=== PATIENT | female | born 1950 | race Caucasian/White ===

== ENCOUNTER → 2016-12-26 | Outpatient (CLI) | payer OTHER, MEDICAID ==
[2016-01-13 08:04] VITALS: BP 138/63
[2016-12-26 08:26] LABS: BASOPHILS # (AUTO) 0.1 X10^3/uL (0.0-0.1); BASOPHILS % (AUTO) 1.1 % (0.2-1.0); EOSINOPHILS # (AUTO) 0.2 x10^3/uL (0.0-0.2); EOSINOPHILS % (AUTO) 2.6 % (0.9-2.9); HEMATOCRIT 32.4 % (36.0-47.0); HEMOGLOBIN 10.7 g/dL (12.0-16.0); LYMPHOCYTES # (AUTO) 2.2 X10^3/uL (1.3-2.9); LYMPHOCYTES % (AUTO) 26.4 % (21.0-51.0); MEAN CORPUSCULAR HEMOGLOBIN 28.9 pg (27.0-34.0); MEAN CORPUSCULAR HGB CONC 32.9 g/dL (33.0-35.0); MEAN CORPUSCULAR VOLUME 87.9 fL (80.0-100.0); MEAN PLATELET VOLUME 8.6 fL (7.4-11.0); MONOCYTES # (AUTO) 0.5 x10^3/uL (0.3-0.8); MONOCYTES % (AUTO) 5.9 % (0.0-13.0); NEUTROPHILS # (AUTO) 5.3 x10^3/uL (2.2-4.8); PLATELET COUNT 214 X10^3/uL (150.0-450.0); RED BLOOD COUNT 3.69 X10^6/uL (3.5-5.4); RED CELL DISTRIBUTION WIDTH 14.3 % (11.6-16.5); WHITE BLOOD COUNT 8.3 X10^3/uL (3.6-10.0)
[2016-12-26 08:39] LABS: BLOOD UREA NITROGEN 22 mg/dL (7-18); CALCIUM 8.9 mg/dL (8.5-10.1); CARBON DIOXIDE 26.5 mmol/L (21-32); CHLORIDE 109 mmol/L (98-107); CHOL/HDL RATIO 4.1 (0.0-5.0); CHOLESTEROL 185 mg/dL (0-200); COR CA(FOR HYPOALB) 9.7 mg/dL (8.5-10.1); CREATININE 1.53 mg/dL (0.55-1.02); GLUCOSE 82 mg/dL (65-99); HDL CHOLESTEROL 45 mg/dL (40-60); SODIUM 146 mmol/L (136-145); TRIGLYCERIDES 162 mg/dL (0-150); URIC ACID 8.3 mg/dL (2.6-6.0); eGFR BLACK RACES 44 (>60); eGFR NON BLACK RACES 36 (>60)
[2016-12-26 15:42] LABS: HEMOGLOBIN A1C 5.5 % (4.5-6.2)
== END ==
LOC: LAB 07:50
PROVIDERS: ATTEND Internal Medicine
DX: I12.9 Hypertensive chronic kidney disease with stage 1 through stage 4 chronic kidney disease, or unspecified chronic kidney disease (principal); N18.3 Chronic kidney disease, stage 3 (moderate); E11.40 Type 2 diabetes mellitus with diabetic neuropathy, unspecified
CPT/HCPCS: 36415; 80061; 80069; 83036; 84550; 85025

== ENCOUNTER → 2017-01-03 | Outpatient (CLI) | payer OTHER, MEDICAID ==
[2016-01-13 08:04] VITALS: BP 138/63
--- NOTE | 2017-01-03 16:32 | MG ---
Examination: Bilateral screening mammogram. Clinical history: Routine screening. Technique: Digital CC and MLO views of both breasts were obtained. Computer aided detection analysis was performed and used during the interpretation. Comparison: None available. Baseline mammogram. Findings: The breasts are heterogeneously dense, reducing the sensitivity of mammography. Benign-appearing charlie cifications are noted in the breasts bilaterally. No suspicious mass, area of architectural distortion or suspicious cluster of microcalcifications is noted. Impression: 1. No mammographic evidence of malignancy. BI-RADS category 2-benign findings. Recommend routine annual screening mammogram. Diagnostic CAD was utilized and reviewed. * 0 (ZERO) - ASSESSMENT INCOMPLETE; ADDITIONAL IMAGING IS NEEDED. * 0C - ASSESSMENT INCOMPLETE, NEEDS ADDITIONAL IMAGING EVALUATION AND/OR PRIOR MAMMOGRAMS FOR COMPAR SRIDEVI. * 1/1 (ONE) - NEGATIVE. * 2/II (TWO) - BENIGN FINDINGS. * 3/III (THREE) - PROBABLY BENIGN FINDING; SHORT INTERVAL FOLLOW-UP SUGGESTED. * 4/IV (FOUR) - SUSPICIOUS ABNORMALITY; BIOPSY SHOULD BE CONSIDERED. * 5/V - HIGHLY SUSPICIOUS OF MALIGNANCY; BIOPSY SHOULD BE PERFORMED. * 6/IV - KNOWN BIOPSY PROVEN MALIGNANCY-APPROPRIATE ACTION SHOULD BE TAKEN. A NEGATIVE X-RAY REPORT SHOULD NOT DELAY BIOPSY IF A DOMINANT OR CLINICALLY SUSPICIOUS MASS IS PRESENT; 4 TO 8 PERCENT OF CANCERS ARE NOT IDENTIFIED BY X-RAY. A NEGATIVE REPORT MAY REINFORCE THE CLINICAL IMPRESSION. ADENOSIS AND DENSE BREASTS MAY OBSCURE AN UNDERLYING NEOPLASM. Reported By:
== END ==
LOC: RAD 09:46
PROVIDERS: ATTEND Obstetrics & Gynecology Obstetrics
DX: Z00.8 Encounter for other general examination (principal); Z12.31 Encounter for screening mammogram for malignant neoplasm of breast
CPT/HCPCS: 77067

== ENCOUNTER → 2017-02-24 | Outpatient (CLI) | payer OTHER, MEDICAID ==
[2016-01-13 08:04] VITALS: BP 138/63
[2017-02-24 12:19] LABS: ALANINE AMINOTRANSFERASE 15 Units/L (12-78); ALKALINE PHOSPHATASE 85 Units/L (46-116); ASPARTATE AMINO TRANSFERASE 12 Units/L (15-37); BASOPHILS # (AUTO) 0.1 X10^3/uL (0.0-0.1); BASOPHILS % (AUTO) 0.4 % (0.2-1.0); BLOOD UREA NITROGEN 39 mg/dL (7-18); CALCIUM 9.5 mg/dL (8.5-10.1); CARBON DIOXIDE 21.2 mmol/L (21-32); CHLORIDE 102 mmol/L (98-107); COR CA(FOR HYPOALB) 10.3 mg/dL (8.5-10.1); CREATININE 2.27 mg/dL (0.55-1.02); EOSINOPHILS % (AUTO) 0.1 % (0.9-2.9); GLUCOSE 84 mg/dL (65-99); HEMATOCRIT 31.8 % (36.0-47.0); HEMOGLOBIN 10.7 g/dL (12.0-16.0); LYMPHOCYTES # (AUTO) 2.1 X10^3/uL (1.3-2.9); LYMPHOCYTES % (AUTO) 14.3 % (21.0-51.0); MEAN CORPUSCULAR HEMOGLOBIN 29.3 pg (27.0-34.0); MEAN CORPUSCULAR HGB CONC 33.8 g/dL (33.0-35.0); MEAN CORPUSCULAR VOLUME 86.8 fL (80.0-100.0); MEAN PLATELET VOLUME 8.9 fL (7.4-11.0); MONOCYTES # (AUTO) 1.2 x10^3/uL (0.3-0.8); MONOCYTES % (AUTO) 8.5 % (0.0-13.0); NEUTROPHILS # (AUTO) 11.1 x10^3/uL (2.2-4.8); NEUTROPHILS % (AUTO) 76.7 % (42.0-75.0); PLATELET COUNT 374 X10^3/uL (150.0-450.0); RED BLOOD COUNT 3.66 X10^6/uL (3.5-5.4); RED CELL DISTRIBUTION WIDTH 14.3 % (11.6-16.5); SODIUM 138 mmol/L (136-145); TOTAL PROTEIN 8.7 g/dL (6.4-8.2); WHITE BLOOD COUNT 14.5 X10^3/uL (3.6-10.0); eGFR BLACK RACES 28 (>60); eGFR NON BLACK RACES 23 (>60)
--- NOTE | 2017-02-24 12:32 | RAD ---
HISTORY: Pleurisy Study: Chest two-view Comparison: January 11, 2016 Findings: The trachea is midline. The cardiac silhouette is markedly enlarged and has increased in size since the prior examination. No congestive heart failure is noted.. The lungs are clear without focal in filtrate or effusion. The bony thorax is unremarkable. IMPRESSION: 1. Cardiomegaly with increasing heart size since the prior examination, no congestive heart failure 2. Lungs clear Reported By:
== END ==
LOC: LAB 11:41
PROVIDERS: ATTEND Obstetrics & Gynecology Obstetrics
DX: R09.1 Pleurisy (principal)
CPT/HCPCS: 36415; 71020; 80053; 85025

== ENCOUNTER 2017-03-15 21:05 | Inpatient (IN) | payer OTHER, MEDICAID ==
[2017-03-15 21:14] VITALS: BMI 35.4
--- NOTE | 2017-03-15 21:34 | DR.GENAD ---
HPI - PCP Primary Care Physician: SAMEERA - Complaint/Symptoms Chief Complaint Doctors Comments: Patient presents with dyspnea for one week. She has a 4 pillow orthopnea and gets SOB walking across the room. She denies a history of heart failure. Chief Complaint:: " I BEEN DEPRESSED AND HAVING TROUBLE BREATHING AND HURTING BETWEEN MY BREAST IN MY CHEST AND I BEEN FALLING THE LAST WEEKS DR BRASHER PUT ME ON SOME MEDICINE I TOOK ALL OF IT AND NOW I FEEL BAD AGAIN." - Source History Provided: Patient - Mode of Arrival Mode of Arrival: Wheelchair - Timing Onset of Chief Complaint: 03/15/17 PMH - PMH Past Medical History: Yes Past Medical History: Diabetes, Hypertension Past Surgical History: Yes Surgical History: Unknown - Family History History of Family Medical Conditions: Yes Family Medical History: Diabetes Mellitus, Coronary Artery Disease, Hypertension - Social History Alcohol Use: None Do you use any recreational Drugs:: No Lives With: Family Lives Where: Home - infectious screening Have you traveled outside the country in the last 6 months?: No ROS - Review of Systems Constitutional: negative: Diaphoresis Eyes: No Symptoms Reported ENTM: No Symptoms Reported Respiratoy: No Symptoms Reported Cardiovascular: No Symptoms Reported Gastrointestinal/Abdominal: No Symptoms Reported Genitourinary: No Symptoms Reported Neurological: No Symptoms Reported Musculoskeletal: No Symptoms Reported Integumentary: No Symptoms Reported Hematologic/Lymphatic: No Symptoms Reported Endocrine: No Symptoms Reported Psychiatric: No Symptoms Reported All Other Systems: Reviewed and Negative PE - Vital Signs Vitals: Temperature 98.4 F Pulse Rate [Left] 93 Pulse Rate 87 Respiratory Rate 20 Blood Pressure [Left Arm] 154/63 Blood Pressure [Right Arm] 140/63 Blood Pressure 132/64 O2 Sat by Pulse Oximetry 95 - General Limitations: No Limitations, Physical Limitation (SOB) General Appearance: Anxious, In Distress (respiratory distress) - Head Head Exam: Normal Inspection, Atraumatic - Eyes Eye exam: Normal Appearance, PERRL - ENT ENT Exam: Normal Exam External Ear Exam: Normal External Inspection TM/Canal Exam: Bilateral Normal Nose Exam: Normal Nose Exam Mouth Exam: Normal Inspection Throat Exam: Normal Inspection - Neck Neck Exam: Normal Inspection - Chest Chest Inspection: Normal Inspection, Symmetric Chest Wall Rise - Respiratory Respiratory Exam: Normal Lung Sounds Bilat Respiratory Exam: Bilateral Clear to Auscultation - Cardiovascular Cardiovascular Exam: Regular Rate, Diastolic Murmur - Abdominal Exam Abdominal Exam: Normal Inspection Abdominal Tenderness: negative: RUQ, RLQ, LUQ, LLQ, Epigastrium, Suprapubic, Diffuse, Mild, Moderate, Severe, Other - Extremities Extremities Exam: Edema (R>L) - Back Back Exam: Normal Inspection - Neurologic Neurological Exam: Alert, Oriented X3, CN II-XII Intact - Psychiatric Psychiatric Exam: Normal Affect, Normal Mood - Skin Skin Exam: Warm, Dry, Erythema (Bilateral lower extremities distally) Course - Treatment Treatment: NTG, Lasix, Oxygen - Reevaluation 1st: Improved ROR - Labs Reviewed Result Diagrams: 03/15/17 21:46 03/15/17 21:46 Laboratory: WBC 10.8 X10^3/uL (3.6-10.0) H 03/15/17 21:46 RBC 3.66 X10^6/uL (3.5-5.4) 03/15/17 21:46 Hgb 10.6 g/dL (12.0-16.0) L 03/15/17 21:46 Hct 31.6 % (36.0-47.0) L 03/15/17 21:46 MCV 86.3 fL (80.0-100.0) 03/15/17 21:46 MCH 28.9 pg (27.0-34.0) 03/15/17 21:46 MCHC 33.5 g/dL (33.0-35.0) 03/15/17 21:46 RDW 14.4 % (11.6-16.5) 03/15/17 21:46 Plt Count 296 X10^3/uL (150.0-450.0) 03/15/17 21:46 MPV 8.2 fL (7.4-11.0) 03/15/17 21:46 Neut % 81.5 % (42.0-75.0) H 03/15/17 21:46 Lymph % 8.6 % (21.0-51.0) L 03/15/17 21:46 [place] % 9.0 % (0.0-13.0) 03/15/17 21:46 Eos % 0.4 % (0.9-2.9) L 03/15/17 21:46 Baso % 0.5 % (0.2-1.0) 03/15/17 21:46 Neut # 8.8 x10^3/uL (2.2-4.8) H 03/15/17 21:46 Lymph # 0.9 X10^3/uL (1.3-2.9) L 03/15/17 21:46 [place] # 1.0 x10^3/uL (0.3-0.8) H 03/15/17 21:46 Eos # 0.0 x10^3/uL (0.0-0.2) 03/15/17 21:46 Baso # 0.1 X10^3/uL (0.0-0.1) 03/15/17 21:46 Absolute Nucleated RBC 0.0 /100WBC 03/15/17 21:46 D-Dimer > 5000 ng/mL (0-400) H* 03/15/17 21:46 Sample Site Rrad 03/15/17 23:25 ABG pH 7.440 (7.35-7.45) 03/15/17 23:25 ABG pCO2 39.0 mmHg (35.0-45.0) 03/15/17 23:25 ABG pO2 78.0 mmHg (80.0-100.0) L 03/15/17 23:25 ABG HCO3 26.5 mmol/L (22-26) H 03/15/17 23:25 ABG O2 Saturation 96.0 % (90-100) 03/15/17 23:25 ABG Base Excess 2.2 mmol/L (-2.0-2.0) H 03/15/17 23:25 Christoph Test Pos 03/15/17 23:25 A-a Gradient 73.0 mmHg 03/15/17 23:25 FiO2 28.000 03/15/17 23:25 Blood Gas Comments Marii well ah 03/15/17 23:25 Sodium 137 mmol/L (136-145) 03/15/17 21:46 Corrected Sodium 140 mmol/L (136-145) 03/15/17 21:46 Potassium 3.9 mmol/L (3.5-5.1) 03/15/17 21:46 Chloride 101 mmol/L (98-107) 03/15/17 21:46 Carbon Dioxide 25.8 mmol/L (21-32) 03/15/17 21:46 BUN 27 mg/dL (7-18) H 03/15/17 21:46 Creatinine 1.60 mg/dL (0.55-1.02) H 03/15/17 21:46 Est GFR (MDRD) Af Amer 42 (>60) L 03/15/17 21:46 Est GFR (MDRD) Non-Af 34 (>60) L 03/15/17 21:46 Glucose 207 mg/dL (65-99) H 03/15/17 21:46 Calcium 9.2 mg/dL (8.5-10.1) 03/15/17 21:46 Corrected Calcium 10.4 mg/dL (8.5-10.1) H 03/15/17 21:46 Total Bilirubin 0.30 mg/dL (0.2-1.0) 03/15/17 21:46 AST 11 Units/L (15-37) L 03/15/17 21:46 ALT 13 Units/L (12-78) 03/15/17 21:46 Alkaline Phosphatase 92 Units/L (46-116) 03/15/17 21:46 Creatine Kinase 27 Units/L (26-192) 03/15/17 21:46 CK-MB (CK-2) < 1.0 ng/mL (0-4.0) 03/15/17 21:46 CK/CKMB % Calc 3.7 % (<4) 03/15/17 21:46 Troponin I < 0.02 ng/mL (0-1.5) 03/15/17 21:46 B-Natriuretic Peptide 92.1 pg/mL (0-79) H 03/15/17 21:46 Total Protein 8.0 g/dL (6.4-8.2) 03/15/17 21:46 Albumin 2.5 g/dL (3.4-5.0) L 03/15/17 21:46 Globulin 5.5 g/dL (2.5-4.5) H 03/15/17 21:46 Albumin/Globulin Ratio 0.5 Ratio (1.1-2.1) L 03/15/17 21:46 - XRAY XRAY Interpreted by: Radiologist (Chest: Findings are most characteristic of changes associated congestive failure. There is cardiomegaly, central vascular congestio, and interstitial edema. There is a right pleural effusion and consolidation in the right lower lobe.) - Diagnosis Discharge Problem: Cardiomegaly w/central vascular congesti, Dyspnea on exertion, Right Pleural Effusion/consolidation, Elevated d-dimer, Dehydration, mild - Discharge Plan Condition: Stable - Follow ups/Referrals Follow ups/Referrals: NFD,None [Primary Care Provider] - 3 days - Instructions
[2017-03-15 21:58] LABS: BASOPHILS # (AUTO) 0.1 X10^3/uL (0.0-0.1); BASOPHILS % (AUTO) 0.5 % (0.2-1.0); EOSINOPHILS % (AUTO) 0.4 % (0.9-2.9); HEMATOCRIT 31.6 % (36.0-47.0); HEMOGLOBIN 10.6 g/dL (12.0-16.0); LYMPHOCYTES # (AUTO) 0.9 X10^3/uL (1.3-2.9); LYMPHOCYTES % (AUTO) 8.6 % (21.0-51.0); MEAN CORPUSCULAR HEMOGLOBIN 28.9 pg (27.0-34.0); MEAN CORPUSCULAR HGB CONC 33.5 g/dL (33.0-35.0); MEAN CORPUSCULAR VOLUME 86.3 fL (80.0-100.0); MEAN PLATELET VOLUME 8.2 fL (7.4-11.0); NEUTROPHILS # (AUTO) 8.8 x10^3/uL (2.2-4.8); NEUTROPHILS % (AUTO) 81.5 % (42.0-75.0); PLATELET COUNT 296 X10^3/uL (150.0-450.0); RED BLOOD COUNT 3.66 X10^6/uL (3.5-5.4); RED CELL DISTRIBUTION WIDTH 14.4 % (11.6-16.5); WHITE BLOOD COUNT 10.8 X10^3/uL (3.6-10.0)
--- NOTE | 2017-03-15 22:05 | RAD ---
EXAM: Chest X-ray INDICATION: Shortness of breath COMPARISION: Prior exam from February 24, 2017 TECHNIQUE: Single view FINDINGS: The heart is severely enlarged and there is central vascular congestion. The interstitial markings a re prominent bilaterally. No pneumothorax . There is consolidation in the right lower lobe and a rig ht pleural effusion . The regional skeleton is intact. IMPRESSION: Findings are most characteristic of changes associated congestive heart failure. There is cardiomega ly, central vascular congestion, and interstitial edema. There is a right pleural effusion and conso lidation the right lower lobe. Reported By:
[2017-03-15 22:09] LABS: ALANINE AMINOTRANSFERASE 13 Units/L (12-78); ALBUMIN 2.5 g/dL (3.4-5.0); ALKALINE PHOSPHATASE 92 Units/L (46-116); ASPARTATE AMINO TRANSFERASE 11 Units/L (15-37); BLOOD UREA NITROGEN 27 mg/dL (7-18); CALCIUM 9.2 mg/dL (8.5-10.1); CARBON DIOXIDE 25.8 mmol/L (21-32); CHLORIDE 101 mmol/L (98-107); COR CA(FOR HYPOALB) 10.4 mg/dL (8.5-10.1); COR NA(FOR HYPERGLY) 140 mmol/L (136-145); GLUCOSE 207 mg/dL (65-99); SODIUM 137 mmol/L (136-145); eGFR BLACK RACES 42 (>60); eGFR NON BLACK RACES 34 (>60)
[2017-03-15 22:33] LABS: D DIMER > 5000 ng/mL (0-400)
[2017-03-15 22:37] LABS: B-TYPE NATRIURETIC PEPTIDE 92.1 pg/mL (0-79)
[2017-03-15 22:55] LABS: CKMB % 3.7 % (<4); CREATINE KINASE 27 Units/L (26-192); CREATINE KINASE MB < 1.0 ng/mL (0-4.0); TROPONIN I < 0.02 ng/mL (0-1.5)
[2017-03-15] MEDS ORDERED: LASIX IVP ONE ×2 (23:32→23:36)
[2017-03-15] MEDS ORDERED: DUONEB 0.5 MG/3 MG NEB ONE (23:33)
[2017-03-15] MEDS ORDERED: NITROSTAT SL ONE (23:34)
[2017-03-15 23:35] LABS: ABG ALLEN TEST POS; ABG BASE EXCESS 2.2 mmol/L (-2.0-2.0); ABG HCO3 26.5 mmol/L (22-26)
[2017-03-15] MEDS ORDERED: DUONEB 0.5 MG/3 MG ONE ×3 (23:39→23:47)
[2017-03-16 00:17] LABS: BILIRUBIN,URINE NEGATIVE (NEGATIVE); BLOOD/HEMOGLOBIN,URINE 2+ (NEGATIVE); GLUCOSE, URINE NEGATIVE (NEGATIVE); KETONES,URINE NEGATIVE (NEGATIVE); LEUKOCYTE ESTERASE ,URINE NEGATIVE (NEGATIVE); NITRITES,URINE NEGATIVE (NEGATIVE); PROTEIN,URINE 3+ (NEGATIVE); UROBILINOGEN,URINE NORMAL (NORMAL)
[2017-03-16 00:30] LABS: APPEARANCE,URINE CLEAR (CLEAR); COLOR,URINE YELLOW (YELLOW)
[2017-03-16 00:31] LABS: BACTERIA,URINE 1+ /HPF (NEGATIVE); SQUAMOUS EPITHELIAL CELL,UR RARE /HPF (NEGATIVE)
[2017-03-16] MEDS: DUONEB 0.5 MG/3 MG NEB SCH ×6 (00:46→20:39)
[2017-03-16] MEDS: NS 1000 ML 1,000 ML IV SCH ×2 (02:26→15:09)
[2017-03-16 05:09] LABS: CALCIUM 8.6 mg/dL (8.5-10.1); CARBON DIOXIDE 27.3 mmol/L (21-32); COR CA(FOR HYPOALB) 10.2 mg/dL (8.5-10.1); CREATININE 1.55 mg/dL (0.55-1.02); TOTAL PROTEIN 6.7 g/dL (6.4-8.2)
[2017-03-16] MEDS ORDERED: MORPHINE SULFATE INJ 2 MG IVP PRN (06:26)
[2017-03-16] MEDS: ULTRAM PO PRN (06:50)
[2017-03-16] MEDS ORDERED: HumuLIN R SUBCUT PRN (08:00)
[2017-03-16] MEDS ORDERED: LASIX IVP SCH (09:00)
[2017-03-16] MEDS ORDERED: PATIENT'S HOME MEDICATION (Glimepiride [Glimepiride 2 Mg] 2 MG) PO SCH (09:45)
[2017-03-16] MEDS ORDERED: LASIX ONE (09:51)
[2017-03-16] MEDS: PriLOSEC PO SCH (09:55)
[2017-03-16] MEDS: CELEXA PO SCH (09:55)
[2017-03-16] MEDS: NEURONTIN CAP 300 MG PO SCH ×3 (09:55→21:50)
[2017-03-16] MEDS: LASIX IVP SCH ×2 (09:56→20:44)
[2017-03-16] MEDS ORDERED: LEVAQUIN PREMIX IV 500 MG 500 MG/100 ML BAG IV ONE (10:00)
[2017-03-16] MEDS ORDERED: LEVAQUIN PREMIX IV 500 MG 500 MG/100 ML BAG IV SCH (10:00)
[2017-03-16] MEDS ORDERED: JANUVIA PO SCH (10:00)
--- NOTE | 2017-03-16 13:28 | DR.H&P ---
Addendum entered and electronically signed by NAVARRO MERCADO 03/16/17 13:42: H&P 03/15/2017 Original Note: H&P - History & Physical for Day of: H&P Date: 03/15/17 - Chief Complaint Chief Complaint: SOB - Allergies Allergies/Adverse Reactions: Allergies Allergy/AdvReac Type Severity Reaction Status Date / Time MS Penicillins [Penicillins] Allergy Verified 01/11/16 18:47 WALNUTS Allergy Uncoded 01/11/16 18:47 - History of Present Illness History of Present Illness: the patient is a 66-year-old white female who was admitted from the ER after presenting with complaints of shortness of breath gradually increased last several days. Patient's chest x-ray revealed of pneumonia as well as CHF exacerbation. Patient was admitted to ICU for IV antibiotics respiratory therapy IV Lasix and further evaluation of acute condition. Plan to hold Actos and resume other home medications blood sugar and blood pressure control - Past Medical History Past Medical History: Arthritis, Diabetes, Hypertension - Past Surgical History Surgical History: Unknown - Family History Family Medical History: Diabetes Mellitus, Coronary Artery Disease, Hypertension - Social History Does patient currently use any type of tobacco product: No Have you used tobacco products in the last 12 months: No Type of Tobacco Use: None Does any household member use tobacco: No Alcohol Use: None Drug Use: None - Medications Home Medications: Citalopram 20 mg Tab [CELEXA 20 MG *] 20 mg PO DAILY 03/16/17 [History Confirmed 03/16/17] Gabapentin [NEURONTIN CAP 300 mg *] 300 mg PO TID 03/16/17 [History Confirmed ] Glimepiride [Glimepiride 2 mg] 2 mg PO DAILY 03/16/17 [History Confirmed ] Omeprazole [Omeprazole] 20 mg PO DAILY 03/16/17 [History Confirmed 03/16/17] Pioglitazone HCl [ACTOS 45 MG *] 45 mg PO DAILY 03/16/17 [History Confirmed ] Simvastatin [Simvastatin] 20 mg PO HS 03/16/17 [History Confirmed 03/16/17] Sitagliptin Phosphate [JANUVIA 100 MG *] 100 mg PO DAILY 03/16/17 [History Confirmed 03/16/17] - Review of Systems Constitutional: Fever, Chills, Weakness Eyes: No Symptoms Reported ENT: No Symptoms Reported Respiratory: Cough, Shortness of Breath, SOB with Excertion, Wheezing Cardiovascular: Edema Gastrointestinal: No Symptoms Reported Genitourinary: No Symptoms Reported Musculoskeletal: No Symptoms Reported Skin: No Symptoms Reported Neurological: Weakness - Physical Exam Vital Signs: Temperature 97.7 F Pulse Rate [Apical] 92 Pulse Rate [Left] 86 Pulse Rate 68 Respiratory Rate 12 Blood Pressure [Right Arm] 112/60 O2 Sat by Pulse Oximetry 98 Oriented: Normal Eyes: Normal Ear: Normal Nose: Normal Throat: Normal Respiratory: Diminished Throughout Cardiovascular: Normal, Edema : Normal Auscultation: Bowel Sounds: Normal Palpation: Normal Skin: Normal Musculoskeletal: Back:Lumbar Speech Pattern: Clear - Assessment/Plan (1) CHF exacerbation Qualifiers: Congestive heart failure type: C Status: Acute Plan: ADMIT ICU, IV LASIX. STRICT I & O'S, BP AND LIPID CONTROL (2) Pneumonia Qualifiers: Pneumonia type: P Aspiration pneumonia type: A Laterality: L Lung location: L Status: Acute Plan: IV ATBX, RESP THERAPY (3) Diabetes mellitus, type 2 Qualifiers: Diabetes mellitus complication status: with hypoglycemia Diabetes mellitus complication detail: D Diabetic retinopathy severity: D Proliferative retinopathy type: P Diabetes mellitus macular edema: D Diabetes mellitus supervisor intermediates insulin use: D Laterality: L Chronic kidney disease stage: C Status: Chronic (4) GERD (gastroesophageal reflux disease) Qualifiers: Esophagitis presence: E Status: Chronic (5) Hyperlipidemia Qualifiers: Hyperlipidemia type: H Status: Chronic (6) Hypertension Qualifiers: Hypertension type: H Status: Chronic
[2017-03-16] MEDS: SNACK - Diabetic Appropriate PO SCH (20:00)
[2017-03-16] MEDS: ZOCOR TAB 20 MG PO SCH (20:44)
[2017-03-17] MEDS: DUONEB 0.5 MG/3 MG NEB SCH ×6 (00:55→19:59)
[2017-03-17] MEDS: ULTRAM PO PRN (02:55)
[2017-03-17] MEDS: NS 1000 ML 1,000 ML IV SCH ×3 (05:26→20:46)
[2017-03-17 06:13] LABS: BASOPHILS % (AUTO) 0.3 % (0.2-1.0); EOSINOPHILS # (AUTO) 0.1 x10^3/uL (0.0-0.2); EOSINOPHILS % (AUTO) 0.8 % (0.9-2.9); HEMOGLOBIN 8.7 g/dL (12.0-16.0); LYMPHOCYTES # (AUTO) 1.3 X10^3/uL (1.3-2.9); LYMPHOCYTES % (AUTO) 15.5 % (21.0-51.0); MEAN CORPUSCULAR HEMOGLOBIN 28.4 pg (27.0-34.0); MEAN CORPUSCULAR HGB CONC 33.4 g/dL (33.0-35.0); MEAN PLATELET VOLUME 8.6 fL (7.4-11.0); MONOCYTES # (AUTO) 0.6 x10^3/uL (0.3-0.8); MONOCYTES % (AUTO) 7.9 % (0.0-13.0); NEUTROPHILS # (AUTO) 6.2 x10^3/uL (2.2-4.8); NEUTROPHILS % (AUTO) 75.5 % (42.0-75.0); PLATELET COUNT 240 X10^3/uL (150.0-450.0); RED BLOOD COUNT 3.05 X10^6/uL (3.5-5.4); RED CELL DISTRIBUTION WIDTH 14.7 % (11.6-16.5); WHITE BLOOD COUNT 8.3 X10^3/uL (3.6-10.0)
[2017-03-17] MEDS: NEURONTIN CAP 300 MG PO SCH ×3 (06:16→22:00)
[2017-03-17 06:30] LABS: ALANINE AMINOTRANSFERASE 12 Units/L (12-78); ALKALINE PHOSPHATASE 73 Units/L (46-116); ASPARTATE AMINO TRANSFERASE 17 Units/L (15-37); BLOOD UREA NITROGEN 29 mg/dL (7-18); CALCIUM 8.4 mg/dL (8.5-10.1); CARBON DIOXIDE 28.6 mmol/L (21-32); CHLORIDE 103 mmol/L (98-107); CREATININE 1.63 mg/dL (0.55-1.02); GLUCOSE 108 mg/dL (65-99); SODIUM 140 mmol/L (136-145); TOTAL PROTEIN 6.6 g/dL (6.4-8.2); eGFR BLACK RACES 41 (>60); eGFR NON BLACK RACES 34 (>60)
[2017-03-17] MEDS: LEVAQUIN PREMIX IV 250 MG 250 MG/50 ML BAG IV SCH (08:35)
[2017-03-17] MEDS: LASIX IVP SCH ×2 (08:35→20:46)
[2017-03-17] MEDS: AMARYL TAB 4 MG PO SCH (08:36)
[2017-03-17] MEDS: PriLOSEC PO SCH (08:37)
[2017-03-17] MEDS: CELEXA PO SCH (08:37)
[2017-03-17] MEDS: JANUVIA PO SCH (08:38)
--- NOTE | 2017-03-17 09:16 | RAD ---
HISTORY: Cough Study: Chest two-view Comparison: March 15, 2017 Findings: The heart is enlarged. Mild pulmonary venous congestion is present. There is a large right pleural e ffusion obscuring the lung markings in the right middle and right lower lobes. Underlying atelectasi s or infiltrate cannot be excluded. The right lung apex and left lung are clear. The bony thorax is unremarkable. IMPRESSION: Cardiomegaly with mild pulmonary venous congestion. Large right pleural effusion obscuring the lung markings in the right middle and right lower lobes. Reported By:
--- NOTE | 2017-03-17 13:48 | PCM.PROG ---
Progress Note - Progress Note for Day of Date: 03/17/17 - Subjective Subjective: patient is a 66-year-old white female who was admitted early yesterday morning with respiratory distress. Patient was noted to be in CHF with a large pleural effusions. Patient has received IV Lasix as well as IV antibiotics and respiratory therapy. Patient is sitting up on the side of the bed this morning with marked improvement in respiratory status. Patient continues to have bilateral diminished bases and diffuse expiratory wheezes. Patient has tolerated Lasix well. Plan to continue with IV Lasix, IV antibiotics and respiratory therapy stat chest x-ray this morning - Past Medical Family Social History Past Med/Fam/Surg Hx: No changes since H&P Allergies: Allergies MS Penicillins [Penicillins] Allergy (Verified 01/11/16 18:47) WALNUTS Allergy (Uncoded 01/11/16 18:47) - Review of Systems ROS: No change since H&P - Vital Signs and I&O's Vital Signs: Temperature 97.8 F Pulse Rate [Apical] 91 Pulse Rate [Left] 86 Pulse Rate 89 Respiratory Rate 21 Blood Pressure [Right Arm] 137/64 O2 Sat by Pulse Oximetry 97 Intake and Output: Intake & Output 03/15/17 03/16/17 03/17/17 03/18/17 11:59 11:59 11:59 11:59 Intake Total 144 4104 Output Total 950 3575 Balance -806 529 - Physical Exam Oriented: Normal Eyes: Normal Ear: Normal Nose: Normal Throat: Normal Respiratory: Diminished, Wheezes Cardiovascular: Normal, Edema : Normal Auscultation: Bowel Sounds: Normal Skin: Normal Musculoskeletal: Back:Lumbar Speech Pattern: Clear, Appropriate - Laboratory and Diagnostics Result Diagrams: 03/17/17 04:40 03/17/17 04:40 Labs: Laboratory WBC 8.3 X10^3/uL (3.6-10.0) 03/17/17 04:40 RBC 3.05 X10^6/uL (3.5-5.4) L 03/17/17 04:40 Hgb 8.7 g/dL (12.0-16.0) L 03/17/17 04:40 Hct 26.0 % (36.0-47.0) L 03/17/17 04:40 MCV 85.0 fL (80.0-100.0) 03/17/17 04:40 MCH 28.4 pg (27.0-34.0) 03/17/17 04:40 MCHC 33.4 g/dL (33.0-35.0) 03/17/17 04:40 RDW 14.7 % (11.6-16.5) 03/17/17 04:40 Plt Count 240 X10^3/uL (150.0-450.0) 03/17/17 04:40 MPV 8.6 fL (7.4-11.0) 03/17/17 04:40 Neut % 75.5 % (42.0-75.0) H 03/17/17 04:40 Lymph % 15.5 % (21.0-51.0) L 03/17/17 04:40 Price % 7.9 % (0.0-13.0) 03/17/17 04:40 Eos % 0.8 % (0.9-2.9) L 03/17/17 04:40 Baso % 0.3 % (0.2-1.0) 03/17/17 04:40 Neut # 6.2 x10^3/uL (2.2-4.8) H 03/17/17 04:40 Lymph # 1.3 X10^3/uL (1.3-2.9) 03/17/17 04:40 Price # 0.6 x10^3/uL (0.3-0.8) 03/17/17 04:40 Eos # 0.1 x10^3/uL (0.0-0.2) 03/17/17 04:40 Baso # 0.0 X10^3/uL (0.0-0.1) 03/17/17 04:40 Absolute Nucleated RBC 0.1 /100WBC 03/17/17 04:40 D-Dimer > 5000 ng/mL (0-400) H* 03/15/17 21:46 Sample Site Rrad 03/15/17 23:25 ABG pH 7.440 (7.35-7.45) 03/15/17 23:25 ABG pCO2 39.0 mmHg (35.0-45.0) 03/15/17 23:25 ABG pO2 78.0 mmHg (80.0-100.0) L 03/15/17 23:25 ABG HCO3 26.5 mmol/L (22-26) H 03/15/17 23:25 ABG O2 Saturation 96.0 % (90-100) 03/15/17 23:25 ABG Base Excess 2.2 mmol/L (-2.0-2.0) H 03/15/17 23:25 Christoph Test Pos 03/15/17 23:25 A-a Gradient 73.0 mmHg 03/15/17 23:25 FiO2 28.000 03/15/17 23:25 Blood Gas Comments Marii well ah 03/15/17 23:25 Sodium 140 mmol/L (136-145) 03/17/17 04:40 Corrected Sodium TNP 03/17/17 04:40 Potassium 3.6 mmol/L (3.5-5.1) 03/17/17 04:40 Chloride 103 mmol/L (98-107) 03/17/17 04:40 Carbon Dioxide 28.6 mmol/L (21-32) 03/17/17 04:40 BUN 29 mg/dL (7-18) H 03/17/17 04:40 Creatinine 1.63 mg/dL (0.55-1.02) H 03/17/17 04:40 Est GFR (MDRD) Af Amer 41 (>60) L 03/17/17 04:40 Est GFR (MDRD) Non-Af 34 (>60) L 03/17/17 04:40 Glucose 108 mg/dL (65-99) H 03/17/17 04:40 Calcium 8.4 mg/dL (8.5-10.1) L 03/17/17 04:40 Corrected Calcium 10.0 mg/dL (8.5-10.1) 03/17/17 04:40 Total Bilirubin 0.20 mg/dL (0.2-1.0) 03/17/17 04:40 AST 17 Units/L (15-37) 03/17/17 04:40 ALT 12 Units/L (12-78) 03/17/17 04:40 Alkaline Phosphatase 73 Units/L (46-116) 03/17/17 04:40 Creatine Kinase 27 Units/L (26-192) 03/15/17 21:46 CK-MB (CK-2) < 1.0 ng/mL (0-4.0) 03/15/17 21:46 CK/CKMB % Calc 3.7 % (<4) 03/15/17 21:46 Troponin I < 0.02 ng/mL (0-1.5) 03/15/17 21:46 B-Natriuretic Peptide 92.1 pg/mL (0-79) H 03/15/17 21:46 Total Protein 6.6 g/dL (6.4-8.2) 03/17/17 04:40 Albumin 2.0 g/dL (3.4-5.0) L 03/17/17 04:40 Globulin 4.6 g/dL (2.5-4.5) H 03/17/17 04:40 Albumin/Globulin Ratio 0.4 Ratio (1.1-2.1) L 03/17/17 04:40 Specimen Type Catherized urine 03/16/17 00:03 Urine Color Yellow (YELLOW) 03/16/17 00:03 Urine Appearance Clear (CLEAR) 03/16/17 00:03 Urine pH 5.0 (5.0 - 8.0) 03/16/17 00:03 Ur Specific [place] 1.020 (1.000-1.030) 03/16/17 00:03 Urine Protein 3+ (NEGATIVE) 03/16/17 00:03 Urine Glucose (UA) Negative (NEGATIVE) 03/16/17 00:03 Urine Ketones Negative (NEGATIVE) 03/16/17 00:03 Urine Occult Blood 2+ (NEGATIVE) 03/16/17 00:03 Urine Nitrite Negative (NEGATIVE) 03/16/17 00:03 Urine Bilirubin Negative (NEGATIVE) 03/16/17 00:03 Urine Urobilinogen Normal (NORMAL) 03/16/17 00:03 Ur Leukocyte Esterase Negative (NEGATIVE) 03/16/17 00:03 Urine RBC 3-5 /HPF (NEGATIVE) 03/16/17 00:03 Urine WBC 0-3 /HPF (NEGATIVE) 03/16/17 00:03 Ur Squamous Epith Cells Rare /HPF (NEGATIVE) 03/16/17 00:03 Urine Bacteria 1+ /HPF (NEGATIVE) 03/16/17 00:03 Ur Culture Indicated? Yes/culture set up 03/16/17 00:03 - Plan (1) CHF exacerbation Status: Acute Qualifiers: Congestive heart failure type: C Plan: iv lASIX, STRICT i'S AND NITRATES, BLOOD PRESSURE AND BLOOD SUGAR CONTROL. rEPEAT CHEST X-RAY, A.M. LABS (2) Pneumonia Status: Acute Qualifiers: Pneumonia type: P Aspiration pneumonia type: A Laterality: L Lung location: L Plan: IV ATBX, RESP THERAPY (3) Diabetes mellitus, type 2 Status: Chronic Qualifiers: Diabetes mellitus complication status: with hypoglycemia Diabetes mellitus complication detail: D Diabetic retinopathy severity: D Proliferative retinopathy type: P Diabetes mellitus macular edema: D Diabetes mellitus intermediate frame tender insulin use: D Laterality: L Chronic kidney disease stage: C Plan: dc'D aCTOS, INSULIN COVERAGE (4) GERD (gastroesophageal reflux disease) Status: Chronic Qualifiers: Esophagitis presence: E (5) Hyperlipidemia Status: Chronic Qualifiers: Hyperlipidemia type: H (6) Hypertension Status: Chronic Qualifiers: Hypertension type: H Plan: BLOOD PRESSURE CONTROL, CONTINUE TELEMETRY
[2017-03-17] MEDS: SNACK - Diabetic Appropriate PO SCH (20:00)
[2017-03-17] MEDS: ZOCOR TAB 20 MG PO SCH (20:46)
[2017-03-18] MEDS: DUONEB 0.5 MG/3 MG NEB SCH ×2 (00:49→04:20)
[2017-03-18] MEDS ORDERED: LOPRESSOR INJ 5 MG AMP IVP ONE (03:15)
[2017-03-18] MEDS: NS 1000 ML 1,000 ML IV SCH ×2 (05:00→09:26)
[2017-03-18 05:30] LABS: ALANINE AMINOTRANSFERASE 11 Units/L (12-78); ALKALINE PHOSPHATASE 76 Units/L (46-116); ASPARTATE AMINO TRANSFERASE 17 Units/L (15-37); BASOPHILS % (AUTO) 0.5 % (0.2-1.0); BLOOD UREA NITROGEN 27 mg/dL (7-18); CALCIUM 8.5 mg/dL (8.5-10.1); CARBON DIOXIDE 27.8 mmol/L (21-32); CHLORIDE 102 mmol/L (98-107); COR CA(FOR HYPOALB) 10.1 mg/dL (8.5-10.1); CREATININE 1.44 mg/dL (0.55-1.02); EOSINOPHILS # (AUTO) 0.2 x10^3/uL (0.0-0.2); GLUCOSE 83 mg/dL (65-99); HEMATOCRIT 27.7 % (36.0-47.0); HEMOGLOBIN 9.2 g/dL (12.0-16.0); LYMPHOCYTES # (AUTO) 1.2 X10^3/uL (1.3-2.9); LYMPHOCYTES % (AUTO) 13.9 % (21.0-51.0); MEAN CORPUSCULAR HEMOGLOBIN 28.3 pg (27.0-34.0); MEAN CORPUSCULAR HGB CONC 33.4 g/dL (33.0-35.0); MEAN CORPUSCULAR VOLUME 84.7 fL (80.0-100.0); MEAN PLATELET VOLUME 8.9 fL (7.4-11.0); MONOCYTES # (AUTO) 0.6 x10^3/uL (0.3-0.8); MONOCYTES % (AUTO) 7.5 % (0.0-13.0); NEUTROPHILS # (AUTO) 6.5 x10^3/uL (2.2-4.8); NEUTROPHILS % (AUTO) 76.1 % (42.0-75.0); PLATELET COUNT 253 X10^3/uL (150.0-450.0); RED BLOOD COUNT 3.27 X10^6/uL (3.5-5.4); RED CELL DISTRIBUTION WIDTH 14.9 % (11.6-16.5); SODIUM 141 mmol/L (136-145); TOTAL PROTEIN 6.7 g/dL (6.4-8.2); WHITE BLOOD COUNT 8.5 X10^3/uL (3.6-10.0); eGFR BLACK RACES 47 (>60); eGFR NON BLACK RACES 39 (>60)
[2017-03-18] MEDS ORDERED: CARDIZEM INJ 125 MG VIAL 125 MG in NS 100 ML IV 100 ML IV PRN (05:34)
[2017-03-18] MEDS ORDERED: XOPENEX 1.25 MG/3 ML NEBULE NEB PRN ×2 (05:34→06:27)
[2017-03-18] MEDS: NEURONTIN CAP 300 MG PO SCH ×3 (06:05→22:00)
[2017-03-18] MEDS ORDERED: K-LYTE EFFERVESCENT PO PRN (06:31)
[2017-03-18] MEDS ORDERED: K-DUR TAB 20 MEQ PO PRN (06:31)
[2017-03-18] MEDS ORDERED: POTASSIUM CHLORIDE LIQ 20 MEQ UDC PO PRN (06:31)
[2017-03-18] MEDS ORDERED: K-RIDER 10 MEQ/NS 100 ML 10 MEQ/100 ML BAG IV PRN (06:31)
--- NOTE | 2017-03-18 06:54 | RAD ---
HISTORY: cough and pneumonia Study: Portable chest Comparison: 03/17/2017 Findings: The heart is mildly enlarged but unchanged. The pulmonary vessels are less prominent centrally . The re is hazy opacity along the right perihilar region extending into the lung base which is decreased . There is a mild to moderate right pleural effusion which has slightly decreased in size. IMPRESSION: Stable cardiomegaly with slowly resolving pulmonary edema . Hazy right perihilar and right basilar atelectasis and /or consolidation which has slightly decrease d . Mild to moderate right pleural effusion which has decreased in size. Reported By:
[2017-03-18] MEDS: AMARYL TAB 4 MG PO SCH (07:52)
[2017-03-18] MEDS: LASIX IVP SCH ×2 (08:18→20:41)
[2017-03-18] MEDS: PriLOSEC PO SCH (08:18)
[2017-03-18] MEDS: CELEXA PO SCH (08:18)
[2017-03-18] MEDS: JANUVIA PO SCH (08:19)
[2017-03-18] MEDS: LEVAQUIN PREMIX IV 250 MG 250 MG/50 ML BAG IV SCH (08:22)
[2017-03-18] MEDS: ATROVENT NEB TX 0.02% NEB SCH ×2 (12:24→17:04)
[2017-03-18] MEDS: SNACK - Diabetic Appropriate PO SCH (20:15)
[2017-03-18] MEDS: ZOCOR TAB 20 MG PO SCH (20:42)
[2017-03-19] MEDS: ATROVENT NEB TX 0.02% NEB SCH ×4 (00:15→17:01)
[2017-03-19 06:17] LABS: BASOPHILS # (AUTO) 0.1 X10^3/uL (0.0-0.1); BASOPHILS % (AUTO) 0.8 % (0.2-1.0); EOSINOPHILS # (AUTO) 0.3 x10^3/uL (0.0-0.2); EOSINOPHILS % (AUTO) 3.1 % (0.9-2.9); HEMATOCRIT 25.8 % (36.0-47.0); HEMOGLOBIN 8.8 g/dL (12.0-16.0); LYMPHOCYTES # (AUTO) 1.6 X10^3/uL (1.3-2.9); LYMPHOCYTES % (AUTO) 16.9 % (21.0-51.0); MEAN CORPUSCULAR HEMOGLOBIN 28.3 pg (27.0-34.0); MEAN CORPUSCULAR VOLUME 83.3 fL (80.0-100.0); MEAN PLATELET VOLUME 8.8 fL (7.4-11.0); MONOCYTES # (AUTO) 0.7 x10^3/uL (0.3-0.8); MONOCYTES % (AUTO) 8.1 % (0.0-13.0); NEUTROPHILS # (AUTO) 6.5 x10^3/uL (2.2-4.8); NEUTROPHILS % (AUTO) 71.1 % (42.0-75.0); PLATELET COUNT 266 X10^3/uL (150.0-450.0); WHITE BLOOD COUNT 9.2 X10^3/uL (3.6-10.0)
[2017-03-19] MEDS: NEURONTIN CAP 300 MG PO SCH ×3 (06:20→22:00)
[2017-03-19 06:39] LABS: ALANINE AMINOTRANSFERASE 12 Units/L (12-78); ALKALINE PHOSPHATASE 74 Units/L (46-116); ASPARTATE AMINO TRANSFERASE 21 Units/L (15-37); BLOOD UREA NITROGEN 28 mg/dL (7-18); CALCIUM 8.7 mg/dL (8.5-10.1); CHLORIDE 101 mmol/L (98-107); COR CA(FOR HYPOALB) 10.3 mg/dL (8.5-10.1); CREATININE 1.38 mg/dL (0.55-1.02); GLUCOSE 79 mg/dL (65-99); MAGNESIUM 1.5 mg/dL (1.7-2.9); SODIUM 140 mmol/L (136-145); TOTAL PROTEIN 6.7 g/dL (6.4-8.2); eGFR BLACK RACES 50 (>60); eGFR NON BLACK RACES 41 (>60)
[2017-03-19] MEDS: LEVAQUIN PREMIX IV 250 MG 250 MG/50 ML BAG IV SCH (08:29)
[2017-03-19] MEDS: LASIX IVP SCH ×2 (08:32→20:55)
[2017-03-19] MEDS: PriLOSEC PO SCH (08:32)
[2017-03-19] MEDS: JANUVIA PO SCH (08:33)
[2017-03-19] MEDS: CELEXA PO SCH (08:33)
[2017-03-19] MEDS: AMARYL TAB 4 MG PO SCH (08:33)
--- NOTE | 2017-03-19 15:53 | RAD ---
HISTORY: CHF Study: PA and lateral views of the chest Comparison: 03/18/2017 Findings: There is a small to moderately sized right pleural effusion. This appears to have mildly increased i n size compared previous examination however this appearance may be secondary to differences in posi tioning. Right basilar airspace opacity is likely secondary to compressive atelectasis. The upper ri ght lung and left lung appear clear. Cardiac silhouette is moderately enlarged, stable. IMPRESSION: 1. Small to moderately size right pleural effusion. This appears to have slightly increased in size compared previous radiographs however this difference in appearance may be secondary to differences in patient positioning. 2. Right basilar airspace opacity likely compressive atelectasis however underlying pneumonia or oth er pathology cannot be excluded. 3.. Stable enlargement of the cardiac silhouette Reported By:
[2017-03-19] MEDS: SNACK - Diabetic Appropriate PO SCH (20:00)
[2017-03-19] MEDS ORDERED: MILK OF MAGNESIA PO PRN (20:01)
[2017-03-19] MEDS: ZOCOR TAB 20 MG PO SCH (20:55)
[2017-03-19] MEDS ORDERED: COLACE CAP 100 MG PO SCH (21:00)
[2017-03-20] MEDS: ATROVENT NEB TX 0.02% NEB SCH ×3 (00:58→12:00)
[2017-03-20] MEDS: NEURONTIN CAP 300 MG PO SCH ×2 (06:21→13:11)
--- NOTE | 2017-03-20 07:32 | CT ---
HISTORY: Pleural effusion Study: CT chest without contrast Comparison: Chest x-ray March 19, 2017 Technique: Axial non contrast images with coronal and sagittal reformats. Dose reduction procedures were use with MA/kv adjusted for body size. Findings: Examination of the mediastinum demonstrated no definite evidence for mediastinal masses, enlarged ly mphadenopathy, or enlarged hilar adenopathy. The heart is enlarged. There is a large right pleural e ffusion present. A much smaller left pleural effusion is identified. No chest wall or axillary abnor mality is identified. Those portions of the upper abdominal organs were within normal limits. Incide ntal note is made of benign right adrenal calcifications. Examination of the lung paz demonstrate d the right upper lobe, right middle lobe, and left lung to be clear. There is atelectatic change in the right lower lobe underlying the right pleural effusion. Follow up until complete resolution is recommended in order to exclude underlying neoplasm. IMPRESSION: Large right pleural effusion with underlie right lower lobe atelectatic change. Follow up until comp lete resolution is recommended in order to exclude underlying neoplasm. Small left pleural effusion. Cardiomegaly Reported By:
[2017-03-20] MEDS: JANUVIA PO SCH (08:14)
[2017-03-20] MEDS: PriLOSEC PO SCH (08:14)
[2017-03-20] MEDS: LASIX IVP SCH (08:15)
[2017-03-20] MEDS: AMARYL TAB 4 MG PO SCH (08:15)
[2017-03-20] MEDS: LEVAQUIN PREMIX IV 250 MG 250 MG/50 ML BAG IV SCH (08:15)
[2017-03-20] MEDS: CELEXA PO SCH (08:15)
[2017-03-20 09:01] LABS: BASOPHILS % (AUTO) 0.5 % (0.2-1.0); EOSINOPHILS # (AUTO) 0.1 x10^3/uL (0.0-0.2); HEMATOCRIT 27.7 % (36.0-47.0); HEMOGLOBIN 9.3 g/dL (12.0-16.0); LYMPHOCYTES % (AUTO) 11.9 % (21.0-51.0); MEAN CORPUSCULAR HEMOGLOBIN 27.9 pg (27.0-34.0); MEAN CORPUSCULAR HGB CONC 33.5 g/dL (33.0-35.0); MEAN CORPUSCULAR VOLUME 83.4 fL (80.0-100.0); MEAN PLATELET VOLUME 8.5 fL (7.4-11.0); MONOCYTES # (AUTO) 0.7 x10^3/uL (0.3-0.8); MONOCYTES % (AUTO) 7.7 % (0.0-13.0); NEUTROPHILS # (AUTO) 6.7 x10^3/uL (2.2-4.8); NEUTROPHILS % (AUTO) 78.9 % (42.0-75.0); PLATELET COUNT 305 X10^3/uL (150.0-450.0); RED BLOOD COUNT 3.32 X10^6/uL (3.5-5.4); RED CELL DISTRIBUTION WIDTH 14.6 % (11.6-16.5); WHITE BLOOD COUNT 8.5 X10^3/uL (3.6-10.0)
[2017-03-20 09:04] LABS: CALCIUM 8.6 mg/dL (8.5-10.1); CARBON DIOXIDE 32.7 mmol/L (21-32); COR CA(FOR HYPOALB) 10.2 mg/dL (8.5-10.1); CREATININE 1.55 mg/dL (0.55-1.02); MAGNESIUM 1.7 mg/dL (1.7-2.9); TOTAL PROTEIN 6.8 g/dL (6.4-8.2)
[2017-03-20 15:52] VITALS: BP 110/65
== END 2017-03-20 16:05 | disposition home or self-care (01) | DRG 291 ==
LOC: ER 21:21 → ICU 03-16 00:36
PROVIDERS: ADMIT Internal Medicine; ATTEND Obstetrics & Gynecology Obstetrics
DX: I50.9 Heart failure, unspecified (principal); J18.8 Other pneumonia, unspecified organism; J90 Pleural effusion, not elsewhere classified; R06.00 Dyspnea, unspecified; R06.02 Shortness of breath; I10 Essential (primary) hypertension; R94.31 Abnormal electrocardiogram [ECG] [EKG]; M13.89 Other specified arthritis, multiple sites; E11.65 Type 2 diabetes mellitus with hyperglycemia; K21.9 Gastro-esophageal reflux disease without esophagitis; E78.2 Mixed hyperlipidemia; R26.89 Other abnormalities of gait and mobility
CPT/HCPCS: 36415; 36600; 51702; 71010; 71020; 71250; 80053; 81001; 82550; 82553; 82803; 83036; 83735; 83880; 84132; 84484; 85025; 85378; 87086; 93005; 93010; 94640; 96365; 96374; 99284; A4216; A4222; J1940; J1956; J7620; J7644

== ENCOUNTER 2017-03-23 09:51 | Emergency (ER) | payer MEDICAID, OTHER ==
--- NOTE | 2017-03-23 10:23 | DR.GENAD ---
HPI - PCP Primary Care Physician: NAVARRO MERCADO - Complaint/Symptoms Chief Complaint:: EMS STATED THAT SHE HAD LOW BLOOD SUGAR THIS MORNING. HER GLUCOSE WAS 30 ON THEIR MONITOR. THEY GAVE HER A AMP OF D50 AND IT CAME UP TO 236. - Source History Provided: Patient, EMS - Mode of Arrival Mode of Arrival: Stretcher - Timing Onset of Chief Complaint: 03/23/17 PMH - PMH Past Medical History: Yes Past Medical History: Arthritis, Diabetes, Hypertension Past Surgical History: Yes Surgical History: Ortho Surgery - Family History History of Family Medical Conditions: Yes Family Medical History: Diabetes Mellitus, Coronary Artery Disease, Hypertension - Social History Does patient currently use any type of tobacco product: No Have you used tobacco products in the last 12 months: No Type of Tobacco Use: None Does any household member use tobacco: No Alcohol Use: None Do you use any recreational Drugs:: No Lives With: Family Lives Where: Home - infectious screening In the last 2 months have you had wt loss of >10#?: NO Have you had fever, night sweats or hemotysis?: No Have you traveled outside the country in the last 6 months?: No Isolation: Standard PE - Vital Signs Vitals: Temperature 98.5 F Pulse Rate 83 Respiratory Rate 20 Blood Pressure [Left Arm] 110/65 Blood Pressure [Right Arm] 139/69 Blood Pressure 185/79 O2 Sat by Pulse Oximetry 95 - Discharge Plan Condition: Stable - Follow ups/Referrals Follow ups/Referrals: Ana YODERc [Primary Care Provider] - 3 days - Instructions
[2017-03-23 10:31] LABS: BASOPHILS % (AUTO) 0.3 % (0.2-1.0); EOSINOPHILS % (AUTO) 0.1 % (0.9-2.9); HEMATOCRIT 29.8 % (36.0-47.0); LYMPHOCYTES # (AUTO) 0.8 X10^3/uL (1.3-2.9); MEAN CORPUSCULAR HEMOGLOBIN 27.7 pg (27.0-34.0); MEAN CORPUSCULAR HGB CONC 33.4 g/dL (33.0-35.0); MEAN CORPUSCULAR VOLUME 82.9 fL (80.0-100.0); MEAN PLATELET VOLUME 8.8 fL (7.4-11.0); MONOCYTES # (AUTO) 0.3 x10^3/uL (0.3-0.8); MONOCYTES % (AUTO) 2.9 % (0.0-13.0); NEUTROPHILS # (AUTO) 8.4 x10^3/uL (2.2-4.8); NEUTROPHILS % (AUTO) 88.7 % (42.0-75.0); PLATELET COUNT 359 X10^3/uL (150.0-450.0); RED BLOOD COUNT 3.59 X10^6/uL (3.5-5.4); RED CELL DISTRIBUTION WIDTH 14.9 % (11.6-16.5); WHITE BLOOD COUNT 9.5 X10^3/uL (3.6-10.0)
[2017-03-23 10:47] LABS: BLOOD UREA NITROGEN 34 mg/dL (7-18); CALCIUM 8.9 mg/dL (8.5-10.1); CARBON DIOXIDE 31.8 mmol/L (21-32); CHLORIDE 98 mmol/L (98-107); COR NA(FOR HYPERGLY) 138 mmol/L (136-145); CREATININE 1.46 mg/dL (0.55-1.02); GLUCOSE 129 mg/dL (65-99); SODIUM 137 mmol/L (136-145); TROPONIN I < 0.02 ng/mL (0-1.5); eGFR BLACK RACES 46 (>60); eGFR NON BLACK RACES 38 (>60)
[2017-03-23 10:57] LABS: ALANINE AMINOTRANSFERASE 21 Units/L (12-78); ALBUMIN 2.2 g/dL (3.4-5.0); ALKALINE PHOSPHATASE 85 Units/L (46-116); ASPARTATE AMINO TRANSFERASE 27 Units/L (15-37); CKMB % 1.4 % (<4); COR CA(FOR HYPOALB) 10.3 mg/dL (8.5-10.1); CREATINE KINASE 85 Units/L (26-192); CREATINE KINASE MB 1.2 ng/mL (0-4.0); TOTAL PROTEIN 7.6 g/dL (6.4-8.2)
[2017-03-23] MEDS ORDERED: NS 1000 ML 1,000 ML IV SCH (14:00)
[2017-03-23 17:06] LABS: CKMB % 1.2 % (<4); CREATINE KINASE 257 Units/L (26-192); TROPONIN I < 0.02 ng/mL (0-1.5)
[2017-03-23] MEDS: DEXTROSE 10% 1,000 ML IV SCH (17:19)
[2017-03-23] MEDS: CELEXA PO SCH (18:02)
[2017-03-23] MEDS: NEURONTIN CAP 300 MG PO SCH ×2 (18:02→21:16)
[2017-03-23] MEDS: PriLOSEC PO SCH (18:02)
[2017-03-23] MEDS: ULTRAM PO PRN (18:02)
[2017-03-23 23:27] LABS: CKMB % 0.8 % (<4); CREATINE KINASE 226 Units/L (26-192); CREATINE KINASE MB 1.9 ng/mL (0-4.0); TROPONIN I < 0.02 ng/mL (0-1.5)
[2017-03-24] MEDS ORDERED: D50W ABBOJECT SYR IV ONE (01:01)
[2017-03-24] MEDS: ULTRAM PO PRN ×3 (01:48→22:06)
[2017-03-24 03:50] LABS: BILIRUBIN,URINE NEGATIVE (NEGATIVE); BLOOD/HEMOGLOBIN,URINE 1+ (NEGATIVE); GLUCOSE, URINE NEGATIVE (NEGATIVE); KETONES,URINE NEGATIVE (NEGATIVE); LEUKOCYTE ESTERASE ,URINE NEGATIVE (NEGATIVE); NITRITES,URINE NEGATIVE (NEGATIVE); PROTEIN,URINE 2+ (NEGATIVE); UROBILINOGEN,URINE NORMAL (NORMAL)
[2017-03-24 03:55] LABS: APPEARANCE,URINE CLEAR (CLEAR); BACTERIA,URINE TRACE /HPF (NEGATIVE); COLOR,URINE YELLOW (YELLOW); RBC,URINE 0-1 /HPF (NEGATIVE); SQUAMOUS EPITHELIAL CELL,UR RARE /HPF (NEGATIVE)
[2017-03-24] MEDS: NEURONTIN CAP 300 MG PO SCH ×3 (05:06→21:11)
[2017-03-24 05:09] LABS: BASOPHILS % (AUTO) 0.5 % (0.2-1.0); EOSINOPHILS # (AUTO) 0.1 x10^3/uL (0.0-0.2); EOSINOPHILS % (AUTO) 0.8 % (0.9-2.9); HEMATOCRIT 24.6 % (36.0-47.0); HEMOGLOBIN 8.4 g/dL (12.0-16.0); LYMPHOCYTES # (AUTO) 1.5 X10^3/uL (1.3-2.9); LYMPHOCYTES % (AUTO) 14.5 % (21.0-51.0); MEAN CORPUSCULAR HEMOGLOBIN 28.1 pg (27.0-34.0); MEAN CORPUSCULAR VOLUME 82.8 fL (80.0-100.0); MEAN PLATELET VOLUME 8.6 fL (7.4-11.0); MONOCYTES # (AUTO) 0.7 x10^3/uL (0.3-0.8); MONOCYTES % (AUTO) 6.5 % (0.0-13.0); NEUTROPHILS % (AUTO) 77.7 % (42.0-75.0); PLATELET COUNT 314 X10^3/uL (150.0-450.0); RED BLOOD COUNT 2.98 X10^6/uL (3.5-5.4); RED CELL DISTRIBUTION WIDTH 15.2 % (11.6-16.5); WHITE BLOOD COUNT 10.3 X10^3/uL (3.6-10.0)
[2017-03-24 05:18] LABS: ALANINE AMINOTRANSFERASE 19 Units/L (12-78); ALBUMIN 1.9 g/dL (3.4-5.0); ALKALINE PHOSPHATASE 70 Units/L (46-116); ASPARTATE AMINO TRANSFERASE 38 Units/L (15-37); BLOOD UREA NITROGEN 27 mg/dL (7-18); CALCIUM 8.1 mg/dL (8.5-10.1); CARBON DIOXIDE 30.1 mmol/L (21-32); CHLORIDE 98 mmol/L (98-107); COR CA(FOR HYPOALB) 9.8 mg/dL (8.5-10.1); CREATININE 1.44 mg/dL (0.55-1.02); GLUCOSE 63 mg/dL (65-99); SODIUM 134 mmol/L (136-145); eGFR BLACK RACES 47 (>60); eGFR NON BLACK RACES 39 (>60)
[2017-03-24 07:41] VITALS: BMI 34.3
[2017-03-24] MEDS: CELEXA PO SCH (09:07)
[2017-03-24] MEDS: PriLOSEC PO SCH (09:07)
--- NOTE | 2017-03-24 09:12 | RAD ---
HISTORY: Congestive heart failure, pleural effusion Study: Chest one view Comparison: March 20, 2017 Findings: The heart remains enlarged. No congestive heart failure is noted. Large right pleural effusion obscu res the right middle and right lower lobe and is unchanged. No definite left pleural effusion is krista ntified. The visualized right upper lung field and left lung are clear. The bony thorax is unremarka ble. IMPRESSION: Cardiomegaly without congestive heart failure No change large right pleural effusion Reported By:
[2017-03-24] MEDS ORDERED: LASIX IVP ONE (09:59)
[2017-03-24] MEDS: DEXTROSE 10% 1,000 ML IV SCH (10:10)
[2017-03-24] MEDS: LASIX IVP SCH ×4 (16:26→21:11)
[2017-03-24] MEDS: SNACK - Diabetic Appropriate PO SCH (21:10)
[2017-03-24] MEDS ORDERED: NEURONTIN CAP 300 MG PO SCH (23:00)
[2017-03-25 04:00] LABS: BASOPHILS # (AUTO) 0.1 X10^3/uL (0.0-0.1); BASOPHILS % (AUTO) 0.9 % (0.2-1.0); EOSINOPHILS # (AUTO) 0.1 x10^3/uL (0.0-0.2); EOSINOPHILS % (AUTO) 1.3 % (0.9-2.9); HEMATOCRIT 25.5 % (36.0-47.0); HEMOGLOBIN 8.7 g/dL (12.0-16.0); LYMPHOCYTES # (AUTO) 1.8 X10^3/uL (1.3-2.9); LYMPHOCYTES % (AUTO) 19.2 % (21.0-51.0); MEAN CORPUSCULAR HGB CONC 34.2 g/dL (33.0-35.0); MEAN CORPUSCULAR VOLUME 81.9 fL (80.0-100.0); MEAN PLATELET VOLUME 8.6 fL (7.4-11.0); MONOCYTES # (AUTO) 0.6 x10^3/uL (0.3-0.8); MONOCYTES % (AUTO) 6.5 % (0.0-13.0); NEUTROPHILS # (AUTO) 6.8 x10^3/uL (2.2-4.8); NEUTROPHILS % (AUTO) 72.1 % (42.0-75.0); PLATELET COUNT 325 X10^3/uL (150.0-450.0); RED BLOOD COUNT 3.11 X10^6/uL (3.5-5.4); RED CELL DISTRIBUTION WIDTH 15.2 % (11.6-16.5); WHITE BLOOD COUNT 9.4 X10^3/uL (3.6-10.0)
[2017-03-25 04:01] LABS: CALCIUM 8.2 mg/dL (8.5-10.1); CARBON DIOXIDE 33.5 mmol/L (21-32); COR CA(FOR HYPOALB) 9.8 mg/dL (8.5-10.1); CREATININE 1.42 mg/dL (0.55-1.02); TOTAL PROTEIN 6.5 g/dL (6.4-8.2)
[2017-03-25] MEDS: NEURONTIN CAP 300 MG PO SCH ×3 (06:22→21:00)
[2017-03-25] MEDS ORDERED: AMARYL TAB 4 MG PO SCH (07:00)
--- NOTE | 2017-03-25 07:41 | RAD ---
HISTORY: CHF, low blood sugar Study: Single-view chest Comparison: Yesterday Findings: The trachea is midline. The cardiac silhouette is enlarged but stable. The lungs and a persistent right-sided effusion which is unchanged.. The bony thorax is unremarkable. IMPRESSION: 1. Stable chest. Reported By:
[2017-03-25] MEDS: LASIX IVP SCH ×2 (08:54→20:49)
[2017-03-25] MEDS: PriLOSEC PO SCH (08:55)
[2017-03-25] MEDS: CELEXA PO SCH (08:55)
[2017-03-25] MEDS ORDERED: ACTOS PO SCH (09:00)
[2017-03-25] MEDS ORDERED: PIOGLITAZONE HCL PO SCH (09:00)
[2017-03-25] MEDS ORDERED: JANUVIA PO SCH (09:00)
[2017-03-25] MEDS ORDERED: PATIENT'S HOME MEDICATION (Glimepiride [Glimepiride 2 Mg] 2 MG) PO SCH (09:00)
[2017-03-25] MEDS ORDERED: PriLOSEC PO SCH (09:00)
[2017-03-25] MEDS ORDERED: CELEXA PO SCH (09:00)
[2017-03-25] MEDS ORDERED: AMARYL TAB 4 MG PO ONE (13:57)
[2017-03-25] MEDS ORDERED: HumuLIN R SC PRN (14:00)
[2017-03-25] MEDS: ULTRAM PO PRN ×2 (15:00→22:00)
[2017-03-25] MEDS ORDERED: GLUCOPHAGE ONE (17:10)
[2017-03-25] MEDS: GLUCOPHAGE PO SCH (17:12)
[2017-03-25] MEDS ORDERED: SNACK - Diabetic Appropriate PO SCH (20:00)
[2017-03-25] MEDS: SNACK - Diabetic Appropriate PO SCH (20:46)
[2017-03-25] MEDS: ZOCOR TAB 20 MG PO SCH (20:49)
[2017-03-26 05:18] LABS: ALBUMIN 2.1 g/dL (3.4-5.0); CALCIUM 8.6 mg/dL (8.5-10.1); CARBON DIOXIDE 33.6 mmol/L (21-32); COR CA(FOR HYPOALB) 10.1 mg/dL (8.5-10.1); CREATININE 1.66 mg/dL (0.55-1.02); TOTAL PROTEIN 6.5 g/dL (6.4-8.2)
[2017-03-26 05:19] LABS: BASOPHILS # (AUTO) 0.1 X10^3/uL (0.0-0.1); BASOPHILS % (AUTO) 0.9 % (0.2-1.0); EOSINOPHILS # (AUTO) 0.2 x10^3/uL (0.0-0.2); EOSINOPHILS % (AUTO) 1.6 % (0.9-2.9); HEMOGLOBIN 8.8 g/dL (12.0-16.0); LYMPHOCYTES # (AUTO) 1.6 X10^3/uL (1.3-2.9); LYMPHOCYTES % (AUTO) 16.9 % (21.0-51.0); MEAN CORPUSCULAR HEMOGLOBIN 27.8 pg (27.0-34.0); MEAN CORPUSCULAR HGB CONC 33.8 g/dL (33.0-35.0); MEAN CORPUSCULAR VOLUME 82.3 fL (80.0-100.0); MEAN PLATELET VOLUME 8.5 fL (7.4-11.0); MONOCYTES # (AUTO) 0.6 x10^3/uL (0.3-0.8); MONOCYTES % (AUTO) 6.5 % (0.0-13.0); NEUTROPHILS # (AUTO) 7.2 x10^3/uL (2.2-4.8); NEUTROPHILS % (AUTO) 74.1 % (42.0-75.0); PLATELET COUNT 335 X10^3/uL (150.0-450.0); RED BLOOD COUNT 3.17 X10^6/uL (3.5-5.4); RED CELL DISTRIBUTION WIDTH 15.1 % (11.6-16.5); WHITE BLOOD COUNT 9.7 X10^3/uL (3.6-10.0)
[2017-03-26] MEDS: NEURONTIN CAP 300 MG PO SCH ×3 (05:28→21:06)
[2017-03-26] MEDS ORDERED: GLUCOPHAGE ONE ×2 (08:54→16:20)
[2017-03-26] MEDS: GLUCOPHAGE PO SCH ×2 (09:03→17:00)
[2017-03-26] MEDS: PriLOSEC PO SCH (09:03)
[2017-03-26] MEDS: CELEXA PO SCH (09:03)
[2017-03-26] MEDS: AMARYL TAB 4 MG PO SCH (09:03)
[2017-03-26] MEDS: LASIX IVP SCH (09:04)
[2017-03-26] MEDS: ZOCOR TAB 20 MG PO SCH (20:51)
[2017-03-26] MEDS: SNACK - Diabetic Appropriate PO SCH (20:51)
[2017-03-27 04:43] LABS: BASOPHILS # (AUTO) 0.1 X10^3/uL (0.0-0.1); BASOPHILS % (AUTO) 0.7 % (0.2-1.0); EOSINOPHILS # (AUTO) 0.1 x10^3/uL (0.0-0.2); EOSINOPHILS % (AUTO) 0.6 % (0.9-2.9); HEMATOCRIT 25.5 % (36.0-47.0); HEMOGLOBIN 8.5 g/dL (12.0-16.0); LYMPHOCYTES # (AUTO) 1.3 X10^3/uL (1.3-2.9); LYMPHOCYTES % (AUTO) 11.5 % (21.0-51.0); MEAN CORPUSCULAR HEMOGLOBIN 27.5 pg (27.0-34.0); MEAN CORPUSCULAR HGB CONC 33.4 g/dL (33.0-35.0); MEAN CORPUSCULAR VOLUME 82.2 fL (80.0-100.0); MEAN PLATELET VOLUME 8.4 fL (7.4-11.0); MONOCYTES # (AUTO) 0.7 x10^3/uL (0.3-0.8); MONOCYTES % (AUTO) 6.5 % (0.0-13.0); NEUTROPHILS # (AUTO) 9.3 x10^3/uL (2.2-4.8); NEUTROPHILS % (AUTO) 80.7 % (42.0-75.0); PLATELET COUNT 343 X10^3/uL (150.0-450.0); RED CELL DISTRIBUTION WIDTH 15.5 % (11.6-16.5); WHITE BLOOD COUNT 11.4 X10^3/uL (3.6-10.0)
[2017-03-27 04:54] LABS: ALBUMIN 2.1 g/dL (3.4-5.0); CALCIUM 8.7 mg/dL (8.5-10.1); CARBON DIOXIDE 33.6 mmol/L (21-32); COR CA(FOR HYPOALB) 10.2 mg/dL (8.5-10.1); CREATININE 1.61 mg/dL (0.55-1.02); TOTAL PROTEIN 6.4 g/dL (6.4-8.2)
[2017-03-27] MEDS: NEURONTIN CAP 300 MG PO SCH ×2 (06:06→13:45)
[2017-03-27] MEDS ORDERED: GLUCOPHAGE ONE (08:16)
[2017-03-27] MEDS: CELEXA PO SCH (08:30)
[2017-03-27] MEDS: AMARYL TAB 4 MG PO SCH (08:31)
[2017-03-27] MEDS: PriLOSEC PO SCH (08:31)
[2017-03-27] MEDS: GLUCOPHAGE PO SCH (08:31)
[2017-03-27] MEDS ORDERED: MIRALAX POWDER (1 DOSE 17GM) PO SCH (09:00)
--- NOTE | 2017-03-27 13:50 | PCM.DCPLAN ---
Discharge Summary - Admission Date Date of Admission: 03/23/17 - Discharge Date Discharge Date: 03/27/17 - Admission Diagnoses (1) Hypoglycemia Status: Acute (2) Diabetes mellitus, type 2 Status: Chronic (3) GERD (gastroesophageal reflux disease) Status: Chronic (4) Hypertension Status: Chronic - Discharge Diagnoses Discharge Diagnosis: same as admission - Discharge Medications Discharge Medications: Citalopram 20 mg Tab [CELEXA 20 MG *] 1 tab PO DAILY 03/23/17 [History] Citalopram 20 mg Tab [CELEXA 20 MG *] 20 mg PO DAILY tab 03/27/17 [Rx] Gabapentin [NEURONTIN CAP 300 mg *] 300 mg PO TID cap 03/27/17 [Rx] Glimepiride [AMARYL 4 MG *] 4 mg PO DAILYWB 30 Days 03/27/17 [Rx] Metformin HCl [Glucophage] 500 mg PO BID #60 tab 03/27/17 [Rx] Omeprazole [PRILOSEC 20 MG *] 20 mg PO DAILY cap 03/27/17 [Rx] Polyethylene Glycol Pwd Ud [MIRALAX POWDER (17 GM DOSE) *] 17 gm PO HS udp [Rx] Simvastatin [ZOCOR 20 MG *] 20 mg PO HS tab 03/27/17 [Rx] Tramadol HCl [ULTRAM 50 MG *] 50 mg PO Q6H PRN tab 03/27/17 [Rx] - Hospital Course Vital Signs: Temperature 97.6 F Pulse Rate [Bilateral Radial] 83 Respiratory Rate 20 Blood Pressure [Right Arm] 123/52 O2 Sat by Pulse Oximetry 91 Latest Lab Results: Laboratory Last Values WBC 11.4 X10^3/uL (3.6-10.0) H 03/27/17 04:10 RBC 3.10 X10^6/uL (3.5-5.4) L 03/27/17 04:10 Hgb 8.5 g/dL (12.0-16.0) L 03/27/17 04:10 Hct 25.5 % (36.0-47.0) L 03/27/17 04:10 MCV 82.2 fL (80.0-100.0) 03/27/17 04:10 MCH 27.5 pg (27.0-34.0) 03/27/17 04:10 MCHC 33.4 g/dL (33.0-35.0) 03/27/17 04:10 RDW 15.5 % (11.6-16.5) 03/27/17 04:10 Plt Count 343 X10^3/uL (150.0-450.0) 03/27/17 04:10 MPV 8.4 fL (7.4-11.0) 03/27/17 04:10 Neut % 80.7 % (42.0-75.0) H 03/27/17 04:10 Lymph % 11.5 % (21.0-51.0) L 03/27/17 04:10 [place] % 6.5 % (0.0-13.0) 03/27/17 04:10 Eos % 0.6 % (0.9-2.9) L 03/27/17 04:10 Baso % 0.7 % (0.2-1.0) 03/27/17 04:10 Neut # 9.3 x10^3/uL (2.2-4.8) H 03/27/17 04:10 Lymph # 1.3 X10^3/uL (1.3-2.9) 03/27/17 04:10 [place] # 0.7 x10^3/uL (0.3-0.8) 03/27/17 04:10 Eos # 0.1 x10^3/uL (0.0-0.2) 03/27/17 04:10 Baso # 0.1 X10^3/uL (0.0-0.1) 03/27/17 04:10 Absolute Nucleated RBC 0.0 /100WBC 03/27/17 04:10 Sodium 131 mmol/L (136-145) L 03/27/17 04:10 Corrected Sodium 132 mmol/L (136-145) L 03/27/17 04:10 Potassium 4.7 mmol/L (3.5-5.1) 03/27/17 04:10 Chloride 96 mmol/L (98-107) L 03/27/17 04:10 Carbon Dioxide 33.6 mmol/L (21-32) H 03/27/17 04:10 BUN 35 mg/dL (7-18) H 03/27/17 04:10 Creatinine 1.61 mg/dL (0.55-1.02) H 03/27/17 04:10 Est GFR (MDRD) Af Amer 41 (>60) L 03/27/17 04:10 Est GFR (MDRD) Non-Af 34 (>60) L 03/27/17 04:10 Glucose 125 mg/dL (65-99) H 03/27/17 04:10 Calcium 8.7 mg/dL (8.5-10.1) 03/27/17 04:10 Corrected Calcium 10.2 mg/dL (8.5-10.1) H 03/27/17 04:10 Total Bilirubin 0.20 mg/dL (0.2-1.0) 03/27/17 04:10 AST 14 Units/L (15-37) L 03/27/17 04:10 ALT 15 Units/L (12-78) 03/27/17 04:10 Alkaline Phosphatase 76 Units/L (46-116) 03/27/17 04:10 Creatine Kinase 226 Units/L (26-192) H 03/23/17 22:30 CK-MB (CK-2) 1.9 ng/mL (0-4.0) 03/23/17 22:30 CK/CKMB % Calc 0.8 % (<4) 03/23/17 22:30 Troponin I < 0.02 ng/mL (0-1.5) 03/23/17 22:30 Total Protein 6.4 g/dL (6.4-8.2) 03/27/17 04:10 Albumin 2.1 g/dL (3.4-5.0) L 03/27/17 04:10 Globulin 4.3 g/dL (2.5-4.5) 03/27/17 04:10 Albumin/Globulin Ratio 0.5 Ratio (1.1-2.1) L 03/27/17 04:10 Specimen Type Clean catch urine 03/24/17 03:33 Urine Color Yellow (YELLOW) 03/24/17 03:33 Urine Appearance Clear (CLEAR) 03/24/17 03:33 Urine pH 5.0 (5.0 - 8.0) 03/24/17 03:33 Ur Specific [place] 1.015 (1.000-1.030) 03/24/17 03:33 Urine Protein 2+ (NEGATIVE) 03/24/17 03:33 Urine Glucose (UA) Negative (NEGATIVE) 03/24/17 03:33 Urine Ketones Negative (NEGATIVE) 03/24/17 03:33 Urine Occult Blood 1+ (NEGATIVE) 03/24/17 03:33 Urine Nitrite Negative (NEGATIVE) 03/24/17 03:33 Urine Bilirubin Negative (NEGATIVE) 03/24/17 03:33 Urine Urobilinogen Normal (NORMAL) 03/24/17 03:33 Ur Leukocyte Esterase Negative (NEGATIVE) 03/24/17 03:33 Urine RBC 0-1 /HPF (NEGATIVE) 03/24/17 03:33 Urine WBC 0-1 /HPF (NEGATIVE) 03/24/17 03:33 Ur Squamous Epith Cells Rare /HPF (NEGATIVE) 03/24/17 03:33 Urine Bacteria Trace /HPF (NEGATIVE) 03/24/17 03:33 Ur Culture Indicated? No/not indicated 03/24/17 03:33 Hospital Course: patient is a 66-year-old white female who was admitted on 03/23/2017 from the emergency room presenting with hypoglycemia. Patient accidentally took too many [id number] medications. Patient's condition has stabilized. Patient is currently tolerating Amaryl 4 mg every morning and metformin 500 twice a day the blood sugars less than 200. Plan to discharge patient on the same regimen. Patient also continues with right lung pleural effusion. Patient states her breathing is stable however we instructed the patient had a repeat chest x-ray in one week and resume antibiotic she was taking prior to this admission. Patient also was instructed to use nebulizer injected at home. Patient verbalized understanding and was stable on discharge patient needs to follow up with Dr. Murguia in one week and bring her blood pressure and blood sugar diary to the appointment - Discharge Plan Disposition: 01 HOME, SELF-CARE Condition: Stable Prescriptions: Glimepiride [AMARYL 4 MG *] 4 mg PO DAILYWB 30 Days Metformin HCl [Glucophage] 500 mg PO BID #60 tab - Follow ups/Referrals Follow ups/Referrals: MDMisc [Primary Care Provider] - 3 days - Instructions Instructions: Type 2 Diabetes Mellitus, Adult, Dehydration, Adult, [id number] , Hypertension, [id number], Heart Failure, Rccq-xj-Hodi, Hypoglycemia, Easy-to -Read Additional Instructions: patient will discharge home today, patient's diabetes medicine. Metformin 500 twice a day, and Amaryl 4 mg every morning. Patient wanted a 1 week recheck in the office patient is to bring her blood pressure and blood sugar log to the office for follow-up appointment. Patient needs to have a repeat chest x-ray in one week to document resolution of right pleural effusion. Patient also needs jet nebs and nebulizer at home. Patient will need to resume medication, antibiotic she was taken prior to this admission. Patient verbalized understanding Forms: Patient Portal
[2017-03-27 16:37] VITALS: BP 143/76
== END 2017-03-27 17:50 | disposition home health service (06) ==
LOC: ER 09:54 → ICU 14:55
PROVIDERS: ADMIT Internal Medicine; ATTEND Internal Medicine
DX: E11.649 Type 2 diabetes mellitus with hypoglycemia without coma (principal); T38.3X1A Poisoning by insulin and oral hypoglycemic [antidiabetic] drugs, accidental (unintentional), initial encounter; R41.82 Altered mental status, unspecified; M13.89 Other specified arthritis, multiple sites; R94.31 Abnormal electrocardiogram [ECG] [EKG]; I51.7 Cardiomegaly; I50.9 Heart failure, unspecified; Y92.89 Other specified places as the place of occurrence of the external cause; I10 Essential (primary) hypertension
CPT/HCPCS: 36415; 71010; 80053; 81001; 82550; 82553; 82947; 84484; 85025; 93005; 93010; 96365; 99284; A4222; G0378; J1940; J3490

== ENCOUNTER → 2017-04-10 | Outpatient (CLI) | payer OTHER, MEDICAID ==
[2017-03-27 16:37] VITALS: BP 143/76
--- NOTE | 2017-04-10 13:28 | RAD ---
HISTORY: Pleural effusion. Study: PA and lateral chest. Comparison: Chest x-ray dated March 25, 2017. Findings: The trachea is midline. The cardiac silhouette is enlarged but unchanged. Small right pleural effu diana appears improved from prior. Bibasilar scarring versus atelectasis. No obvious pneumothorax. T he bony thorax is unchanged. IMPRESSION: Improving right pleural effusion. Otherwise, no significant change in lung aeration. Reported By:
== END ==
LOC: RAD 12:54
PROVIDERS: ATTEND Nurse Practitioner Family
DX: J90 Pleural effusion, not elsewhere classified (principal)
CPT/HCPCS: 71020

== ENCOUNTER 2017-04-19 15:42 | Emergency (ER) | payer OTHER, MEDICAID ==
[2017-04-19 15:45] VITALS: BP 175/74; BMI 34.2
--- NOTE | 2017-04-19 15:55 | DR.GENAD ---
HPI - PCP Primary Care Physician: FANTASMA - HPI Comment HPI Comment: FELL OFF HER BED. CANNOT REMEMBER WHAT HAPPEN. HEMATOMA TO RT EYE. - Complaint/Symptoms Chief Complaint Doctors Comments: FELL, AMS, HEMATOMA TO EYE. Chief Complaint:: PATIENT STATED THAT SHE FELL OUT OF BED. SHE HAS A BLACK EYE AND SHE DOESN'T REMEBER SOMETHINGS. - Nurses notes reviewed Nurses Notes Review: Yes - Source History Provided: Patient - Mode of Arrival Mode of Arrival: Wheelchair - Timing Onset of Chief Complaint: 04/19/17 Came on: Suddenly - Duration Duration: Constant Duration: Hours - Severity Severity: Moderate PMH - PMH Past Medical History: Yes Past Medical History: Arthritis, Diabetes, Hypertension Past Surgical History: Yes Surgical History: Ortho Surgery - Family History History of Family Medical Conditions: Yes Family Medical History: Diabetes Mellitus, Coronary Artery Disease, Hypertension - Social History Does patient currently use any type of tobacco product: No Have you used tobacco products in the last 12 months: No Type of Tobacco Use: None Does any household member use tobacco: No Alcohol Use: None Do you use any recreational Drugs:: No Lives With: Alone Lives Where: Home - infectious screening In the last 2 months have you had wt loss of >10#?: NO Have you had fever, night sweats or hemotysis?: No Have you traveled outside the country in the last 6 months?: No Isolation: Standard ROS - Review of Systems Constitutional: No Symptoms Reported Eyes: Other (BRUISE RT YE WITH HEMATOMA.) ENTM: Ear Pain. negative: Nose Discharge, Nose Congestion, Throat Pain Respiratoy: Short of Breath. negative: Productive Cough, Non-Productive Cough, Wheezing, Hemoptysis Gastrointestinal/Abdominal: No Symptoms Reported Genitourinary: No Symptoms Reported Neurological: Headache, Weakness Musculoskeletal: Muscle Pain Integumentary: Change in Color, Bruises Hematologic/Lymphatic: No Symptoms Reported Endocrine: No Symptoms Reported All Other Systems: Reviewed and Negative PE - Vital Signs Vitals: Temperature 98.2 F Pulse Rate 78 Respiratory Rate 20 Blood Pressure [Left Arm] 110/65 Blood Pressure [Right Arm] 143/76 Blood Pressure 175/74 O2 Sat by Pulse Oximetry 100 - General Limitations: No Limitations General Appearance: Alert - Head Head Exam: Normal Inspection - Eyes Eye exam: Normal Appearance - ENT ENT Exam: Normal External Ear Exam External Ear Exam: Normal External Inspection TM/Canal Exam: Bilateral Normal Nose Exam: Normal Nose Exam Mouth Exam: Normal Inspection Throat Exam: Normal Inspection - Neck Neck Exam: Trachea Midline - Chest Chest Inspection: Symmetric Chest Wall Rise - Respiratory Respiratory Exam: Normal Lung Sounds Bilat Respiratory Exam: Bilateral Rhonchi, Lower Rhonchi - Cardiovascular Cardiovascular Exam: Regular Rate, Normal Rhythm, Normal Heart Sounds - Abdominal Exam Abdominal Exam: Normal Bowel Sounds, Soft. negative: Tenderness - Extremities Extremities Exam: Normal Inspection - Back Back Exam: Paraspinal Tenderness - Neurologic Neurological Exam: Alert - Skin Skin Exam: Erythema MDM - Differential Diagnosis Differential Diagnosis: COMTUSION, HEMATOMA, FRATURE, SPRAIN, STRAIN Course - Treatment Treatment: SEE ORDERS. - Education/Counseling Education/Counseling: Patient, Education Educated On: Treatment, Diagnosis, Needs for Follow Up ROR - Labs Reviewed Laboratory Results Reviewed?: Yes Result Diagrams: 04/19/17 16:23 04/19/17 16:23 Laboratory: 04/19/17 16:22 Urine,Clean Catch Urine Culture - Final Escherichia Coli WBC 8.4 X10^3/uL (3.6-10.0) 04/19/17 16:23 RBC 3.79 X10^6/uL (3.5-5.4) 04/19/17 16:23 Hgb 10.5 g/dL (12.0-16.0) L 04/19/17 16:23 Hct 31.7 % (36.0-47.0) L 04/19/17 16:23 MCV 83.7 fL (80.0-100.0) 04/19/17 16:23 MCH 27.7 pg (27.0-34.0) 04/19/17 16:23 MCHC 33.1 g/dL (33.0-35.0) 04/19/17 16:23 RDW 17.9 % (11.6-16.5) H 04/19/17 16:23 Plt Count 216 X10^3/uL (150.0-450.0) 04/19/17 16:23 MPV 8.1 fL (7.4-11.0) 04/19/17 16:23 Neut % 84.4 % (42.0-75.0) H 04/19/17 16:23 Lymph % 9.9 % (21.0-51.0) L 04/19/17 16:23 [place] % 4.8 % (0.0-13.0) 04/19/17 16:23 Eos % 0.4 % (0.9-2.9) L 04/19/17 16:23 Baso % 0.5 % (0.2-1.0) 04/19/17 16:23 Neut # 7.1 x10^3/uL (2.2-4.8) H 04/19/17 16:23 Lymph # 0.8 X10^3/uL (1.3-2.9) L 04/19/17 16:23 [place] # 0.4 x10^3/uL (0.3-0.8) 04/19/17 16:23 Eos # 0.0 x10^3/uL (0.0-0.2) 04/19/17 16: Baso # 0.0 X10^3/uL (0.0-0.1) 04/19/17 16: Absolute Nucleated RBC 0.0 /100WBC 04/19/17 16:23 Sodium 141 mmol/L (136-145) 04/19/17 16:23 Corrected Sodium TNP 04/19/17 16:23 Potassium 4.8 mmol/L (3.5-5.1) 04/19/17 16:23 Chloride 106 mmol/L (98-107) 04/19/17 16:23 Carbon Dioxide 26.8 mmol/L (21-32) 04/19/17 16:23 BUN 19 mg/dL (7-18) H 04/19/17 16:23 Creatinine 1.25 mg/dL (0.55-1.02) H 04/19/17 16:23 Est GFR (MDRD) Af Amer 55 (>60) L 04/19/17 16:23 Est GFR (MDRD) Non-Af 46 (>60) L 04/19/17 16:23 Glucose 75 mg/dL (65-99) 04/19/17 16:23 Calcium 8.6 mg/dL (8.5-10.1) 04/19/17 16:23 Corrected Calcium 9.4 mg/dL (8.5-10.1) 04/19/17 16:23 Total Bilirubin 0.30 mg/dL (0.2-1.0) 04/19/17 16:23 AST 21 Units/L (15-37) 04/19/17 16:23 ALT 14 Units/L (12-78) 04/19/17 16:23 Alkaline Phosphatase 87 Units/L (46-116) 04/19/17 16:23 Creatine Kinase 31 Units/L (26-192) 04/19/17 16:23 CK-MB (CK-2) 1.7 ng/mL (0-4.0) 04/19/17 16:23 CK/CKMB % Calc 5.5 % (<4) 04/19/17 16:23 Troponin I < 0.02 ng/mL (0-1.5) 04/19/17 16:23 Total Protein 7.4 g/dL (6.4-8.2) 04/19/17 16:23 Albumin 3.0 g/dL (3.4-5.0) L 04/19/17 16:23 Globulin 4.4 g/dL (2.5-4.5) 04/19/17 16:23 Albumin/Globulin Ratio 0.7 Ratio (1.1-2.1) L 04/19/17 16:23 Specimen Type Clean catch urine 04/19/17 16:22 Urine Color Yellow (YELLOW) 04/19/17 16:22 Urine Appearance Cloudy (CLEAR) 04/19/17 16:22 Urine pH 5.0 (5.0 - 8.0) 04/19/17 16:22 Ur Specific [place] 1.020 (1.000-1.030) 04/19/17 16:22 Urine Protein 3+ (NEGATIVE) 04/19/17 16:22 Urine Glucose (UA) Negative (NEGATIVE) 04/19/17 16:22 Urine Ketones 1+ (NEGATIVE) 04/19/17 16:22 Urine Occult Blood 5+ (NEGATIVE) 04/19/17 16:22 Urine Nitrite Negative (NEGATIVE) 04/19/17 16:22 Urine Bilirubin Negative (NEGATIVE) 04/19/17 16:22 Urine Urobilinogen Normal (NORMAL) 04/19/17 16:22 Ur Leukocyte Esterase 3+ (NEGATIVE) 04/19/17 16:22 Urine RBC 25-30 /HPF (NEGATIVE) 04/19/17 16:22 Urine WBC Tntc /HPF (NEGATIVE) 04/19/17 16:22 Ur Squamous Epith Cells Rare /HPF (NEGATIVE) 04/19/17 16:22 Amorphous Sediment 2+ /HPF (NEGATIVE) 04/19/17 16:22 Urine Bacteria 1+ /HPF (NEGATIVE) 04/19/17 16:22 Ur Culture Indicated? Yes/culture set up 04/19/17 16:22 - XRAY XRAY Interpreted by: Radiologist XRAY Findings: DISCUSS REPORT WITH PATIENT. - EKG Rhythm: NSR (EKG NOTED) - Diagnosis Discharge Problem: Contusion, Electrolyte abnormality - Discharge Plan Disposition: 01 HOME, SELF-CARE Condition: Stable - Follow ups/Referrals Follow ups/Referrals: ELTON MEEK [Primary Care Provider] - 3 days - Instructions Instructions: Urinary Tract Infection, Adult, [id number], Hematoma Additional Instructions: RETURN TO ED IF WORSE. YOU ALSO HAVE BRUISING AND CONTUSION OF YOUR RIGHT PERIORBITAL AREA.
[2017-04-19 16:31] LABS: BASOPHILS % (AUTO) 0.5 % (0.2-1.0); EOSINOPHILS % (AUTO) 0.4 % (0.9-2.9); HEMATOCRIT 31.7 % (36.0-47.0); HEMOGLOBIN 10.5 g/dL (12.0-16.0); LYMPHOCYTES # (AUTO) 0.8 X10^3/uL (1.3-2.9); LYMPHOCYTES % (AUTO) 9.9 % (21.0-51.0); MEAN CORPUSCULAR HEMOGLOBIN 27.7 pg (27.0-34.0); MEAN CORPUSCULAR HGB CONC 33.1 g/dL (33.0-35.0); MEAN CORPUSCULAR VOLUME 83.7 fL (80.0-100.0); MEAN PLATELET VOLUME 8.1 fL (7.4-11.0); MONOCYTES # (AUTO) 0.4 x10^3/uL (0.3-0.8); MONOCYTES % (AUTO) 4.8 % (0.0-13.0); NEUTROPHILS # (AUTO) 7.1 x10^3/uL (2.2-4.8); NEUTROPHILS % (AUTO) 84.4 % (42.0-75.0); PLATELET COUNT 216 X10^3/uL (150.0-450.0); RED BLOOD COUNT 3.79 X10^6/uL (3.5-5.4); RED CELL DISTRIBUTION WIDTH 17.9 % (11.6-16.5); WHITE BLOOD COUNT 8.4 X10^3/uL (3.6-10.0)
[2017-04-19 16:35] LABS: BILIRUBIN,URINE NEGATIVE (NEGATIVE); BLOOD/HEMOGLOBIN,URINE 5+ (NEGATIVE); GLUCOSE, URINE NEGATIVE (NEGATIVE); KETONES,URINE 1+ (NEGATIVE); LEUKOCYTE ESTERASE ,URINE 3+ (NEGATIVE); NITRITES,URINE NEGATIVE (NEGATIVE); PROTEIN,URINE 3+ (NEGATIVE); UROBILINOGEN,URINE NORMAL (NORMAL)
[2017-04-19 16:42] LABS: COLOR,URINE YELLOW (YELLOW)
[2017-04-19 16:43] LABS: AMORPHOUS SEDIMENT,UR 2+ /HPF (NEGATIVE); APPEARANCE,URINE CLOUDY (CLEAR); BACTERIA,URINE 1+ /HPF (NEGATIVE); RBC,URINE 25-30 /HPF (NEGATIVE); SQUAMOUS EPITHELIAL CELL,UR RARE /HPF (NEGATIVE)
[2017-04-19 16:49] LABS: BLOOD UREA NITROGEN 19 mg/dL (7-18); CALCIUM 8.6 mg/dL (8.5-10.1); CARBON DIOXIDE 26.8 mmol/L (21-32); CHLORIDE 106 mmol/L (98-107); CREATININE 1.25 mg/dL (0.55-1.02); GLUCOSE 75 mg/dL (65-99); SODIUM 141 mmol/L (136-145); TROPONIN I < 0.02 ng/mL (0-1.5); eGFR BLACK RACES 55 (>60); eGFR NON BLACK RACES 46 (>60)
[2017-04-19 16:53] LABS: ALANINE AMINOTRANSFERASE 14 Units/L (12-78); ALKALINE PHOSPHATASE 87 Units/L (46-116); ASPARTATE AMINO TRANSFERASE 21 Units/L (15-37); CKMB % 5.5 % (<4); COR CA(FOR HYPOALB) 9.4 mg/dL (8.5-10.1); CREATINE KINASE 31 Units/L (26-192); CREATINE KINASE MB 1.7 ng/mL (0-4.0); TOTAL PROTEIN 7.4 g/dL (6.4-8.2)
--- NOTE | 2017-04-19 16:53 | RAD ---
AP Chest Indication: Fall Comparison: 04/10/2017 Findings: Trachea is midline. Heart size is enlarged. There is bibasilar linear opacities likely representing subsegmental atelectasis however developing infiltrates are not entirely excluded and clinical corre lation is needed. There is a small right-sided pleural effusion similar to prior exam. No pneumothor ax. No displaced right-sided rib fracture. IMPRESSION: Cardiomegaly and small right-sided pleural effusion unchanged from prior examination. Bibasilar reti cular opacities likely represent subsegmental atelectasis however clinical correlation is needed to exclude developing infiltrates. Reported By:
--- NOTE | 2017-04-19 16:54 | CT ---
Examination: CT of the head. Clinical history: Fell out of bed, black eye, does not remember anything. Technique: Multiple axial images were obtained from the skull base to the vertex. Dose reduction amadou hniques including automated exposure control (AEC) and adjustment of mA and kV were utilized. Comparison: 01/11/2016. Findings: Stable nonspecific periventricular white matter changes are noted, likely due to small vessel ischem ic disease. There is a stable area of encephalomalacia involving the right temporoparietal region. There is no intra-, or extra-axial hemorrhage, acute infarct or mass lesion noted. There is prominence of the CSF spaces consistent with age related cerebral atrophy. The ventricles a re symmetric about the midline, with no midline shift or mass effect noted. The posterior fossa, brain stem and orbital regions are within normal limits. Soft tissue swelling is seen in the right frontal region, consistent with a small subcutaneous hemat kassy/contusion. Mild mucosal thickening is seen associated with the maxillary sinuses bilaterally, with a tiny air-f luid level seen associated with the right maxillary sinus, consistent with acute inflammatory sinus disease. No additional bony or soft tissue abnormality is noted. Impression: 1. No acute infarct or hemorrhage. 2. Age-related cerebral atrophy. 3. Stable nonspecific periventricular white matter changes are noted, likely due to small vessel isc hemic disease. 4. Stable area of encephalomalacia involving the right temporoparietal region. 5. Inflammatory sinus disease, as described above. 6. Soft tissue swelling is seen in the right frontal region, consistent with a small subcutaneous he matoma/contusion. Reported By:
--- NOTE | 2017-04-19 16:58 | CT ---
CT MAXILLOFACIAL WITHOUT CLINICAL HISTORY: 66-year-old female status post fall from bed with black eye. COMPARISON: CT head January 11, 2016. TECHNIQUE: Multiple, noncontrasted axial CT images were obtained from the supraorbital region to th e submandibular region and reformatted in the coronal plane. FINDINGS: Limited intracranial evaluation demonstrates no acute abnormalities. Chronic right frontop arietal ischemic insult with associated encephalomalacia. Age advanced volume loss. The orbits and g lobes are within normal limits. There are no calvarial or facial fractures. Nasal cavity, oral cavit y, nasopharynx, and oropharynx are normal. The mandible is intact. Right periorbital/preseptal soft tissue contusion that extends to the right malar eminence. Scattered mucosal thickening of the right maxillary sinus with the remaining paranasal sinuses, mast oid air cells and tympanic cavities clear. IMPRESSION: 1. No evidence of acute calvarial or facial fractures. 2. Right periorbital/preseptal soft tissue contusion extending to the malar eminence. 3. Chronic right maxillary sinusitis. Reported By:
[2017-04-19] MEDS ORDERED: BACTRIM DS TAB PO ONE ×2 (17:58→17:59)
== END 2017-04-19 18:02 | disposition home or self-care (01) ==
LOC: ER 15:47
DX: S05.90XA Unspecified injury of unspecified eye and orbit, initial encounter (principal); E87.8 Other disorders of electrolyte and fluid balance, not elsewhere classified; B96.29 Other Escherichia coli [E. coli] as the cause of diseases classified elsewhere; W06.XXXA Fall from bed, initial encounter; R51 Headache
CPT/HCPCS: 36415; 70450; 70486; 71010; 80053; 81001; 82550; 82553; 84484; 85025; 87086; 87088; 87186; 93005; 93010; 99283

== ENCOUNTER 2017-04-25 11:40 | Emergency (ER) | payer MEDICAID, OTHER ==
[2017-04-25 11:53] VITALS: BP 124/70; BMI 32.2
--- NOTE | 2017-04-25 12:07 | DR.EXTPAIN ---
HPI - Time seen Time seen: 11:45 - PCP Primary Care Physician: FANTASMA GRIMM - Complaint/Symptoms Chief Complaint Doctor Comments: Patient reports that she tripped over some shoes on last night at midnight. Admits to hurting hips gron area. Denies LOC. She has ecchymosis of right marcos-orbital area from injury on last week. Chief Complaint:: EMS CALLED PER HOME HEALTH NURSES TO PT DUE TO HER FALLING AT HOME LAST NIGHT AND C/O OF LEFT HIP PAIN" Self Treatment fo Chief Complaint: PT HAS POSITIVE PEDAL PULES AND NO ROTATION OR BRUISES NOTED . - Source History Provided: Patient, EMS - Mode of arrival Mode of Arrival: EMS - Timing Onset of Chief Complaint: 04/24/17 PMH - PMH Past Medical History: Yes Past Medical History: Arthritis, Diabetes, Hypertension Past Surgical History: Yes Surgical History: Ortho Surgery - Family History History of Family Medical Conditions: Yes Family Medical History: Diabetes Mellitus, Coronary Artery Disease, Hypertension - Social History Does patient currently use any type of tobacco product: No Have you used tobacco products in the last 12 months: No Type of Tobacco Use: None Does any household member use tobacco: No Alcohol Use: None Do you use any recreational Drugs:: No Lives Where: Home - infectious screening In the last 2 months have you had wt loss of >10#?: NO Have you had fever, night sweats or hemotysis?: No Have you traveled outside the country in the last 6 months?: No Isolation: Standard ROS - Review of Systems Eyes: No Symptoms Reported ENTM: No Symptoms Reported Respiratoy: No Symptoms Reported Cardiovascular: No Symptoms Reported Gastrointestinal/Abdominal: No Symptoms Reported Genitourinary: No Symptoms Reported Neurological: No Symptoms Reported Musculoskeletal: Hip (bilateral hip pain), Other (ecchymosis of right periorbital area) Integumentary: Bruises (right periorbital area) Hematologic/Lymphatic: No Symptoms Reported Endocrine: No Symptoms Reported Psychiatric: No Symptoms Reported All Other Systems: Reviewed and Negative PE - Vital Signs Vitals: Temperature 97.0 F Pulse Rate 140 Respiratory Rate 22 Blood Pressure [Left Arm] 110/65 Blood Pressure [Right Arm] 143/76 Blood Pressure 124/70 O2 Sat by Pulse Oximetry 98 - General Limitations: No Limitations General Appearance: Alert, In No Apparent Distress, Other (old right marcos- orbital ecchymosis) - Head Head Exam: Normal Inspection, Atraumatic - Eyes Eye exam: PERRL, EOMI, Other (right periorbital ecchymosis) - ENT ENT Exam: Normal Exam - Neck Neck Exam: Normal Inspection, Full ROM - Chest Chest Inspection: Normal Inspection, Symmetric Chest Wall Rise - Respiratory Respiratory Exam: Normal Lung Sounds Bilat Respiratory Exam: Bilateral Clear to Auscultation - Cardiovascular Cardiovascular Exam: Regular Rate, Normal Rhythm - Abdominal Exam Abdominal Exam: Normal Inspection, Normal Bowel Sounds Abdominal Tenderness: negative: RUQ, RLQ, LUQ, LLQ, Epigastrium, Suprapubic, Diffuse, Mild, Moderate, Severe, Other - Extremities Extremities Exam: Normal Inspection, Full ROM - Upper Extremities Shoulder Exam: Normal Inspection Arm Exam: Normal Inspection, Full ROM Elbow Exam: Normal Inspection Forearm Exam: Normal Inspection Hand Exam: Normal Inspection Neuromotor Exam: Normal Exam Neurosensory Exam: Normal Exam Hand Tendon Exam: Flexor Digitorium Profundus (Location) Upper Ext. Vascular Exam: Capillary Refill - Lower Extremities Hip/Pelvis Exam: Normal Inspection Upper Leg Exam: Normal Inspection, Full ROM Knee Exam: Normal Inspection Lower Leg Exam: Normal Inspection Ankle Exam: Normal Inspection Foot/Toe Exam: Normal Inspection, Full ROM Neurovascular/Tendon Exam: Normal Capillary Refill Gait Exam: Not Tested/Not Observed - Back Back Exam: Normal Inspection - Neurological Neurological Exam: Alert, Oriented X3, CN II-XII Intact - Psychiatric Psychiatric Exam: Normal Affect, Normal Mood - Skin Skin Exam: Warm, Dry, Intact Course - Reevaluation 1st: Improved ROR - XRAY XRAY Interpreted by: Radiologist (DJD bilateral lower hips left worse than right. 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
--- NOTE | 2017-04-25 12:16 | RAD ---
HISTORY: Injury, fall, left hip pain Study: Bilateral hips AP, frog-leg lateral, AP pelvis Comparison: None Findings: The pelvic bones and SI joints are intact. The right hip joint is intact. There is degenerative join t space narrowing present. No joint erosions are noted. The left hip joint is intact. There is signi ficant degenerative joint space narrowing present more prominent than that on the right. No definite fractures are identified. IMPRESSION: No definite evidence for fracture Degenerative joint disease in the hips bilaterally left worse than right Reported By:
[2017-04-25] MEDS ORDERED: MORPHINE SULFATE INJ 4 MG IVP ONE (12:19)
[2017-04-25] MEDS ORDERED: MORPHINE SULFATE INJ 4 MG ONE (12:20)
== END 2017-04-25 13:04 | disposition home or self-care (01) ==
LOC: ER 11:56
DX: M16.0 Bilateral primary osteoarthritis of hip (principal); W19.XXXA Unspecified fall, initial encounter; Y92.009 Unspecified place in unspecified non-institutional (private) residence as the place of occurrence of the external cause
CPT/HCPCS: 73521; 93005; 93010; 99282; J2270

== ENCOUNTER 2017-04-25 16:12 | Observation (INO) | payer OTHER, MEDICAID ==
[2017-04-25 17:24] LABS: BASOPHILS # (AUTO) 0.1 X10^3/uL (0.0-0.1); BASOPHILS % (AUTO) 0.9 % (0.2-1.0); EOSINOPHILS % (AUTO) 0.7 % (0.9-2.9); HEMATOCRIT 32.3 % (36.0-47.0); HEMOGLOBIN 10.7 g/dL (12.0-16.0); LYMPHOCYTES # (AUTO) 1.7 X10^3/uL (1.3-2.9); LYMPHOCYTES % (AUTO) 24.1 % (21.0-51.0); MEAN CORPUSCULAR HEMOGLOBIN 27.8 pg (27.0-34.0); MEAN CORPUSCULAR HGB CONC 33.2 g/dL (33.0-35.0); MEAN CORPUSCULAR VOLUME 83.7 fL (80.0-100.0); MEAN PLATELET VOLUME 8.2 fL (7.4-11.0); MONOCYTES # (AUTO) 0.5 x10^3/uL (0.3-0.8); MONOCYTES % (AUTO) 7.2 % (0.0-13.0); NEUTROPHILS # (AUTO) 4.8 x10^3/uL (2.2-4.8); NEUTROPHILS % (AUTO) 67.1 % (42.0-75.0); PLATELET COUNT 243 X10^3/uL (150.0-450.0); RED BLOOD COUNT 3.85 X10^6/uL (3.5-5.4); RED CELL DISTRIBUTION WIDTH 18.1 % (11.6-16.5); WHITE BLOOD COUNT 7.1 X10^3/uL (3.6-10.0)
[2017-04-25 17:36] LABS: GIANT PLATELET RARE; PLATELET MORPHOLOGY COMMENT NORMAL (NORMAL)
[2017-04-25 17:38] LABS: ALANINE AMINOTRANSFERASE 15 Units/L (12-78); ALBUMIN 3.4 g/dL (3.4-5.0); ALKALINE PHOSPHATASE 100 Units/L (46-116); ASPARTATE AMINO TRANSFERASE 16 Units/L (15-37); BLOOD UREA NITROGEN 25 mg/dL (7-18); CALCIUM 9.1 mg/dL (8.5-10.1); CARBON DIOXIDE 25.9 mmol/L (21-32); CHLORIDE 103 mmol/L (98-107); CREATININE 1.83 mg/dL (0.55-1.02); GLUCOSE 102 mg/dL (65-99); SODIUM 138 mmol/L (136-145); TOTAL PROTEIN 8.1 g/dL (6.4-8.2); eGFR BLACK RACES 36 (>60); eGFR NON BLACK RACES 30 (>60)
[2017-04-25 18:15] VITALS: BMI 33.3
--- NOTE | 2017-04-25 18:17 | DR.H&P ---
H&P - History & Physical for Day of: H&P Date: 04/25/17 - Chief Complaint Chief Complaint: fall, hip and low back pain - Allergies Allergies/Adverse Reactions: Allergies Allergy/AdvReac Type Severity Reaction Status Date / Time Penicillins Allergy Swelling Verified 04/25/17 11:53 WALNUTS Allergy Uncoded 04/25/17 11:53 - History of Present Illness History of Present Illness: Ms. Martin is a 66-year-old white female who was admission from the ER after presenting with complaints of hip pain after a fall. Patient has suffered multiple falls in her recent history. Patient's lpn rn states she lives alone and feels like she needs to be admitted to the longterm for rehabilitation therapy patient does have a bed placement and we plan to admit her for observation for pain control and further evaluation of hip and back pain. The patient is stable we will discharge her to rehabilitation therapy at [facility]. She has a past medical history of CHF, diabetes, hypertension, and osteoarthritis. We plan to resume her home medication - Past Medical History Past Medical History: Arthritis, Diabetes, Hypertension - Past Surgical History Surgical History: Ortho Surgery - Family History Family Medical History: Diabetes Mellitus, Coronary Artery Disease, Hypertension - Social History Does patient currently use any type of tobacco product: No Have you used tobacco products in the last 12 months: No Type of Tobacco Use: None Does any household member use tobacco: No Alcohol Use: None Drug Use: None - Medications Home Medications: Furosemide [LASIX TAB 20 MG *] 1 tab PO DAILY 04/25/17 [History Confirmed ] Gabapentin [NEURONTIN CAP 100 MG *] 1 cap PO DAILY 04/25/17 [History Confirmed 04/25/17] Glimepiride [AMARYL 4 MG *] 2 mg PO DAILYWB 04/25/17 [History Confirmed 04/25/17 ] Potassium Chloride [MICRO K EXTENCAP 10 mEQ *] 1 cap PO DAILY 04/25/17 [History Confirmed 04/25/17] Tramadol HCl [ULTRAM 50 MG *] 50 mg PO Q8H 04/25/17 [History Confirmed 04/25/17] - Review of Systems Constitutional: Weakness Eyes: No Symptoms Reported ENT: No Symptoms Reported Respiratory: No Symptoms Reported Cardiovascular: No Symptoms Reported, Edema Gastrointestinal: No Symptoms Reported Genitourinary: No Symptoms Reported Musculoskeletal: Back Pain, Leg Pain Skin: No Symptoms Reported Neurological: No Symptoms Reported - Physical Exam Vital Signs: Temperature 98.7 F Pulse Rate [Apical] 86 Respiratory Rate 18 Blood Pressure [Left Arm] 161/58 Blood Pressure [Right Arm] 143/76 Blood Pressure 124/70 O2 Sat by Pulse Oximetry 100 Oriented: Normal Eyes: Normal Ear: Normal Nose: Normal Throat: Normal Respiratory: RLL Diminished, LLL Diminished Cardiovascular: Normal : Normal Auscultation: Bowel Sounds: Normal Palpation: Normal Tenderness: Normal Skin: Normal Musculoskeletal: Hip, Knee, Back:Lumbar Mood Description: Calm Speech Pattern: Clear, Appropriate - Assessment/Plan (1) Fall Qualifiers: Encounter type: E Status: Acute Plan: admit for further evaluation of injuries sustained from a fall, pain control, plan to resume home medications. Admission labs CBC, CMP, UA. CT of the lumbar spine.. The x-ray results from ER visit earlier today. 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 Status: Acute (5) Congestive heart failure Qualifiers: Congestive heart failure type: C Congestive heart failure chronicity: C Status: Chronic (6) Depression Qualifiers: Depression Type: D Major depression recurrence: M Active/Remission status : A Major depression episode severity: M Psychotic features: P Trimester: T Status: Chronic (7) Diabetes mellitus, type 2 Qualifiers: Diabetes mellitus complication status: with hypoglycemia Diabetes mellitus complication detail: D Diabetic retinopathy severity: D Proliferative retinopathy type: P Diabetes mellitus macular edema: D Diabetes mellitus private duty lpn insulin use: D Laterality: L Chronic kidney disease stage: C Status: Chronic (8) Hyperlipidemia Qualifiers: Hyperlipidemia type: H Status: Chronic (9) Hypertension Qualifiers: Hypertension type: H Status: Chronic
[2017-04-25] MEDS: ULTRAM PO PRN (18:20)
[2017-04-25 22:44] LABS: BILIRUBIN,URINE 1+ (NEGATIVE); BLOOD/HEMOGLOBIN,URINE 1+ (NEGATIVE); GLUCOSE, URINE NEGATIVE (NEGATIVE); KETONES,URINE NEGATIVE (NEGATIVE); LEUKOCYTE ESTERASE ,URINE NEGATIVE (NEGATIVE); NITRITES,URINE NEGATIVE (NEGATIVE); PROTEIN,URINE 2+ (NEGATIVE); UROBILINOGEN,URINE NORMAL (NORMAL)
[2017-04-25 22:54] LABS: APPEARANCE,URINE CLEAR (CLEAR); BACTERIA,URINE TRACE /HPF (NEGATIVE); COLOR,URINE YELLOW (YELLOW); RBC,URINE 0-3 /HPF (NEGATIVE); SQUAMOUS EPITHELIAL CELL,UR RARE /HPF (NEGATIVE)
[2017-04-26] MEDS: ULTRAM PO PRN (02:43)
[2017-04-26 05:10] LABS: BASOPHILS # (AUTO) 0.1 X10^3/uL (0.0-0.1); BASOPHILS % (AUTO) 1.1 % (0.2-1.0); EOSINOPHILS % (AUTO) 0.9 % (0.9-2.9); HEMATOCRIT 26.4 % (36.0-47.0); HEMOGLOBIN 8.7 g/dL (12.0-16.0); LYMPHOCYTES # (AUTO) 1.2 X10^3/uL (1.3-2.9); LYMPHOCYTES % (AUTO) 25.6 % (21.0-51.0); MEAN CORPUSCULAR HEMOGLOBIN 27.9 pg (27.0-34.0); MEAN CORPUSCULAR HGB CONC 33.1 g/dL (33.0-35.0); MEAN CORPUSCULAR VOLUME 84.1 fL (80.0-100.0); MEAN PLATELET VOLUME 8.4 fL (7.4-11.0); MONOCYTES # (AUTO) 0.3 x10^3/uL (0.3-0.8); MONOCYTES % (AUTO) 6.7 % (0.0-13.0); NEUTROPHILS # (AUTO) 3.1 x10^3/uL (2.2-4.8); NEUTROPHILS % (AUTO) 65.7 % (42.0-75.0); PLATELET COUNT 172 X10^3/uL (150.0-450.0); RED BLOOD COUNT 3.13 X10^6/uL (3.5-5.4); RED CELL DISTRIBUTION WIDTH 17.8 % (11.6-16.5); WHITE BLOOD COUNT 4.8 X10^3/uL (3.6-10.0)
[2017-04-26 05:58] LABS: ALANINE AMINOTRANSFERASE 12 Units/L (12-78); ALBUMIN 2.6 g/dL (3.4-5.0); ALKALINE PHOSPHATASE 78 Units/L (46-116); ASPARTATE AMINO TRANSFERASE 15 Units/L (15-37); BLOOD UREA NITROGEN 22 mg/dL (7-18); CALCIUM 8.2 mg/dL (8.5-10.1); CARBON DIOXIDE 24.4 mmol/L (21-32); CHLORIDE 105 mmol/L (98-107); COR CA(FOR HYPOALB) 9.3 mg/dL (8.5-10.1); CREATININE 1.55 mg/dL (0.55-1.02); GLUCOSE 93 mg/dL (65-99); SODIUM 138 mmol/L (136-145); TOTAL PROTEIN 6.2 g/dL (6.4-8.2); eGFR BLACK RACES 43 (>60); eGFR NON BLACK RACES 36 (>60)
--- NOTE | 2017-04-26 09:16 | RAD ---
Chest, one view Indication: Shortness of breath, CHF, pneumonia Comparison: April 19, 2017 Findings: The cardiac silhouette is enlarged without evidence of congestive failure. There is a stab le trace right pleural effusion with persistent but improving bibasilar atelectasis. No new focal in filtrate or pneumothorax is identified. The osseous thorax is unremarkable. Impression: Cardiomegaly with stable trace right pleural effusion and improving bibasilar atelectasis. Reported By:
[2017-04-26] MEDS ORDERED: GLUCOPHAGE PO SCH (13:00)
[2017-04-26] MEDS ORDERED: DUONEB 0.5 MG/3 MG NEB SCH (13:00)
[2017-04-26] MEDS: ULTRAM PO SCH ×2 (14:37→20:39)
[2017-04-26] MEDS: CELEXA PO SCH (15:53)
[2017-04-26] MEDS: MICRO K EXTEN CAP 10 MEQ PO SCH (15:53)
[2017-04-26] MEDS: NS 500 ML IV 500 ML IV SCH (15:54)
[2017-04-26] MEDS: PriLOSEC PO SCH (15:54)
--- NOTE | 2017-04-26 16:22 | CT ---
HISTORY: Low back and left hip pain status post fall. Study: CT lumbar spine without contrast Comparison: None available. Technique: Multiple axial images of the lumbar spine were obtained from the thoracolumbar junction t o the sacrum without the administration of IV contrast. Sagittal and coronal reformats were performe d and reviewed. Dose reduction techniques including Automated Exposure Control (AEC) and adjustment of mA and kV were utilized. Findings: Mild anterior deformity of the anterior L2 vertebral body, which may represent a less than 25% anteri or compression fracture of unknown chronicity. No retropulsion of fracture fragments. Remaining osseo us structures appear intact. No obvious acute listhesis. Mild multilevel degenerative changes of the lumbar spine. No significant neural foraminal narrowing or spinal canal stenosis. Moderate right side d pleural effusion with associated compressive atelectasis. The right adrenal gland appears surgicall y absent. Diverticulosis without evidence of diverticulitis. IMPRESSION: 1. Question of acute compression fracture of the L2 vertebral body of unknown chronicity. Recommend clinical correlation for point tenderness and consider MRI lumbar spine if indicated. 2. Other chronic findings as above. Reported By:
[2017-04-26 16:25] LABS: HEMATOCRIT 28.8 % (36.0-47.0); HEMOGLOBIN 9.5 g/dL (12.0-16.0)
[2017-04-26] MEDS: DUONEB 0.5 MG/3 MG NEB SCH ×2 (16:56→20:30)
[2017-04-26] MEDS ORDERED: ZOCOR TAB 20 MG PO SCH (21:00)
[2017-04-26] MEDS ORDERED: MIRALAX POWDER (1 DOSE 17GM) PO SCH (21:00)
[2017-04-27 06:10] LABS: ALBUMIN 2.5 g/dL (3.4-5.0); CALCIUM 8.3 mg/dL (8.5-10.1); CARBON DIOXIDE 24.4 mmol/L (21-32); COR CA(FOR HYPOALB) 9.5 mg/dL (8.5-10.1); CREATININE 1.5 mg/dL (0.55-1.02); TOTAL PROTEIN 6.3 g/dL (6.4-8.2)
[2017-04-27] MEDS: ULTRAM PO SCH ×2 (06:13→12:34)
[2017-04-27 06:18] LABS: EOSINOPHILS % (AUTO) 0.8 % (0.9-2.9); HEMATOCRIT 25.9 % (36.0-47.0); HEMOGLOBIN 8.7 g/dL (12.0-16.0); LYMPHOCYTES # (AUTO) 0.6 X10^3/uL (1.3-2.9); LYMPHOCYTES % (AUTO) 15.7 % (21.0-51.0); MEAN CORPUSCULAR HEMOGLOBIN 28.1 pg (27.0-34.0); MEAN CORPUSCULAR HGB CONC 33.7 g/dL (33.0-35.0); MEAN CORPUSCULAR VOLUME 83.6 fL (80.0-100.0); MEAN PLATELET VOLUME 8.3 fL (7.4-11.0); MONOCYTES # (AUTO) 0.3 x10^3/uL (0.3-0.8); MONOCYTES % (AUTO) 7.1 % (0.0-13.0); NEUTROPHILS # (AUTO) 3.1 x10^3/uL (2.2-4.8); NEUTROPHILS % (AUTO) 75.4 % (42.0-75.0); PLATELET COUNT 162 X10^3/uL (150.0-450.0); RED CELL DISTRIBUTION WIDTH 17.7 % (11.6-16.5); WHITE BLOOD COUNT 4.1 X10^3/uL (3.6-10.0)
[2017-04-27] MEDS ORDERED: AMARYL TAB 4 MG PO SCH (07:00)
[2017-04-27] MEDS: MICRO K EXTEN CAP 10 MEQ PO SCH (08:22)
[2017-04-27] MEDS: CELEXA PO SCH (08:22)
[2017-04-27] MEDS: PriLOSEC PO SCH (08:22)
[2017-04-27] MEDS: DUONEB 0.5 MG/3 MG NEB SCH ×2 (08:43→13:39)
[2017-04-27] MEDS ORDERED: PHARMACY CONSULT - DOSE _____ XX SCH (09:00)
[2017-04-27] MEDS ORDERED: DEXFERRUM or INFED 1,000 MG in NS 500 ML IV 500 ML IV ONE (09:00)
[2017-04-27] MEDS ORDERED: LASIX PO SCH (09:00)
[2017-04-27] MEDS ORDERED: NEURONTIN CAP 100 MG PO SCH (09:00)
[2017-04-27] MEDS ORDERED: DEXFERRUM or INFED 25 MG in NS 100 ML IV 100 ML IV ONE ×2 (09:00→12:00)
--- NOTE | 2017-04-27 13:11 | MRI ---
MR lumbar spine without contrast Indication: Low back pain after fall. Technique: Multiplanar multi sequence imaging through the lumbar spine without contrast. Comparison: April 26, 2017 CT lumbar spine. Findings: For the purposes of this report and review of the prior CT, there are only 4 lumbar type ve rtebral bodies present. The 1st sacral element is relatively normal morphology and only mildly transi tional. The last thoracic rib-bearing vertebrae is in the usual location of L1. There is edema in the 1st lumbar vertebra (typically would be considered to be L2), corresponding to the fracture seen on CT . This best seen on sagittal images 9 through 5 of series 601. No vertebral b pastora height loss seen. Intervertebral disc shows minimal low signal suggesting slight herniation of th is context into the defect . Remaining vertebral body heights are normal without edema . There is mil d edema dorsally in the subcutaneous tissues of the posterior elements appear intact without convinci ng fracture or ligament tear . Minimal edema seen in the paraspinal musculature on sagittal image 11 and sagittal image 3 of series 601 suggest mild muscle strain posteriorly. The conus terminates dali lly at the pedicle level of the T12 transitional vertebra. There is disc bulge at L4-S1. Remaining in tervertebral disks are relatively normal with minimal bulge at T12-L1 . Limited evaluation of the abdominal pelvic soft tissue shows no acute abnormality . The no high-grade neural foramen or spinal canal stenosis seen. Disc bulge and facet arthropathy at L 4-S1 causes mild spinal canal narrowing. Minimal bilateral neural foramen narrowing at L4-S1 noted. Impression: 1. Acute fracture of the anterior inferior endplate of L1, without vertebral body height loss. Minima l edema seen in the posterior paraspinal musculature suggest strain. 2. Minimal degenerative changes without high-grade stenosis as above. Disc protrusion noted at L4-S1. 3. For the purposes of this report there are only 4 lumbar type vertebral bodies, with the fractured vertebral body in the typical location of L2, but considered L1 for this report, as the usual L1 vert ebral body is replaced by thoracic type rib-bearing vertebral body. Reported By:
[2017-04-27] MEDS ORDERED: LASIX IVP ONE (13:26)
[2017-04-27 16:14] VITALS: BP 121/60
[2017-04-27] MEDS: NS 500 ML IV 500 ML IV SCH (16:18)
== END 2017-04-27 16:35 ==
LOC: ICU 16:12
PROVIDERS: ADMIT Internal Medicine; ATTEND Internal Medicine
DX: S32.018A Other fracture of first lumbar vertebra, initial encounter for closed fracture (principal); M51.36 Other intervertebral disc degeneration, lumbar region; W19.XXXA Unspecified fall, initial encounter; Y93.9 Activity, unspecified; R82.99 Other abnormal findings in urine; Y92.9 Unspecified place or not applicable; I50.9 Heart failure, unspecified; I10 Essential (primary) hypertension; E78.5 Hyperlipidemia, unspecified; E11.9 Type 2 diabetes mellitus without complications; M19.90 Unspecified osteoarthritis, unspecified site
CPT/HCPCS: 36415; 71010; 72131; 72148; 80053; 81001; 82607; 82728; 82746; 83540; 84466; 85014; 85018; 85025; 86850; 86900; 86901; 86922; A4222; G0378; J1750; J7620

== ENCOUNTER → 2017-05-02 | Outpatient (CLI) | payer OTHER ==
[2017-04-27 16:14] VITALS: BP 121/60
--- NOTE | 2017-05-02 12:53 | RAD ---
HISTORY: Back pain, compression fracture Study: Lumbar spine AP, lateral, spot, both obliques Comparison: MRI lumbar spine April 27, 2017 Findings: The alignment is normal. The vertebral bodies are of average height. There is a fracture of the L2 ve rtebral body that is not as well visualized as on the prior MRI and CT. There is no loss of vertebral body height at this time. The remainder the vertebral bodies are of average height. The disc spaces are preserved with the exception of slight narrowing at L5-S1. No spondylolysis or spondylolisthesis is identified. The pedicles are intact. The SI joints are normal. There is some facet arthropathy in the lower spine. IMPRESSION: Fracture of the L2 vertebral body not as well demonstrated as on the CT and MR and not contributing t o significant loss of height. Facet degenerative joint disease lower lumbar spine Reported By:
== END | disposition home or self-care (01) ==
LOC: RAD 09:55
PROVIDERS: ATTEND Orthopaedic Surgery
DX: S32.000A Wedge compression fracture of unspecified lumbar vertebra, initial encounter for closed fracture (principal); X58.XXXA Exposure to other specified factors, initial encounter; M47.896 Other spondylosis, lumbar region
CPT/HCPCS: 72110

== ENCOUNTER 2021-04-20 17:10 | Observation (INO) ==
--- NOTE | 2021-04-20 17:15 | DR.EXTPAIN ---
HPI Time seen Time Seen by Provider: 04/20/21 17:15 PMH PMH Past Medical History: Arthritis, CHF, Diabetes, Dyslipidemia, GERD and Hypertension Past Surgical History: Yes Surgical History: Ortho Surgery Family History Family Medical History: Hypertension Social History Do you use any recreational Drugs:: No ROS Review of Systems Constitutional: No Symptoms Reported, See HPI, Weakness and Fatigue; negative Fever Eyes: No Symptoms Reported and See HPI ENTM: No Symptoms Reported and See HPI; negative Nose Discharge and Nose Congestion Respiratoy: No Symptoms Reported and See HPI; negative Moist Cough, Short of Breath and Wheezing Cardiovascular: No Symptoms Reported, See HPI and Edema; negative Chest Pain Gastrointestinal/Abdominal: No Symptoms Reported, See HPI, Abdominal Pain, Diarrhea and Vomiting Genitourinary: No Symptoms Reported and See HPI; negative Dysuria, Frequency and Hematuria Neurological: See HPI, Headache and Weakness; negative Dizziness Musculoskeletal: No Symptoms Reported and See HPI; negative Back Pain and Muscle Pain Integumentary: See HPI, Change in Color and Rash; negative Juandice Hematologic/Lymphatic: See HPI and Easy Bruising Endocrine: No Symptoms Reported and See HPI; negative Increased Thirst and Increased Urine Psychiatric: No Symptoms Reported and See HPI All Other Systems: Reviewed and Negative PE Vital Signs Vitals: Temperature 98.4 F Pulse Rate 74 Respiratory Rate 16 Blood Pressure [Left Arm] 152/68 Blood Pressure [Right Arm] 147/83 Blood Pressure 139/94 O2 Sat by Pulse Oximetry 96 General Limitations: No Limitations General Appearance: Alert and In No Apparent Distress Head Head Exam: Normal Inspection Eyes Eye exam: Normal Appearance and PERRL; negative Scleral Icterus and Conjunctival Injection ENT ENT Exam: Normal Exam, Normal Oropharynx, Normal External Ear Exam and TM's No rmal Bilaterally Neck Neck Exam: Normal Inspection and Trachea Midline; negative Tenderness and Lymphadenopathy Chest Chest Inspection: Normal Inspection and Symmetric Chest Wall Rise; negative Tenderness Respiratory Respiratory Exam: Normal Lung Sounds Bilat; negative Accessory Muscle Use, Chest Wall Tenderness and Respiratory Distress Respiratory Exam: Bilateral: Rhonchi and Lower: Rhonchi Cardiovascular Cardiovascular Exam: Regular Rate, Normal Rhythm and Normal Heart Sounds; negative Systolic Murmur and Diastolic Murmur Abdominal Exam Abdominal Exam: Normal Inspection, Normal Bowel Sounds and Soft Extremities Extremities Exam: Normal Inspection Back Back Exam: Normal Inspection Neurological Neurological Exam: Alert, Oriented X3 and CN II-XII Intact Psychiatric Psychiatric Exam: Normal Affect and Normal Mood Skin Skin Exam: Warm, Dry, Intact and Normal Color COURSE Education/Counseling Education/Counseling: Patient Educated On: Diagnosis ROR Labs Reviewed Laboratory Results Reviewed?: Yes Result Diagrams: 04/21/21 05:48 04/21/21 05:48 Laboratory: WBC 14.5 X10^3/uL (3.6-10.0) H 04/21/21 05:48 RBC 3.55 X10^6/uL (3.5-5.4) 04/21/21 05:48 Hgb 10.4 g/dL (12.0-16.0) L 04/21/21 05:48 Hct 30.7 % (36.0-47.0) L 04/21/21 05:48 MCV 86.5 fL (80.0-100.0) 04/21/21 05:48 MCH 29.3 pg (27.0-34.0) 04/21/21 05:48 MCHC 33.9 g/dL (33.0-35.0) 04/21/21 05:48 RDW 14.1 % (11.6-16.5) 04/21/21 05:48 Plt Count 229 X10^3/uL (150.0-450.0) 04/21/21 05:48 MPV 8.8 fL (7.4-11.0) 04/21/21 05:48 Neut % (Auto) 79.2 % (42.0-75.0) H 04/21/21 05:48 Lymph % (Auto) 13.7 % (21.0-51.0) L 04/21/21 05:48 [place] % (Auto) 6.2 % (0.0-13.0) 04/21/21 05:48 Eos % (Auto) 0.5 % (0.9-2.9) L 04/21/21 05:48 Baso % (Auto) 0.4 % (0.2-1.0) 04/21/21 05:48 Neut # (Auto) 11.4 x10^3/uL (2.2-4.8) H 04/21/21 05:48 Lymph # (Auto) 2.0 X10^3/uL (1.3-2.9) 04/21/21 05:48 [place] # (Auto) 0.9 x10^3/uL (0.3-0.8) H 04/21/21 05:48 Eos # (Auto) 0.1 x10^3/uL (0.0-0.2) 04/21/21 05:48 Baso # (Auto) 0.1 X10^3/uL (0.0-0.1) 04/21/21 05:48 Absolute Nucleated RBC 0.0 /100WBC 04/21/21 05:48 Sodium 140 mmol/L (136-145) 04/21/21 05:48 Corrected Sodium 142 mmol/L (136-145) 04/21/21 05:48 Potassium 3.3 mmol/L (3.5-5.1) L 04/21/21 05:48 Chloride 103 mmol/L (98-107) 04/21/21 05:48 Carbon Dioxide 25.7 mmol/L (21-32) 04/21/21 05:48 BUN 15 mg/dL (7-18) 04/21/21 05:48 Creatinine 1.45 mg/dL (0.55-1.02) H 04/21/21 05:48 Est GFR (MDRD) Af Amer 46 (>60) L 04/21/21 05:48 Est GFR (MDRD) Non-Af 38 (>60) L 04/21/21 05:48 Glucose 164 mg/dL (65-99) H 04/21/21 05:48 Lactic Acid 1.0 mmol/L (0.4-2.0) 04/20/21 18:00 Calcium 8.9 mg/dL (8.5-10.1) 04/21/21 05:48 Corrected Calcium 9.4 mg/dL (8.5-10.1) 04/20/21 18:00 Total Bilirubin 0.50 mg/dL (0.2-1.0) 04/20/21 18:00 AST 11 Units/L (15-37) L 04/20/21 18:00 ALT 14 Units/L (12-78) 04/20/21 18:00 Alkaline Phosphatase 111 Units/L (46-116) 04/20/21 18:00 Total Protein 7.0 g/dL (6.4-8.2) 04/20/21 18:00 Albumin 2.5 g/dL (3.4-5.0) L 04/20/21 18:00 Globulin 4.5 g/dL (2.5-4.5) 04/20/21 18:00 Albumin/Globulin Ratio 0.6 Ratio (1.1-2.1) L 04/20/21 18:00 Amylase 14 Units/L (25-115) L 04/20/21 18:00 Lipase 106 Units/L (73-393) 04/20/21 18:00 Acetone, Semi-Quant Negative (NEGATIVE) 04/20/21 18:00 SARS-CoV-2 (PCR) Negative (NEGATIVE) 04/21/21 05:20 Influenza Type A (PCR) Negative (NEGATIVE) 04/21/21 05:20 Influenza Type B (PCR) Negative (NEGATIVE) 04/21/21 05:20 RSV (PCR) Negative (NEGATIVE) 04/21/21 05:20 XRAY XRAY Interpreted by: Radiologist (REPORT NOTED AND DISCUSSED WITH PATIENT.) and Self EKG Rate: 65 [place]: Normal Rhythm: NSR Block: 1 Hypertrophy: None ST: Inf and Ischemia Opioid Opioid Risk Tool Age (Bebeto box if 16-45): No History of Preadolescent Sexual Abuse: No Total: 0 Total Score Risk Category: Low Risk Copyright: Flavio SCHULTZ predicting aberrant behaviors Instructions Forms: Precautions for COVID19 Patient Portal Social Distancing
[2021-04-20 18:12] LABS: BASOPHILS # (AUTO) 0.1 X10^3/uL (0.0-0.1); BASOPHILS % (AUTO) 0.5 % (0.2-1.0); HEMOGLOBIN 9.8 g/dL (12.0-16.0); LYMPHOCYTES # (AUTO) 0.8 X10^3/uL (1.3-2.9); LYMPHOCYTES % (AUTO) 5.3 % (21.0-51.0); MEAN CORPUSCULAR HEMOGLOBIN 29.4 pg (27.0-34.0); MEAN CORPUSCULAR HGB CONC 33.9 g/dL (33.0-35.0); MEAN CORPUSCULAR VOLUME 86.6 fL (80.0-100.0); MEAN PLATELET VOLUME 8.6 fL (7.4-11.0); MONOCYTES # (AUTO) 0.7 x10^3/uL (0.3-0.8); MONOCYTES % (AUTO) 4.6 % (0.0-13.0); NEUTROPHILS % (AUTO) 89.6 % (42.0-75.0); PLATELET COUNT 201 X10^3/uL (150.0-450.0); RED BLOOD COUNT 3.35 X10^6/uL (3.5-5.4); WHITE BLOOD COUNT 15.6 X10^3/uL (3.6-10.0)
[2021-04-20 18:19] LABS: CALCIUM 8.2 mg/dL (8.5-10.1); CARBON DIOXIDE 23.6 mmol/L (21-32); CREATININE 1.36 mg/dL (0.55-1.02)
[2021-04-20 20:25] LABS: ALBUMIN 2.5 g/dL (3.4-5.0); COR CA(FOR HYPOALB) 9.4 mg/dL (8.5-10.1)
[2021-04-20] MEDS ORDERED: TORADOL 30 MG VIAL IVP ONE (21:59)
[2021-04-20] MEDS ORDERED: LEVAQUIN PREMIX IV 750 MG 750 MG/150 ML BAG IV ONE ×2 (22:08→22:24)
[2021-04-20] MEDS ORDERED: TORADOL 30 MG VIAL ONE (22:24)
--- NOTE | 2021-04-21 01:35 | CT ---
History: PT C/O FALLING PMH: HTN, DM, CHF PSH: ORTHOExam :HEAD (TRAUMA)Technique: Thin section axial ct images of the brain were obtained from the foramen magnum to the vertex without contrast. Sagittal and coronal reconstructions were also performed.Comparison: 03/14/2021Findings:The ventricles are within normal limits in size. No midline shift, mass effect or extra-axial fluid collections. No evidence of acute hemorrhage or acute macroinfarction. Moderate cortical atrophy compatible with patient's age. Decreased attenuation in the periventricular and subcortical white matter consistent with microvascular ischemic white matter changes.Mild mucosal thickening within the maxillary sinuses. The calvarium is intact.Impression:Moderate cortical atrophy with microvascular ischemic white matter changes.No acute intracranial pathology.Mild chronic bilateral maxillary sinusitisElectronically signed by: Manish Molina (Apr 21, 2021 01:33:12)
[2021-04-21] MEDS ORDERED: REQUIP PO ONE (02:39)
[2021-04-21 05:56] LABS: BASOPHILS # (AUTO) 0.1 X10^3/uL (0.0-0.1); BASOPHILS % (AUTO) 0.4 % (0.2-1.0); EOSINOPHILS # (AUTO) 0.1 x10^3/uL (0.0-0.2); EOSINOPHILS % (AUTO) 0.5 % (0.9-2.9); HEMATOCRIT 30.7 % (36.0-47.0); HEMOGLOBIN 10.4 g/dL (12.0-16.0); LYMPHOCYTES % (AUTO) 13.7 % (21.0-51.0); MEAN CORPUSCULAR HEMOGLOBIN 29.3 pg (27.0-34.0); MEAN CORPUSCULAR HGB CONC 33.9 g/dL (33.0-35.0); MEAN CORPUSCULAR VOLUME 86.5 fL (80.0-100.0); MEAN PLATELET VOLUME 8.8 fL (7.4-11.0); MONOCYTES # (AUTO) 0.9 x10^3/uL (0.3-0.8); MONOCYTES % (AUTO) 6.2 % (0.0-13.0); NEUTROPHILS # (AUTO) 11.4 x10^3/uL (2.2-4.8); NEUTROPHILS % (AUTO) 79.2 % (42.0-75.0); PLATELET COUNT 229 X10^3/uL (150.0-450.0); RED BLOOD COUNT 3.55 X10^6/uL (3.5-5.4); RED CELL DISTRIBUTION WIDTH 14.1 % (11.6-16.5); WHITE BLOOD COUNT 14.5 X10^3/uL (3.6-10.0)
[2021-04-21 06:05] LABS: CALCIUM 8.9 mg/dL (8.5-10.1); CARBON DIOXIDE 25.7 mmol/L (21-32); CREATININE 1.45 mg/dL (0.55-1.02)
--- NOTE | 2021-04-21 06:05 | RAD ---
HISTORYPT C/O DIARRHEA PMH: HTN, DM, CHF PSH: ORTHOSTUDYACUTE ABDOMEN [id number] trachea is midline. The cardiac silhouette is [mildly enlarged.]. [The lungs are clear without focal mass or consolidation. There is no effusion or pneumothorax.] [The bony thorax is unremarkable].Flat plate and upright evaluation of the abdomen demonstrates a [normal bowel gas pattern]. There is no pneumoperitoneum. No pathological soft tissue mass or calcification can be observed. The bony structures are grossly intact.IMPRESSION1. [Mild cardiomegaly, no active cardiopulmonary disease2. [No evidence for acute abdominal pathology identified.]Electronically signed by: Manish Molina (Apr 21, 2021 06:04:20)
[2021-04-21] MEDS ORDERED: ZOFRAN TAB 4 MG PO PRN (07:38)
[2021-04-21] MEDS ORDERED: LEVAQUIN PREMIX IV 750 MG 750 MG/150 ML BAG IV SCH (09:00)
[2021-04-21] MEDS: NS 1000 ML 1,000 ML IV SCH ×2 (09:39→23:04)
[2021-04-21] MEDS: CELEXA PO SCH (09:39)
[2021-04-21] MEDS ORDERED: MICRO K EXTEN CAP 10 MEQ PO PRN (09:41)
[2021-04-21] MEDS ORDERED: KLOR-CON PO PRN (09:41)
[2021-04-21] MEDS ORDERED: MAGNESIUM SULFATE 1 GRAM/100 mL PREMIX 1 GM/100 ML BAG IV PRN (09:41)
[2021-04-21] MEDS ORDERED: POTASSIUM CHL 60 MEQ/NS 0.45% 500 ML IV PRN (09:41)
[2021-04-21] MEDS ORDERED: POTASSIUM CHLORIDE LIQ 20 MEQ UDC PO PRN (09:41)
[2021-04-21] MEDS ORDERED: K-DUR TAB 20 MEQ PO PRN (09:41)
[2021-04-21] MEDS ORDERED: K-RIDER 10 MEQ/NS 100 ML 10 MEQ/100 ML BAG IV PRN (09:41)
[2021-04-21] MEDS ORDERED: POTASSIUM CHL 40 MEQ/NS 0.45% 500 ML IV PRN (09:41)
[2021-04-21] MEDS: PROTONIX INJ 40 MG VIAL IVP SCH (09:51)
[2021-04-21 10:14] LABS: FREE T4 (FREE THYROXINE) 1.5 ng/dL (0.76-1.46); TSH (3RD GENERATION) 0.835 uIU/mL (0.358-3.74)
[2021-04-21 10:17] LABS: LACTIC ACID 0.9 mmol/L (0.4-2.0)
[2021-04-21] MEDS: ULTRAM PO SCH ×2 (10:30→16:41)
[2021-04-21] MEDS: HumuLIN R SUBCUT PRN ×3 (12:25→20:00)
[2021-04-21 15:48] VITALS: BMI 28.8
--- NOTE | 2021-04-21 17:25 | RAD ---
HISTORYLOWER BACK PAINSTUDYLUMBAR SPINE, COMPLETECOMPARISONNone availableTECHNIQUERadiographs of the lumbar spine, 5 views, AP, lateral, bilateral oblique and coned-down lumbosacral lateral projectionsFINDINGSVertebral body heights are maintained with normal alignment.Multilevel mild degenerative disc disease in the imaged portion of the thoracolumbar spine with multilevel bridging marginal osteophytes.Moderate facet degenerative changes from L3-S1.No acute osseous abnormality.Soft tissues are unremarkable.Atherosclerotic changes to the abdominal aorta without aneurysm identified.IMPRESSION1. No acute osseous abnormality.2. Chronic changes as described above.Electronically signed by: Ricci Jordan (Apr 21, 2021 17:23:05)
--- NOTE | 2021-04-21 17:26 | RAD ---
HISTORYLEFT FOOT PAINSTUDYFOOT, LEFTCOMPARISONNone availableTECHNIQUELeft foot radiographs, 3 views, AP, oblique and lateral projectionsFINDINGSNo fracture or dislocations.Normal joint spaces.Edema in the soft tissues medial to the 1st MTP joint with gas within the plantar soft tissues consistent with an adjacent cutaneous defect.No osseous erosions.Bulky plantar calcaneal spur.Peripheral vascular calcifications.Enthesophyte at the Achilles insertion.IMPRESSION1. Edema in the soft tissues medial to the 1st MTP joint with gas within the plantar soft tissues consistent with an adjacent cutaneous defect; may represent cellulitis. No osseous erosions to confirm osteomyelitis.2. Chronic changes as described above.Electronically signed by: Ricci Jordan (Apr 21, 2021 17:25:08)
--- NOTE | 2021-04-21 18:30 | DR.H&P ---
H&P - History & Physical for Day of: H&P Date: 04/21/21 - Chief Complaint Chief Complaint: LEFT FOOT PAIN, REDNESS, SWELLING, FALL - History of Present Illness History of Present Illness: PT IS 70 WF ER ADMISSION WITH CO WEAKNESS AND MULTPLE FALLS RECENTLY. PT CO LEFT FOOT PAIN WITH REDNESS AND SWELLING. PT HAS PMH OF DM WITH POOR CONTROL AND REOCCURRING LOWER EXTREMITY CELLULITS. PT DENIES ANY FEVER OR KNOWN COVID EXPOSURE. PT STATES HE HAD BOTH COVID VACCINATIONS. PT ADMITTED FOR TREATMENT OF ACUTE ILLNESS. - Past Medical History Past Medical History: Hypertension, Dyslipidemia, Diabetes, GERD, Arthritis, CHF - Past Surgical History Surgical History: Ortho Surgery - Family History Family Medical History: Diabetes Mellitus, Coronary Artery Disease - Social History Does patient currently use any type of tobacco product: No Have you used tobacco products in the last 12 months: No Type of Tobacco Use: None Does any household member use tobacco: No Alcohol Use: None Drug Use: None - Medications Home Medications: Penicillins Allergy (Mild, Verified 04/08/21 07:41) hives walnut Allergy (Verified 12/23/20 17:25) CONTINUE taking the following medications empagliflozin [Jardiance] 25 mg PO DAILY 04/21/21 [History] ergocalciferol (vitamin D2) [Vitamin D2] 1,250 mcg PO WEEKLY 04/21/21 [History] omeprazole 20 mg PO BID 04/21/21 [History] simvastatin 10 mg PO HS 04/21/21 [History] - Review of Systems Constitutional: Weakness, Malaise Eyes: No Symptoms Reported ENT: No Symptoms Reported Respiratory: SOB with Excertion Cardiovascular: Edema Gastrointestinal: Nausea, Diarrhea Genitourinary: No Symptoms Reported Musculoskeletal: Leg Pain, Foot Pain Skin: Wound Neurological: No Symptoms Reported - Physical Exam Vital Signs: Temperature 98.1 F Pulse Rate [Left Brachial] 74 Pulse Rate 74 Respiratory Rate 20 Blood Pressure [Left Arm] 159/69 Blood Pressure [Right Arm] 147/83 Blood Pressure 139/94 O2 Sat by Pulse Oximetry 95 Oriented: Normal Eyes: Normal Ear: Normal Nose: Normal Throat: Normal Respiratory: RLL Diminished, LLL Diminished Cardiovascular: Normal, Edema : Normal Auscultation: Bowel Sounds: Normal Palpation: Normal Tenderness: Normal Skin: Decreased Turgur, Red, Tender, Wound Musculoskeletal: Left, Ankle, Foot, Swelling, Tender Psychiatric: Anxiety Affect: Anxious Speech Pattern: Clear, Appropriate - Assessment/Plan (1) Abscess or cellulitis of foot Status: Acute Plan: ADMIT, BC AND UC ON ADMISSION. PAIN CONTROL XRAY LEFT FOOT. DVT PROPHYLAXIS, IV ATBX THERAPY. WOUND CARE, BLOOD SUGAR CONTROL. 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 Status: Acute (3) Fall Status: Acute (4) Lumbar degenerative disc disease Status: Acute (5) Gout Qualifiers: Gout site: elbow Encounter type: initial encounter Chronicity: acute Laterality: right Status: Acute (6) Diabetes mellitus, type 2 Qualifiers: Diabetes mellitus complication status: with hypoglycemia Status: Chronic (7) Hyperlipidemia Status: Chronic (8) Hypertension Status: Chronic (9) Congestive heart failure Status: Chronic - Allergies Allergies/Adverse Reactions: Allergies Allergy/AdvReac Type Severity Reaction Status Date / Time Penicillins Allergy Mild hives Verified 04/08/21 07:41 walnut Allergy Verified 12/23/20 17:25
[2021-04-21] MEDS: SNACK - Diabetic Appropriate PO SCH (20:00)
[2021-04-21] MEDS: ZOCOR TAB 20 MG PO SCH (21:00)
[2021-04-22] MEDS: ULTRAM PO SCH ×3 (00:32→16:47)
[2021-04-22 05:16] LABS: BILIRUBIN,URINE NEGATIVE (NEGATIVE); BLOOD/HEMOGLOBIN,URINE 1+ (NEGATIVE); GLUCOSE, URINE 4+ (NEGATIVE); KETONES,URINE NEGATIVE (NEGATIVE); LEUKOCYTE ESTERASE ,URINE NEGATIVE (NEGATIVE); NITRITES,URINE NEGATIVE (NEGATIVE); PROTEIN,URINE 3+ (NEGATIVE); UROBILINOGEN,URINE NORMAL (NORMAL)
[2021-04-22 05:27] LABS: APPEARANCE,URINE CLEAR (CLEAR); BACTERIA,URINE NEGATIVE /HPF (NEGATIVE); COLOR,URINE PALE YELLOW (YELLOW); SQUAMOUS EPITHELIAL CELL,UR FEW /HPF (NEGATIVE); YEAST,URINE MANY /HPF (NEGATIVE)
[2021-04-22 06:15] LABS: BASOPHILS % (AUTO) 0.3 % (0.2-1.0); EOSINOPHILS # (AUTO) 0.2 x10^3/uL (0.0-0.2); EOSINOPHILS % (AUTO) 1.1 % (0.9-2.9); HEMATOCRIT 26.6 % (36.0-47.0); HEMOGLOBIN 9.2 g/dL (12.0-16.0); LYMPHOCYTES # (AUTO) 1.4 X10^3/uL (1.3-2.9); LYMPHOCYTES % (AUTO) 9.9 % (21.0-51.0); MEAN CORPUSCULAR HEMOGLOBIN 29.7 pg (27.0-34.0); MEAN CORPUSCULAR HGB CONC 34.7 g/dL (33.0-35.0); MEAN CORPUSCULAR VOLUME 85.6 fL (80.0-100.0); MEAN PLATELET VOLUME 8.7 fL (7.4-11.0); MONOCYTES # (AUTO) 0.9 x10^3/uL (0.3-0.8); MONOCYTES % (AUTO) 6.4 % (0.0-13.0); NEUTROPHILS # (AUTO) 11.3 x10^3/uL (2.2-4.8); NEUTROPHILS % (AUTO) 82.3 % (42.0-75.0); PLATELET COUNT 218 X10^3/uL (150.0-450.0); RED BLOOD COUNT 3.11 X10^6/uL (3.5-5.4); RED CELL DISTRIBUTION WIDTH 13.8 % (11.6-16.5); WHITE BLOOD COUNT 13.7 X10^3/uL (3.6-10.0)
[2021-04-22] MEDS: HumuLIN R SUBCUT PRN ×4 (06:18→22:53)
[2021-04-22 06:30] LABS: ALBUMIN 2.2 g/dL (3.4-5.0); CALCIUM 8.7 mg/dL (8.5-10.1); CARBON DIOXIDE 24.7 mmol/L (21-32); COR CA(FOR HYPOALB) 10.1 mg/dL (8.5-10.1); CREATININE 1.37 mg/dL (0.55-1.02); TOTAL PROTEIN 6.5 g/dL (6.4-8.2)
[2021-04-22] MEDS: LOVENOX INJ 40 MG SYR SC SCH (08:56)
[2021-04-22] MEDS: PROTONIX INJ 40 MG VIAL IVP SCH (08:57)
[2021-04-22] MEDS: CELEXA PO SCH (08:57)
[2021-04-22] MEDS ORDERED: LASIX IVP ONE (10:05)
[2021-04-22] MEDS ORDERED: K-DUR TAB 20 MEQ PO ONE (10:07)
--- NOTE | 2021-04-22 11:03 | RAD ---
HISTORYWHEEZING, HX CHFSTUDYCHEST x-ray, 1 VIEWCOMPARISONX-ray 06/17/2019FINDINGSCardiomegaly is seen, similar to prior study. Mild CHF is suspected. Possible very mild pulmonary edema. No pneumothorax, focal infiltrate, or pleural effusion is seen.IMPRESSIONProbable mild CHF and there may be very mild pulmonary edema.Electronically signed by: Ravi Colmenares (Apr 22, 2021 11:01:21)
[2021-04-22] MEDS: NS 1000 ML 1,000 ML IV SCH (11:04)
[2021-04-22] MEDS: SNACK - Diabetic Appropriate PO SCH (21:15)
[2021-04-22] MEDS: ZOCOR TAB 20 MG PO SCH (22:12)
[2021-04-22] MEDS ORDERED: HumuLIN R ONE (22:17)
[2021-04-23] MEDS: ULTRAM PO SCH ×2 (00:43→10:39)
[2021-04-23] MEDS: HumuLIN R SUBCUT PRN (05:40)
[2021-04-23] MEDS: NS 1000 ML 1,000 ML IV SCH (05:46)
--- NOTE | 2021-04-23 06:00 | RAD ---
HISTORYCHFSTUDYPortable AP chestCOMPARISONAugust 2020FINDINGSMild stable cardiac enlargement with essentially clear lungs and pleural spaces. There is no definite infiltrate, edema, or pleural fluid. Evaluation of the bases limited by attenuation of soft tissues.IMPRESSIONCardiomegaly, no acute pulmonary/pleural abnormality demonstrated.Electronically signed by: MARYELLEN GARRETT (Apr 23, 2021 05:58:42)
[2021-04-23 06:19] LABS: BASOPHILS # (AUTO) 0.1 X10^3/uL (0.0-0.1); BASOPHILS % (AUTO) 0.3 % (0.2-1.0); EOSINOPHILS # (AUTO) 0.1 x10^3/uL (0.0-0.2); EOSINOPHILS % (AUTO) 0.3 % (0.9-2.9); HEMOGLOBIN 9.1 g/dL (12.0-16.0); LYMPHOCYTES # (AUTO) 1.6 X10^3/uL (1.3-2.9); LYMPHOCYTES % (AUTO) 8.9 % (21.0-51.0); MEAN CORPUSCULAR HEMOGLOBIN 29.3 pg (27.0-34.0); MEAN CORPUSCULAR HGB CONC 33.8 g/dL (33.0-35.0); MEAN CORPUSCULAR VOLUME 86.6 fL (80.0-100.0); MEAN PLATELET VOLUME 9.3 fL (7.4-11.0); MONOCYTES # (AUTO) 1.1 x10^3/uL (0.3-0.8); MONOCYTES % (AUTO) 6.1 % (0.0-13.0); NEUTROPHILS # (AUTO) 15.6 x10^3/uL (2.2-4.8); NEUTROPHILS % (AUTO) 84.4 % (42.0-75.0); PLATELET COUNT 261 X10^3/uL (150.0-450.0); RED BLOOD COUNT 3.12 X10^6/uL (3.5-5.4); RED CELL DISTRIBUTION WIDTH 13.6 % (11.6-16.5); WHITE BLOOD COUNT 18.5 X10^3/uL (3.6-10.0)
[2021-04-23 06:24] LABS: CALCIUM 8.7 mg/dL (8.5-10.1); CARBON DIOXIDE 26.1 mmol/L (21-32); COR CA(FOR HYPOALB) 10.3 mg/dL (8.5-10.1); CREATININE 1.65 mg/dL (0.55-1.02); TOTAL PROTEIN 6.5 g/dL (6.4-8.2)
[2021-04-23 07:25] LABS: RHEUMATOID FACTOR NEGATIVE (NEGATIVE)
[2021-04-23] MEDS: PROTONIX INJ 40 MG VIAL IVP SCH (10:39)
[2021-04-23] MEDS: CELEXA PO SCH (10:40)
[2021-04-23] MEDS: LOVENOX INJ 40 MG SYR SC SCH (10:40)
[2021-04-23 12:31] VITALS: BP 113/58
== END 2021-04-23 13:15 ==
LOC: ER 17:11 → MED/SURG 17:11 → OBS 04-22 20:09
PROVIDERS: ADMIT Internal Medicine; ATTEND Internal Medicine
DX: R26.2 Difficulty in walking, not elsewhere classified; R10.9 Unspecified abdominal pain; L97.522 Non-pressure chronic ulcer of other part of left foot with fat layer exposed; E11.621 Type 2 diabetes mellitus with foot ulcer; D68.9 Coagulation defect, unspecified; L97.422 Non-pressure chronic ulcer of left heel and midfoot with fat layer exposed; D72.829 Elevated white blood cell count, unspecified; I50.9 Heart failure, unspecified; M19.90 Unspecified osteoarthritis, unspecified site; R19.4 Change in bowel habit; L03.032 Cellulitis of left toe; Y92.9 Unspecified place or not applicable; E78.5 Hyperlipidemia, unspecified; R19.7 Diarrhea, unspecified; W19.XXXA Unspecified fall, initial encounter; R82.998 Other abnormal findings in urine; I10 Essential (primary) hypertension; S00.83XA Contusion of other part of head, initial encounter; M10.9 Gout, unspecified; Z20.822 Contact with and (suspected) exposure to COVID-19; I25.10 Atherosclerotic heart disease of native coronary artery without angina pectoris; L03.116 Cellulitis of left lower limb; Z91.81 History of falling; F41.9 Anxiety disorder, unspecified; B95.4 Other streptococcus as the cause of diseases classified elsewhere

== ENCOUNTER 2022-01-20 18:00 | Observation (INO) ==
[2022-01-20] MEDS ORDERED: TYLENOL #3 TAB (W/CODEINE) PO PRN (18:06)
[2022-01-20] MEDS ORDERED: ZOFRAN INJ 4 MG VIAL IVP PRN (18:06)
--- NOTE | 2022-01-20 18:11 | DR.H&P ---
H&P - History & Physical for Day of: H&P Date: 01/20/22 - Chief Complaint Chief Complaint: "FREQUENT URINATION" "HURTING ALL OVER" - History of Present Illness History of Present Illness: PT IS 71 WF ADMISSION FROM [facility] WITH UTI, WEAKNESS AND PAIN ALL OVER. PT HAS BEEN CO URINARY FREQUENCY AND HAD OUTPT UA REVEALING UTI. PT CO PAIN ALL OVER WITH RECENT FALL ON 01/14. XRAYS OBTAINED WITHOUT ACUTE INJURY. PT HAD ABNORMAL OUTPT LABS. PT ADMITTED FOR TREATMENT OF ACUTE ILLNESS. - Past Medical History Past Medical History: Hypertension, Dyslipidemia, Diabetes, GERD, Arthritis, CHF - Past Surgical History Surgical History: Ortho Surgery - Family History Family Medical History: Diabetes Mellitus, Coronary Artery Disease - Social History Does patient currently use any type of tobacco product: No Have you used tobacco products in the last 12 months: No Type of Tobacco Use: None Does any household member use tobacco: No Alcohol Use: None Drug Use: None Risks, benefits, and alternatives of opioids discussed: No - Medications Home Medications: Penicillins Allergy (Mild, Verified 04/08/21 07:41) hives walnut Allergy (Verified 12/23/20 17:25) - Review of Systems Constitutional: Weakness, Malaise Eyes: No Symptoms Reported ENT: No Symptoms Reported Respiratory: SOB with Excertion Cardiovascular: Edema Gastrointestinal: Nausea, Diarrhea Genitourinary: Frequency Musculoskeletal: Back Pain, Leg Pain, Neck Pain Skin: No Symptoms Reported Neurological: Weakness - Physical Exam Vital Signs: Blood Pressure [Left Arm] 113/58 Blood Pressure 126/65 Oriented: Normal Eyes: Normal Ear: Normal Nose: Normal Throat: Normal Respiratory: RLL Diminished, LLL Diminished Cardiovascular: Normal : Normal Auscultation: Bowel Sounds: Normal Tenderness: Normal Skin: Decreased Turgur Musculoskeletal: Back:Thoracic, Back:Lumbar Psychiatric: Anxiety, Depression Mood Description: Depressed Speech Pattern: Clear, Appropriate - Assessment/Plan (1) Urinary tract infection Status: Acute Plan: ADMIT, IV HYDRATION. STRICT I&OS. IV ATBX, RESP PANEL ON ADMISSION. CXR AND EKG ON ADMISSION. PAIN CONTROL (2) Acute dehydration Status: Acute (3) Depression Status: Chronic (4) Diabetes mellitus, type 2 Qualifiers: Diabetes mellitus complication status: with hypoglycemia Status: Chronic (5) GERD (gastroesophageal reflux disease) Status: Chronic - Allergies Allergies/Adverse Reactions: Allergies Allergy/AdvReac Type Severity Reaction Status Date / Time Penicillins Allergy Mild hives Verified 04/08/21 07:41 walnut Allergy Verified 12/23/20 17:25
[2022-01-20] MEDS ORDERED: LEVAQUIN PREMIX IV 500 MG 500 MG/100 ML BAG IV SCH (19:00)
[2022-01-20] MEDS ORDERED: SNACK - Diabetic Appropriate PO SCH (20:00)
--- NOTE | 2022-01-20 22:19 | RAD ---
EXAM: CHEST X-RAYHISTORY: Weakness.TECHNIQUE: AP CXR dated January 20, 2022 at 9:33 PM.COMPARISON: CXR dated May 12, 2021.FINDINGS:There is aortic atherosclerosis. The heart size and mediastinum are otherwise within normal limits. There is lung parenchymal hyperinflation and hyperlucency in keeping with COPD/emphysema. There is no acute parenchymal infiltrate, pleural effusion, or pneumothorax seen. The visualized bony structures are within normal limits.IMPRESSION:1. No evidence for acute cardiopulmonary disease seen.2. COPD/emphysema.3. No significant interval change seen.Electronically signed by: Andrew Guzmán (January 20, 2022 22:18:09)
[2022-01-20 22:45] LABS: BASOPHILS # (AUTO) 0.1 X10^3/uL (0.0-0.1); BASOPHILS % (AUTO) 0.8 % (0.2-1.0); EOSINOPHILS # (AUTO) 0.2 x10^3/uL (0.0-0.2); EOSINOPHILS % (AUTO) 1.9 % (0.9-2.9); HEMATOCRIT 35.8 % (36.0-47.0); HEMOGLOBIN 12.1 g/dL (12.0-16.0); LYMPHOCYTES # (AUTO) 2.6 X10^3/uL (1.3-2.9); LYMPHOCYTES % (AUTO) 24.6 % (21.0-51.0); MEAN CORPUSCULAR HEMOGLOBIN 28.9 pg (27.0-34.0); MEAN CORPUSCULAR HGB CONC 33.9 g/dL (33.0-35.0); MEAN CORPUSCULAR VOLUME 85.3 fL (80.0-100.0); MEAN PLATELET VOLUME 8.7 fL (7.4-11.0); MONOCYTES # (AUTO) 0.9 x10^3/uL (0.3-0.8); MONOCYTES % (AUTO) 8.5 % (0.0-13.0); NEUTROPHILS # (AUTO) 6.7 x10^3/uL (2.2-4.8); NEUTROPHILS % (AUTO) 64.2 % (42.0-75.0); RED CELL DISTRIBUTION WIDTH 15.6 % (11.6-16.5); WHITE BLOOD COUNT 10.4 X10^3/uL (3.6-10.0)
[2022-01-20 23:07] LABS: ALBUMIN 2.9 g/dL (3.4-5.0); CALCIUM 9.1 mg/dL (8.5-10.1); CARBON DIOXIDE 21.5 mmol/L (21-32); CKMB % 4.1 % (<4); CREATINE KINASE MB 1.3 ng/mL (0-4.0); CREATININE 1.75 mg/dL (0.55-1.02); TOTAL PROTEIN 7.7 g/dL (6.4-8.2)
[2022-01-21] MEDS ORDERED: NS 1,000 ML IV 1,000 ML ONE (00:16)
[2022-01-21] MEDS ORDERED: LEVAQUIN PREMIX IV 500 MG 500 MG/100 ML BAG IV ONE (00:16)
[2022-01-21] MEDS: NS 1,000 ML IV 1,000 ML IV SCH ×5 (00:30→23:00)
[2022-01-21] MEDS: PROTONIX INJ 40 MG VIAL IVP SCH ×2 (00:31→08:12)
[2022-01-21 05:04] LABS: BASOPHILS # (AUTO) 0.1 X10^3/uL (0.0-0.1); BASOPHILS % (AUTO) 0.6 % (0.2-1.0); EOSINOPHILS # (AUTO) 0.2 x10^3/uL (0.0-0.2); HEMATOCRIT 34.1 % (36.0-47.0); HEMOGLOBIN 11.5 g/dL (12.0-16.0); LYMPHOCYTES # (AUTO) 2.8 X10^3/uL (1.3-2.9); LYMPHOCYTES % (AUTO) 27.4 % (21.0-51.0); MEAN CORPUSCULAR HEMOGLOBIN 28.7 pg (27.0-34.0); MEAN CORPUSCULAR HGB CONC 33.8 g/dL (33.0-35.0); MEAN CORPUSCULAR VOLUME 84.9 fL (80.0-100.0); MEAN PLATELET VOLUME 8.6 fL (7.4-11.0); MONOCYTES % (AUTO) 9.7 % (0.0-13.0); NEUTROPHILS # (AUTO) 6.1 x10^3/uL (2.2-4.8); NEUTROPHILS % (AUTO) 60.3 % (42.0-75.0); RED BLOOD COUNT 4.02 X10^6/uL (3.5-5.4); RED CELL DISTRIBUTION WIDTH 15.7 % (11.6-16.5); WHITE BLOOD COUNT 10.2 X10^3/uL (3.6-10.0)
[2022-01-21 05:35] LABS: ALBUMIN 2.6 g/dL (3.4-5.0); CALCIUM 9.1 mg/dL (8.5-10.1); CARBON DIOXIDE 17.6 mmol/L (21-32); COR CA(FOR HYPOALB) 10.2 mg/dL (8.5-10.1); CREATININE 1.48 mg/dL (0.55-1.02); TOTAL PROTEIN 7.3 g/dL (6.4-8.2)
[2022-01-21] MEDS ORDERED: ULTRAM PO PRN (09:07)
[2022-01-21] MEDS: LEVAQUIN PREMIX IV 250 MG 250 MG/50 ML BAG IV SCH (09:12)
[2022-01-21] MEDS: CELEXA PO SCH (09:20)
[2022-01-21] MEDS: NovoLIN R (or HumuLIN R) SUBCUT PRN (11:36)
[2022-01-21] MEDS: NORCO 5/325 MG TAB PO PRN (14:50)
[2022-01-21] MEDS ORDERED: NEURONTIN CAP 100 MG PO PRN (18:13)
[2022-01-21] MEDS ORDERED: VITAMIN D (1.25MG) PO SCH (18:15)
[2022-01-21] MEDS ORDERED: INSULIN REGULAR HUMAN 100 UNIT/ML SUBCUT SCH (18:15)
--- NOTE | 2022-01-21 18:22 | PCM.PROG ---
Progress Note - Subjective Subjective: Patient is a 71 year old white female who was admitted as per HPI. Patient continues to report she does not feel well. Patient reports at baseline she ambulates however she does have a "limp" with ambulation and left sided weakness due to history of polio as a child. However she reports over the past 3 weeks she has no longer been able to ambulate. States she had a fall approxima tely 3 weeks ago and has not been able to ambulate since fall. Reports left leg pain and weakness. No change in weakness of left upper ext from baseline. Patient has had outpatient xrays which have all been negative. Patient denies any other concerns at present. - Past Medical Family Social History Past Med/Fam/Surg Hx: No changes since H&P Allergies: Allergies Penicillins Allergy (Mild, Verified 04/08/21 07:41) hives walnut Allergy (Verified 12/23/20 17:25) - Review of Systems ROS: No change since H&P - Vital Signs and I&O's Vital Signs: Temperature 99.3 F Pulse Rate [Left Radial] 85 Pulse Rate 90 Respiratory Rate 20 Blood Pressure [Left Arm] 181/77 Blood Pressure 126/65 O2 Sat by Pulse Oximetry 99 Intake and Output: Intake & Output 01/18/22 01/19/22 01/20/22 01/21/22 23:59 23:59 23:59 23:59 Intake Total 142 / 142 2250 / 2250 Balance 142 / 142 2250 / 2250 - Physical Exam Oriented: Normal Eyes: Normal Ear: Normal Nose: Normal Throat: Normal Respiratory: Normal Cardiovascular: Normal : Normal Auscultation: Bowel Sounds: Normal Palpation: Normal Tenderness: Normal Skin: Decreased Turgur Musculoskeletal: Left, Knee, Leg (Patient reports inability to straighten left leg as she used to; weakness to left leg, reports pain to left leg), Back:Thoracic, Back:Lumbar Psychiatric: Anxiety, Depression Mood Description: Depressed, Anxious Affect: Anxious Speech Pattern: Clear, Appropriate - Laboratory and Diagnostics Result Diagrams: 01/21/22 04:27 01/21/22 04:27 Labs: 01/21/22 04:10 Stool - Final Laboratory WBC 10.2 X10^3/uL (3.6-10.0) H 01/21/22 04:27 RBC 4.02 X10^6/uL (3.5-5.4) 01/21/22 04:27 Hgb 11.5 g/dL (12.0-16.0) L 01/21/22 04: Hct 34.1 % (36.0-47.0) L 01/21/22 04:27 MCV 84.9 fL (80.0-100.0) 01/21/22 04:27 MCH 28.7 pg (27.0-34.0) 01/21/22 04: MCHC 33.8 g/dL (33.0-35.0) 01/21/22 04: RDW 15.7 % (11.6-16.5) 01/21/22 04:27 Plt Count 236 X10^3/uL (150.0-450.0) 01/21/22 04: MPV 8.6 fL (7.4-11.0) 01/21/22 04:27 Neut % (Auto) 60.3 % (42.0-75.0) 01/21/22 04:27 Lymph % (Auto) 27.4 % (21.0-51.0) 01/21/22 04:27 [place] % (Auto) 9.7 % (0.0-13.0) 01/21/22 04:27 Eos % (Auto) 2.0 % (0.9-2.9) 01/21/22 04:27 Baso % (Auto) 0.6 % (0.2-1.0) 01/21/22 04:27 Neut # (Auto) 6.1 x10^3/uL (2.2-4.8) H 01/21/22 04:27 Lymph # (Auto) 2.8 X10^3/uL (1.3-2.9) 01/21/22 04:27 [place] # (Auto) 1.0 x10^3/uL (0.3-0.8) H 01/21/22 04:27 Eos # (Auto) 0.2 x10^3/uL (0.0-0.2) 01/21/22 04:27 Baso # (Auto) 0.1 X10^3/uL (0.0-0.1) 01/21/22 04:27 Absolute Nucleated RBC 0.1 /100WBC 01/21/22 04:27 Sodium 138 mmol/L (136-145) 01/21/22 04:27 Corrected Sodium 140 mmol/L (136-145) 01/21/22 04:27 Potassium 4.3 mmol/L (3.5-5.1) 01/21/22 04:27 Chloride 105 mmol/L (98-107) 01/21/22 04:27 Carbon Dioxide 17.6 mmol/L (21-32) L 01/21/22 04:27 BUN 60 mg/dL (7-18) H 01/21/22 04:27 Creatinine 1.48 mg/dL (0.55-1.02) H 01/21/22 04:27 Est GFR (MDRD) Af Amer 45 (>60) L 01/21/22 04:27 Est GFR (MDRD) Non-Af 37 (>60) L 01/21/22 04:27 Glucose 177 mg/dL (65-99) H 01/21/22 04:27 POC Glucose (mg/dL) 155 mg/dL (65-99) H 01/21/22 15:53 Calcium 9.1 mg/dL (8.5-10.1) 01/21/22 04:27 Corrected Calcium 10.2 mg/dL (8.5-10.1) H 01/21/22 04:27 Total Bilirubin 0.20 mg/dL (0.2-1.0) 01/21/22 04:27 AST 16 Units/L (15-37) 01/21/22 04:27 ALT 15 Units/L (12-78) 01/21/22 04:27 Alkaline Phosphatase 109 Units/L (46-116) 01/21/22 04:27 Creatine Kinase 32 Units/L (26-192) 01/20/22 22:05 CK-MB (CK-2) 1.3 ng/mL (0-4.0) 01/20/22 22:05 CK/CKMB % Calc 4.1 % (<4) 01/20/22 22:05 Troponin I High Sens 8.9 ng/L (4.0-60.0) 01/20/22 22:05 C-Reactive Protein 114.30 mg/L (0-3.0) H 01/20/22 22:05 Total Protein 7.3 g/dL (6.4-8.2) 01/21/22 04:27 Albumin 2.6 g/dL (3.4-5.0) L 01/21/22 04:27 Globulin 4.7 g/dL (2.5-4.5) H 01/21/22 04:27 Albumin/Globulin Ratio 0.6 Ratio (1.1-2.1) L 01/21/22 04:27 Stool Description 10g unformed brown 01/21/22 04:10 Stl Occult Blood (IFOB) Positive (NEGATIVE) A 01/21/22 04:10 Stool for White Cells Positive (NEGATIVE) A 01/21/22 04:10 Stl C. diff Tox B Gene Negative (NEGATIVE) 01/21/22 04:10 Stl C. diff 027-NAP1-BI Presumptive negative (NEGATIVE) 01/21/22 04:10 Stool H. pylori Ag Negative (NEGATIVE) 01/21/22 04:10 SARS-CoV-2 (PCR) Negative (NEGATIVE) 01/20/22 20:00 Influenza Type A (PCR) Cancelled 01/20/22 20:00 Influenza Type B (PCR) Cancelled 01/20/22 20:00 RSV (PCR) Cancelled 01/20/22 20:00 - Plan (1) Urinary tract infection Status: Acute Plan: IV HYDRATION. STRICT I&OS. IV ATBX,. PAIN CONTROL. Culture pending (2) Acute dehydration Status: Acute Plan: IV fluids (3) Fall Status: Acute (4) Left knee pain Status: Acute (5) Left leg pain Status: Acute Plan: CT left lower ext (6) Lumbar degenerative disc disease Status: Chronic Plan: CT lumbar (7) Diabetes mellitus, type 2 Status: Chronic Qualifiers: Diabetes mellitus complication status: with hypoglycemia
[2022-01-21] MEDS ORDERED: CELEXA PO SCH (19:00)
[2022-01-21] MEDS: SNACK - Diabetic Appropriate PO SCH (20:10)
[2022-01-21] MEDS: LEVEMIR SC SCH (21:15)
[2022-01-21] MEDS: VOLTAREN 1 % GEL MULTI DOSE TUBE TOP SCH (21:18)
[2022-01-21] MEDS: ULTRAM PO PRN (21:19)
[2022-01-21] MEDS: PriLOSEC PO SCH (21:19)
[2022-01-21] MEDS: LASIX PO SCH (21:19)
[2022-01-21] MEDS: ZOCOR TAB 10 MG PO SCH (21:20)
[2022-01-21] MEDS: MIRALAX POWDER (1 DOSE 17 G) PO SCH (21:20)
[2022-01-21] MEDS: ZYLOPRIM PO SCH (21:20)
[2022-01-22] MEDS: NORCO 5/325 MG TAB PO PRN (05:58)
[2022-01-22 06:17] LABS: ALBUMIN 2.8 g/dL (3.4-5.0); CALCIUM 9.2 mg/dL (8.5-10.1); CARBON DIOXIDE 19.4 mmol/L (21-32); COR CA(FOR HYPOALB) 10.2 mg/dL (8.5-10.1); CREATININE 1.28 mg/dL (0.55-1.02); TOTAL PROTEIN 7.6 g/dL (6.4-8.2)
[2022-01-22 06:20] LABS: BASOPHILS % (AUTO) 0.3 % (0.2-1.0); EOSINOPHILS # (AUTO) 0.1 x10^3/uL (0.0-0.2); HEMATOCRIT 35.6 % (36.0-47.0); LYMPHOCYTES # (AUTO) 2.6 X10^3/uL (1.3-2.9); LYMPHOCYTES % (AUTO) 22.4 % (21.0-51.0); MEAN CORPUSCULAR HEMOGLOBIN 28.5 pg (27.0-34.0); MEAN CORPUSCULAR HGB CONC 33.6 g/dL (33.0-35.0); MEAN PLATELET VOLUME 8.3 fL (7.4-11.0); MONOCYTES % (AUTO) 8.4 % (0.0-13.0); NEUTROPHILS # (AUTO) 7.8 x10^3/uL (2.2-4.8); NEUTROPHILS % (AUTO) 67.9 % (42.0-75.0); RED BLOOD COUNT 4.19 X10^6/uL (3.5-5.4); RED CELL DISTRIBUTION WIDTH 15.4 % (11.6-16.5); WHITE BLOOD COUNT 11.5 X10^3/uL (3.6-10.0)
[2022-01-22] MEDS: MIRALAX POWDER (1 DOSE 17 G) PO SCH (09:41)
[2022-01-22] MEDS: PriLOSEC PO SCH ×2 (09:45→20:41)
[2022-01-22] MEDS: CELEXA PO SCH (09:45)
[2022-01-22] MEDS: TAB-A-VITE PO SCH (09:45)
[2022-01-22] MEDS: LEVAQUIN PREMIX IV 250 MG 250 MG/50 ML BAG IV SCH (09:45)
[2022-01-22] MEDS: ZYLOPRIM PO SCH (09:45)
[2022-01-22] MEDS: VOLTAREN 1 % GEL MULTI DOSE TUBE TOP SCH ×2 (09:46→20:43)
[2022-01-22] MEDS: LASIX PO SCH (09:46)
[2022-01-22] MEDS: ULTRAM PO PRN ×2 (09:53→20:41)
[2022-01-22] MEDS: NS 1,000 ML IV 1,000 ML IV SCH ×3 (16:00→19:11)
[2022-01-22] MEDS: NovoLIN R (or HumuLIN R) SUBCUT PRN ×2 (17:32→20:49)
[2022-01-22] MEDS: ZOCOR TAB 10 MG PO SCH (20:41)
[2022-01-22] MEDS: SNACK - Diabetic Appropriate PO SCH (20:43)
[2022-01-22] MEDS: LEVEMIR SC SCH (20:51)
[2022-01-22 21:00] VITALS: BMI 23.9
[2022-01-23] MEDS: NS 1,000 ML IV 1,000 ML IV SCH ×3 (03:44→18:58)
[2022-01-23 05:04] LABS: BASOPHILS % (AUTO) 0.4 % (0.2-1.0); EOSINOPHILS # (AUTO) 0.2 x10^3/uL (0.0-0.2); EOSINOPHILS % (AUTO) 2.1 % (0.9-2.9); HEMATOCRIT 31.7 % (36.0-47.0); HEMOGLOBIN 10.7 g/dL (12.0-16.0); LYMPHOCYTES # (AUTO) 2.5 X10^3/uL (1.3-2.9); LYMPHOCYTES % (AUTO) 25.3 % (21.0-51.0); MEAN CORPUSCULAR HEMOGLOBIN 28.4 pg (27.0-34.0); MEAN CORPUSCULAR HGB CONC 33.7 g/dL (33.0-35.0); MEAN CORPUSCULAR VOLUME 84.3 fL (80.0-100.0); MEAN PLATELET VOLUME 8.3 fL (7.4-11.0); MONOCYTES # (AUTO) 0.9 x10^3/uL (0.3-0.8); MONOCYTES % (AUTO) 9.1 % (0.0-13.0); NEUTROPHILS # (AUTO) 6.3 x10^3/uL (2.2-4.8); NEUTROPHILS % (AUTO) 63.1 % (42.0-75.0); RED BLOOD COUNT 3.76 X10^6/uL (3.5-5.4); RED CELL DISTRIBUTION WIDTH 15.7 % (11.6-16.5)
[2022-01-23 05:14] LABS: ALANINE AMINOTRANSFERASE 13 Units/L (12-78); ALBUMIN 2.3 g/dL (3.4-5.0); ALKALINE PHOSPHATASE 125 Units/L (46-116); ASPARTATE AMINO TRANSFERASE 12 Units/L (15-37); BLOOD UREA NITROGEN 39 mg/dL (7-18); CALCIUM 8.7 mg/dL (8.5-10.1); CHLORIDE 110 mmol/L (98-107); COR CA(FOR HYPOALB) 10.1 mg/dL (8.5-10.1); CREATININE 1.27 mg/dL (0.55-1.02); SODIUM 140 mmol/L (136-145); TOTAL PROTEIN 6.6 g/dL (6.4-8.2); eGFR NON BLACK RACES 44 (>60)
[2022-01-23] MEDS: LASIX PO SCH (09:17)
[2022-01-23] MEDS: TAB-A-VITE PO SCH (09:17)
[2022-01-23] MEDS: CELEXA PO SCH (09:17)
[2022-01-23] MEDS: LEVAQUIN PREMIX IV 250 MG 250 MG/50 ML BAG IV SCH (09:17)
[2022-01-23] MEDS: VOLTAREN 1 % GEL MULTI DOSE TUBE TOP SCH ×2 (09:17→21:01)
[2022-01-23] MEDS: PriLOSEC PO SCH ×2 (09:17→21:01)
[2022-01-23] MEDS: ZYLOPRIM PO SCH (09:17)
[2022-01-23] MEDS: ULTRAM PO PRN (10:14)
[2022-01-23] MEDS: COZAAR PO SCH (11:33)
[2022-01-23] MEDS: TOPROL XL PO SCH (11:33)
[2022-01-23] MEDS: MIRALAX POWDER (1 DOSE 17 G) PO SCH (11:33)
[2022-01-23] MEDS: SNACK - Diabetic Appropriate PO SCH (20:59)
[2022-01-23] MEDS: ZOCOR TAB 10 MG PO SCH (21:01)
[2022-01-23] MEDS: NORCO 5/325 MG TAB PO PRN (21:03)
[2022-01-23] MEDS: LEVEMIR SC SCH (22:00)
[2022-01-24] MEDS: NS 1,000 ML IV 1,000 ML IV SCH ×5 (04:29→21:44)
[2022-01-24 05:17] LABS: BASOPHILS # (AUTO) 0.1 X10^3/uL (0.0-0.1); BASOPHILS % (AUTO) 0.7 % (0.2-1.0); EOSINOPHILS # (AUTO) 0.2 x10^3/uL (0.0-0.2); EOSINOPHILS % (AUTO) 2.3 % (0.9-2.9); HEMATOCRIT 30.5 % (36.0-47.0); HEMOGLOBIN 10.3 g/dL (12.0-16.0); LYMPHOCYTES # (AUTO) 2.1 X10^3/uL (1.3-2.9); LYMPHOCYTES % (AUTO) 21.7 % (21.0-51.0); MEAN CORPUSCULAR HEMOGLOBIN 28.5 pg (27.0-34.0); MEAN CORPUSCULAR HGB CONC 33.8 g/dL (33.0-35.0); MEAN CORPUSCULAR VOLUME 84.4 fL (80.0-100.0); MONOCYTES # (AUTO) 0.9 x10^3/uL (0.3-0.8); MONOCYTES % (AUTO) 9.7 % (0.0-13.0); NEUTROPHILS # (AUTO) 6.3 x10^3/uL (2.2-4.8); NEUTROPHILS % (AUTO) 65.6 % (42.0-75.0); RED BLOOD COUNT 3.62 X10^6/uL (3.5-5.4); RED CELL DISTRIBUTION WIDTH 15.6 % (11.6-16.5); WHITE BLOOD COUNT 9.6 X10^3/uL (3.6-10.0)
[2022-01-24 05:37] LABS: ALBUMIN 2.1 g/dL (3.4-5.0); CALCIUM 8.4 mg/dL (8.5-10.1); CARBON DIOXIDE 18.8 mmol/L (21-32); COR CA(FOR HYPOALB) 9.9 mg/dL (8.5-10.1); CREATININE 1.24 mg/dL (0.55-1.02); TOTAL PROTEIN 6.1 g/dL (6.4-8.2)
[2022-01-24] MEDS: NORCO 5/325 MG TAB PO PRN ×2 (06:11→16:21)
--- NOTE | 2022-01-24 08:39 | CT ---
HISTORYBack pain, recent fallSTUDYCT LUMBAR SPINE W/O IV contrastCOMPARISONX-ray 01/14/2022TECHNIQUEMultiple axial images of the lumbar spine were obtained from the thoracolumbar junction to the sacrum without the administration of IV contrast. Sagittal and coronal reformats were performed and reviewed. Dose reduction techniques including Automated Exposure Control (AEC) and adjustment of mA and kV were utilized.FINDINGSThere is mild levoscoliosis. No spondylolisthesis or pars defect.Bones are osteopenic. Degenerative facet changes are seen in the lower lumbar spine. Calcified posterior disc osteophyte complex at L1-2 cause mild central canal narrowing. At L5-S1 there is left central disc protrusion or extrusion causing mild thecal sac effacement with moderate left lateral recess stenosis. Mild posterior element hypertrophy contributes to stenosis.No compression fracture. Moderate constipation in the rectum is similar to prior x-ray.IMPRESSIONNo fracture is seen.Left central disc protrusion or extrusion is suspected at L5-S1.Electronically signed by: Ravi Colmenares (January 24, 2022 08:38:11)
--- NOTE | 2022-01-24 08:43 | CT ---
HISTORYLeg PAIN, recent fallSTUDYCT left lower leg without IV contrastCOMPARISONKnee x-ray 01/19/2022TECHNIQUEMultiple axial images of the left lower leg are obtained without the administration of IV contrast. Dose reduction techniques including Automated Exposure Control (AEC) and adjustment of mA and kV were utilized.FINDINGSModerate arthritic changes are suspected in the left knee. No tibia or fibular fracture is seen. There is muscular atrophy. No focal fluid collection or hematoma is seen.IMPRESSIONNo left tibia or fibular fracture is seen.Electronically signed by: Ravi Colmenares (January 24, 2022 08:42:11)
[2022-01-24] MEDS: LEVAQUIN PREMIX IV 250 MG 250 MG/50 ML BAG IV SCH (09:25)
[2022-01-24] MEDS: CELEXA PO SCH (09:26)
[2022-01-24] MEDS: TOPROL XL PO SCH (09:26)
[2022-01-24] MEDS: TAB-A-VITE PO SCH (09:26)
[2022-01-24] MEDS: LASIX PO SCH (09:26)
[2022-01-24] MEDS: ZYLOPRIM PO SCH (09:26)
[2022-01-24] MEDS: PriLOSEC PO SCH ×2 (09:26→21:45)
[2022-01-24] MEDS: COZAAR PO SCH (09:26)
[2022-01-24] MEDS: MIRALAX POWDER (1 DOSE 17 G) PO SCH (09:27)
[2022-01-24] MEDS: VOLTAREN 1 % GEL MULTI DOSE TUBE TOP SCH ×2 (09:27→21:45)
[2022-01-24] MEDS ORDERED: DIFLUCAN PO ONE (14:22)
[2022-01-24] MEDS: TRIAMCINOLONE TOP SCH ×2 (15:58→21:04)
[2022-01-24] MEDS: NYSTATIN TOP SCH ×2 (15:58→21:04)
--- NOTE | 2022-01-24 16:18 | CT ---
HISTORYHIP PAIN, LIMITED MOVEMENT, FALLSTUDYABDOMEN/PELVIS W/O CONCOMPARISONNoneTECHNIQUENon-contrasted axial CT images of the abdomen and pelvis were obtained and reformatted into coronal and sagittal planes for further evaluation.Radiation dose: 560.60 mGy-cm total DLPFINDINGSLung bases are clear.Stomach appears normal.Solid visceral organs of the upper abdomen are unremarkable.Gallbladder appears normal.No intra or extrahepatic biliary dilatation.Unremarkable appearance of the kidneys.No hydronephrosis, hydroureter or ureteral calculus.Unremarkable appearance of the urinary bladder.Large amount of stool in the rectum.Colonic diverticulosis without diverticulitis.Otherwise, unremarkable appearance of the large and small bowel.Reproductive structures are unremarkable.No evidence of acute appendicitis.No pneumoperitoneum.No significant fluid collection.No adenopathy.Comminuted intratrochanteric left proximal femoral fracture with mild impaction/varus angulation.Multilevel mild degenerative disc disease without vertebral body height loss.IMPRESSION1. Comminuted intratrochanteric left proximal femoral fracture with mild impaction/varus angulation.2. Large stool burden in the rectum.3. Colonic diverticulosis without diverticulitis.Electronically signed by: Ricci Jordan (January 24, 2022 16:17:59)
--- NOTE | 2022-01-24 18:21 | PCM.PROG ---
Progress Note - Subjective Subjective: Patient is a 71 year old white female who was admitted as per HPI.Patient reports improvement in symptoms. Patient reports at baseline she ambulates however she does have a "limp" with ambulation and left sided weakness due to history of polio as a child. However she reports over the past 3 weeks she has no longer been able to ambulate. States she had a fall approximately 3 weeks ago and has not been able to ambulate since fall. Reports left leg pain and weakness. No change in weakness of left upper ext from baseline. Patient has had outpatient xrays which have all been negative. Patient denies any other concerns at present. CT abd and pelvis pending. - Past Medical Family Social History Past Med/Fam/Surg Hx: No changes since H&P Allergies: Allergies Penicillins Allergy (Mild, Verified 04/08/21 07:41) hives walnut Allergy (Verified 12/23/20 17:25) - Review of Systems ROS: No change since H&P - Vital Signs and I&O's Vital Signs: Temperature 98.8 F Pulse Rate [Left Radial] 74 Pulse Rate 90 Respiratory Rate 20 Blood Pressure [Right Arm] 205/86 Blood Pressure [Left Arm] 131/63 Blood Pressure 126/65 O2 Sat by Pulse Oximetry 96 Intake and Output: Intake & Output 01/21/22 01/22/22 01/23/22 01/24/22 23:59 23:59 23:59 23:59 Intake Total 2998 / 2998 3408 / 3408 2190 / 2190 700 / 700 Balance 2998 / 2998 3408 / 3408 2190 / 2190 700 / 700 - Physical Exam Oriented: Normal Eyes: Normal Ear: Normal Nose: Normal Throat: Normal Respiratory: Normal Cardiovascular: Normal : Normal Auscultation: Bowel Sounds: Normal Palpation: Normal Tenderness: Normal Skin: Decreased Turgur Musculoskeletal: Left, Knee, Leg (Patient reports inability to straighten left leg as she used to; weakness to left leg, reports pain to left leg), Ba ck:Thoracic, Back:Lumbar Psychiatric: Depression Mood Description: Calm, Depressed Affect: Normal Speech Pattern: Clear, Appropriate - Laboratory and Diagnostics Result Diagrams: 01/24/22 04:58 01/24/22 04:58 Labs: 01/21/22 04:10 Stool Stool Culture - Final 01/21/22 04:10 Stool - Final 01/20/22 22:22 Blood Blood Culture - Preliminary 01/20/22 22:05 Blood Blood Culture - Preliminary Laboratory WBC 9.6 X10^3/uL (3.6-10.0) 01/24/22 04:58 RBC 3.62 X10^6/uL (3.5-5.4) 01/24/22 04:58 Hgb 10.3 g/dL (12.0-16.0) L 01/24/22 04:58 Hct 30.5 % (36.0-47.0) L 01/24/22 04:58 MCV 84.4 fL (80.0-100.0) 01/24/22 04:58 MCH 28.5 pg (27.0-34.0) 01/24/22 04:58 MCHC 33.8 g/dL (33.0-35.0) 01/24/22 04:58 RDW 15.6 % (11.6-16.5) 01/24/22 04:58 Plt Count 229 X10^3/uL (150.0-450.0) 01/24/22 04:58 MPV 8.0 fL (7.4-11.0) 01/24/22 04:58 Neut % (Auto) 65.6 % (42.0-75.0) 01/24/22 04:58 Lymph % (Auto) 21.7 % (21.0-51.0) 01/24/22 04:58 [place] % (Auto) 9.7 % (0.0-13.0) 01/24/22 04:58 Eos % (Auto) 2.3 % (0.9-2.9) 01/24/22 04:58 Baso % (Auto) 0.7 % (0.2-1.0) 01/24/22 04:58 Neut # (Auto) 6.3 x10^3/uL (2.2-4.8) H 01/24/22 04:58 Lymph # (Auto) 2.1 X10^3/uL (1.3-2.9) 01/24/22 04:58 [place] # (Auto) 0.9 x10^3/uL (0.3-0.8) H 01/24/22 04:58 Eos # (Auto) 0.2 x10^3/uL (0.0-0.2) 01/24/22 04:58 Baso # (Auto) 0.1 X10^3/uL (0.0-0.1) 01/24/22 04:58 Absolute Nucleated RBC 0.0 /100WBC 01/24/22 04:58 Sodium 139 mmol/L (136-145) 01/24/22 04:58 Corrected Sodium 140 mmol/L (136-145) 01/24/22 04:58 Potassium 3.6 mmol/L (3.5-5.1) 01/24/22 04:58 Chloride 110 mmol/L (98-107) H 01/24/22 04:58 Carbon Dioxide 18.8 mmol/L (21-32) L 01/24/22 04:58 BUN 34 mg/dL (7-18) H 01/24/22 04:58 Creatinine 1.24 mg/dL (0.55-1.02) H 01/24/22 04:58 Est GFR (MDRD) Af Amer 55 (>60) L 01/24/22 04:58 Est GFR (MDRD) Non-Af 46 (>60) L 01/24/22 04:58 Glucose 132 mg/dL (65-99) H 01/24/22 04:58 POC Glucose (mg/dL) 118 mg/dL (65-99) H 01/24/22 16:22 Calcium 8.4 mg/dL (8.5-10.1) L 01/24/22 04:58 Corrected Calcium 9.9 mg/dL (8.5-10.1) 01/24/22 04:58 Total Bilirubin 0.20 mg/dL (0.2-1.0) 01/24/22 04:58 AST 13 Units/L (15-37) L 01/24/22 04:58 ALT 14 Units/L (12-78) 01/24/22 04:58 Alkaline Phosphatase 114 Units/L (46-116) 01/24/22 04:58 Creatine Kinase 32 Units/L (26-192) 01/20/22 22:05 CK-MB (CK-2) 1.3 ng/mL (0-4.0) 01/20/22 22:05 CK/CKMB % Calc 4.1 % (<4) 01/20/22 22:05 Troponin I High Sens 8.9 ng/L (4.0-60.0) 01/20/22 22:05 C-Reactive Protein 114.30 mg/L (0-3.0) H 01/20/22 22:05 Total Protein 6.1 g/dL (6.4-8.2) L 01/24/22 04:58 Albumin 2.1 g/dL (3.4-5.0) L 01/24/22 04:58 Globulin 4.0 g/dL (2.5-4.5) 01/24/22 04:58 Albumin/Globulin Ratio 0.5 Ratio (1.1-2.1) L 01/24/22 04:58 Stool Description 10g unformed brown 01/21/22 04:10 Stl Occult Blood (IFOB) Positive (NEGATIVE) A 01/21/22 04:10 Stool for White Cells Positive (NEGATIVE) A 01/21/22 04:10 Stl C. diff Tox B Gene Negative (NEGATIVE) 01/21/22 04:10 Stl C. diff 027-NAP1-BI Presumptive negative (NEGATIVE) 01/21/22 04:10 Stool H. pylori Ag Negative (NEGATIVE) 01/21/22 04:10 SARS-CoV-2 (PCR) Negative (NEGATIVE) 01/20/22 20:00 Influenza Type A (PCR) Cancelled 01/20/22 20:00 Influenza Type B (PCR) Cancelled 01/20/22 20:00 RSV (PCR) Cancelled 01/20/22 20:00 - Plan (1) Urinary tract infection Status: Acute Plan: IV HYDRATION. STRICT I&OS. IV ATBX,. PAIN CONTROL (2) Acute dehydration Status: Acute Plan: IV fluids (3) Fall Status: Acute (4) Left knee pain Status: Acute (5) Left leg pain Status: Acute (6) Lumbar degenerative disc disease Status: Chronic Plan: CT labd pelvis looking at hips (7) Diabetes mellitus, type 2 Status: Chronic Qualifiers: Diabetes mellitus complication status: with hypoglycemia
[2022-01-24] MEDS: SNACK - Diabetic Appropriate PO SCH (20:04)
--- NOTE | 2022-01-24 21:05 | CT ---
HISTORYLeft hip pain, s/p fallSTUDYLOWER EXT W/O CONCOMPARISONNone available.TECHNIQUENon-contrast axial CT images of the left hip. Images were reformatted into coronal and sagittal planes for further evaluation.Radiation dose: 905.50 mGy-cm total DLPFINDINGSIntratrochanteric left proximal femoral fracture with mild varus angulation/impaction.Moderate left hip joint degenerative changes.Healed left superior and inferior pubic ramus fractures.Mild left urinary bladder wall thickening with adjacent edema.Large stool burden in the rectum.Colonic diverticulosis.Edema in the subcutaneous tissues overlying the left hip.IMPRESSION1. Intratrochanteric left proximal femoral fracture with mild varus angulation/impaction.2. Mild left urinary bladder wall thickening with adjacent edema. Recommend correlation for symptoms of infectious or inflammatory cystitis.Electronically signed by: Ricci Jordan (January 24, 2022 21:05:17)
[2022-01-24] MEDS: ZOCOR TAB 10 MG PO SCH (21:45)
[2022-01-24] MEDS: ULTRAM PO PRN (21:47)
[2022-01-24] MEDS: LEVEMIR SC SCH (22:00)
[2022-01-25] MEDS: NORCO 5/325 MG TAB PO PRN (02:38)
[2022-01-25] MEDS: NS 1,000 ML IV 1,000 ML IV SCH (05:46)
[2022-01-25 05:56] LABS: BASOPHILS # (AUTO) 0.1 X10^3/uL (0.0-0.1); BASOPHILS % (AUTO) 0.8 % (0.2-1.0); EOSINOPHILS # (AUTO) 0.2 x10^3/uL (0.0-0.2); EOSINOPHILS % (AUTO) 2.4 % (0.9-2.9); HEMATOCRIT 31.8 % (36.0-47.0); HEMOGLOBIN 10.6 g/dL (12.0-16.0); LYMPHOCYTES # (AUTO) 1.8 X10^3/uL (1.3-2.9); LYMPHOCYTES % (AUTO) 19.2 % (21.0-51.0); MEAN CORPUSCULAR HEMOGLOBIN 28.4 pg (27.0-34.0); MEAN CORPUSCULAR HGB CONC 33.4 g/dL (33.0-35.0); MEAN CORPUSCULAR VOLUME 84.9 fL (80.0-100.0); MEAN PLATELET VOLUME 7.9 fL (7.4-11.0); MONOCYTES # (AUTO) 0.8 x10^3/uL (0.3-0.8); MONOCYTES % (AUTO) 8.1 % (0.0-13.0); NEUTROPHILS # (AUTO) 6.6 x10^3/uL (2.2-4.8); NEUTROPHILS % (AUTO) 69.5 % (42.0-75.0); RED BLOOD COUNT 3.74 X10^6/uL (3.5-5.4); RED CELL DISTRIBUTION WIDTH 15.5 % (11.6-16.5); WHITE BLOOD COUNT 9.4 X10^3/uL (3.6-10.0)
[2022-01-25 06:16] LABS: ALANINE AMINOTRANSFERASE 13 Units/L (12-78); ALKALINE PHOSPHATASE 121 Units/L (46-116); ASPARTATE AMINO TRANSFERASE 14 Units/L (15-37); BLOOD UREA NITROGEN 31 mg/dL (7-18); CALCIUM 8.5 mg/dL (8.5-10.1); CARBON DIOXIDE 18.7 mmol/L (21-32); CHLORIDE 112 mmol/L (98-107); COR CA(FOR HYPOALB) 10.1 mg/dL (8.5-10.1); COR NA(FOR HYPERGLY) 142 mmol/L (136-145); CREATININE 1.05 mg/dL (0.55-1.02); SODIUM 142 mmol/L (136-145); TOTAL PROTEIN 6.2 g/dL (6.4-8.2); eGFR NON BLACK RACES 55 (>60)
[2022-01-25] MEDS ORDERED: K-RIDER 10 MEQ/NS 100 ML 10 MEQ/100 ML BAG IV PRN (07:02)
[2022-01-25] MEDS ORDERED: POTASSIUM CHLORIDE LIQ 20 MEQ UDC PO PRN (07:02)
[2022-01-25] MEDS ORDERED: K-DUR TAB 20 MEQ PO PRN (07:02)
[2022-01-25] MEDS ORDERED: POTASSIUM CHL 60 MEQ/NS 0.45% 500 ML IV PRN (07:02)
[2022-01-25] MEDS ORDERED: POTASSIUM CHL 40 MEQ/NS 0.45% 500 ML IV PRN (07:02)
[2022-01-25] MEDS ORDERED: MICRO K EXTEN CAP 10 MEQ PO PRN (07:02)
[2022-01-25] MEDS ORDERED: KLOR-CON PO PRN (07:02)
[2022-01-25] MEDS: ULTRAM PO PRN (07:41)
[2022-01-25] MEDS: PriLOSEC PO SCH (08:02)
[2022-01-25] MEDS: CELEXA PO SCH (08:03)
[2022-01-25] MEDS: TAB-A-VITE PO SCH (08:05)
[2022-01-25] MEDS: LASIX PO SCH (08:06)
[2022-01-25] MEDS: ZYLOPRIM PO SCH (08:06)
[2022-01-25] MEDS: LEVAQUIN PREMIX IV 250 MG 250 MG/50 ML BAG IV SCH (08:07)
[2022-01-25] MEDS: COZAAR PO SCH (08:11)
[2022-01-25] MEDS: TOPROL XL PO SCH (08:11)
[2022-01-25] MEDS: TRIAMCINOLONE TOP SCH (08:13)
[2022-01-25] MEDS: NYSTATIN TOP SCH (08:13)
[2022-01-25] MEDS: MIRALAX POWDER (1 DOSE 17 G) PO SCH (10:32)
[2022-01-25] MEDS: VOLTAREN 1 % GEL MULTI DOSE TUBE TOP SCH (10:33)
[2022-01-25 10:43] VITALS: BP 131/63
--- NOTE | 2022-02-04 01:30 | PCM.DCPLAN ---
Discharge Plan - Discharge Plan Hospital Course: Admit date 01/20/22 Discharge date 01/25/22 DOS 01/25/22 Admit diagnosis(1) Urinary tract infection (2) Acute dehydration (3) Depression (4) Diabetes mellitus, type 2 (5) GERD (gastroesophageal reflux disease) Discharge diagnosis (1) Urinary tract infection (2) Acute dehydration (3) Depression (4) Diabetes mellitus, type 2 (5) GERD (gastroesophageal reflux disease) (6) Left lower ext pain (7) Left hip fracture (8) Fall Hospital Course PT IS 71 WF ADMISSION FROM [facility] WITH UTI, WEAKNESS AND PAIN ALL OVER. PT HAS BEEN CO URINARY FREQUENCY AND HAD OUTPT UA REVEALING UTI. PT CO PAIN ALL OVER WITH RECENT FALL ON 01/14. XRAYS OBTAINED WITHOUT ACUTE INJURY. PT HAD ABNORMAL OUTPT LABS. PT ADMITTED FOR TREATMENT OF ACUTE ILLNESS. Patietn was treated with IV fluids and IV abx. Patient reports improvement in symptoms to include improvement in weakness and achyness. Patient reports at baseline she ambulates however she does have a "limp" with ambulation and left sided weakness due to history of polio as a child. However she reports over the past 3 weeks she has no longer been able to ambulate. States she had a fall approximately 3 weeks ago and has not been able to ambulate since fall. Reports left leg pain and weakness. No change in weakness of left upper ext from baseline. Patient has had outpatient xrays which have all been negative. CT abd and pelvis revealed left hip fracture. Patient was then transferred to [facility] for further ortho eval. Discharge time spent >35 mins. Disposition: XF SHT-TRM HOSP Condition: Stable Health Concerns: Post Hospitalization: new medications and changes needed to prevent readmission or further decline. Pt educated and given instructions on all concerns. Care Plan Goals: Problem: Infection Goal: Temperature within normal limits. Resolved infection. Instructions: Follow provided instructions. Follow up with primary physician as directed. Contact primary care physician or report to the closest Emergency Room if condition worsens. Plan of Treatment: Continue with present treatment and follow up plan. Pt is to keep follow up appointment as instructed and take medications as ordered. Assessment: No acute distress noted. Prescriptions: No Action allopurinol 100 mg tablet 100 mg PO DAILY citalopram [Celexa] 20 MG tablet 20 mg PO DAILY diclofenac sodium 1 % Gel 2 g TOPICAL BID ergocalciferol (vitamin D2) [Vitamin D2] 1,250 mcg (50,000 unit) Capsule 50,000 unit PO WEEKLY Ferrocite Plus 106 mg iron- 1 mg Capsule 1 cap PO DAILY furosemide 20 MG tablet 1 tab PO DAILY gabapentin 100 MG capsule 1 cap PO Q8H PRN Jardiance 25 mg tablet 25 mg PO DAILY Levemir U-100 Insulin 100 unit/mL Solution 15 unit SUBCUT HS Novolin R Regular U-100 Insuln 100 unit/mL Cartridge 1 sliding scale dose SUBCUT USEASDIRECTD omeprazole 20 mg capsule,delayed release(DR/EC) 20 mg PO BID polyethylene glycol 3350 [Miralax] 17 gram Powder In Packet 1 g PO DAILY simvastatin 10 mg tablet 10 mg PO HS tramadol [Ultram] 50 mg Tablet 50 mg PO Q8H PRN - Orders to Discharge Patient Discharge Orders: Discharge (Routine); Ordered 01/25/22 Ordered By: ELTON MEEK - Follow ups/Referrals Follow ups/Referrals: NAVARRO MERCADO [Nurse Practitioner] - 02/01/22 8:30 am ELTON MEEK [Primary Care Provider] - 1 WEEK - Instructions Additional Instructions: Pt to have follow up BMP TOCC in 1 week. Print Language: MEXICAN
--- NOTE | 2022-02-09 12:43 | PCM.DCPLAN ---
Discharge Plan - Discharge Plan Hospital Course: Admit date 01/20/22 Discharge date 01/25/22 DOS 01/25/22 Admit diagnosis(1) Urinary tract infection (2) Acute dehydration (3) Depression (4) Diabetes mellitus, type 2 (5) GERD (gastroesophageal reflux disease) Discharge diagnosis (1) Urinary tract infection (2) Acute dehydration (3) Depression (4) Diabetes mellitus, type 2 (5) GERD (gastroesophageal reflux disease) (6) Left lower ext pain (7) Left hip fracture (8) Fall (9) Gastroenteritis Hospital Course PT IS 71 WF ADMISSION FROM [facility] WITH UTI, WEAKNESS AND PAIN ALL OVER. PT HAS BEEN CO URINARY FREQUENCY AND HAD OUTPT UA REVEALING UTI. PT CO PAIN ALL OVER WITH RECENT FALL ON 01/14. XRAYS OBTAINED WITHOUT ACUTE INJURY. PT HAD ABNORMAL OUTPT LABS. PT ADMITTED FOR TREATMENT OF ACUTE ILLNESS. Patient was treated with IV fluids and IV abx. Patient reports improvement in symptoms to include improvement in weakness and achyness. Patient reports at baseline she ambulates however she does have a "limp" with ambulation and left sided weakness due to history of polio as a child. However she reports over the past 3 weeks she has no longer been able to ambulate. States she had a fall approximately 3 weeks ago and has not been able to ambulate since fall. Reports left leg pain and weakness. No change in weakness of left upper ext from baseline. Patient has had outpatient xrays which have all been negative. CT abd and pelvis revealed left hip fracture. Patient was then transferred to [facility] for further ortho eval/intervention. Stool culture was positive for bacteria; treated with IV abx. Labs normalized to baseline. Discharge time spent >60 mins on transfer. Disposition: XF SHT-TRM HOSP Condition: Stable Health Concerns: Post Hospitalization: new medications and changes needed to prevent readmission or further decline. Pt educated and given instructions on all concerns. Care Plan Goals: Problem: Infection Goal: Temperature within normal limits. Resolved infection. Instructions: Follow provided instructions. Follow up with primary physician as directed. Contact primary care physician or report to the closest Emergency Room if condition worsens. Plan of Treatment: Continue with present treatment and follow up plan. Pt is to keep follow up appointment as instructed and take medications as ordered. Assessment: No acute distress noted. Prescriptions: No Action allopurinol 100 mg tablet 100 mg PO DAILY citalopram [Celexa] 20 MG tablet 20 mg PO DAILY diclofenac sodium 1 % Gel 2 g TOPICAL BID ergocalciferol (vitamin D2) [Vitamin D2] 1,250 mcg (50,000 unit) Capsule 50,000 unit PO WEEKLY Ferrocite Plus 106 mg iron- 1 mg Capsule 1 cap PO DAILY furosemide 20 MG tablet 1 tab PO DAILY gabapentin 100 MG capsule 1 cap PO Q8H PRN Jardiance 25 mg tablet 25 mg PO DAILY Levemir U-100 Insulin 100 unit/mL Solution 15 unit SUBCUT HS Novolin R Regular U-100 Insuln 100 unit/mL Cartridge 1 sliding scale dose SUBCUT USEASDIRECTD omeprazole 20 mg capsule,delayed release(DR/EC) 20 mg PO BID polyethylene glycol 3350 [Miralax] 17 gram Powder In Packet 1 g PO DAILY simvastatin 10 mg tablet 10 mg PO HS tramadol [Ultram] 50 mg Tablet 50 mg PO Q8H PRN - Orders to Discharge Patient Discharge Orders: Discharge (Routine); Ordered 01/25/22 Ordered By: ELTON MEEK Discharge by Transfer to Outside Facility (Routine); Ordered 02/09/22 Ordered By: Miriam Domingo - Follow ups/Referrals Follow ups/Referrals: NAVARRO MERCADO [Nurse Practitioner] - 02/01/22 8:30 am ELTON MEEK [Primary Care Provider] - 1 WEEK - Instructions Additional Instructions: Pt to have follow up BMP TOCC in 1 week. Print Language: UZBEK
== END 2022-01-25 11:05 | disposition short-term general hospital (02) ==
LOC: MED/SURG
PROVIDERS: ADMIT Internal Medicine; ATTEND Internal Medicine
DX: W18.39XA Other fall on same level, initial encounter; B96.4 Proteus (mirabilis) (morganii) as the cause of diseases classified elsewhere; M51.36 Other intervertebral disc degeneration, lumbar region; R26.89 Other abnormalities of gait and mobility; K57.30 Diverticulosis of large intestine without perforation or abscess without bleeding; E78.2 Mixed hyperlipidemia; R06.02 Shortness of breath; S72.102A Unspecified trochanteric fracture of left femur, initial encounter for closed fracture; R79.89 Other specified abnormal findings of blood chemistry; E86.0 Dehydration; R94.31 Abnormal electrocardiogram [ECG] [EKG]; N39.0 Urinary tract infection, site not specified; R79.82 Elevated C-reactive protein (CRP); F32.89 Other specified depressive episodes; J44.9 Chronic obstructive pulmonary disease, unspecified; Y92.9 Unspecified place or not applicable; A04.5 Campylobacter enteritis; M25.562 Pain in left knee; K21.9 Gastro-esophageal reflux disease without esophagitis; Z20.822 Contact with and (suspected) exposure to COVID-19; E11.65 Type 2 diabetes mellitus with hyperglycemia; I10 Essential (primary) hypertension; Z86.12 Personal history of poliomyelitis

== ENCOUNTER 2022-04-05 11:07 | Inpatient (IN) ==
--- NOTE | 2022-04-05 11:35 | DR.SOBA ---
HPI Time Seen Time Seen by Provider: 04/05/22 11:33 Complaints Chief Complaint Doctors Comments: 71 y/o female, resident of [place], sent over for evaluation.Pt choked while eating sausage 2 days ago, has been coughing since. + dyspnea this am. Pulse ox was low at the [facility], still low on NC. Pt sent o elías on a NRB, pulse oc 94%. + aches all over. No report of fever, chills, nausea, vomiting, diarrhea. Cough non productive. Has a h/o CHF in the past. Reviewed Nurses Notes Reviewed: Yes Source History Provided: Patient and Correction PMH PMH Past Medical History: Arthritis, CHF, Diabetes, Dyslipidemia, GERD and Hypertension Past Surgical History: Yes Surgical History: Unknown Family History Family Medical History: Coronary Artery Disease and Hypertension Social History Do you use any recreational Drugs:: No ROS Review of Systems Constitutional: Weakness Eyes: No Symptoms Reported ENTM: No Symptoms Reported Respiratoy: Non-Productive Cough and Short of Breath Cardiovascular: No Symptoms Reported Gastrointestinal/Abdominal: No Symptoms Reported Genitourinary: No Symptoms Reported Neurological: Weakness Musculoskeletal: No Symptoms Reported Integumentary: No Symptoms Reported Hematologic/Lymphatic: No Symptoms Reported Psychiatric: No Symptoms Reported All Other Systems: Reviewed and Negative PE Vital Signs Vitals: Temperature 98.8 F Pulse Rate 79 Respiratory Rate 47 Blood Pressure [Right Arm] 131/63 Blood Pressure [Left Arm] 131/63 Blood Pressure 128/60 O2 Sat by Pulse Oximetry 94 General General Appearance: Alert and In No Apparent Distress Head Head Exam: Normal Inspection Eyes Eye exam: PERRL and EOMI ENT ENT Exam: Normal Exam and Mucous Membranes Moist Neck Neck Exam: Normal Inspection; negative Tenderness Chest Chest Inspection: Normal Inspection Respiratory Respiratory Exam: Normal Lung Sounds Bilat; negative Accessory Muscle Use or Respiratory Distress Respiratory Exam: Bilateral: Clear to Auscultation Cardiovascular Cardiovascular Exam: Regular Rate, Normal Rhythm and Normal Heart Sounds Abdominal Exam Abdominal Exam: Normal Inspection, Normal Bowel Sounds and Soft; negative Tenderness Extremities Extremities Exam: Normal Inspection and Full ROM; negative Edema Neurologic Neurological Exam: Alert, Oriented X3 and CN II-XII Intact; negative Motor Sensory Deficit Psychiatric Psychiatric Exam: Normal Affect Skin Skin Exam: Warm and Dry MDM Differential Diagnosis Differential Diagnosis: CHF, Mycardial Infarction, Pneumonia, Pneumothorax and Other (aspiration pneumonia) COURSE Treatment Treatment: 71 y/o female with persitent coughing since choking on sausage 2 days ago, + low pulse ox today. W/u initiated. 1330 - w/u c/w RLL pneumonia, concerning for aspiration. Labs show elevated WBC at 24K. Chemistries overall acceptable. PT given IV Rocephin here. Discussed with her attending, Dr Murguia, will admit. Will treat with Invanz, O2. ROR Labs Reviewed Result Diagrams: 04/07/22 04:08 04/07/22 04:08 Laboratory: WBC 24.8 X10^3/uL (3.6-10.0) H 04/05/22 11:41 RBC 4.23 X10^6/uL (3.5-5.4) 04/05/22 11:41 Hgb 11.8 g/dL (12.0-16.0) L 04/05/22 11:41 Hct 36.1 % (36.0-47.0) 04/05/22 11:41 MCV 85.4 fL (80.0-100.0) 04/05/22 11:41 MCH 28.0 pg (27.0-34.0) 04/05/22 11:41 MCHC 32.8 g/dL (33.0-35.0) L 04/05/22 11:41 RDW 16.7 % (11.6-16.5) H 04/05/22 11:41 Plt Count 214 X10^3/uL (150.0-450.0) 04/05/22 11:41 Plt Count Comment Adequate (ADEQUATE) 04/05/22 11:41 MPV 8.6 fL (7.4-11.0) 04/05/22 11:41 Neut % (Auto) 86.2 % (42.0-75.0) H 04/05/22 11:41 Lymph % (Auto) 6.5 % (21.0-51.0) L 04/05/22 11:41 [place] % (Auto) 7.0 % (0.0-13.0) 04/05/22 11:41 Eos % (Auto) 0.0 % (0.9-2.9) L 04/05/22 11:41 Baso % (Auto) 0.3 % (0.2-1.0) 04/05/22 11:41 Neut # (Auto) 21.4 x10^3/uL (2.2-4.8) H 04/05/22 11:41 Lymph # (Auto) 1.6 X10^3/uL (1.3-2.9) 04/05/22 11:41 [place] # (Auto) 1.7 x10^3/uL (0.3-0.8) H 04/05/22 11:41 Eos # (Auto) 0.0 x10^3/uL (0.0-0.2) 04/05/22 11:41 Baso # (Auto) 0.1 X10^3/uL (0.0-0.1) 04/05/22 11:41 Absolute Nucleated RBC 0.0 /100WBC 04/05/22 11:41 Total Counted 100 04/05/22 11:41 Neutrophils % (Manual) 74 % (39-76) 04/05/22 11:41 Band Neutrophils % 6 % (0-10) 04/05/22 11:41 Lymphocytes % (Manual) 14 % (13-43) 04/05/22 11:41 Monocytes % (Manual) 6 % (4-9) 04/05/22 11:41 Plt Morphology Comment Normal (NORMAL) 04/05/22 11:41 RBC Morphology Normal (NORMAL) 04/05/22 11:41 Sodium 134 mmol/L (136-145) L 04/05/22 11:41 Corrected Sodium 139 mmol/L (136-145) 04/05/22 11:41 Potassium 4.0 mmol/L (3.5-5.1) 04/05/22 11:41 Chloride 100 mmol/L (98-107) 04/05/22 11:41 Carbon Dioxide 23.8 mmol/L (21-32) 04/05/22 11:41 BUN 33 mg/dL (7-18) H 04/05/22 11:41 Creatinine 1.41 mg/dL (0.55-1.02) H 04/05/22 11:41 Est GFR (MDRD) Af Amer 48 (>60) L 04/05/22 11:41 Est GFR (MDRD) Non-Af 39 (>60) L 04/05/22 11:41 Glucose 297 mg/dL (65-99) H 04/05/22 11:41 Calcium 8.7 mg/dL (8.5-10.1) 04/05/22 11:41 Corrected Calcium 9.8 mg/dL (8.5-10.1) 04/05/22 11:41 Total Bilirubin 0.40 mg/dL (0.2-1.0) 04/05/22 11:41 AST 20 Units/L (15-37) 04/05/22 11:41 ALT 18 Units/L (12-78) 04/05/22 11:41 Alkaline Phosphatase 102 Units/L (46-116) 04/05/22 11:41 Creatine Kinase 24 Units/L (26-192) L 04/05/22 11:41 Troponin I High Sens 11.0 ng/L (4.0-60.0) 04/05/22 11:41 B-Natriuretic Peptide 301 pg/mL (0-79) H 04/05/22 11:41 Total Protein 7.7 g/dL (6.4-8.2) 04/05/22 11:41 Albumin 2.6 g/dL (3.4-5.0) L 04/05/22 11:41 Globulin 5.1 g/dL (2.5-4.5) H 04/05/22 11:41 Albumin/Globulin Ratio 0.5 Ratio (1.1-2.1) L 04/05/22 11:41 EKG Rate: 85 [place]: Normal Rhythm: NSR ST: Nonsp Opioid Opioid Risk Tool Age (Bebeto box if 16-45): No History of Preadolescent Sexual Abuse: No Total: 0 Total Score Risk Category: Low Risk Copyright: Flavio SCHULTZ predicting aberrant behaviors Discharge Plan Diagnosis Discharge Problem: Aspiration pneumonia Discharge Plan Patient Disposition: ADMITTED INPATIENT Condition: Stable
[2022-04-05 12:02] LABS: BASOPHILS # (AUTO) 0.1 X10^3/uL (0.0-0.1); BASOPHILS % (AUTO) 0.3 % (0.2-1.0); HEMATOCRIT 36.1 % (36.0-47.0); HEMOGLOBIN 11.8 g/dL (12.0-16.0); LYMPHOCYTES # (AUTO) 1.6 X10^3/uL (1.3-2.9); LYMPHOCYTES % (AUTO) 6.5 % (21.0-51.0); MEAN CORPUSCULAR HGB CONC 32.8 g/dL (33.0-35.0); MEAN CORPUSCULAR VOLUME 85.4 fL (80.0-100.0); MEAN PLATELET VOLUME 8.6 fL (7.4-11.0); MONOCYTES # (AUTO) 1.7 x10^3/uL (0.3-0.8); NEUTROPHILS # (AUTO) 21.4 x10^3/uL (2.2-4.8); NEUTROPHILS % (AUTO) 86.2 % (42.0-75.0); RED BLOOD COUNT 4.23 X10^6/uL (3.5-5.4); RED CELL DISTRIBUTION WIDTH 16.7 % (11.6-16.5); WHITE BLOOD COUNT 24.8 X10^3/uL (3.6-10.0)
[2022-04-05 12:19] LABS: ALBUMIN 2.6 g/dL (3.4-5.0); CALCIUM 8.7 mg/dL (8.5-10.1); CARBON DIOXIDE 23.8 mmol/L (21-32); COR CA(FOR HYPOALB) 9.8 mg/dL (8.5-10.1); CREATININE 1.41 mg/dL (0.55-1.02); TOTAL PROTEIN 7.7 g/dL (6.4-8.2)
[2022-04-05 12:41] LABS: BAND NEUTROPHILS % 6 % (0-10); PLATELET MORPHOLOGY COMMENT NORMAL (NORMAL)
[2022-04-05] MEDS ORDERED: ROCEPHIN 1 GRAM IV PREMIX 1 G/50 ML IV.SOLN. IV ONE (13:12)
[2022-04-05] MEDS ORDERED: NS 50 ML IV 50 ML IV ONE (13:22)
[2022-04-05] MEDS ORDERED: ROCEPHIN VIAL 1 GRAM ONE (13:22)
[2022-04-05] MEDS ORDERED: VITAMIN D (1.25MG) PO SCH (14:02)
[2022-04-05] MEDS ORDERED: INSULIN REGULAR HUMAN 100 UNIT/ML SUBCUT SCH (14:02)
--- NOTE | 2022-04-05 14:19 | RAD ---
HISTORYSOBSTUDYPortable AP [id number]/31/2022FINDINGSHeart size is not significantly enlarged. Interval development of right lower lobe infiltrate and linear atelectasis in the left lower lobe. The upper lungs are clear. There is no pleural effusion identified.IMPRESSIONDeveloping right lower lobe infiltrate consistent with pneumonia. There are additional areas of atelectasis in the left lower lung. Follow-up indicated.Electronically signed by: MARYELLEN GARRETT (Apr 05, 2022 14:18:31)
[2022-04-05] MEDS: NS 1,000 ML IV 1,000 ML IV SCH (14:58)
[2022-04-05] MEDS: INVanz INJ 1 GRAM VIAL 1 G in NS 100 ML IV 100 ML IV SCH (14:58)
[2022-04-05] MEDS ORDERED: DUONEB 0.5 MG/3 MG (3 mL) NEB ONE (15:54)
[2022-04-05] MEDS: DUONEB 0.5 MG/3 MG (3 mL) NEB SCH ×2 (16:00→20:40)
[2022-04-05] MEDS: NovoLIN R (or HumuLIN R) SUBCUT PRN (17:11)
[2022-04-05] MEDS ORDERED: SNACK - Diabetic Appropriate PO SCH (20:00)
[2022-04-05] MEDS: PULMICORT NEB TX 0.5 MG NEB SCH (20:40)
[2022-04-05] MEDS ORDERED: LEVEMIR SC SCH (21:00)
[2022-04-05] MEDS: SNACK - Diabetic Appropriate PO SCH (21:18)
[2022-04-05] MEDS: PriLOSEC PO SCH (21:18)
[2022-04-05] MEDS: VOLTAREN 1 % GEL MULTI DOSE TUBE TOP SCH (21:19)
[2022-04-05] MEDS: NEURONTIN CAP 100 MG PO PRN (21:19)
[2022-04-05] MEDS: ZOCOR TAB 10 MG PO SCH (21:19)
[2022-04-05] MEDS: NORCO 5/325 MG TAB PO PRN (21:20)
[2022-04-06] MEDS: DUONEB 0.5 MG/3 MG (3 mL) NEB SCH ×3 (00:59→09:05)
[2022-04-06 05:24] LABS: BASOPHILS % (AUTO) 0 % (0.2-1.0); HEMATOCRIT 32.7 % (36.0-47.0); HEMOGLOBIN 10.9 g/dL (12.0-16.0); LYMPHOCYTES # (AUTO) 1.2 X10^3/uL (1.3-2.9); LYMPHOCYTES % (AUTO) 7.8 % (21.0-51.0); MEAN CORPUSCULAR HEMOGLOBIN 28.3 pg (27.0-34.0); MEAN CORPUSCULAR HGB CONC 33.2 g/dL (33.0-35.0); MEAN CORPUSCULAR VOLUME 85.3 fL (80.0-100.0); MEAN PLATELET VOLUME 8.9 fL (7.4-11.0); MONOCYTES # (AUTO) 1.2 x10^3/uL (0.3-0.8); MONOCYTES % (AUTO) 7.4 % (0.0-13.0); NEUTROPHILS # (AUTO) 13.3 x10^3/uL (2.2-4.8); NEUTROPHILS % (AUTO) 84.8 % (42.0-75.0); RED BLOOD COUNT 3.83 X10^6/uL (3.5-5.4); WHITE BLOOD COUNT 15.7 X10^3/uL (3.6-10.0)
[2022-04-06] MEDS ORDERED: LOPRESSOR TAB 25 MG PO ONE (05:28)
[2022-04-06 05:35] LABS: ALBUMIN 2.2 g/dL (3.4-5.0); CALCIUM 8.9 mg/dL (8.5-10.1); CARBON DIOXIDE 25.9 mmol/L (21-32); COR CA(FOR HYPOALB) 10.3 mg/dL (8.5-10.1); CREATININE 1.63 mg/dL (0.55-1.02); TOTAL PROTEIN 7.3 g/dL (6.4-8.2)
[2022-04-06 05:43] LABS: BAND NEUTROPHILS % 9 % (0-10); PLATELET MORPHOLOGY COMMENT NORMAL (NORMAL)
[2022-04-06] MEDS: NS 1,000 ML IV 1,000 ML IV SCH ×2 (05:47→16:12)
[2022-04-06 08:06] LABS: ABG ALLEN TEST POS; ABG BASE EXCESS 1.6 mmol/L (-2.0-2.0); ABG HCO3 23.9 mmol/L (22-26)
[2022-04-06] MEDS: INVanz INJ 1 GRAM VIAL 1 G in NS 100 ML IV 100 ML IV SCH (08:57)
[2022-04-06] MEDS: ZYLOPRIM PO SCH (09:00)
[2022-04-06] MEDS: CELEXA PO SCH (09:00)
[2022-04-06] MEDS: LASIX PO SCH (09:01)
[2022-04-06] MEDS: PriLOSEC PO SCH ×2 (09:01→20:18)
[2022-04-06] MEDS: MIRALAX POWDER (1 DOSE 17 G) PO SCH (09:02)
[2022-04-06] MEDS: VOLTAREN 1 % GEL MULTI DOSE TUBE TOP SCH ×2 (09:02→20:20)
[2022-04-06] MEDS: PULMICORT NEB TX 0.5 MG NEB SCH ×2 (09:05→20:40)
[2022-04-06 09:12] VITALS: BMI 23.9
[2022-04-06] MEDS: SANTYL TOP SCH (09:13)
--- NOTE | 2022-04-06 10:01 | RAD ---
HISTORYShortness of breath, pneumoniaSTUDYChest AP [id number]/02/2022FINDINGSPati ent is rotated to the left. Heart size remains normal. Shanice are normal. Lungs are mildly hyperinflated. Increasing right lower lobe lung infiltrate is present even considering a difference in film technique. This likely represents right lower lobe pneumonia. Remainder of the lung paz are clear. No definite pleural effusions are identified. Bony thorax is unremarkable.IMPRESSIONSlight increase right lower lobe pneumoniaElectronically signed by: ARABELLA TIWARI (Apr 06, 2022 10:00:43)
[2022-04-06] MEDS: NovoLIN R (or HumuLIN R) SUBCUT PRN (11:17)
[2022-04-06 12:55] LABS: LACTIC ACID 1.6 mmol/L (0.4-2.0)
[2022-04-06 13:06] LABS: BILIRUBIN,URINE NEGATIVE (NEGATIVE); BLOOD/HEMOGLOBIN,URINE 2+ (NEGATIVE); GLUCOSE, URINE 4+ (NEGATIVE); KETONES,URINE NEGATIVE (NEGATIVE); LEUKOCYTE ESTERASE ,URINE 1+ (NEGATIVE); NITRITES,URINE NEGATIVE (NEGATIVE); PROTEIN,URINE 3+ (NEGATIVE); UROBILINOGEN,URINE NORMAL (NORMAL)
[2022-04-06 13:10] LABS: MAGNESIUM 2.1 mg/dL (1.7-2.9)
[2022-04-06 13:13] LABS: APPEARANCE,URINE SLIGHTLY HAZY (CLEAR); COLOR,URINE YELLOW (YELLOW)
[2022-04-06 13:14] LABS: BACTERIA,URINE TRACE /HPF (NEGATIVE); SQUAMOUS EPITHELIAL CELL,UR FEW /HPF (NEGATIVE)
[2022-04-06] MEDS: LANOXIN INJ IVP SCH (13:21)
[2022-04-06] MEDS ORDERED: PROTONIX INJ 40 MG VIAL IVP ONE (13:22)
[2022-04-06] MEDS ORDERED: PEPCID 20 MG VIAL IVP ONE (13:23)
--- NOTE | 2022-04-06 18:02 | DR.H&P ---
H&P - History & Physical for Day of: H&P Date: 04/05/22 - Chief Complaint Chief Complaint: RESPIRATORY DISTRESS - History of Present Illness History of Present Illness: 71 y/o female, resident of [place], sent over for evaluation.Pt choked while eating sausage 2 days ago, has been coughing since. + dyspnea this am. Pulse ox was low at the NH, still low on NC. Pt sent over on a NRB, pulse oc 94%. + aches all over. No report of fever, chills, nausea, vomiting, diarrhea. Cough non productive. Has a h/po CHF in the past. - Past Medical History Past Medical History: Anxiety, Arthritis, CHF, Diabetes, Dyslipidemia, GERD, Hypertension - Past Surgical History Surgical History: Unknown - Family History Family Medical History: Coronary Artery Disease, Hypertension - Social History Does patient currently use any type of tobacco product: No Have you used tobacco products in the last 12 months: No Type of Tobacco Use: None Does any household member use tobacco: No Alcohol Use: None - Medications Home Medications: Penicillins Allergy (Mild, Verified 04/05/22 11:31) hives walnut Allergy (Verified 04/05/22 11:31) CONTINUE taking the following medications collagenase clostridium histo. 250 unit/gram topical ointment (Santyl) 1 applic topical QDAY 04/05/22 [History] empagliflozin 25 mg tablet (Jardiance) 1 tab PO QDAY 04/05/22 [History] hydrocodone 5 mg-acetaminophen 325 mg tablet 1 tab PO Q6HR PRN Pain 04/05/22 [History] - Review of Systems Constitutional: Fever, Chills, Weakness, Malaise Eyes: No Symptoms Reported ENT: No Symptoms Reported Respiratory: Cough, Shortness of Breath Cardiovascular: denies: Chest Pain Gastrointestinal: Nausea Genitourinary: No Symptoms Reported Musculoskeletal: Back Pain Skin: No Symptoms Reported Neurological: No Symptoms Reported - Physical Exam Vital Signs: Temperature 98.5 F Pulse Rate [Left] 145 Pulse Rate 87 Respiratory Rate 34 Blood Pressure [Right Arm] 80/48 Blood Pressure [Left Arm] 115/81 Blood Pressure 120/57 O2 Sat by Pulse Oximetry 96 Oriented: Normal Eyes: Normal Ear: Normal Nose: Normal Throat: Normal Respiratory: Diminished Throughout Cardiovascular: Tachycardia : Normal Auscultation: Bowel Sounds: Normal Palpation: Normal Tenderness: Normal Skin: Decreased Turgur Musculoskeletal: Back:Thoracic, Back:Lumbar Psychiatric: Anxiety Affect: Anxious Speech Pattern: Clear, Appropriate - Assessment/Plan (1) Aspiration pneumonia Status: Acute Plan: ADMIT, IV ATBX ON ADMISSION. REPEAT AM CHEST XRAY. BLOOD AND SPUTUM CULTURE. SUPPLEMENTAL O2, AGRESSIVE RT. VERIFY HOME MEDICATION, BS AND BP CONTROL, VERIFY HOME MEDICATION (2) Diabetes mellitus, type 2 Status: Chronic (3) Anxiety Status: Chronic (4) Hypertension Status: Chronic (5) GERD (gastroesophageal reflux disease) Status: Chronic - Allergies Allergies/Adverse Reactions: Allergies Allergy/AdvReac Type Severity Reaction Status Date / Time Penicillins Allergy Mild hives Verified 04/05/22 11:31 walnut Allergy Verified 04/05/22 11:31
[2022-04-06] MEDS: ZOCOR TAB 10 MG PO SCH (20:18)
[2022-04-06] MEDS: NEURONTIN CAP 100 MG PO PRN (20:18)
[2022-04-06] MEDS: SNACK - Diabetic Appropriate PO SCH (20:36)
[2022-04-07] MEDS: NS 1,000 ML IV 1,000 ML IV SCH ×2 (03:20→18:05)
[2022-04-07] MEDS: NORCO 5/325 MG TAB PO PRN ×2 (04:17→20:36)
[2022-04-07 05:02] LABS: BASOPHILS % (AUTO) 0.2 % (0.2-1.0); EOSINOPHILS # (AUTO) 0.1 x10^3/uL (0.0-0.2); EOSINOPHILS % (AUTO) 0.6 % (0.9-2.9); HEMATOCRIT 29.7 % (36.0-47.0); HEMOGLOBIN 9.9 g/dL (12.0-16.0); LYMPHOCYTES # (AUTO) 1.4 X10^3/uL (1.3-2.9); LYMPHOCYTES % (AUTO) 9.9 % (21.0-51.0); MEAN CORPUSCULAR HEMOGLOBIN 28.2 pg (27.0-34.0); MEAN CORPUSCULAR HGB CONC 33.3 g/dL (33.0-35.0); MEAN CORPUSCULAR VOLUME 84.7 fL (80.0-100.0); MEAN PLATELET VOLUME 9.1 fL (7.4-11.0); MONOCYTES # (AUTO) 0.9 x10^3/uL (0.3-0.8); MONOCYTES % (AUTO) 6.5 % (0.0-13.0); NEUTROPHILS # (AUTO) 11.9 x10^3/uL (2.2-4.8); NEUTROPHILS % (AUTO) 82.8 % (42.0-75.0); RED BLOOD COUNT 3.51 X10^6/uL (3.5-5.4); RED CELL DISTRIBUTION WIDTH 16.5 % (11.6-16.5); WHITE BLOOD COUNT 14.4 X10^3/uL (3.6-10.0)
[2022-04-07 05:12] LABS: ALBUMIN 1.7 g/dL (3.4-5.0); CALCIUM 8.3 mg/dL (8.5-10.1); CARBON DIOXIDE 23.4 mmol/L (21-32); COR CA(FOR HYPOALB) 10.1 mg/dL (8.5-10.1); CREATININE 1.29 mg/dL (0.55-1.02); TOTAL PROTEIN 6.2 g/dL (6.4-8.2)
[2022-04-07] MEDS ORDERED: KLOR-CON PO PRN (05:28)
[2022-04-07] MEDS ORDERED: MICRO K EXTEN CAP 10 MEQ PO PRN (05:28)
[2022-04-07] MEDS ORDERED: POTASSIUM CHL 60 MEQ/NS 0.45% 500 ML IV PRN (05:28)
[2022-04-07] MEDS ORDERED: POTASSIUM CHLORIDE LIQ 20 MEQ UDC PO PRN (05:28)
[2022-04-07] MEDS ORDERED: POTASSIUM CHL 40 MEQ/NS 0.45% 500 ML IV PRN (05:28)
[2022-04-07] MEDS ORDERED: K-RIDER 10 MEQ/NS 100 ML 10 MEQ/100 ML BAG IV PRN (05:28)
[2022-04-07] MEDS: PULMICORT NEB TX 0.5 MG NEB SCH ×2 (08:10→20:57)
[2022-04-07] MEDS: CELEXA PO SCH (08:18)
[2022-04-07] MEDS: INVanz INJ 1 GRAM VIAL 1 G in NS 100 ML IV 100 ML IV SCH (08:19)
[2022-04-07] MEDS: LASIX PO SCH (08:21)
[2022-04-07] MEDS: PriLOSEC PO SCH ×2 (08:21→20:37)
[2022-04-07] MEDS: MIRALAX POWDER (1 DOSE 17 G) PO SCH (08:21)
[2022-04-07] MEDS: VOLTAREN 1 % GEL MULTI DOSE TUBE TOP SCH ×2 (08:22→20:40)
[2022-04-07] MEDS: SANTYL TOP SCH (08:22)
[2022-04-07] MEDS: K-DUR TAB 20 MEQ PO PRN (08:23)
[2022-04-07] MEDS: ZYLOPRIM PO SCH (08:23)
[2022-04-07] MEDS: LANOXIN INJ IVP SCH (08:48)
[2022-04-07] MEDS ORDERED: LANOXIN INJ IVP SCH (09:00)
--- NOTE | 2022-04-07 10:21 | RAD ---
CHEST, 1 VIEWHISTORY: PNEUMONIAStudy: AP view of the chest.Comparison:April 06, 2022Findings:Cardiomegaly. Streaky bilateral airspace opacities with worsening small to moderate right-sided pleural effusion. Osseous structures demonstrate no acute abnormality. Bilateral hyperexpansion and interstitial prominence.IMPRESSION:1. Bilateral airspace opacities and developing right effusion. In the setting cardiomegaly this may represent edema versus infection.2. Findings of COPD.Electronically signed by: NATHAN BASILIO (Apr 07, 2022 10:19:31)
[2022-04-07] MEDS: NovoLIN R (or HumuLIN R) SUBCUT PRN ×2 (11:52→20:38)
[2022-04-07] MEDS ORDERED: LASIX IVP SCH (15:00)
[2022-04-07] MEDS ORDERED: K-DUR TAB 20 MEQ PO SCH (15:00)
[2022-04-07] MEDS: BUTT CREAM (COMPOUND) TOP PRN (18:06)
[2022-04-07] MEDS: ZOCOR TAB 10 MG PO SCH (20:38)
[2022-04-07] MEDS: SNACK - Diabetic Appropriate PO SCH (20:40)
[2022-04-08 05:32] LABS: BASOPHILS # (AUTO) 0.1 X10^3/uL (0.0-0.1); BASOPHILS % (AUTO) 0.5 % (0.2-1.0); EOSINOPHILS # (AUTO) 0.2 x10^3/uL (0.0-0.2); EOSINOPHILS % (AUTO) 1.3 % (0.9-2.9); HEMATOCRIT 31.1 % (36.0-47.0); HEMOGLOBIN 10.3 g/dL (12.0-16.0); LYMPHOCYTES # (AUTO) 1.3 X10^3/uL (1.3-2.9); LYMPHOCYTES % (AUTO) 8.1 % (21.0-51.0); MEAN CORPUSCULAR HEMOGLOBIN 27.8 pg (27.0-34.0); MEAN CORPUSCULAR HGB CONC 33.2 g/dL (33.0-35.0); MEAN CORPUSCULAR VOLUME 83.6 fL (80.0-100.0); MEAN PLATELET VOLUME 9.5 fL (7.4-11.0); NEUTROPHILS # (AUTO) 13.4 x10^3/uL (2.2-4.8); NEUTROPHILS % (AUTO) 84.1 % (42.0-75.0); RED BLOOD COUNT 3.72 X10^6/uL (3.5-5.4); RED CELL DISTRIBUTION WIDTH 16.6 % (11.6-16.5)
[2022-04-08 05:47] LABS: ALANINE AMINOTRANSFERASE 24 Units/L (12-78); ALBUMIN 1.7 g/dL (3.4-5.0); ALKALINE PHOSPHATASE 113 Units/L (46-116); ASPARTATE AMINO TRANSFERASE 27 Units/L (15-37); BLOOD UREA NITROGEN 26 mg/dL (7-18); CALCIUM 8.6 mg/dL (8.5-10.1); CARBON DIOXIDE 25.2 mmol/L (21-32); CHLORIDE 105 mmol/L (98-107); COR CA(FOR HYPOALB) 10.4 mg/dL (8.5-10.1); COR NA(FOR HYPERGLY) 141 mmol/L (136-145); CREATININE 1.08 mg/dL (0.55-1.02); SODIUM 141 mmol/L (136-145); TOTAL PROTEIN 6.7 g/dL (6.4-8.2); eGFR NON BLACK RACES 53 (>60)
[2022-04-08] MEDS: PULMICORT NEB TX 0.5 MG NEB SCH ×2 (07:59→20:10)
[2022-04-08] MEDS: NS 1,000 ML IV 1,000 ML IV SCH ×2 (08:39→20:09)
[2022-04-08] MEDS: CELEXA PO SCH (08:40)
[2022-04-08] MEDS: INVanz INJ 1 GRAM VIAL 1 G in NS 100 ML IV 100 ML IV SCH (08:40)
[2022-04-08] MEDS: K-DUR TAB 20 MEQ PO PRN (08:40)
[2022-04-08] MEDS: MIRALAX POWDER (1 DOSE 17 G) PO SCH (08:40)
[2022-04-08] MEDS: PriLOSEC PO SCH ×2 (08:40→20:07)
[2022-04-08] MEDS: VOLTAREN 1 % GEL MULTI DOSE TUBE TOP SCH ×2 (08:41→20:10)
[2022-04-08] MEDS: ZYLOPRIM PO SCH (08:41)
--- NOTE | 2022-04-08 10:33 | RAD ---
HISTORYASPIRATION PNEUMONIASTUDYCHEST, 1 [id number]/04/2022FINDINGSThe cardiomediastinal silhouette is stable. Similar bibasilar opacities, right greater than left. No pneumothorax. The bony thorax appears intact.IMPRESSIONSimilar bibasilar opacities.Electronically signed by: ARABELLA TIWARI (Apr 08, 2022 10:31:52)
[2022-04-08] MEDS: NEURONTIN CAP 100 MG PO PRN (20:07)
[2022-04-08] MEDS: ZOCOR TAB 10 MG PO SCH (20:07)
[2022-04-08] MEDS: SNACK - Diabetic Appropriate PO SCH (20:09)
[2022-04-08] MEDS: MAGNESIUM SULFATE 1 GRAM/100 mL PREMIX 1 G/100 ML BAG IV PRN ×2 (20:10→23:09)
[2022-04-08] MEDS: NORCO 5/325 MG TAB PO PRN (22:15)
[2022-04-08] MEDS ORDERED: ZOFRAN INJ 4 MG VIAL IVP PRN (22:39)
[2022-04-08] MEDS ORDERED: ZOFRAN INJ 4 MG VIAL ONE (22:41)
[2022-04-09 05:08] LABS: BASOPHILS % (AUTO) 0.3 % (0.2-1.0); EOSINOPHILS # (AUTO) 0.2 x10^3/uL (0.0-0.2); EOSINOPHILS % (AUTO) 1.2 % (0.9-2.9); HEMATOCRIT 30.5 % (36.0-47.0); HEMOGLOBIN 10.1 g/dL (12.0-16.0); LYMPHOCYTES # (AUTO) 1.7 X10^3/uL (1.3-2.9); LYMPHOCYTES % (AUTO) 12.7 % (21.0-51.0); MEAN CORPUSCULAR HEMOGLOBIN 27.8 pg (27.0-34.0); MEAN CORPUSCULAR VOLUME 84.1 fL (80.0-100.0); MONOCYTES # (AUTO) 1.1 x10^3/uL (0.3-0.8); MONOCYTES % (AUTO) 8.1 % (0.0-13.0); NEUTROPHILS # (AUTO) 10.3 x10^3/uL (2.2-4.8); NEUTROPHILS % (AUTO) 77.7 % (42.0-75.0); RED BLOOD COUNT 3.62 X10^6/uL (3.5-5.4); WHITE BLOOD COUNT 13.3 X10^3/uL (3.6-10.0)
[2022-04-09 05:20] LABS: ALANINE AMINOTRANSFERASE 43 Units/L (12-78); ALBUMIN 1.5 g/dL (3.4-5.0); ALKALINE PHOSPHATASE 108 Units/L (46-116); ASPARTATE AMINO TRANSFERASE 44 Units/L (15-37); BLOOD UREA NITROGEN 22 mg/dL (7-18); CALCIUM 8.5 mg/dL (8.5-10.1); CARBON DIOXIDE 25.1 mmol/L (21-32); CHLORIDE 106 mmol/L (98-107); COR CA(FOR HYPOALB) 10.5 mg/dL (8.5-10.1); COR NA(FOR HYPERGLY) 141 mmol/L (136-145); MAGNESIUM 2.4 mg/dL (1.7-2.9); SODIUM 139 mmol/L (136-145); TOTAL PROTEIN 6.2 g/dL (6.4-8.2); eGFR NON BLACK RACES > 60 (>60)
[2022-04-09] MEDS: CELEXA PO SCH (08:18)
[2022-04-09] MEDS: INVanz INJ 1 GRAM VIAL 1 G in NS 100 ML IV 100 ML IV SCH (08:19)
[2022-04-09] MEDS: MIRALAX POWDER (1 DOSE 17 G) PO SCH (08:20)
[2022-04-09] MEDS: ZYLOPRIM PO SCH (08:21)
[2022-04-09] MEDS: VOLTAREN 1 % GEL MULTI DOSE TUBE TOP SCH ×2 (08:21→20:08)
[2022-04-09] MEDS: PriLOSEC PO SCH ×2 (08:21→20:08)
--- NOTE | 2022-04-09 08:23 | RAD ---
HISTORYPNEUMONIASTUDYCHEST, 1 [id number]/05/2022.FINDINGSThe trachea is midline. The cardiac silhouette is at the upper limits of normal in size. Patchy bibasilar airspace opacities more notable within the right lower lobe are again noted. Mild elevation of the right hemidiaphragm is present. There is no pneumothorax. The bony thorax is grossly unremarkable.IMPRESSIONUnchanged exam compared with the previous day..Electronically signed by: KATHLEEN HENDRICKSON (Apr 09, 2022 08:22:45)
[2022-04-09] MEDS: NS 1,000 ML IV 1,000 ML IV SCH ×2 (08:27→22:10)
[2022-04-09] MEDS: PULMICORT NEB TX 0.5 MG NEB SCH ×2 (08:40→21:04)
[2022-04-09] MEDS: NovoLIN R (or HumuLIN R) SUBCUT PRN (12:22)
--- NOTE | 2022-04-09 12:53 | PCM.PROG ---
Progress Note Progress Note for Day of Date of Exam: 04/09/22 Subjective Subjective: Patient seen at bedside, no acute events overnight. She reports feeling slightly better. She is being treated for aspiration pneumonia and respiratory failure. She is currently on 2l NC. She has had more cough today and is coughing up some sputum. She has an episode of atrial fibrillation with RVR couple nights ago and was given Digoix and Toprol. Patient has been in NSR since then and is currently not on Digoxin or BB. Her HR has been in the 70s. Labs/imaging reviewed Urine Cx: no growth Blood Cx: no growth CXR: bibasilar opacities RLL Plan: Wean O2 as tolerated, continue nebs and smart vest. Continue IV Invanz. Follow Cx. Continue home medications. PT/OT as tolerated. Monitor AM labs/imaging. Past Medical Family Social History Allergies: Allergies Penicillins Allergy (Mild, Verified 04/05/22 11:31) hives walnut Allergy (Verified 04/05/22 11:31) Vital Signs and I&O's Vital Signs: Temperature 98.2 F Pulse Rate [Left] 145 Pulse Rate 70 Respiratory Rate 38 Blood Pressure [Right Arm] 80/48 Blood Pressure [Left Arm] 115/81 Blood Pressure 168/73 O2 Sat by Pulse Oximetry 97 Intake and Output: Intake & Output 04/06/22 04/07/22 04/08/22 04/09/22 23:59 23:59 23:59 23:59 Intake Total 2136 / 2136 3098 / 3098 1876 / 1876 439 / 439 Output Total 750 / 750 2725 / 2725 1050 / 1050 300 / 300 Balance 1386 / 1386 373 / 373 826 / 826 139 / 139 Physical Exam Oriented: Normal Eyes: Normal Ear: Normal Nose: Normal Throat: Normal Respiratory: Generalized, Diminished and Rhonchi Cardiovascular: Normal and Tachycardia : Normal Auscultation: Bowel Sounds: Normal Tenderness: Normal Skin: Decreased Turgur Musculoskeletal: Back:Thoracic and Back:Lumbar Psychiatric: Anxiety Affect: Anxious Speech Pattern: Clear and Appropriate Laboratory and Diagnostics Result Diagrams: 04/09/22 04:00 04/09/22 04:00 Labs: 04/06/22 12:13 Blood Blood Culture - Preliminary 04/06/22 12:00 Blood Blood Culture - Preliminary 04/06/22 12:55 Urine,[place] Urine Culture - Final Laboratory WBC 13.3 X10^3/uL (3.6-10.0) H 04/09/22 04:00 RBC 3.62 X10^6/uL (3.5-5.4) 04/09/22 04:00 Hgb 10.1 g/dL (12.0-16.0) L 04/09/22 04:00 Hct 30.5 % (36.0-47.0) L 04/09/22 04:00 MCV 84.1 fL (80.0-100.0) 04/09/22 04:00 MCH 27.8 pg (27.0-34.0) 04/09/22 04:00 MCHC 33.0 g/dL (33.0-35.0) 04/09/22 04:00 RDW 16.0 % (11.6-16.5) 04/09/22 04:00 Plt Count 231 X10^3/uL (150.0-450.0) 04/09/22 04:00 Plt Count Comment Adequate (ADEQUATE) 04/06/22 04:53 MPV 9.0 fL (7.4-11.0) 04/09/22 04:00 Neut % (Auto) 77.7 % (42.0-75.0) H 04/09/22 04:00 Lymph % (Auto) 12.7 % (21.0-51.0) L 04/09/22 04:00 [place] % (Auto) 8.1 % (0.0-13.0) 04/09/22 04:00 Eos % (Auto) 1.2 % (0.9-2.9) 04/09/22 04:00 Baso % (Auto) 0.3 % (0.2-1.0) 04/09/22 04:00 Neut # (Auto) 10.3 x10^3/uL (2.2-4.8) H 04/09/22 04:00 Lymph # (Auto) 1.7 X10^3/uL (1.3-2.9) 04/09/22 04:00 [place] # (Auto) 1.1 x10^3/uL (0.3-0.8) H 04/09/22 04:00 Eos # (Auto) 0.2 x10^3/uL (0.0-0.2) 04/09/22 04:00 Baso # (Auto) 0.0 X10^3/uL (0.0-0.1) 04/09/22 04:00 Absolute Nucleated RBC 0.1 /100WBC 04/09/22 04:00 Total Counted 100 04/06/22 04:53 Neutrophils % (Manual) 74 % (39-76) 04/06/22 04:53 Band Neutrophils % 9 % (0-10) 04/06/22 04:53 Lymphocytes % (Manual) 10 % (13-43) L 04/06/22 04:53 Monocytes % (Manual) 7 % (4-9) 04/06/22 04:53 Plt Morphology Comment Normal (NORMAL) 04/06/22 04:53 RBC Morphology Normal (NORMAL) 04/06/22 04:53 Sample Site Lrad 04/06/22 08:00 ABG pH 7.510 (7.35-7.45) H 04/06/22 08:00 ABG pCO2 30.0 mmHg (35.0-45.0) L 04/06/22 08:00 ABG pO2 87.0 mmHg (80.0-100.0) 04/06/22 08:00 ABG HCO3 23.9 mmol/L (22-26) 04/06/22 08:00 ABG O2 Saturation 98.0 % (90-100) 04/06/22 08:00 ABG Base Excess 1.6 mmol/L (-2.0-2.0) 04/06/22 08:00 Christoph Test Pos 04/06/22 08:00 A-a Gradient 489.0 mmHg 04/06/22 08:00 FiO2 86.0 04/06/22 08:00 Blood Gas Comments Marii well ms/sd 04/06/22 08:00 Sodium 139 mmol/L (136-145) 04/09/22 04:00 Corrected Sodium 141 mmol/L (136-145) 04/09/22 04:00 Potassium 3.5 mmol/L (3.5-5.1) 04/09/22 04:00 Chloride 106 mmol/L (98-107) 04/09/22 04:00 Carbon Dioxide 25.1 mmol/L (21-32) 04/09/22 04:00 BUN 22 mg/dL (7-18) H 04/09/22 04:00 Creatinine 0.90 mg/dL (0.55-1.02) 04/09/22 04:00 Est GFR (MDRD) Af Amer > 60 (>60) 04/09/22 04:00 Est GFR (MDRD) Non-Af > 60 (>60) 04/09/22 04:00 Glucose 163 mg/dL (65-99) H 04/09/22 04:00 POC Glucose (mg/dL) 208 mg/dL (65-99) H 04/09/22 12:20 Lactic Acid 1.6 mmol/L (0.4-2.0) 04/06/22 12:00 Calcium 8.5 mg/dL (8.5-10.1) 04/09/22 04:00 Corrected Calcium 10.5 mg/dL (8.5-10.1) H 04/09/22 04:00 Magnesium 2.4 mg/dL (1.7-2.9) 04/09/22 04:00 Total Bilirubin 0.20 mg/dL (0.2-1.0) 04/09/22 04:00 AST 44 Units/L (15-37) H 04/09/22 04:00 ALT 43 Units/L (12-78) 04/09/22 04:00 Alkaline Phosphatase 108 Units/L (46-116) 04/09/22 04:00 Creatine Kinase 44 Units/L (26-192) 04/08/22 11:17 Troponin I High Sens 110.4 ng/L (4.0-60.0) H* 04/08/22 11:17 B-Natriuretic Peptide 301 pg/mL (0-79) H 04/05/22 11:41 Total Protein 6.2 g/dL (6.4-8.2) L 04/09/22 04:00 Albumin 1.5 g/dL (3.4-5.0) L 04/09/22 04:00 Globulin 4.7 g/dL (2.5-4.5) H 04/09/22 04:00 Albumin/Globulin Ratio 0.3 Ratio (1.1-2.1) L 04/09/22 04:00 Specimen Type Catherized urine 04/06/22 12:55 Urine Color Yellow (YELLOW) 04/06/22 12:55 Urine Appearance Slightly hazy (CLEAR) 04/06/22 12:55 Urine pH 5.0 (5.0 - 8.0) 04/06/22 12:55 Ur Specific [place] 1.010 (1.000-1.030) 04/06/22 12:55 Urine Protein 3+ (NEGATIVE) 04/06/22 12:55 Urine Glucose (UA) 4+ (NEGATIVE) 04/06/22 12:55 Urine Ketones Negative (NEGATIVE) 04/06/22 12:55 Urine Blood 2+ (NEGATIVE) 04/06/22 12:55 Urine Nitrite Negative (NEGATIVE) 04/06/22 12:55 Urine Bilirubin Negative (NEGATIVE) 04/06/22 12:55 Urine Urobilinogen Normal (NORMAL) 04/06/22 12:55 Ur Leukocyte Esterase 1+ (NEGATIVE) 04/06/22 12:55 Urine RBC 5-10 /HPF (0-3) A 04/06/22 12:55 Urine WBC 10-20 /HPF (0-5) A 04/06/22 12:55 Ur Squamous Epith Cells Few /HPF (NEGATIVE) 04/06/22 12:55 Urine Bacteria Trace /HPF (NEGATIVE) 04/06/22 12:55 Ur Culture Indicated? Yes/culture set up 04/06/22 12:55 Digoxin < 0.20 ng/mL (0.9-2) L 04/07/22 04:08 SARS-CoV-2 (PCR) Negative (NEGATIVE) 04/06/22 23:56 Influenza Type A (PCR) Negative (NEGATIVE) 04/06/22 23:56 Influenza Type B (PCR) Negative (NEGATIVE) 04/06/22 23:56 RSV (PCR) Negative (NEGATIVE) 04/06/22 23:56 Plan (1) Aspiration pneumonia: Status: Acute (2) Diabetes mellitus, type 2: Status: Chronic (3) Acute respiratory distress: Status: Acute (4) Generalized weakness: Status: Acute (5) Anxiety: Status: Chronic (6) Hypertension: Status: Chronic (7) GERD (gastroesophageal reflux disease): Status: Chronic (8) DJD (degenerative joint disease): Status: Acute Qualifiers: Laterality: bilateral Osteoarthritis location: hip Osteoarthritis type: unspecified Qualified Code(s): M16.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
[2022-04-09] MEDS: SNACK - Diabetic Appropriate PO SCH (20:07)
[2022-04-09] MEDS: ZOCOR TAB 10 MG PO SCH (20:08)
[2022-04-09] MEDS: NEURONTIN CAP 100 MG PO PRN (20:08)
[2022-04-10 05:20] LABS: BASOPHILS % (AUTO) 0.2 % (0.2-1.0); EOSINOPHILS # (AUTO) 0.1 x10^3/uL (0.0-0.2); EOSINOPHILS % (AUTO) 1.1 % (0.9-2.9); HEMOGLOBIN 10.2 g/dL (12.0-16.0); LYMPHOCYTES # (AUTO) 1.5 X10^3/uL (1.3-2.9); LYMPHOCYTES % (AUTO) 11.5 % (21.0-51.0); MEAN CORPUSCULAR HEMOGLOBIN 27.7 pg (27.0-34.0); MEAN CORPUSCULAR VOLUME 83.9 fL (80.0-100.0); MEAN PLATELET VOLUME 8.7 fL (7.4-11.0); MONOCYTES % (AUTO) 7.8 % (0.0-13.0); NEUTROPHILS # (AUTO) 10.2 x10^3/uL (2.2-4.8); NEUTROPHILS % (AUTO) 79.4 % (42.0-75.0); RED CELL DISTRIBUTION WIDTH 16.4 % (11.6-16.5); WHITE BLOOD COUNT 12.8 X10^3/uL (3.6-10.0)
[2022-04-10 05:42] LABS: ALANINE AMINOTRANSFERASE 57 Units/L (12-78); ALBUMIN 1.5 g/dL (3.4-5.0); ALKALINE PHOSPHATASE 110 Units/L (46-116); ASPARTATE AMINO TRANSFERASE 49 Units/L (15-37); BLOOD UREA NITROGEN 20 mg/dL (7-18); CALCIUM 8.6 mg/dL (8.5-10.1); CARBON DIOXIDE 22.7 mmol/L (21-32); CHLORIDE 106 mmol/L (98-107); COR CA(FOR HYPOALB) 10.6 mg/dL (8.5-10.1); COR NA(FOR HYPERGLY) 144 mmol/L (136-145); CREATININE 0.96 mg/dL (0.55-1.02); SODIUM 140 mmol/L (136-145); TOTAL PROTEIN 6.3 g/dL (6.4-8.2); eGFR NON BLACK RACES > 60 (>60)
[2022-04-10] MEDS: NovoLIN R (or HumuLIN R) SUBCUT PRN ×2 (05:47→16:50)
[2022-04-10] MEDS: PULMICORT NEB TX 0.5 MG NEB SCH ×2 (08:20→20:20)
[2022-04-10] MEDS: INVanz INJ 1 GRAM VIAL 1 G in NS 100 ML IV 100 ML IV SCH (09:46)
[2022-04-10] MEDS: CELEXA PO SCH (09:47)
[2022-04-10] MEDS: PriLOSEC PO SCH ×2 (09:47→20:04)
[2022-04-10] MEDS: ZYLOPRIM PO SCH (09:47)
[2022-04-10] MEDS: VOLTAREN 1 % GEL MULTI DOSE TUBE TOP SCH ×2 (09:48→20:04)
[2022-04-10] MEDS: MIRALAX POWDER (1 DOSE 17 G) PO SCH (09:48)
--- NOTE | 2022-04-10 11:45 | PCM.PROG ---
Progress Note Progress Note for Day of Date of Exam: 04/10/22 Subjective Subjective: Patient seen at bedside, no acute events overnight. Patient has been having worsening diarrhea since yesterday. She denies N/V or abdominal pain. She states her breathing is slightly better. She has been coughing up some sputum. Labs/imaging reviewed Urine Cx: no growth Blood Cx: no growth CXR: bibasilar opacities RLL Plan: Wean O2 as tolerated, continue nebs and smart vest. Continue IV Invanz. Will order stool culture and C.diff. Monitor stool output. Stop miralax. Replace K as per protocol. Follow Cx. Continue home medications. PT/OT as tolerated. Monitor AM labs/imaging. Past Medical Family Social History Allergies: Allergies Penicillins Allergy (Mild, Verified 04/05/22 11:31) hives walnut Allergy (Verified 04/05/22 11:31) Vital Signs and I&O's Vital Signs: Temperature 98.6 F Pulse Rate [Left] 145 Pulse Rate 55 Respiratory Rate 20 Blood Pressure [Right Arm] 80/48 Blood Pressure [Left Arm] 115/81 Blood Pressure 152/65 O2 Sat by Pulse Oximetry 96 Intake and Output: Intake & Output 04/07/22 04/08/22 04/09/22 04/10/22 23:59 23:59 23:59 23:59 Intake Total 3098 / 3098 1876 / 1876 2220 / 2220 537 / 537 Output Total 2725 / 2725 1050 / 1050 1250 / 1250 300 / 300 Balance 373 / 373 826 / 826 970 / 970 237 / 237 Physical Exam Oriented: Normal Eyes: Normal Ear: Normal Nose: Normal Throat: Normal Respiratory: Generalized, Diminished and Rhonchi Cardiovascular: Normal Auscultation: Bowel Sounds: Normal Tenderness: Normal Skin: Decreased Turgur Musculoskeletal: Back:Thoracic and Back:Lumbar Psychiatric: Anxiety Affect: Anxious Speech Pattern: Clear and Appropriate Laboratory and Diagnostics Result Diagrams: 04/10/22 04:45 04/10/22 04:45 Labs: 04/06/22 12:13 Blood Blood Culture - Preliminary 04/06/22 12:00 Blood Blood Culture - Preliminary 04/06/22 12:55 Urine,[place] Urine Culture - Final Laboratory WBC 12.8 X10^3/uL (3.6-10.0) H 04/10/22 04:45 RBC 3.70 X10^6/uL (3.5-5.4) 04/10/22 04:45 Hgb 10.2 g/dL (12.0-16.0) L 04/10/22 04:45 Hct 31.0 % (36.0-47.0) L 04/10/22 04:45 MCV 83.9 fL (80.0-100.0) 04/10/22 04:45 MCH 27.7 pg (27.0-34.0) 04/10/22 04:45 MCHC 33.0 g/dL (33.0-35.0) 04/10/22 04:45 RDW 16.4 % (11.6-16.5) 04/10/22 04:45 Plt Count 278 X10^3/uL (150.0-450.0) 04/10/22 04:45 Plt Count Comment Adequate (ADEQUATE) 04/06/22 04:53 MPV 8.7 fL (7.4-11.0) 04/10/22 04:45 Neut % (Auto) 79.4 % (42.0-75.0) H 04/10/22 04:45 Lymph % (Auto) 11.5 % (21.0-51.0) L 04/10/22 04:45 [place] % (Auto) 7.8 % (0.0-13.0) 04/10/22 04:45 Eos % (Auto) 1.1 % (0.9-2.9) 04/10/22 04:45 Baso % (Auto) 0.2 % (0.2-1.0) 04/10/22 04:45 Neut # (Auto) 10.2 x10^3/uL (2.2-4.8) H 04/10/22 04:45 Lymph # (Auto) 1.5 X10^3/uL (1.3-2.9) 04/10/22 04:45 [place] # (Auto) 1.0 x10^3/uL (0.3-0.8) H 04/10/22 04:45 Eos # (Auto) 0.1 x10^3/uL (0.0-0.2) 04/10/22 04:45 Baso # (Auto) 0.0 X10^3/uL (0.0-0.1) 04/10/22 04:45 Absolute Nucleated RBC 0.1 /100WBC 04/10/22 04:45 Total Counted 100 04/06/22 04:53 Neutrophils % (Manual) 74 % (39-76) 04/06/22 04:53 Band Neutrophils % 9 % (0-10) 04/06/22 04:53 Lymphocytes % (Manual) 10 % (13-43) L 04/06/22 04:53 Monocytes % (Manual) 7 % (4-9) 04/06/22 04:53 Plt Morphology Comment Normal (NORMAL) 04/06/22 04:53 RBC Morphology Normal (NORMAL) 04/06/22 04:53 Sample Site Lrad 04/06/22 08:00 ABG pH 7.510 (7.35-7.45) H 04/06/22 08:00 ABG pCO2 30.0 mmHg (35.0-45.0) L 04/06/22 08:00 ABG pO2 87.0 mmHg (80.0-100.0) 04/06/22 08:00 ABG HCO3 23.9 mmol/L (22-26) 04/06/22 08:00 ABG O2 Saturation 98.0 % (90-100) 04/06/22 08:00 ABG Base Excess 1.6 mmol/L (-2.0-2.0) 04/06/22 08:00 Christoph Test Pos 04/06/22 08:00 A-a Gradient 489.0 mmHg 04/06/22 08:00 FiO2 86.0 04/06/22 08:00 Blood Gas Comments Marii well ms/sd 04/06/22 08:00 Sodium 140 mmol/L (136-145) 04/10/22 04:45 Corrected Sodium 144 mmol/L (136-145) 04/10/22 04:45 Potassium 3.4 mmol/L (3.5-5.1) L 04/10/22 04:45 Chloride 106 mmol/L (98-107) 04/10/22 04:45 Carbon Dioxide 22.7 mmol/L (21-32) 04/10/22 04:45 BUN 20 mg/dL (7-18) H 04/10/22 04:45 Creatinine 0.96 mg/dL (0.55-1.02) 04/10/22 04:45 Est GFR (MDRD) Af Amer > 60 (>60) 04/10/22 04:45 Est GFR (MDRD) Non-Af > 60 (>60) 04/10/22 04:45 Glucose 250 mg/dL (65-99) H 04/10/22 04:45 POC Glucose (mg/dL) 228 mg/dL (65-99) H 04/10/22 05:34 Lactic Acid 1.6 mmol/L (0.4-2.0) 04/06/22 12:00 Calcium 8.6 mg/dL (8.5-10.1) 04/10/22 04:45 Corrected Calcium 10.6 mg/dL (8.5-10.1) H 04/10/22 04:45 Magnesium 2.4 mg/dL (1.7-2.9) 04/09/22 04:00 Total Bilirubin 0.10 mg/dL (0.2-1.0) L 04/10/22 04:45 AST 49 Units/L (15-37) H 04/10/22 04:45 ALT 57 Units/L (12-78) 04/10/22 04:45 Alkaline Phosphatase 110 Units/L (46-116) 04/10/22 04:45 Creatine Kinase 44 Units/L (26-192) 04/08/22 11:17 Troponin I High Sens 110.4 ng/L (4.0-60.0) H* 04/08/22 11:17 B-Natriuretic Peptide 301 pg/mL (0-79) H 04/05/22 11:41 Total Protein 6.3 g/dL (6.4-8.2) L 04/10/22 04:45 Albumin 1.5 g/dL (3.4-5.0) L 04/10/22 04:45 Globulin 4.8 g/dL (2.5-4.5) H 04/10/22 04:45 Albumin/Globulin Ratio 0.3 Ratio (1.1-2.1) L 04/10/22 04:45 Specimen Type Catherized urine 04/06/22 12:55 Urine Color Yellow (YELLOW) 04/06/22 12:55 Urine Appearance Slightly hazy (CLEAR) 04/06/22 12:55 Urine pH 5.0 (5.0 - 8.0) 04/06/22 12:55 Ur Specific [place] 1.010 (1.000-1.030) 04/06/22 12:55 Urine Protein 3+ (NEGATIVE) 04/06/22 12:55 Urine Glucose (UA) 4+ (NEGATIVE) 04/06/22 12:55 Urine Ketones Negative (NEGATIVE) 04/06/22 12:55 Urine Blood 2+ (NEGATIVE) 04/06/22 12:55 Urine Nitrite Negative (NEGATIVE) 04/06/22 12:55 Urine Bilirubin Negative (NEGATIVE) 04/06/22 12:55 Urine Urobilinogen Normal (NORMAL) 04/06/22 12:55 Ur Leukocyte Esterase 1+ (NEGATIVE) 04/06/22 12:55 Urine RBC 5-10 /HPF (0-3) A 04/06/22 12:55 Urine WBC 10-20 /HPF (0-5) A 04/06/22 12:55 Ur Squamous Epith Cells Few /HPF (NEGATIVE) 04/06/22 12:55 Urine Bacteria Trace /HPF (NEGATIVE) 04/06/22 12:55 Ur Culture Indicated? Yes/culture set up 04/06/22 12:55 Digoxin < 0.20 ng/mL (0.9-2) L 04/07/22 04:08 SARS-CoV-2 (PCR) Negative (NEGATIVE) 04/06/22 23:56 Influenza Type A (PCR) Negative (NEGATIVE) 04/06/22 23:56 Influenza Type B (PCR) Negative (NEGATIVE) 04/06/22 23:56 RSV (PCR) Negative (NEGATIVE) 04/06/22 23:56 Plan (1) Diarrhea: Status: Acute (2) Aspiration pneumonia: Status: Acute (3) Diabetes mellitus, type 2: Status: Chronic (4) Acute respiratory distress: Status: Acute (5) Generalized weakness: Status: Acute (6) Anxiety: Status: Chronic (7) Hypertension: Status: Chronic (8) GERD (gastroesophageal reflux disease): Status: Chronic (9) DJD (degenerative joint disease): Status: Acute Qualifiers: Laterality: bilateral Osteoarthritis location: hip Osteoarthritis type: unspecified Qualified Code(s): M16.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
[2022-04-10] MEDS: NORCO 5/325 MG TAB PO PRN (16:48)
[2022-04-10] MEDS: K-DUR TAB 20 MEQ PO PRN (16:49)
[2022-04-10] MEDS: NS 1,000 ML IV 1,000 ML IV SCH ×2 (17:00→19:40)
[2022-04-10] MEDS: SNACK - Diabetic Appropriate PO SCH (19:41)
[2022-04-10] MEDS: ZOCOR TAB 10 MG PO SCH (20:04)
[2022-04-10] MEDS: NEURONTIN CAP 100 MG PO PRN (20:04)
[2022-04-11] MEDS: NS 1,000 ML IV 1,000 ML IV SCH ×2 (02:54→18:58)
[2022-04-11 05:24] LABS: BASOPHILS # (AUTO) 0.1 X10^3/uL (0.0-0.1); BASOPHILS % (AUTO) 0.4 % (0.2-1.0); EOSINOPHILS # (AUTO) 0.3 x10^3/uL (0.0-0.2); EOSINOPHILS % (AUTO) 1.9 % (0.9-2.9); HEMATOCRIT 30.4 % (36.0-47.0); HEMOGLOBIN 10.1 g/dL (12.0-16.0); LYMPHOCYTES # (AUTO) 1.9 X10^3/uL (1.3-2.9); LYMPHOCYTES % (AUTO) 13.8 % (21.0-51.0); MEAN CORPUSCULAR HEMOGLOBIN 27.8 pg (27.0-34.0); MEAN CORPUSCULAR HGB CONC 33.1 g/dL (33.0-35.0); MEAN PLATELET VOLUME 8.6 fL (7.4-11.0); MONOCYTES # (AUTO) 0.7 x10^3/uL (0.3-0.8); MONOCYTES % (AUTO) 5.4 % (0.0-13.0); NEUTROPHILS # (AUTO) 10.9 x10^3/uL (2.2-4.8); NEUTROPHILS % (AUTO) 78.5 % (42.0-75.0); RED BLOOD COUNT 3.62 X10^6/uL (3.5-5.4); RED CELL DISTRIBUTION WIDTH 16.3 % (11.6-16.5); WHITE BLOOD COUNT 13.9 X10^3/uL (3.6-10.0)
[2022-04-11 05:48] LABS: ALANINE AMINOTRANSFERASE 47 Units/L (12-78); ALBUMIN 1.2 g/dL (3.4-5.0); ALKALINE PHOSPHATASE 100 Units/L (46-116); ASPARTATE AMINO TRANSFERASE 29 Units/L (15-37); BLOOD UREA NITROGEN 17 mg/dL (7-18); CALCIUM 8.7 mg/dL (8.5-10.1); CARBON DIOXIDE 24.5 mmol/L (21-32); CHLORIDE 111 mmol/L (98-107); COR CA(FOR HYPOALB) 10.9 mg/dL (8.5-10.1); COR NA(FOR HYPERGLY) 144 mmol/L (136-145); CREATININE 0.77 mg/dL (0.55-1.02); SODIUM 143 mmol/L (136-145); TOTAL PROTEIN 6.1 g/dL (6.4-8.2); eGFR NON BLACK RACES > 60 (>60)
--- NOTE | 2022-04-11 07:03 | RAD ---
HISTORYFollow-up pneumoniaSTUDYChest AP [id number]/2022FINDINGSHear t remains upper limits normal in size. No congestive heart failure is noted. Right lower lobe infiltrate is again identified most consistent with pneumonia and is unchanged. The right upper lung field and left upper lung paz appear clear. There is some patchy retrocardiac infiltrate in the left lower lobe also unchanged. Bony thorax is unremarkable.IMPRESSIONNo change right lower lobe pneumoniaNo change patchy infiltrate retrocardiac area left lower lobeElectronically signed by: ARABELLA TIWARI (Apr 11, 2022 07:02:15)
[2022-04-11] MEDS: K-DUR TAB 20 MEQ PO PRN (08:23)
[2022-04-11] MEDS: MAGNESIUM SULFATE 1 GRAM/100 mL PREMIX 1 G/100 ML BAG IV PRN ×2 (08:23→09:35)
[2022-04-11] MEDS: PULMICORT NEB TX 0.5 MG NEB SCH ×2 (08:23→20:55)
[2022-04-11] MEDS: CELEXA PO SCH (08:24)
[2022-04-11] MEDS: VOLTAREN 1 % GEL MULTI DOSE TUBE TOP SCH ×2 (08:25→21:44)
[2022-04-11] MEDS: ZYLOPRIM PO SCH (08:25)
[2022-04-11] MEDS: PriLOSEC PO SCH ×2 (08:25→20:49)
[2022-04-11] MEDS: INVanz INJ 1 GRAM VIAL 1 G in NS 100 ML IV 100 ML IV SCH (10:30)
[2022-04-11] MEDS: NovoLIN R (or HumuLIN R) SUBCUT PRN ×2 (12:30→19:00)
[2022-04-11] MEDS: ROBITUSSIN DM PO SCH ×3 (14:15→20:49)
--- NOTE | 2022-04-11 15:38 | CT ---
HISTORYPneumoniaSTUDYCT chest with IV contrastCOMPARISONX-ray 04/11/2022TECHNIQUEMultiple axial images of the chest were obtained from the thoracic inlet to the upper abdomenwith the administration of IV contrast. Sagittal and coronal reformations are performed. Dose reduction techniques including Automated Exposure Control (AEC) and adjustment of mA and kV were utilized.FINDINGSModerate right pleural effusion is seen with small left pleural effusion. There is alveolar consolidation in the right lower lobe and right middle lobe, as well as the inferior left lower lobe. Appearance is concerning for pneumonia. However, there could be a degree of atelectasis, also. There is no evidence of a pneumothorax.Probably reactive lymph nodes are seen in the mediastinum, greatest in the right paratracheal region. These measure up to 1.0 cm in the short axis. There is borderline cardiomegaly without pulmonary venous congestion. The thoracic aorta is normal in size without evidence of dissection. Probable fatty infiltration of the liver. Calcification of the right adrenal gland is probably from prior hemorrhage.IMPRESSIONProbable bilateral pneumonia, right greater than left. Associated pleural effusions are seen. Continued x-ray follow up to document resolution is recommended.Electronically signed by: Ravi Colmenares (Apr 11, 2022 15:36:30)
[2022-04-11] MEDS: LASIX IVP SCH (18:59)
[2022-04-11] MEDS: ZOCOR TAB 10 MG PO SCH (20:49)
[2022-04-11] MEDS: SNACK - Diabetic Appropriate PO SCH (21:35)
[2022-04-12] MEDS: NORCO 5/325 MG TAB PO PRN ×2 (02:43→17:05)
[2022-04-12] MEDS: NS 1,000 ML IV 1,000 ML IV SCH ×2 (03:55→16:06)
[2022-04-12 05:33] LABS: BASOPHILS # (AUTO) 0.1 X10^3/uL (0.0-0.1); BASOPHILS % (AUTO) 0.4 % (0.2-1.0); EOSINOPHILS # (AUTO) 0.3 x10^3/uL (0.0-0.2); EOSINOPHILS % (AUTO) 1.9 % (0.9-2.9); HEMOGLOBIN 9.3 g/dL (12.0-16.0); LYMPHOCYTES # (AUTO) 2.1 X10^3/uL (1.3-2.9); LYMPHOCYTES % (AUTO) 14.4 % (21.0-51.0); MEAN CORPUSCULAR HEMOGLOBIN 27.5 pg (27.0-34.0); MEAN CORPUSCULAR HGB CONC 33.1 g/dL (33.0-35.0); MEAN CORPUSCULAR VOLUME 83.2 fL (80.0-100.0); MEAN PLATELET VOLUME 8.6 fL (7.4-11.0); MONOCYTES # (AUTO) 0.6 x10^3/uL (0.3-0.8); MONOCYTES % (AUTO) 4.4 % (0.0-13.0); NEUTROPHILS # (AUTO) 11.3 x10^3/uL (2.2-4.8); NEUTROPHILS % (AUTO) 78.9 % (42.0-75.0); RED BLOOD COUNT 3.36 X10^6/uL (3.5-5.4); RED CELL DISTRIBUTION WIDTH 16.5 % (11.6-16.5); WHITE BLOOD COUNT 14.3 X10^3/uL (3.6-10.0)
[2022-04-12 05:53] LABS: ALANINE AMINOTRANSFERASE 33 Units/L (12-78); ALBUMIN 1.4 g/dL (3.4-5.0); ALKALINE PHOSPHATASE 91 Units/L (46-116); ASPARTATE AMINO TRANSFERASE 23 Units/L (15-37); BLOOD UREA NITROGEN 13 mg/dL (7-18); CALCIUM 8.4 mg/dL (8.5-10.1); CHLORIDE 107 mmol/L (98-107); COR CA(FOR HYPOALB) 10.5 mg/dL (8.5-10.1); COR NA(FOR HYPERGLY) 140 mmol/L (136-145); CREATININE 0.79 mg/dL (0.55-1.02); MAGNESIUM 1.7 mg/dL (1.7-2.9); SODIUM 140 mmol/L (136-145); TOTAL PROTEIN 5.7 g/dL (6.4-8.2); eGFR NON BLACK RACES > 60 (>60)
[2022-04-12] MEDS: MAGNESIUM SULFATE 1 GRAM/100 mL PREMIX 1 G/100 ML BAG IV PRN ×2 (07:41→15:58)
[2022-04-12] MEDS: PULMICORT NEB TX 0.5 MG NEB SCH ×2 (08:34→20:10)
[2022-04-12] MEDS ORDERED: PHARMACY CONSULT - VANCOMYCIN XX SCH (09:00)
[2022-04-12] MEDS: INVanz INJ 1 GRAM VIAL 1 G in NS 100 ML IV 100 ML IV SCH (09:02)
[2022-04-12] MEDS: ROBITUSSIN DM PO SCH ×4 (09:03→20:27)
[2022-04-12] MEDS: CELEXA PO SCH (09:03)
[2022-04-12] MEDS: PriLOSEC PO SCH ×2 (09:03→20:27)
[2022-04-12] MEDS: ZYLOPRIM PO SCH (09:03)
[2022-04-12] MEDS: K-DUR TAB 20 MEQ PO PRN (09:04)
[2022-04-12] MEDS: LASIX IVP SCH (09:04)
[2022-04-12] MEDS: VOLTAREN 1 % GEL MULTI DOSE TUBE TOP SCH ×2 (09:05→20:27)
[2022-04-12] MEDS: VANCOMYCIN IV *PREMIX 1 G/200 ML BAG 1 G/200 ML PIGGYBACK IV SCH ×2 (10:06→20:27)
[2022-04-12] MEDS: ZITHROMAX INJ 500 MG VIAL 500 MG in D5W 250 ML IV 250 ML IV SCH ×2 (11:15→12:00)
[2022-04-12] MEDS: NovoLIN R (or HumuLIN R) SUBCUT PRN ×3 (12:15→20:28)
[2022-04-12] MEDS: BUTT CREAM (COMPOUND) TOP PRN (19:20)
[2022-04-12] MEDS: SNACK - Diabetic Appropriate PO SCH (20:00)
[2022-04-12] MEDS: ZOCOR TAB 10 MG PO SCH (20:27)
[2022-04-13] MEDS: NORCO 5/325 MG TAB PO PRN (05:02)
[2022-04-13] MEDS: NS 1,000 ML IV 1,000 ML IV SCH ×2 (05:02→05:59)
[2022-04-13 05:53] LABS: BASOPHILS # (AUTO) 0.1 X10^3/uL (0.0-0.1); BASOPHILS % (AUTO) 0.6 % (0.2-1.0); EOSINOPHILS # (AUTO) 0.3 x10^3/uL (0.0-0.2); EOSINOPHILS % (AUTO) 1.6 % (0.9-2.9); HEMATOCRIT 29.2 % (36.0-47.0); HEMOGLOBIN 9.6 g/dL (12.0-16.0); LYMPHOCYTES # (AUTO) 0.9 X10^3/uL (1.3-2.9); LYMPHOCYTES % (AUTO) 5.3 % (21.0-51.0); MEAN CORPUSCULAR HEMOGLOBIN 27.4 pg (27.0-34.0); MEAN CORPUSCULAR HGB CONC 32.8 g/dL (33.0-35.0); MEAN CORPUSCULAR VOLUME 83.5 fL (80.0-100.0); MEAN PLATELET VOLUME 8.6 fL (7.4-11.0); MONOCYTES # (AUTO) 0.5 x10^3/uL (0.3-0.8); MONOCYTES % (AUTO) 3.1 % (0.0-13.0); NEUTROPHILS # (AUTO) 14.8 x10^3/uL (2.2-4.8); NEUTROPHILS % (AUTO) 89.4 % (42.0-75.0); RED CELL DISTRIBUTION WIDTH 16.9 % (11.6-16.5); WHITE BLOOD COUNT 16.6 X10^3/uL (3.6-10.0)
[2022-04-13 06:04] LABS: ALANINE AMINOTRANSFERASE 31 Units/L (12-78); ALBUMIN 1.4 g/dL (3.4-5.0); ALKALINE PHOSPHATASE 94 Units/L (46-116); ASPARTATE AMINO TRANSFERASE 23 Units/L (15-37); BLOOD UREA NITROGEN 13 mg/dL (7-18); CALCIUM 8.4 mg/dL (8.5-10.1); CHLORIDE 109 mmol/L (98-107); COR CA(FOR HYPOALB) 10.5 mg/dL (8.5-10.1); COR NA(FOR HYPERGLY) 142 mmol/L (136-145); CREATININE 0.85 mg/dL (0.55-1.02); MAGNESIUM 1.8 mg/dL (1.7-2.9); SODIUM 141 mmol/L (136-145); TOTAL PROTEIN 5.9 g/dL (6.4-8.2); eGFR NON BLACK RACES > 60 (>60)
[2022-04-13] MEDS: MAGNESIUM SULFATE 1 GRAM/100 mL PREMIX 1 G/100 ML BAG IV PRN ×2 (06:12→13:36)
[2022-04-13] MEDS ORDERED: D5W 250 ML IV 250 ML IV ONE (08:10)
[2022-04-13] MEDS: PULMICORT NEB TX 0.5 MG NEB SCH ×2 (08:20→21:30)
[2022-04-13] MEDS: CELEXA PO SCH (08:29)
[2022-04-13] MEDS: LASIX IVP SCH (08:30)
[2022-04-13] MEDS: PriLOSEC PO SCH (08:30)
[2022-04-13] MEDS: ROBITUSSIN DM PO SCH ×3 (08:30→16:32)
[2022-04-13] MEDS: ZITHROMAX INJ 500 MG VIAL 500 MG in D5W 250 ML IV 250 ML IV SCH (08:31)
[2022-04-13] MEDS: ZYLOPRIM PO SCH (08:31)
[2022-04-13] MEDS: VOLTAREN 1 % GEL MULTI DOSE TUBE TOP SCH (08:31)
[2022-04-13 09:03] LABS: ABG ALLEN TEST POS; ABG HCO3 21.8 mmol/L (22-26)
[2022-04-13] MEDS: VANCOMYCIN IV *PREMIX 1 G/200 ML BAG 1 G/200 ML PIGGYBACK IV SCH (10:58)
[2022-04-13] MEDS: NovoLIN R (or HumuLIN R) SUBCUT PRN (11:43)
[2022-04-13] MEDS: INVanz INJ 1 GRAM VIAL 1 G in NS 100 ML IV 100 ML IV SCH (12:00)
--- NOTE | 2022-04-13 12:25 | RAD ---
HISTORYPneumonia follow-upSTUDYCHEST x-ray, 1 VIEWCOMPARISONX-ray 04/11/2022FINDINGSModerate right pleural effusion persists. There is possible mild worsening of atelectasis and/or pneumonia in the right lower lung compared to prior study.Persistent mild atelectasis or pneumonia is seen at the left lung base, also. No left pleural effusion is seen. There is likely cardiomegaly without pulmonary venous congestion. No pneumothorax is seen.IMPRESSIONPossible slight worsening of right-sided pneumonia. No change in left basilar infiltrate.Electronically signed by: Ravi Colmenares (Apr 13, 2022 12:23:39)
[2022-04-13] MEDS ORDERED: DIFLUCAN 200 MG IV PREMIX* 200 MG/100 ML BAG IV SCH (17:00)
[2022-04-13] MEDS ORDERED: PHARMACY COMMENT IV NR (20:30)
[2022-04-13 20:51] VITALS: BP 144/65
[2022-04-13] MEDS ORDERED: NYSTATIN OINT TOP SCH (21:00)
[2022-04-14] MEDS ORDERED: DIFLUCAN 100 MG IV (MIX by PHARMACY)* 100 MG/50 ML BAG IV SCH (09:00)
== END 2022-04-13 20:15 | disposition short-term general hospital (02) | DRG 178 ==
LOC: ER 11:07 → MED/SURG 13:45 → ICU 04-06 11:00
PROVIDERS: ADMIT Internal Medicine; ATTEND Internal Medicine
DX: E78.5 Hyperlipidemia, unspecified; R07.9 Chest pain, unspecified; R06.03 Acute respiratory distress; Z20.822 Contact with and (suspected) exposure to COVID-19; J69.0 Pneumonitis due to inhalation of food and vomit; M16.0 Bilateral primary osteoarthritis of hip; R19.7 Diarrhea, unspecified; L98.499 Non-pressure chronic ulcer of skin of other sites with unspecified severity; R26.89 Other abnormalities of gait and mobility; M19.90 Unspecified osteoarthritis, unspecified site; Z87.81 Personal history of (healed) traumatic fracture; I50.9 Heart failure, unspecified; R53.1 Weakness; F41.9 Anxiety disorder, unspecified; N39.0 Urinary tract infection, site not specified; I11.0 Hypertensive heart disease with heart failure; R62.7 Adult failure to thrive; L97.529 Non-pressure chronic ulcer of other part of left foot with unspecified severity; J90 Pleural effusion, not elsewhere classified; K21.9 Gastro-esophageal reflux disease without esophagitis; R00.0 Tachycardia, unspecified; I48.91 Unspecified atrial fibrillation; R74.8 Abnormal levels of other serum enzymes; L97.819 Non-pressure chronic ulcer of other part of right lower leg with unspecified severity; E87.6 Hypokalemia; E11.65 Type 2 diabetes mellitus with hyperglycemia

== ENCOUNTER 2023-11-30 14:47 | Inpatient (IN) ==
[2023-11-30 16:43] VITALS: BMI 30.3
[2023-11-30] MEDS ORDERED: PHARMACY CONSULT LTC MEDICATIONS XX SCH (17:00)
[2023-11-30] MEDS: NS 1,000 ML IV 1,000 ML IV SCH (17:17)
[2023-11-30 17:20] LABS: ERYTHROCYTE SEDIMENTATION RATE 51 MM/HOUR (0-20)
[2023-11-30 17:23] LABS: BASOPHILS # (AUTO) 0.1 X10^3/uL (0.0-0.1); BASOPHILS % (AUTO) 0.8 % (0.2-1.0); EOSINOPHILS # (AUTO) 0.2 x10^3/uL (0.0-0.2); EOSINOPHILS % (AUTO) 2.9 % (0.9-2.9); HEMATOCRIT 26.9 % (36.0-47.0); HEMOGLOBIN 9.1 g/dL (12.0-16.0); LYMPHOCYTES # (AUTO) 0.6 X10^3/uL (1.3-2.9); LYMPHOCYTES % (AUTO) 7.9 % (21.0-51.0); MEAN CORPUSCULAR HEMOGLOBIN 29.9 pg (27.0-34.0); MEAN CORPUSCULAR HGB CONC 33.6 g/dL (33.0-35.0); MEAN PLATELET VOLUME 8.9 fL (7.4-11.0); MONOCYTES # (AUTO) 0.4 x10^3/uL (0.3-0.8); MONOCYTES % (AUTO) 4.6 % (0.0-13.0); NEUTROPHILS # (AUTO) 6.6 x10^3/uL (2.2-4.8); NEUTROPHILS % (AUTO) 83.8 % (42.0-75.0); PLATELET COUNT 148 X10^3/uL (150.0-450.0); RED BLOOD COUNT 3.03 X10^6/uL (3.5-5.4); RED CELL DISTRIBUTION WIDTH 15.5 % (11.6-16.5); WHITE BLOOD COUNT 7.9 X10^3/uL (3.6-10.0)
[2023-11-30 17:33] LABS: ALBUMIN 1.7 g/dL (3.4-5.0); CALCIUM 8.2 mg/dL (8.5-10.1); CARBON DIOXIDE 23.8 mmol/L (21-32); CREATININE 1.7 mg/dL (0.55-1.02); POTASSIUM 4.1 mmol/L (3.5-5.1); TOTAL PROTEIN 5.6 g/dL (6.4-8.2)
[2023-11-30 17:35] LABS: BILIRUBIN,URINE NEGATIVE (NEGATIVE); BLOOD/HEMOGLOBIN,URINE 5+ (NEGATIVE); GLUCOSE, URINE 1+ (NEGATIVE); KETONES,URINE NEGATIVE (NEGATIVE); LEUKOCYTE ESTERASE ,URINE 3+ (NEGATIVE); NITRITES,URINE NEGATIVE (NEGATIVE); PROTEIN,URINE 3+ (NEGATIVE); UROBILINOGEN,URINE NORMAL (NORMAL)
[2023-11-30 17:56] LABS: APPEARANCE,URINE CLOUDY (CLEAR); COLOR,URINE YELLOW (YELLOW)
[2023-11-30 17:57] LABS: BACTERIA,URINE 1+ /HPF (NEGATIVE); SQUAMOUS EPITHELIAL CELL,UR RARE /HPF (NEGATIVE)
[2023-11-30] MEDS: NovoLIN R (or HumuLIN R) SUBCUT PRN (18:10)
--- NOTE | 2023-11-30 18:12 | RAD ---
EXAM:CHEST, 1 VIEWHISTORY:Shortness of breath, fluid retention;COMPARISON:August 10, 2022TECHNIQUE:1 frontal view of the chestFINDINGS:The heart is enlarged. There is interstitial coarsening. No focal airspace opacity. No pneumothorax.IMPRESSION:Chronic appearing interstitial changesTHIS IS AN ELECTRONICALLY VERIFIED FINAL REPORT11/30/2023 6:09 PM - Electronically signed by Riley Croft MD
[2023-11-30] MEDS: LASIX IVP SCH (18:13)
--- NOTE | 2023-11-30 18:14 | DR.H&P ---
H&P History & Physical for Day of: H&P Date: 11/30/23 Chief Complaint Chief Complaint: lower leg swelling and redness Allergies Allergies Allergy/AdvReac Type Severity Reaction Status Date / Time Penicillins Allergy Mild hives Verified 04/05/22 11:31 black walnut Allergy Unknown Verified 06/04/19 11:03 walnut Allergy Verified 04/05/22 11:31 History of Present Illness History of Present Illness: PT IS 73 WF, DIRECT ADMIT FROM [facility] WITH CO SEVERE BILATERAL LE EDEMA. PT RECENTLY HAD DECREASE IN HER GFR, DIABETIC MEDICATIONS WERE CHANGED AND SHE WAS STARTED ON INCREASED PO WATER INTAKE. PT ALSO HAD HYPERKALEMIA DURING THIS TIME, WHICH HAS RESOLVED ON [facility]. PT HAS BEEN ON LASIX AND ELEVATED LEGS WITHOUT IMPROVEMENT IN EDEMA. PT HAS URINE CULTURE THIS PAST WEEK +KLEBSIELLA. PT HAS PMH OF DM, HTN, OA, SUHAIL AND NEUROPATHY. PLAN TO ADMIT FOR EVALUATION AND TREATMENT OF ACUTE ILLNESS. Past Medical History Past Medical History: Anxiety, Arthritis, CHF, Diabetes, Dyslipidemia, GERD and Hypertension Past Surgical History Surgical History: Unknown Family History Family Medical History: Coronary Artery Disease and Hypertension Medications Home Medications: Home Medications Medication Instructions Recorded Confirmed Type citalopram 20 mg tablet (Celexa) 10 mg PO DAILY 03/23/17 04/05/22 History furosemide 20 mg tablet 20 mg PO DAILY 04/25/17 04/05/22 History gabapentin 100 mg capsule 1 cap PO Q8H PRN Pain 04/25/17 04/05/22 History omeprazole 20 mg capsule,delayed 20 mg PO BID 04/21/21 04/05/22 History release simvastatin 10 mg tablet 10 mg PO HS 04/21/21 04/05/22 History allopurinol 100 mg tablet 100 mg PO DAILY 01/20/22 04/05/22 History diclofenac sodium 1 % topical gel 1 ea topical BID 01/20/22 04/05/22 History ergocalciferol (vitamin D2) 1,250 50,000 unit PO WEEKLY 01/20/22 04/05/22 History mcg (50,000 unit) capsule (Vitamin D2) insulin detemir U-100 100 unit/mL 15 unit subcut HS 01/20/22 04/05/22 History subcutaneous solution (Levemir U-100 Insulin) insulin regular human 100 unit/mL 1 sliding scale dose subcut 01/20/22 04/05/22 History injection solution cartridge USEASDIRECTD multivit-minerals no.73-iron 1 cap PO DAILY 01/20/22 04/05/22 History fumarate 106 mg-folic acid 1 mg capsule polyethylene glycol 3350 17 gram 17 g PO DAILY 01/20/22 04/05/22 History oral powder packet (Miralax) tramadol 50 mg tablet (Ultram) 50 mg PO Q8H 01/20/22 04/05/22 History collagenase clostridium histo. 250 1 applic topical QDAY 04/05/22 04/05/22 History unit/gram topical ointment (Santyl) empagliflozin 25 mg tablet 1 tab PO QDAY 04/05/22 04/05/22 History (Jardiance) hydrocodone 5 mg-acetaminophen 325 1 tab PO Q6HR PRN Pain 04/05/22 04/05/22 History mg tablet Labs 11/30/23 16:41 11/30/23 16:41 Review of Systems Constitutional: No Symptoms Reported Eyes: No Symptoms Reported ENT: Nose Discharge Respiratory: No Symptoms Reported Cardiovascular: Edema Gastrointestinal: No Symptoms Reported Genitourinary: Dysuria and Frequency Musculoskeletal: Leg Pain Skin: Rash Neurological: No Symptoms Reported Oriented: Normal Eyes: Normal Nose: Discharge Throat: Dry Respiratory: RLL Diminished and LLL Diminished Cardiovascular: Edema; negative Tachycardia or Bradycardia Auscultation: Bowel Sounds: Normal Palpation: Other (OBESE, DIFFUSE DISTENTION) Tenderness: Normal Skin: Red (DIFFUSE BILATERAL LOWER EXTREMITY REDNESS, TENDERNESS ) and Tender Musculoskeletal: Leg and Motor Deficit Psychiatric: Anxiety Affect: Anxious Speech Pattern: Clear Assessment/Plan (1) Acute renal insufficiency: Narrative Support Text: ADMIT, GENTLE IV HDYRATION WITH STRICT I&OS RESUME BP MEDICATON IV ABTX THERAPY, SEE LAST UC RESULTS BS CONTROL, [facility] ADMISSION LABS, CXR ON ADMISSION BNP, IV LASIX PT EVALUATION, WOUND CULTURE FOR OPEN BLISTERS ON LOWER EXTREMITIES Status: Acute (2) Cellulitis of both lower extremities: Status: Acute (3) DJD (degenerative joint disease): Qualifiers: Laterality: bilateral Osteoarthritis location: hip Osteoarthritis type: unspecified Qualified Code(s): M16.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 Status: Acute (4) Electrolyte abnormality: Status: Acute (5) Diabetes mellitus, type 2: Status: Chronic (6) GERD (gastroesophageal reflux disease): Status: Chronic (7) Hyperlipidemia: Status: Chronic (8) Gout: Status: Chronic (9) Urinary tract infection: Status: Acute
[2023-11-30] MEDS ORDERED: SNACK - Diabetic Appropriate PO SCH (20:00)
[2023-11-30] MEDS: MERREM VIAL 1 G in NS 100 ML IV 100 ML IV SCH (20:56)
[2023-11-30] MEDS: ZOCOR TAB 10 MG PO SCH (20:58)
[2023-11-30] MEDS: LEVEMIR SC SCH (21:04)
[2023-11-30] MEDS: FLONASE NASAL SPRAY ENOSTRIL SCH (21:07)
[2023-11-30] MEDS: NEURONTIN CAP 100 MG PO PRN (21:07)
[2023-12-01 06:11] LABS: BASOPHILS % (AUTO) 0.6 % (0.2-1.0); EOSINOPHILS # (AUTO) 0.3 x10^3/uL (0.0-0.2); EOSINOPHILS % (AUTO) 4.1 % (0.9-2.9); HEMATOCRIT 26.3 % (36.0-47.0); HEMOGLOBIN 8.7 g/dL (12.0-16.0); LYMPHOCYTES # (AUTO) 0.8 X10^3/uL (1.3-2.9); MEAN CORPUSCULAR HEMOGLOBIN 29.5 pg (27.0-34.0); MEAN CORPUSCULAR HGB CONC 33.1 g/dL (33.0-35.0); MEAN PLATELET VOLUME 8.9 fL (7.4-11.0); MONOCYTES # (AUTO) 0.6 x10^3/uL (0.3-0.8); MONOCYTES % (AUTO) 8.6 % (0.0-13.0); NEUTROPHILS # (AUTO) 5.5 x10^3/uL (2.2-4.8); NEUTROPHILS % (AUTO) 75.7 % (42.0-75.0); PLATELET COUNT 158 X10^3/uL (150.0-450.0); RED BLOOD COUNT 2.96 X10^6/uL (3.5-5.4); RED CELL DISTRIBUTION WIDTH 15.3 % (11.6-16.5); WHITE BLOOD COUNT 7.3 X10^3/uL (3.6-10.0)
[2023-12-01 06:20] LABS: ALANINE AMINOTRANSFERASE 34 Units/L (12-78); ALBUMIN 1.7 g/dL (3.4-5.0); ALKALINE PHOSPHATASE 100 Units/L (46-116); ASPARTATE AMINO TRANSFERASE 23 Units/L (15-37); BLOOD UREA NITROGEN 49 mg/dL (7-18); CALCIUM 8.2 mg/dL (8.5-10.1); CARBON DIOXIDE 21.5 mmol/L (21-32); CHLORIDE 110 mmol/L (98-107); CREATININE 1.46 mg/dL (0.55-1.02); GLUCOSE 83 mg/dL (65-99); SODIUM 143 mmol/L (136-145); TOTAL PROTEIN 5.5 g/dL (6.4-8.2); eGFR NON BLACK RACES 38 (>60)
[2023-12-01] MEDS: SNACK - Diabetic Appropriate PO SCH (07:17)
[2023-12-01] MEDS: ZESTRIL TAB 5 MG PO SCH (09:19)
[2023-12-01] MEDS: MICRO K EXTEN CAP 10 MEQ PO SCH (09:19)
[2023-12-01] MEDS: LASIX IVP SCH (09:20)
[2023-12-01] MEDS: ALBUMIN HUMAN 25%- 100 ML 100 ML IV SCH (09:29)
[2023-12-01] MEDS: TRADJENTA PO SCH (09:29)
[2023-12-01] MEDS: INJECTAFER 750 MG in NS 250 ML IV 250 ML IV NR (09:59)
[2023-12-01] MEDS: NYSTATIN POWDER TOP SCH (11:00)
[2023-12-01] MEDS: DIFLUCAN 100 MG IV (MIX by PHARMACY)* 100 MG/50 ML BAG IV SCH (11:21)
[2023-12-01] MEDS: CELEXA PO SCH (21:08)
[2023-12-02 06:04] LABS: BASOPHILS # (AUTO) 0.1 X10^3/uL (0.0-0.1); BASOPHILS % (AUTO) 0.8 % (0.2-1.0); EOSINOPHILS # (AUTO) 0.3 x10^3/uL (0.0-0.2); EOSINOPHILS % (AUTO) 2.8 % (0.9-2.9); HEMATOCRIT 28.6 % (36.0-47.0); HEMOGLOBIN 9.4 g/dL (12.0-16.0); LYMPHOCYTES % (AUTO) 10.8 % (21.0-51.0); MEAN CORPUSCULAR HEMOGLOBIN 29.4 pg (27.0-34.0); MEAN CORPUSCULAR VOLUME 89.2 fL (80.0-100.0); MEAN PLATELET VOLUME 8.8 fL (7.4-11.0); MONOCYTES # (AUTO) 0.8 x10^3/uL (0.3-0.8); MONOCYTES % (AUTO) 8.7 % (0.0-13.0); NEUTROPHILS # (AUTO) 7.2 x10^3/uL (2.2-4.8); NEUTROPHILS % (AUTO) 76.9 % (42.0-75.0); PLATELET COUNT 188 X10^3/uL (150.0-450.0); RED BLOOD COUNT 3.21 X10^6/uL (3.5-5.4); RED CELL DISTRIBUTION WIDTH 15.7 % (11.6-16.5); WHITE BLOOD COUNT 9.4 X10^3/uL (3.6-10.0)
[2023-12-02 06:12] LABS: ALANINE AMINOTRANSFERASE 34 Units/L (12-78); ALBUMIN 2.1 g/dL (3.4-5.0); ALKALINE PHOSPHATASE 105 Units/L (46-116); ASPARTATE AMINO TRANSFERASE 28 Units/L (15-37); BLOOD UREA NITROGEN 36 mg/dL (7-18); CALCIUM 8.4 mg/dL (8.5-10.1); CHLORIDE 111 mmol/L (98-107); COR CA(FOR HYPOALB) 9.9 mg/dL (8.5-10.1); CREATININE 1.22 mg/dL (0.55-1.02); GLUCOSE 106 mg/dL (65-99); POTASSIUM 3.8 mmol/L (3.5-5.1); SODIUM 144 mmol/L (136-145); eGFR NON BLACK RACES 46 (>60)
[2023-12-02] MEDS ORDERED: CONSULT PHARMACY - POTASSIUM & MAGNESIUM XX SCH ×2 (07:00→12:00)
[2023-12-02] MEDS: MAG-OX TAB PO SCH (08:48)
[2023-12-02] MEDS: K-DUR TAB 20 MEQ PO SCH (08:48)
[2023-12-02] MEDS: BUTT CREAM (COMPOUND) TOP PRN (10:30)
--- NOTE | 2023-12-02 11:41 | PCM.PROG ---
Progress Note Progress Note for Day of Date of Exam: 12/02/23 Subjective Subjective: Patient seen at bedside, no acute events overnight. She is currently admitted for UTI and LE cellulitis/wound infection. She is currently on IV merrem. She was noted to have some diarrhea yesterday. She also has some vaginal yeast infection/erythema. Labs reviewed -Hgb 9.4 Ma.5 BUN/Cr: 36/1.22 -Urine Cx: gram (-) rods -Wound Cx: MRSA -Blood Cx: negative Plan: Continue IV merrem, add doxycycline for MRSA. Continue hydration. Continue wound care. Patient does have a rash in her vaginal area, continue fluconazole and butt cream. Follow pending Cx. Replace electrolytes prn. Send stool studies to r/o infection. Continue home medications. Monitor AM labs/imaging. Past Medical Family Social History Allergies: Allergies Penicillins Allergy (Mild, Verified 04/05/22 11:31) hives black walnut Allergy (Unknown, Verified 06/04/19 11:03) Comments: all walnuts walnut Allergy (Verified 04/05/22 11:31) Vital Signs and I&O's Vital Signs: Vital Signs Temperature 98.0 F Temperature 97.9 F Pulse Rate [Brachial] 82 Pulse Rate [Brachial] 75 Respiratory Rate 20 Respiratory Rate 21 Blood Pressure [Right Arm] 185/80 Blood Pressure [Right Arm] 176/74 O2 Sat by Pulse Oximetry 96 O2 Sat by Pulse Oximetry 96 Intake and Output: Intake & Output 11/29/23 11/30/23 12/01/23 12/02/23 23:59 23:59 23:59 23:59 Intake Total 780 / 780 3050 / 3050 508 / 508 Output Total 4475 / 4475 200 / 200 Balance 780 / 780 -1425 / -1425 308 / 308 Physical Exam Oriented: Normal Eyes: Normal Nose: Normal Throat: Normal Respiratory: Generalized and Diminished Cardiovascular: Normal and Edema; negative Tachycardia or Bradycardia : Other (erythema noted in the vaginal area ) Auscultation: Bowel Sounds: Normal Palpation: Normal Tenderness: Normal Skin: Red (B/L LE erythema, no open wounds or blisters noted. ) and Tender Musculoskeletal: Leg and Motor Deficit Psychiatric: Normal Mood Description: Calm Affect: Normal Speech Pattern: Clear and Appropriate Laboratory and Diagnostics 12/02/23 05:48 12/02/23 05:48 Labs: 11/30/23 16:41 Blood Blood Culture - Preliminary 11/30/23 16:32 Blood Blood Culture - Preliminary 11/30/23 17:03 Leg - Right Wound Culture - Preliminary 11/30/23 17:03 Urine,Clean Catch Urine Culture - Preliminary 11/30/23 17:03 Leg - Left Wound Culture - Preliminary Methicillin Resis Staph Aureus Laboratory WBC 9.4 X10^3/uL (3.6-10.0) 12/02/23 05:48 RBC 3.21 X10^6/uL (3.5-5.4) L 12/02/23 05:48 Hgb 9.4 g/dL (12.0-16.0) L 12/02/23 05:48 Hct 28.6 % (36.0-47.0) L 12/02/23 05:48 MCV 89.2 fL (80.0-100.0) 12/02/23 05:48 MCH 29.4 pg (27.0-34.0) 12/02/23 05:48 MCHC 33.0 g/dL (33.0-35.0) 12/02/23 05:48 RDW 15.7 % (11.6-16.5) 12/02/23 05:48 Plt Count 188 X10^3/uL (150.0-450.0) 12/02/23 05:48 MPV 8.8 fL (7.4-11.0) 12/02/23 05:48 Neut % (Auto) 76.9 % (42.0-75.0) H 12/02/23 05:48 Lymph % (Auto) 10.8 % (21.0-51.0) L 12/02/23 05:48 [place] % (Auto) 8.7 % (0.0-13.0) 12/02/23 05:48 Eos % (Auto) 2.8 % (0.9-2.9) 12/02/23 05:48 Baso % (Auto) 0.8 % (0.2-1.0) 12/02/23 05:48 Neut # (Auto) 7.2 x10^3/uL (2.2-4.8) H 12/02/23 05:48 Lymph # (Auto) 1.0 X10^3/uL (1.3-2.9) L 12/02/23 05:48 [place] # (Auto) 0.8 x10^3/uL (0.3-0.8) 12/02/23 05:48 Eos # (Auto) 0.3 x10^3/uL (0.0-0.2) H 12/02/23 05:48 Baso # (Auto) 0.1 X10^3/uL (0.0-0.1) 12/02/23 05:48 Absolute Nucleated RBC 0.1 /100WBC 12/02/23 05:48 ESR 51 MM/HOUR (0-20) H 11/30/23 16:41 Sodium 144 mmol/L (136-145) 12/02/23 05:48 Corrected Sodium TNP 12/02/23 05:48 Potassium 3.8 mmol/L (3.5-5.1) 12/02/23 05:48 Chloride 111 mmol/L (98-107) H 12/02/23 05:48 Carbon Dioxide 24.0 mmol/L (21-32) 12/02/23 05:48 BUN 36 mg/dL (7-18) H 12/02/23 05:48 Creatinine 1.22 mg/dL (0.55-1.02) H 12/02/23 05:48 Est GFR (MDRD) Af Amer 56 (>60) L 12/02/23 05:48 Est GFR (MDRD) Non-Af 46 (>60) L 12/02/23 05:48 Glucose 106 mg/dL (65-99) H 12/02/23 05:48 POC Glucose (mg/dL) 107 mg/dL (65-99) H 12/02/23 05:34 Calcium 8.4 mg/dL (8.5-10.1) L 12/02/23 05:48 Corrected Calcium 9.9 mg/dL (8.5-10.1) 12/02/23 05:48 Magnesium 1.5 mg/dL (2.0-2.9) L 12/02/23 05:48 Iron 21 ug/dL (50-175) L 12/01/23 05:45 Total Bilirubin 0.20 mg/dL (0.2-1.0) 12/02/23 05:48 AST 28 Units/L (15-37) 12/02/23 05:48 ALT 34 Units/L (12-78) 12/02/23 05:48 Alkaline Phosphatase 105 Units/L (46-116) 12/02/23 05:48 C-Reactive Protein 103.80 mg/L (0-3.0) H 11/30/23 16:41 B-Natriuretic Peptide 189 pg/mL (0-79) H 11/30/23 16:41 Total Protein 6.0 g/dL (6.4-8.2) L 12/02/23 05:48 Albumin 2.1 g/dL (3.4-5.0) L 12/02/23 05:48 Globulin 3.9 g/dL (2.5-4.5) 12/02/23 05:48 Albumin/Globulin Ratio 0.5 Ratio (1.1-2.1) L 12/02/23 05:48 Specimen Type Catherized urine 11/30/23 17:03 Urine Color Yellow (YELLOW) 11/30/23 17:03 Urine Appearance Cloudy (CLEAR) 11/30/23 17:03 Urine pH 5.0 (5.0 - 8.0) 11/30/23 17:03 Ur Specific [place] 1.010 (1.000-1.030) 11/30/23 17:03 Urine Protein 3+ (NEGATIVE) 11/30/23 17:03 Urine Glucose (UA) 1+ (NEGATIVE) 11/30/23 17:03 Urine Ketones Negative (NEGATIVE) 11/30/23 17:03 Urine Blood 5+ (NEGATIVE) 11/30/23 17:03 Urine Nitrite Negative (NEGATIVE) 11/30/23 17:03 Urine Bilirubin Negative (NEGATIVE) 11/30/23 17:03 Urine Urobilinogen Normal (NORMAL) 11/30/23 17:03 Ur Leukocyte Esterase 3+ (NEGATIVE) 11/30/23 17:03 Urine RBC 10-20 /HPF (0-3) A 11/30/23 17:03 Urine WBC Tntc /HPF (0-5) A 11/30/23 17:03 Ur Squamous Epith Cells Rare /HPF (NEGATIVE) 11/30/23 17:03 Urine Bacteria 1+ /HPF (NEGATIVE) 11/30/23 17:03 Ur Culture Indicated? 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 (5) Electrolyte abnormality: Status: Acute (6) Diabetes mellitus, type 2: Status: Chronic Qualifiers: Diabetes mellitus mcc insulin use: with intermediate project manager use Diabetes mellitus complication status: with hyperglycemia Qualified Code(s): E11.65 - Type 2 diabetes mellitus with hyperglycemia; Z79.4 - terminal make up operator (current) use of insulin (7) GERD (gastroesophageal reflux disease): Status: Chronic Qualifiers: Esophagitis presence: esophagitis presence not specified Qualified Code(s): K21.9 - Gastro-esophageal reflux disease without esophagitis (8) Hyperlipidemia: Status: Chronic Qualifiers: Hyperlipidemia type: mixed hyperlipidemia Qualified Code(s): E78.2 - Mixed hyperlipidemia (9) Gout: Status: Chronic Qualifiers: Gout site: unspecified site Gout etiology: unspecified cause Chronicity: chronic Presence of tophus: without tophus Qualified Code(s): M1A.9XX0 - Chronic gout, unspecified, without tophus (tophi) (10) Hypomagnesemia: Status: Acute (11) Vaginal candidiasis: Status: Acute (12) Anemia: Status: Acute Qualifiers: Anemia type: unspecified type Qualified Code(s): D64.9 - Anemia, unspecified
[2023-12-02] MEDS: VIBRAMYCIN PO SCH (11:46)
--- NOTE | 2023-12-02 12:11 | EKG ---
Test Reason : htn protocol Blood Pressure : */* mmHG Vent. Rate : 77 BPM Atrial Rate : 77 BPM P-R Int : 178 ms QRS Dur : 78 ms QT Int : 376 ms P-R-T Axes : 64 23 52 degrees QTc Int : 425 ms Sinus rhythm with premature atrial complexes Otherwise normal ECG No previous ECGs available Confirmed by Jorden Cheney MD ([id number] on 12/04/2023 7:49:41 AM Referred By: Confirmed By: Jorden Cheney MD
[2023-12-02] MEDS: CATAPRES TAB 0.1 MG PO ONE (12:25)
[2023-12-02] MEDS ORDERED: PREPARATION H OINT RECTAL PRN (14:05)
[2023-12-03 04:46] LABS: BASOPHILS # (AUTO) 0.1 X10^3/uL (0.0-0.1); BASOPHILS % (AUTO) 0.6 % (0.2-1.0); EOSINOPHILS # (AUTO) 0.2 x10^3/uL (0.0-0.2); EOSINOPHILS % (AUTO) 1.9 % (0.9-2.9); HEMATOCRIT 26.9 % (36.0-47.0); HEMOGLOBIN 8.9 g/dL (12.0-16.0); LYMPHOCYTES # (AUTO) 1.5 X10^3/uL (1.3-2.9); LYMPHOCYTES % (AUTO) 13.6 % (21.0-51.0); MEAN CORPUSCULAR HEMOGLOBIN 29.7 pg (27.0-34.0); MEAN CORPUSCULAR HGB CONC 33.2 g/dL (33.0-35.0); MEAN CORPUSCULAR VOLUME 89.3 fL (80.0-100.0); MEAN PLATELET VOLUME 8.9 fL (7.4-11.0); MONOCYTES # (AUTO) 0.9 x10^3/uL (0.3-0.8); NEUTROPHILS # (AUTO) 8.2 x10^3/uL (2.2-4.8); NEUTROPHILS % (AUTO) 75.9 % (42.0-75.0); PLATELET COUNT 201 X10^3/uL (150.0-450.0); RED BLOOD COUNT 3.01 X10^6/uL (3.5-5.4); RED CELL DISTRIBUTION WIDTH 15.3 % (11.6-16.5); WHITE BLOOD COUNT 10.8 X10^3/uL (3.6-10.0)
[2023-12-03 04:54] LABS: ALBUMIN 2.3 g/dL (3.4-5.0); CALCIUM 8.3 mg/dL (8.5-10.1); CARBON DIOXIDE 24.1 mmol/L (21-32); COR CA(FOR HYPOALB) 9.7 mg/dL (8.5-10.1); CREATININE 1.2 mg/dL (0.55-1.02); MAGNESIUM 1.8 mg/dL (2.0-2.9); POTASSIUM 4.3 mmol/L (3.5-5.1); TOTAL PROTEIN 5.8 g/dL (6.4-8.2)
[2023-12-03] MEDS ORDERED: CONSULT PHARMACY - POTASSIUM & MAGNESIUM XX SCH (06:00)
--- NOTE | 2023-12-03 07:26 | RAD ---
EXAM: CHEST, 1 VIEW HISTORY: sob; COMPARISON: 11/30/2023 FINDINGS: The cardiomediastinal silhouette is stable. Increased interstitial markings and scattered airspace opacities. No pneumothorax or effusion. No acute osseous abnormality. IMPRESSION: Bilateral opacities which may reflect edema or pneumonia. THIS IS AN ELECTRONICALLY VERIFIED FINAL REPORT 12/03/2023 7:22 AM - Electronically signed by Joey Townsend MD
[2023-12-03] MEDS: MAG-OX TAB PO SCH (09:10)
[2023-12-03] MEDS: VANCOMYCIN HCL 250 MG CAP PO SCH (09:12)
[2023-12-03] MEDS: CATAPRES TAB 0.1 MG PO ONE (15:20)
--- NOTE | 2023-12-03 15:44 | PCM.PROG ---
Progress Note Progress Note for Day of Date of Exam: 12/03/23 Subjective Subjective: Patient seen at bedside, no acute events overnight. She is currently admitted for UTI and LE cellulitis/wound infection. She is currently on IV merrem and PO doxycycline. She has been having diarrhea. Stool studies showed WBCs and C dif toxin positive. Labs reviewed -Hgb 8.9 BUN/Cr: 29/1.20 -Urine Cx: Klebsiella -Wound Cx: MRSA -Blood Cx: negative Plan: Continue IV merrem and doxycycline. Continue hydration. Continue wound care. Start PO vancomycin for C Diff infection. Add probiotics. Patient does have a rash in her vaginal area, continue fluconazole and butt cream. Follow pending Cx. Replace electrolytes prn. Continue home medications. Monitor AM labs/imaging. Time spent for clinical assessment, reviewing labs/imaging, decision making, physical exam and documentation greater than 45 mins Past Medical Family Social History Allergies: Allergies Penicillins Allergy (Mild, Verified 04/05/22 11:31) hives black walnut Allergy (Unknown, Verified 06/04/19 11:03) Comments: all walnuts walnut Allergy (Verified 04/05/22 11:31) Vital Signs and I&O's Vital Signs: Vital Signs Temperature 97.9 F Temperature 98.1 F Pulse Rate [Brachial] 100 Pulse Rate [Brachial] 97 Respiratory Rate 17 Respiratory Rate 18 Blood Pressure [Right Arm] 203/74 Blood Pressure [Right Arm] 177/78 Blood Pressure [Right Arm] 181/77 O2 Sat by Pulse Oximetry 95 O2 Sat by Pulse Oximetry 95 Intake and Output: Intake & Output 11/30/23 12/01/23 12/02/23 12/03/23 23:59 23:59 23:59 23:59 Intake Total 780 / 780 3050 / 3050 3790 / 3790 1603 / 1603 Output Total 4475 / 4475 1655 / 1655 1040 / 1040 Balance 780 / 780 -1425 / -1425 2135 / 2135 563 / 563 Physical Exam Oriented: Normal Eyes: Normal Nose: Normal Throat: Normal Respiratory: Generalized and Diminished Cardiovascular: Normal and Edema; negative Tachycardia or Bradycardia : Other (erythema noted in the vaginal area ) Auscultation: Bowel Sounds: Normal Tenderness: Normal Skin: Red (B/L LE erythema, no open wounds or blisters noted. ) and Tender Musculoskeletal: Leg and Motor Deficit Psychiatric: Normal Mood Description: Calm Affect: Normal Speech Pattern: Clear and Appropriate Laboratory and Diagnostics 12/03/23 04:16 12/03/23 04:16 Labs: 12/02/23 10:50 Stool Stool Culture - Preliminary 12/02/23 10:50 Stool - Final 11/30/23 17:03 Leg - Left Wound Culture - Final Methicillin Resis Staph Aureus 11/30/23 17:03 Leg - Right Wound Culture - Preliminary 11/30/23 17:03 Urine,Clean Catch Urine Culture - Final Klebsiella Pneumoniae 11/30/23 16:41 Blood Blood Culture - Preliminary 11/30/23 16:32 Blood Blood Culture - Preliminary Laboratory WBC 10.8 X10^3/uL (3.6-10.0) H 12/03/23 04:16 RBC 3.01 X10^6/uL (3.5-5.4) L 12/03/23 04:16 Hgb 8.9 g/dL (12.0-16.0) L 12/03/23 04:16 Hct 26.9 % (36.0-47.0) L 12/03/23 04:16 MCV 89.3 fL (80.0-100.0) 12/03/23 04:16 MCH 29.7 pg (27.0-34.0) 12/03/23 04:16 MCHC 33.2 g/dL (33.0-35.0) 12/03/23 04:16 RDW 15.3 % (11.6-16.5) 12/03/23 04:16 Plt Count 201 X10^3/uL (150.0-450.0) 12/03/23 04:16 MPV 8.9 fL (7.4-11.0) 12/03/23 04:16 Neut % (Auto) 75.9 % (42.0-75.0) H 12/03/23 04:16 Lymph % (Auto) 13.6 % (21.0-51.0) L 12/03/23 04:16 [place] % (Auto) 8.0 % (0.0-13.0) 12/03/23 04:16 Eos % (Auto) 1.9 % (0.9-2.9) 12/03/23 04:16 Baso % (Auto) 0.6 % (0.2-1.0) 12/03/23 04:16 Neut # (Auto) 8.2 x10^3/uL (2.2-4.8) H 12/03/23 04:16 Lymph # (Auto) 1.5 X10^3/uL (1.3-2.9) 12/03/23 04:16 [place] # (Auto) 0.9 x10^3/uL (0.3-0.8) H 12/03/23 04:16 Eos # (Auto) 0.2 x10^3/uL (0.0-0.2) 12/03/23 04:16 Baso # (Auto) 0.1 X10^3/uL (0.0-0.1) 12/03/23 04:16 Absolute Nucleated RBC 0.0 /100WBC 12/03/23 04:16 ESR 51 MM/HOUR (0-20) H 11/30/23 16:41 Sodium 145 mmol/L (136-145) 12/03/23 04:16 Corrected Sodium 146 mmol/L (136-145) H 12/03/23 04:16 Potassium 4.3 mmol/L (3.5-5.1) 12/03/23 04:16 Chloride 114 mmol/L (98-107) H 12/03/23 04:16 Carbon Dioxide 24.1 mmol/L (21-32) 12/03/23 04:16 BUN 29 mg/dL (7-18) H 12/03/23 04:16 Creatinine 1.20 mg/dL (0.55-1.02) H 12/03/23 04:16 Est GFR (MDRD) Af Amer 57 (>60) L 12/03/23 04:16 Est GFR (MDRD) Non-Af 47 (>60) L 12/03/23 04:16 Glucose 151 mg/dL (65-99) H 12/03/23 04:16 POC Glucose (mg/dL) 149 mg/dL (65-99) H 12/03/23 11:34 Calcium 8.3 mg/dL (8.5-10.1) L 12/03/23 04:16 Corrected Calcium 9.7 mg/dL (8.5-10.1) 12/03/23 04:16 Magnesium 1.8 mg/dL (2.0-2.9) L 12/03/23 04:16 Iron 21 ug/dL (50-175) L 12/01/23 05:45 Total Bilirubin 0.20 mg/dL (0.2-1.0) 12/03/23 04:16 AST 17 Units/L (15-37) 12/03/23 04:16 ALT 28 Units/L (12-78) 12/03/23 04:16 Alkaline Phosphatase 94 Units/L (46-116) 12/03/23 04:16 C-Reactive Protein 103.80 mg/L (0-3.0) H 11/30/23 16:41 B-Natriuretic Peptide 189 pg/mL (0-79) H 11/30/23 16:41 Total Protein 5.8 g/dL (6.4-8.2) L 12/03/23 04:16 Albumin 2.3 g/dL (3.4-5.0) L 12/03/23 04:16 Globulin 3.5 g/dL (2.5-4.5) 12/03/23 04:16 Albumin/Globulin Ratio 0.7 Ratio (1.1-2.1) L 12/03/23 04:16 Specimen Type Catherized urine 11/30/23 17:03 Urine Color Yellow (YELLOW) 11/30/23 17:03 Urine Appearance Cloudy (CLEAR) 11/30/23 17:03 Urine pH 5.0 (5.0 - 8.0) 11/30/23 17:03 Ur Specific [place] 1.010 (1.000-1.030) 11/30/23 17:03 Urine Protein 3+ (NEGATIVE) 11/30/23 17:03 Urine Glucose (UA) 1+ (NEGATIVE) 11/30/23 17:03 Urine Ketones Negative (NEGATIVE) 11/30/23 17:03 Urine Blood 5+ (NEGATIVE) 11/30/23 17:03 Urine Nitrite Negative (NEGATIVE) 11/30/23 17:03 Urine Bilirubin Negative (NEGATIVE) 11/30/23 17:03 Urine Urobilinogen Normal (NORMAL) 11/30/23 17:03 Ur Leukocyte Esterase 3+ (NEGATIVE) 11/30/23 17:03 Urine RBC 10-20 /HPF (0-3) A 11/30/23 17:03 Urine WBC Tntc /HPF (0-5) A 11/30/23 17:03 Ur Squamous Epith Cells Rare /HPF (NEGATIVE) 11/30/23 17:03 Urine Bacteria 1+ /HPF (NEGATIVE) 11/30/23 17:03 Ur Culture Indicated? Yes/culture set up 11/30/23 17:03 Stool for White Cells Positive (NEGATIVE) A 12/02/23 10:50 Stl C. diff Tox B Gene Positive (NEGATIVE) A 12/02/23 10:50 Stl C. diff [id number] Presumptive negative (NEGATIVE) 12/02/23 10:50 C. difficile Toxin A&B Negative (NEGATIVE) 12/02/23 10:50 Plan (1) Urinary tract infection: Status: Acute Qualifiers: Hematuria presence: without hematuria Urinary tract infection type: acute cystitis Qualified Code(s): N30.00 - Acute cystitis without hematuria (2) Acute renal insufficiency: Status: Acute (3) Cellulitis of both lower extremities: Status: Acute (4) DJD (degenerative joint disease): Status: Acute Qualifiers: Laterality: bilateral Osteoarthritis location: hip Osteoarthritis type: unspecified Qualified Code(s): M16.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 (5) Electrolyte abnormality: Status: Acute (6) Diabetes mellitus, type 2: Status: Chronic Qualifiers: Diabetes mellitus complication status: with hyperglycemia Diabetes mellitus watermaster insulin use: with care home use Qualified Code(s): E11.65 - Type 2 diabetes mellitus with hyperglycemia; Z79.4 - long term care social worker (current) use of insulin (7) GERD (gastroesophageal reflux disease): Status: Chronic Qualifiers: Esophagitis presence: esophagitis presence not specified Qualified Code(s): K21.9 - Gastro-esophageal reflux disease without esophagitis (8) Hyperlipidemia: Status: Chronic Qualifiers: Hyperlipidemia type: mixed hyperlipidemia Qualified Code(s): E78.2 - Mixed hyperlipidemia (9) Gout: Status: Chronic Qualifiers: Chronicity: chronic Gout etiology: unspecified cause Gout site: unspecified site Presence of tophus: without tophus Qualified Code(s): M1A.9XX0 - Chronic gout, unspecified, without tophus (tophi) (10) Hypomagnesemia: Status: Acute (11) Vaginal candidiasis: Status: Acute (12) Anemia: Status: Acute Qualifiers: Anemia type: unspecified type Qualified Code(s): D64.9 - Anemia, unspecified (13) C. difficile diarrhea: Status: Acute
[2023-12-03] MEDS: VSL#3 PROBIOTIC CAP 112.5 B PO SCH (15:51)
[2023-12-03] MEDS ORDERED: XOPENEX 1.25 MG/3 ML NEBULE NEB ONE (16:10)
[2023-12-03] MEDS: XOPENEX 1.25 MG/3 ML NEBULE NEB PRN (16:12)
[2023-12-04 04:52] LABS: BASOPHILS % (AUTO) 0.3 % (0.2-1.0); EOSINOPHILS # (AUTO) 0.2 x10^3/uL (0.0-0.2); EOSINOPHILS % (AUTO) 1.6 % (0.9-2.9); HEMATOCRIT 26.7 % (36.0-47.0); HEMOGLOBIN 8.8 g/dL (12.0-16.0); LYMPHOCYTES # (AUTO) 1.7 X10^3/uL (1.3-2.9); LYMPHOCYTES % (AUTO) 12.1 % (21.0-51.0); MEAN CORPUSCULAR HEMOGLOBIN 29.2 pg (27.0-34.0); MEAN CORPUSCULAR HGB CONC 32.8 g/dL (33.0-35.0); MEAN CORPUSCULAR VOLUME 89.1 fL (80.0-100.0); MEAN PLATELET VOLUME 8.5 fL (7.4-11.0); MONOCYTES # (AUTO) 1.2 x10^3/uL (0.3-0.8); NEUTROPHILS # (AUTO) 10.5 x10^3/uL (2.2-4.8); PLATELET COUNT 209 X10^3/uL (150.0-450.0); RED CELL DISTRIBUTION WIDTH 15.6 % (11.6-16.5); WHITE BLOOD COUNT 13.6 X10^3/uL (3.6-10.0)
[2023-12-04 05:06] LABS: ALANINE AMINOTRANSFERASE 24 Units/L (12-78); ALBUMIN 2.2 g/dL (3.4-5.0); ALKALINE PHOSPHATASE 96 Units/L (46-116); ASPARTATE AMINO TRANSFERASE 16 Units/L (15-37); BLOOD UREA NITROGEN 27 mg/dL (7-18); CALCIUM 8.3 mg/dL (8.5-10.1); CARBON DIOXIDE 23.3 mmol/L (21-32); CHLORIDE 113 mmol/L (98-107); COR CA(FOR HYPOALB) 9.7 mg/dL (8.5-10.1); CREATININE 1.14 mg/dL (0.55-1.02); GLUCOSE 87 mg/dL (65-99); SODIUM 145 mmol/L (136-145); TOTAL PROTEIN 5.7 g/dL (6.4-8.2); eGFR NON BLACK RACES 50 (>60)
[2023-12-04] MEDS: LASIX IVP ONE (08:35)
[2023-12-04] MEDS: K-DUR TAB 20 MEQ PO ONE (08:36)
[2023-12-04] MEDS: NS 250 ML IV 250 ML IV ONE (08:36)
[2023-12-04] MEDS: ULTRAM PO PRN (09:00)
[2023-12-04] MEDS: GENTAMICIN TOPICAL CRM TOP SCH (11:55)
--- NOTE | 2023-12-04 12:15 | PCM.PROG ---
Progress Note Progress Note for Day of Date of Exam: 12/04/23 Subjective Subjective: 73 year old white female patient who is a direct admit from [facility] with co severe bilateral lower extremity edema. Patient was also being treated for UTI on outpatient basis. Upon admission, pt has been treated with IV hydration, IV abx, IV lasix, obtained labs, chest xray, and blood/wound culture for open blisters on lower extremities, and consulted PT for evaluation. Outpatient urine culture was positive for klebsiella, wound culture positive for MRSA, blood cultures were negative. She has been having diarrhea, so stool studies were obtained and were positive for WBC and C dif toxin. Yesterday, patient had a chest xray that showed Bilateral opacities, may reflect edema or pneumonia. We will obtain AIT respiratory swab to evaluate for flu/covid/rsv. She is currently treated with IV merrem, doxycycline, po vancomycin, probiotics. She is on fluconazole for rash to vaginal area and IV hydration. Morning labs: hgb 8.8, wbc 13.6, bun 27/creatinine 1.14. Morning job ls: 178/74-97-18-97.6-94%. Past Medical Family Social History Allergies: Allergies Penicillins Allergy (Mild, Verified 04/05/22 11:31) hives black walnut Allergy (Unknown, Verified 06/04/19 11:03) Comments: all walnuts walnut Allergy (Verified 04/05/22 11:31) Vital Signs and I&O's Vital Signs: Vital Signs Temperature 97.6 F Temperature 98.4 F Pulse Rate [Brachial] 97 Pulse Rate [Brachial] 73 Pulse Rate 68 Respiratory Rate 18 Respiratory Rate 18 Respiratory Rate 21 Blood Pressure [Right Arm] 178/74 Blood Pressure [Right Arm] 177/78 O2 Sat by Pulse Oximetry 94 O2 Sat by Pulse Oximetry 97 O2 Sat by Pulse Oximetry 95 Intake and Output: Intake & Output 12/01/23 12/02/23 12/03/23 12/04/23 11:59 11:59 11:59 11:59 Intake Total 1336 / 1336 3002 / 3002 4885 / 4885 1374 / 1374 Output Total 4675 / 4675 2495 / 2495 1300 / 1300 Balance 1336 / 1336 -1673 / -1673 2390 / 2390 74 / 74 Physical Exam Oriented: Normal Eyes: Normal Nose: Normal Throat: Normal Respiratory: Generalized and Diminished Cardiovascular: Normal and Edema; negative Tachycardia or Bradycardia : Other (erythema noted in the vaginal area ) Auscultation: Bowel Sounds: Normal Tenderness: Normal Skin: Red (B/L LE erythema, no open wounds or blisters noted. ) and Tender Musculoskeletal: Leg and Motor Deficit Psychiatric: Normal Mood Description: Calm Affect: Normal Speech Pattern: Clear and Appropriate Laboratory and Diagnostics 12/04/23 04:20 12/04/23 04:20 Labs: 11/30/23 17:03 Leg - Right Wound Culture - Preliminary 12/02/23 10:50 Stool Stool Culture - Final 12/02/23 10:50 Stool - Final 11/30/23 17:03 Leg - Left Wound Culture - Final Methicillin Resis Staph Aureus 11/30/23 17:03 Urine,Clean Catch Urine Culture - Final Klebsiella Pneumoniae 11/30/23 16:41 Blood Blood Culture - Preliminary 11/30/23 16:32 Blood Blood Culture - Preliminary Laboratory WBC 13.6 X10^3/uL (3.6-10.0) H 12/04/23 04:20 RBC 3.00 X10^6/uL (3.5-5.4) L 12/04/23 04:20 Hgb 8.8 g/dL (12.0-16.0) L 12/04/23 04:20 Hct 26.7 % (36.0-47.0) L 12/04/23 04:20 MCV 89.1 fL (80.0-100.0) 12/04/23 04:20 MCH 29.2 pg (27.0-34.0) 12/04/23 04:20 MCHC 32.8 g/dL (33.0-35.0) L 12/04/23 04:20 RDW 15.6 % (11.6-16.5) 12/04/23 04:20 Plt Count 209 X10^3/uL (150.0-450.0) 12/04/23 04:20 MPV 8.5 fL (7.4-11.0) 12/04/23 04:20 Neut % (Auto) 77.0 % (42.0-75.0) H 12/04/23 04:20 Lymph % (Auto) 12.1 % (21.0-51.0) L 12/04/23 04:20 [place] % (Auto) 9.0 % (0.0-13.0) 12/04/23 04:20 Eos % (Auto) 1.6 % (0.9-2.9) 12/04/23 04:20 Baso % (Auto) 0.3 % (0.2-1.0) 12/04/23 04:20 Neut # (Auto) 10.5 x10^3/uL (2.2-4.8) H 12/04/23 04:20 Lymph # (Auto) 1.7 X10^3/uL (1.3-2.9) 12/04/23 04:20 [place] # (Auto) 1.2 x10^3/uL (0.3-0.8) H 12/04/23 04:20 Eos # (Auto) 0.2 x10^3/uL (0.0-0.2) 12/04/23 04:20 Baso # (Auto) 0.0 X10^3/uL (0.0-0.1) 12/04/23 04:20 Absolute Nucleated RBC 0.0 /100WBC 12/04/23 04:20 ESR 51 MM/HOUR (0-20) H 11/30/23 16:41 Sodium 145 mmol/L (136-145) 12/04/23 04:20 Corrected Sodium TNP 12/04/23 04:20 Potassium 4.0 mmol/L (3.5-5.1) 12/04/23 04:20 Chloride 113 mmol/L (98-107) H 12/04/23 04:20 Carbon Dioxide 23.3 mmol/L (21-32) 12/04/23 04:20 BUN 27 mg/dL (7-18) H 12/04/23 04:20 Creatinine 1.14 mg/dL (0.55-1.02) H 12/04/23 04:20 Est GFR (MDRD) Af Amer > 60 (>60) 12/04/23 04:20 Est GFR (MDRD) Non-Af 50 (>60) L 12/04/23 04:20 Glucose 87 mg/dL (65-99) 12/04/23 04:20 POC Glucose (mg/dL) 93 mg/dL (65-99) 12/04/23 05:15 Calcium 8.3 mg/dL (8.5-10.1) L 12/04/23 04:20 Corrected Calcium 9.7 mg/dL (8.5-10.1) 12/04/23 04:20 Magnesium 2.0 mg/dL (2.0-2.9) 12/04/23 04:20 Iron 21 ug/dL (50-175) L 12/01/23 05:45 Total Bilirubin 0.30 mg/dL (0.2-1.0) 12/04/23 04:20 AST 16 Units/L (15-37) 12/04/23 04:20 ALT 24 Units/L (12-78) 12/04/23 04:20 Alkaline Phosphatase 96 Units/L (46-116) 12/04/23 04:20 C-Reactive Protein 103.80 mg/L (0-3.0) H 11/30/23 16:41 B-Natriuretic Peptide 189 pg/mL (0-79) H 11/30/23 16:41 Total Protein 5.7 g/dL (6.4-8.2) L 12/04/23 04:20 Albumin 2.2 g/dL (3.4-5.0) L 12/04/23 04:20 Globulin 3.5 g/dL (2.5-4.5) 12/04/23 04:20 Albumin/Globulin Ratio 0.6 Ratio (1.1-2.1) L 12/04/23 04:20 Specimen Type Catherized urine 11/30/23 17:03 Urine Color Yellow (YELLOW) 11/30/23 17:03 Urine Appearance Cloudy (CLEAR) 11/30/23 17:03 Urine pH 5.0 (5.0 - 8.0) 11/30/23 17:03 Ur Specific [place] 1.010 (1.000-1.030) 11/30/23 17:03 Urine Protein 3+ (NEGATIVE) 11/30/23 17:03 Urine Glucose (UA) 1+ (NEGATIVE) 11/30/23 17:03 Urine Ketones Negative (NEGATIVE) 11/30/23 17:03 Urine Blood 5+ (NEGATIVE) 11/30/23 17:03 Urine Nitrite Negative (NEGATIVE) 11/30/23 17:03 Urine Bilirubin Negative (NEGATIVE) 11/30/23 17:03 Urine Urobilinogen Normal (NORMAL) 11/30/23 17:03 Ur Leukocyte Esterase 3+ (NEGATIVE) 11/30/23 17:03 Urine RBC 10-20 /HPF (0-3) A 11/30/23 17:03 Urine WBC Tntc /HPF (0-5) A 11/30/23 17:03 Ur Squamous Epith Cells Rare /HPF (NEGATIVE) 11/30/23 17:03 Urine Bacteria 1+ /HPF (NEGATIVE) 11/30/23 17:03 Ur Culture Indicated? Yes/culture set up 11/30/23 17:03 Stool for White Cells Positive (NEGATIVE) A 12/02/23 10:50 Stl C. diff Tox B Gene Positive (NEGATIVE) A 12/02/23 10:50 Stl C. diff [id number] Presumptive negative (NEGATIVE) 12/02/23 10:50 C. difficile Toxin A&B Negative (NEGATIVE) 12/02/23 10:50 Plan (1) Urinary tract infection: Status: Acute Qualifiers: Hematuria presence: without hematuria Urinary tract infection type: acute cystitis Qualified Code(s): N30.00 - Acute cystitis without hematuria Plan: Obtain AIT respiratory swab. Continue IV hydration with strict I&O's, ABX, home medications. 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 Qualified Code(s): E11.65 - Type 2 diabetes mellitus with hyperglycemia; Z79.4 - group home (current) use of insulin (7) GERD (gastroesophageal reflux disease): Status: Chronic Qualifiers: Esophagitis presence: esophagitis presence not specified Qualified Code(s): K21.9 - Gastro-esophageal reflux disease without esophagitis (8) Hyperlipidemia: Status: Chronic Qualifiers: Hyperlipidemia type: mixed hyperlipidemia Qualified Code(s): E78.2 - Mixed hyperlipidemia (9) Gout: Status: Chronic Qualifiers: Chronicity: chronic Gout etiology: unspecified cause Gout site: unspecified site Presence of tophus: without tophus Qualified Code(s): [id number] - Chronic gout, unspecified, without tophus (tophi) (10) Hypomagnesemia: Status: Acute (11) Vaginal candidiasis: Status: Acute (12) Anemia: Status: Acute Qualifiers: Anemia type: unspecified type Qualified Code(s): D64.9 - Anemia, unspecified (13) C. difficile diarrhea: Status: Acute
[2023-12-04] MEDS ORDERED: XOPENEX 1.25 MG/3 ML NEBULE NEB ONE (12:51)
[2023-12-04] MEDS: XOPENEX 1.25 MG/3 ML NEBULE NEB SCH (13:02)
[2023-12-04] MEDS: LEVAQUIN PREMIX IV 500 MG 500 MG/100 ML BAG IV SCH (14:23)
[2023-12-05 04:52] LABS: BASOPHILS # (AUTO) 0.1 X10^3/uL (0.0-0.1); BASOPHILS % (AUTO) 0.7 % (0.2-1.0); EOSINOPHILS # (AUTO) 0.3 x10^3/uL (0.0-0.2); EOSINOPHILS % (AUTO) 2.8 % (0.9-2.9); HEMATOCRIT 26.7 % (36.0-47.0); HEMOGLOBIN 8.7 g/dL (12.0-16.0); LYMPHOCYTES # (AUTO) 1.7 X10^3/uL (1.3-2.9); LYMPHOCYTES % (AUTO) 15.4 % (21.0-51.0); MEAN CORPUSCULAR HEMOGLOBIN 29.2 pg (27.0-34.0); MEAN CORPUSCULAR HGB CONC 32.4 g/dL (33.0-35.0); MEAN CORPUSCULAR VOLUME 90.1 fL (80.0-100.0); MEAN PLATELET VOLUME 8.8 fL (7.4-11.0); MONOCYTES # (AUTO) 1.1 x10^3/uL (0.3-0.8); MONOCYTES % (AUTO) 10.1 % (0.0-13.0); NEUTROPHILS # (AUTO) 7.9 x10^3/uL (2.2-4.8); PLATELET COUNT 212 X10^3/uL (150.0-450.0); RED BLOOD COUNT 2.96 X10^6/uL (3.5-5.4); RED CELL DISTRIBUTION WIDTH 15.4 % (11.6-16.5); WHITE BLOOD COUNT 11.2 X10^3/uL (3.6-10.0)
[2023-12-05 04:56] LABS: BLOOD UREA NITROGEN 29 mg/dL (7-18); CALCIUM 8.6 mg/dL (8.5-10.1); CHLORIDE 112 mmol/L (98-107); CREATININE 1.34 mg/dL (0.55-1.02); GLUCOSE 105 mg/dL (65-99); POTASSIUM 4.4 mmol/L (3.5-5.1); SODIUM 144 mmol/L (136-145); eGFR NON BLACK RACES 41 (>60)
[2023-12-05 05:17] LABS: ALANINE AMINOTRANSFERASE 22 Units/L (12-78); ALKALINE PHOSPHATASE 93 Units/L (46-116); ASPARTATE AMINO TRANSFERASE 15 Units/L (15-37); COR CA(FOR HYPOALB) 10.2 mg/dL (8.5-10.1); TOTAL PROTEIN 5.6 g/dL (6.4-8.2)
[2023-12-05 05:31] LABS: PLATELET MORPHOLOGY COMMENT NORMAL (NORMAL)
--- NOTE | 2023-12-05 07:45 | EKG ---
Test Reason : TACHYCARDIA Blood Pressure : */* mmHG Vent. Rate : 164 BPM Atrial Rate : * BPM P-R Int : * ms QRS Dur : 80 ms QT Int : 288 ms P-R-T Axes : * 35 156 degrees QTc Int : 475 ms Atrial fibrillation with rapid ventricular response Marked ST abnormality, possible inferior subendocardial injury Abnormal ECG When compared with ECG of 02-DEC-2023 11:55, Atrial fibrillation has replaced Sinus rhythm Vent. rate has increased BY [address] now depressed in Inferior leads ST now depressed in Anterolateral leads T wave amplitude has increased in Anterior leads Nonspecific T wave abnormality, worse in Lateral leads Confirmed by Oliverio Medina ([id number]) on 12/05/2023 9:30:45 AM Referred By: Confirmed By: Oliverio Medina
[2023-12-05] MEDS ORDERED: LOPRESSOR INJ 5 MG AMP ONE (07:52)
[2023-12-05] MEDS: LOPRESSOR INJ 5 MG AMP IVP ONE (08:00)
--- NOTE | 2023-12-05 09:21 | EKG ---
Test Reason : ARRHYTHMIA Blood Pressure : */* mmHG Vent. Rate : 87 BPM Atrial Rate : 87 BPM P-R Int : 172 ms QRS Dur : 78 ms QT Int : 368 ms P-R-T Axes : 66 45 75 degrees QTc Int : 442 ms Normal sinus rhythm Normal ECG When compared with ECG of 05-DEC-2023 07:29, (Unconfirmed) Sinus rhythm has replaced Atrial fibrillation Vent. rate has decreased BY [address] no longer depressed in Inferior leads ST no longer depressed in Anterolateral leads Nonspecific T wave abnormality no longer evident in Lateral leads Confirmed by Oliverio Medina ([id number]) on 12/05/2023 9:30:30 AM Referred By: Confirmed By: Oliverio Medina
[2023-12-05] MEDS: LOPRESSOR TAB 25 MG PO SCH (10:54)
[2023-12-05] MEDS: LEVAQUIN PREMIX IV 250 MG 250 MG/50 ML BAG IV SCH (10:55)
[2023-12-05 12:07] VITALS: PULSE 72; RESP 18; TEMP 97.7; O2SAT 97
[2023-12-05] MEDS: CATAPRES TAB 0.1 MG PO ONE (12:19)
[2023-12-05 13:38] VITALS: BP 125/61
--- NOTE | 2023-12-05 13:46 | RAD ---
EXAM:CHEST, 1 VIEWHISTORY:CHF, PULMONARY EDEMA, NEW ONSET AFIB;COMPARISON:Prior study or studies were utilized for comparison during interpretation with the most relevant dated 12/03/2023TECHNIQUE:CHEST, 1 VIEWFINDINGS:Chest:Lines and tubes: Cardiac leads overlie the chest.Mediastinum: Cardiomegaly.Pulmonary vessels: There is pulmonary vascular congestion.Lung paz: No suspicious airspace opacity.Pleura: No effusion. No pneumothorax.Bones and soft tissues: No acute osseous or soft tissue abnormality.IMPRESSION:1. Findings suggest heart failureTHIS IS AN ELECTRONICALLY VERIFIED FINAL REPORT12/05/2023 1:43 PM - Electronically signed by Andrew Ramírez MD
== END 2023-12-05 14:35 | DRG 683 ==
LOC: MED/SURG
PROVIDERS: ADMIT Internal Medicine; ATTEND Internal Medicine
DX: K21.9 Gastro-esophageal reflux disease without esophagitis; B37.31 Acute candidiasis of vulva and vagina; R26.89 Other abnormalities of gait and mobility; N17.8 Other acute kidney failure; E11.65 Type 2 diabetes mellitus with hyperglycemia; Z79.4 Long term (current) use of insulin; E78.2 Mixed hyperlipidemia; M16.0 Bilateral primary osteoarthritis of hip; M1A.9XX0 Chronic gout, unspecified, without tophus (tophi); E83.42 Hypomagnesemia; A04.72 Enterocolitis due to Clostridium difficile, not specified as recurrent; L03.116 Cellulitis of left lower limb; B95.62 Methicillin resistant Staphylococcus aureus infection as the cause of diseases classified elsewhere; R70.0 Elevated erythrocyte sedimentation rate; D64.89 Other specified anemias; R06.02 Shortness of breath; I48.91 Unspecified atrial fibrillation; N30.00 Acute cystitis without hematuria; R79.82 Elevated C-reactive protein (CRP); R60.0 Localized edema; N18.9 Chronic kidney disease, unspecified; L03.115 Cellulitis of right lower limb; B96.1 Klebsiella pneumoniae [K. pneumoniae] as the cause of diseases classified elsewhere

== ENCOUNTER 2023-12-28 13:57 | Inpatient (IN) ==
[2023-12-28] MEDS ORDERED: CONSULT PHARMACY - POTASSIUM & MAGNESIUM XX SCH (18:00)
[2023-12-28] MEDS: K-DUR TAB 20 MEQ PO ONE (18:27)
[2023-12-28] MEDS: NS 1,000 ML IV 1,000 ML IV SCH (18:28)
[2023-12-28] MEDS: MICRO K EXTEN CAP 10 MEQ PO ONE (19:44)
[2023-12-28 19:53] VITALS: BMI 28.7
[2023-12-28] MEDS ORDERED: PHARMACY CONSULT LTC MEDICATIONS XX SCH (20:00)
[2023-12-28] MEDS: NovoLIN R (or HumuLIN R) SUBCUT PRN (22:36)
[2023-12-29 06:21] LABS: ALBUMIN 0.9 g/dL (3.4-5.0); CALCIUM 7.4 mg/dL (8.5-10.1); CARBON DIOXIDE 20.1 mmol/L (21-32); COR CA(FOR HYPOALB) 9.9 mg/dL (8.5-10.1); CREATININE 2.55 mg/dL (0.55-1.02); MAGNESIUM 1.6 mg/dL (2.0-2.9); TOTAL PROTEIN 4.8 g/dL (6.4-8.2)
[2023-12-29 06:31] LABS: POTASSIUM 2.5 mmol/L (3.5-5.1)
[2023-12-29 06:47] LABS: BASOPHILS # (AUTO) 0.1 X10^3/uL (0.0-0.1); BASOPHILS % (AUTO) 0.2 % (0.2-1.0); EOSINOPHILS % (AUTO) 0.1 % (0.9-2.9); HEMATOCRIT 24.7 % (36.0-47.0); HEMOGLOBIN 8.2 g/dL (12.0-16.0); LYMPHOCYTES # (AUTO) 1.1 X10^3/uL (1.3-2.9); LYMPHOCYTES % (AUTO) 2.6 % (21.0-51.0); MEAN CORPUSCULAR HEMOGLOBIN 28.5 pg (27.0-34.0); MEAN CORPUSCULAR HGB CONC 33.1 g/dL (33.0-35.0); MEAN CORPUSCULAR VOLUME 86.2 fL (80.0-100.0); MEAN PLATELET VOLUME 8.3 fL (7.4-11.0); MONOCYTES # (AUTO) 1.3 x10^3/uL (0.3-0.8); NEUTROPHILS # (AUTO) 41.5 x10^3/uL (2.2-4.8); NEUTROPHILS % (AUTO) 94.1 % (42.0-75.0); PLATELET COUNT 283 X10^3/uL (150.0-450.0); RED BLOOD COUNT 2.86 X10^6/uL (3.5-5.4); RED CELL DISTRIBUTION WIDTH 15.9 % (11.6-16.5)
[2023-12-29 06:52] LABS: WHITE BLOOD COUNT 44.1 X10^3/uL (3.6-10.0)
[2023-12-29 06:59] LABS: BAND NEUTROPHILS % 2 % (0-10); PLATELET MORPHOLOGY COMMENT NORMAL (NORMAL)
[2023-12-29] MEDS ORDERED: PHARMACY CONSULT LTC MEDICATIONS XX SCH (07:00)
--- NOTE | 2023-12-29 08:20 | RAD ---
EXAM: Portable AP chest HISTORY: Hyperkalemia COMPARISON: 12/12/2023 FINDINGS: Heart size normal with no definite evidence for pneumonia, CHF/edema or pleural fluid. IMPRESSION: No acute findings identified. THIS IS AN ELECTRONICALLY VERIFIED FINAL REPORT 12/29/2023 8:02 AM - Electronically signed by Laz Roca MD
[2023-12-29] MEDS: MERREM VIAL 1 G in NS 100 ML IV 100 ML IV SCH (09:57)
[2023-12-29 10:57] LABS: BILIRUBIN,URINE NEGATIVE (NEGATIVE); BLOOD/HEMOGLOBIN,URINE 2+ (NEGATIVE); GLUCOSE, URINE 1+ (NEGATIVE); KETONES,URINE NEGATIVE (NEGATIVE); LEUKOCYTE ESTERASE ,URINE 1+ (NEGATIVE); NITRITES,URINE NEGATIVE (NEGATIVE); PROTEIN,URINE 3+ (NEGATIVE); UROBILINOGEN,URINE NORMAL (NORMAL)
[2023-12-29] MEDS ORDERED: CONSULT PHARMACY - POTASSIUM & MAGNESIUM XX SCH (11:00)
[2023-12-29 11:16] LABS: APPEARANCE,URINE HAZY (CLEAR); BACTERIA,URINE TRACE /HPF (NEGATIVE); COLOR,URINE YELLOW (YELLOW); SQUAMOUS EPITHELIAL CELL,UR RARE /HPF (NEGATIVE)
[2023-12-29 11:17] LABS: GRANULAR CASTS,URINE RARE /LPF (NEGATIVE); HYALINE CASTS, URINE FEW /LPF (NEGATIVE); YEAST,URINE RARE /HPF (NEGATIVE)
--- NOTE | 2023-12-29 11:19 | DR.H&P ---
H&P History & Physical for Day of: H&P Date: 12/28/23 Chief Complaint Chief Complaint: WEAKNESS, DIARRHEA AND ABNORMAL OUTPT LABS Allergies Allergies Allergy/AdvReac Type Severity Reaction Status Date / Time Penicillins Allergy Mild hives Verified 12/18/23 13:44 black walnut Allergy Unknown Verified 12/18/23 13:44 walnut Allergy Verified 12/18/23 13:44 History of Present Illness History of Present Illness: PT IS73 WF, RESIDENT OF [facility] [place], DIRE CT ADMIT DUE TO HYPOKALEMIA AND ACUTE RENAL FAILURE. PT WAS INCREASE PO WATER INTAKE AND HAD PO POTASSIUM REPLACEMENT WITHOUT IMPROVEMENT. PT CO DIARRHEA DAILY AND NO APPETITE. PT DENIES ANY CHEST PAIN OR INCREASES SOB. PT HAS PMH OF DM, HTN, GOUT, LOWER EXTREMITY EDEMA AND SUHAIL. PT ADMITTED FOR EVALUATION AND TREATMENT OF ACUTE ILLNESS. Past Medical History Past Medical History: Anxiety, Arthritis, CHF, Diabetes, Dyslipidemia, GERD and Hypertension Past Surgical History Surgical History: Ortho Surgery Family History Family Medical History: Cancer, Coronary Artery Disease and Hypertension Social History Does patient currently use any type of tobacco product: No Type of Tobacco Use: None Does any household member use tobacco: No Alcohol Use: None Drug Use: None Medications Home Medications: Home Medications Medication Instructions Recorded Confirmed Type citalopram 20 mg tablet (Celexa) 10 mg PO HS 03/23/17 12/28/23 History furosemide 20 mg tablet 20 mg PO DAILY 04/25/17 12/28/23 History gabapentin 100 mg capsule 1 cap PO Q8H PRN Pain 04/25/17 12/28/23 History simvastatin 10 mg tablet 10 mg PO HS 04/21/21 12/28/23 History allopurinol 100 mg tablet 100 mg PO DAILY 01/20/22 12/28/23 History diclofenac sodium 1 % topical gel 1 ea topical BID 01/20/22 12/28/23 History ergocalciferol (vitamin D2) 1,250 50,000 unit PO WEEKLY 01/20/22 12/28/23 History mcg (50,000 unit) capsule (Vitamin D2) insulin detemir U-100 100 unit/mL 14 unit subcut HS 01/20/22 12/28/23 History subcutaneous solution (Levemir U-100 Insulin) insulin regular human 100 unit/mL 1 sliding scale dose subcut 01/20/22 12/28/23 History injection solution cartridge USEASDIRECTD multivit-minerals no.73-iron 1 cap PO DAILY 01/20/22 12/28/23 History fumarate 106 mg-folic acid 1 mg capsule polyethylene glycol 3350 17 gram 17 g PO DAILY 01/20/22 12/28/23 History oral powder packet (Miralax) tramadol 50 mg tablet (Ultram) 50 mg PO Q8H 01/20/22 12/28/23 History artifi.tears(hypromellose)(PF) 0.3 1 drp ophthalmic (eye) BID PRN 11/30/23 12/28/23 History % eye drops clobetasol 0.05 % topical ointment 1 applic topical DAILY PRN 11/30/23 12/28/23 History (Temovate) fluticasone propionate 50 1 spray intranasal BID 11/30/23 12/28/23 History mcg/actuation nasal spray,suspension linagliptin 5 mg tablet (Tradjenta) 5 mg PO DAILY 11/30/23 12/28/23 History lisinopril 5 mg tablet (Zestril) 5 mg PO DAILY 11/30/23 12/28/23 History omeprazole 20 mg capsule,delayed 20 mg PO BID 12/01/23 12/28/23 History release metoprolol tartrate 25 mg tablet 12.5 mg PO BID 12/18/23 12/28/23 History Labs 12/29/23 05:29 12/29/23 05:29 Labs: Laboratory WBC 44.1 X10^3/uL (3.6-10.0) H* 12/29/23 05: RBC 2.86 X10^6/uL (3.5-5.4) L 12/29/23 05:29 Hgb 8.2 g/dL (12.0-16.0) L 12/29/23 05: Hct 24.7 % (36.0-47.0) L 12/29/23 05: MCV 86.2 fL (80.0-100.0) 12/29/23 05:29 MCH 28.5 pg (27.0-34.0) 12/29/23 05: MCHC 33.1 g/dL (33.0-35.0) 12/29/23 05:29 RDW 15.9 % (11.6-16.5) 12/29/23 05:29 Plt Count 283 X10^3/uL (150.0-450.0) 12/29/23 05:29 Plt Count Comment Adequate (ADEQUATE) 12/29/23 05:29 MPV 8.3 fL (7.4-11.0) 12/29/23 05:29 Neut % (Auto) 94.1 % (42.0-75.0) H 12/29/23 05:29 Lymph % (Auto) 2.6 % (21.0-51.0) L 12/29/23 05:29 [place] % (Auto) 3.0 % (0.0-13.0) 12/29/23 05:29 Eos % (Auto) 0.1 % (0.9-2.9) L 12/29/23 05:29 Baso % (Auto) 0.2 % (0.2-1.0) 12/29/23 05:29 Neut # (Auto) 41.5 x10^3/uL (2.2-4.8) H 12/29/23 05:29 Lymph # (Auto) 1.1 X10^3/uL (1.3-2.9) L 12/29/23 05:29 [place] # (Auto) 1.3 x10^3/uL (0.3-0.8) H 12/29/23 05:29 Eos # (Auto) 0.0 x10^3/uL (0.0-0.2) 12/29/23 05:29 Baso # (Auto) 0.1 X10^3/uL (0.0-0.1) 12/29/23 05:29 Absolute Nucleated RBC 0.0 /100WBC 12/29/23 05:29 Total Counted 100 12/29/23 05:29 Neutrophils % (Manual) 93 % (39-76) H 12/29/23 05:29 Band Neutrophils % 2 % (0-10) 12/29/23 05:29 Lymphocytes % (Manual) 3 % (13-43) L 12/29/23 05:29 Monocytes % (Manual) 2 % (4-9) L 12/29/23 05:29 Plt Morphology Comment Normal (NORMAL) 12/29/23 05:29 RBC Morphology Normal (NORMAL) 12/29/23 05:29 Sodium 134 mmol/L (136-145) L 12/29/23 05:29 Corrected Sodium 135 mmol/L (136-145) L 12/29/23 05:29 Potassium 2.5 mmol/L (3.5-5.1) L* 12/29/23 05:29 Chloride 102 mmol/L (98-107) 12/29/23 05:29 Carbon Dioxide 20.1 mmol/L (21-32) L 12/29/23 05:29 BUN 63 mg/dL (7-18) H 12/29/23 05:29 Creatinine 2.55 mg/dL (0.55-1.02) H 12/29/23 05:29 Est GFR (MDRD) Af Amer 24 (>60) L 12/29/23 05:29 Est GFR (MDRD) Non-Af 20 (>60) L 12/29/23 05:29 Glucose 143 mg/dL (65-99) H 12/29/23 05:29 POC Glucose (mg/dL) 143 mg/dL (65-99) H 12/29/23 05:27 Lactic Acid 0.7 mmol/L (0.4-2.0) 12/29/23 07:30 Calcium 7.4 mg/dL (8.5-10.1) L 12/29/23 05:29 Corrected Calcium 9.9 mg/dL (8.5-10.1) 12/29/23 05:29 Magnesium 1.6 mg/dL (2.0-2.9) L 12/29/23 05:29 Total Bilirubin 0.30 mg/dL (0.2-1.0) 12/29/23 05:29 AST 18 Units/L (15-37) 12/29/23 05:29 ALT 16 Units/L (12-78) 12/29/23 05:29 Alkaline Phosphatase 271 Units/L (46-116) H 12/29/23 05:29 Total Protein 4.8 g/dL (6.4-8.2) L 12/29/23 05:29 Albumin 0.9 g/dL (3.4-5.0) L 12/29/23 05:29 Globulin 3.9 g/dL (2.5-4.5) 12/29/23 05:29 Albumin/Globulin Ratio 0.2 Ratio (1.1-2.1) L 12/29/23 05:29 Physical Exam Vital Signs: Vital Signs Temperature 97.8 F Temperature 97.7 F Pulse Rate [Bilateral Radial] 98 Pulse Rate [Bilateral Radial] 88 Respiratory Rate 18 Respiratory Rate 20 Blood Pressure [Right Arm] 131/60 Blood Pressure [Right Arm] 114/63 O2 Sat by Pulse Oximetry 95 O2 Sat by Pulse Oximetry 96
--- NOTE | 2023-12-29 11:33 | CT ---
EXAM:ABDOMEN/PELVIS W/O CONHISTORY:Abdominal painTECHNIQUE:Axial noncontrast images with coronal and sagittal reformats. Dose reduction procedures were used with mA/kv adjusted for body size. This examination is limited due to the lack of intravenous and oral contrast. The examination was performed in this manner at the sole direction of the ordering caregiverCOMPARISON:11/24/2023FINDINGS:L litzy bases are clear. Trace ascites is present adjacent to the liver. The liver, spleen, adrenal glands, and pancreas are within normal limits but only to the limitations of an unenhanced examination. Benign right adrenal calcifications are present. Kidneys are unobstructed and without stones. No ureteral calculi are identified. The appendix is not identified. No secondary signs of appendicitis are present. Calcific atherosclerotic changes present in the nondilated abdominal aorta. No intraperitoneal or retroperitoneal lymphadenopathy of significance is identified. There are no findings suggestive of enteritis or diverticulitis. Examination of the colon demonstrates transmural thickening and pericolonic inflammation involving the entire colon cecum to rectum. It is of note that this has developed in the interim since the prior examination 11/24/2023. Findings are most consistent with an acute pancolitis. The distribution suggests inflammatory bowel disease such as ulcerative colitis however an infectious etiology is not entirely excluded. It is of note that the transmural edema in the transverse colon demonstrates a pattern of early thumb printing which can be seen with toxic megacolon. Early toxic megacolon not excluded and close clinical and imaging follow-up as needed is recommended. No pelvic masses, pelvic fluid, or pelvic lymphadenopathy is identified. No bladder abnormality is identified. There is a small amount of fluid within the pelvis likely related to the inflammatory process present. No lytic or blastic skeletal lesions identified.IMPRESSION:Findings consistent with an acute pancolitis with involvement of the colon cecum to rectum with transmural thickening and pericolonic inflammation. Distribution is most commonly seen with inflammatory bowel disease particularly ulcerative colitis, however, an infectious etiology not entirely excluded.The transmural edema in the transverse colon suggestive pattern of early thumb printing which can be seen with toxic megacolon. Early toxic megacolon not excluded. Close clinical follow-up with imaging as needed is recommended.THIS IS AN ELECTRONICALLY VERIFIED FINAL REPORT12/29/2023 11:23 AM - Electronically signed by Joey Townsend MD
[2023-12-29] MEDS: K-RIDER 10 MEQ/100 ML WATER 10 MEQ/100 ML BAG IV SCH (12:16)
[2023-12-29] MEDS: MAGNESIUM SULFATE 1 GRAM/100 mL PREMIX 1 G/100 ML BAG IV NR (14:02)
[2023-12-29 17:52] LABS: CRYPTOSPORIDIUM PARVUM ANTIGEN NEGATIVE (NEGATIVE); GIARDIA LAMBLIA ANTIGEN NEGATIVE (NEGATIVE)
[2023-12-29] MEDS: BUTT CREAM (COMPOUND) TOP PRN (18:33)
[2023-12-29] MEDS: SNACK - Diabetic Appropriate PO SCH (20:30)
[2023-12-30 05:13] LABS: EOSINOPHILS % (AUTO) 0.1 % (0.9-2.9); LYMPHOCYTES # (AUTO) 0.7 X10^3/uL (1.3-2.9); RED CELL DISTRIBUTION WIDTH 15.7 % (11.6-16.5)
[2023-12-30 05:19] LABS: BASOPHILS # (AUTO) 0.1 X10^3/uL (0.0-0.1); BASOPHILS % (AUTO) 0.2 % (0.2-1.0); EOSINOPHILS # (AUTO) 0.1 x10^3/uL (0.0-0.2); HEMATOCRIT 24.2 % (36.0-47.0); LYMPHOCYTES % (AUTO) 1.7 % (21.0-51.0); MEAN CORPUSCULAR HGB CONC 33.1 g/dL (33.0-35.0); MEAN CORPUSCULAR VOLUME 87.7 fL (80.0-100.0); MEAN PLATELET VOLUME 8.7 fL (7.4-11.0); MONOCYTES % (AUTO) 2.7 % (0.0-13.0); NEUTROPHILS # (AUTO) 36.8 x10^3/uL (2.2-4.8); NEUTROPHILS % (AUTO) 95.3 % (42.0-75.0); PLATELET COUNT 327 X10^3/uL (150.0-450.0); RED BLOOD COUNT 2.75 X10^6/uL (3.5-5.4)
[2023-12-30 05:31] LABS: ALBUMIN 0.9 g/dL (3.4-5.0); CALCIUM 7.2 mg/dL (8.5-10.1); CARBON DIOXIDE 16.6 mmol/L (21-32); COR CA(FOR HYPOALB) 9.7 mg/dL (8.5-10.1); CREATININE 1.98 mg/dL (0.55-1.02); TOTAL PROTEIN 4.5 g/dL (6.4-8.2)
[2023-12-30] MEDS: TYLENOL 325 MG TAB PO PRN (05:32)
[2023-12-30 05:48] LABS: POTASSIUM 2.3 mmol/L (3.5-5.1)
[2023-12-30 05:49] LABS: WHITE BLOOD COUNT 38.6 X10^3/uL (3.6-10.0)
[2023-12-30 05:50] LABS: PLATELET MORPHOLOGY COMMENT NORMAL (NORMAL)
[2023-12-30] MEDS: K-DUR TAB 20 MEQ PO ONE (06:12)
[2023-12-30] MEDS: MAG-OX TAB PO ONE (09:09)
[2023-12-30] MEDS: FLAGYL TAB 500 MG PO SCH (09:10)
[2023-12-30] MEDS: K-DUR TAB 20 MEQ PO SCH (13:50)
[2023-12-30] MEDS: MAG-OX TAB PO SCH (13:51)
[2023-12-30] MEDS: CONSULT PHARMACY - POTASSIUM & MAGNESIUM XX SCH ×2 (13:51→21:34)
--- NOTE | 2023-12-30 19:20 | PCM.PROG ---
Progress Note Progress Note for Day of Date of Exam: 12/30/23 Subjective Subjective: Patient is feeling weak this morning. She is still having a lot of diarrhea. Her stool culture came back and was positive for C. difficile. I will start her on metronidazole 500 mg 3 times daily at this time. Continue Zofran for nausea if needed. Past Medical Family Social History Allergies: Allergies Penicillins Allergy (Mild, Verified 12/18/23 13:44) hives black walnut Allergy (Unknown, Verified 12/18/23 13:44) Comments: all walnuts walnut Allergy (Verified 12/18/23 13:44) Review of Systems ROS: No change since H&P Vital Signs and I&O's Vital Signs: Vital Signs Temperature 98.0 F Temperature 97.5 F Pulse Rate [Bilateral Radial] 78 Pulse Rate [Bilateral Radial] 77 Respiratory Rate 18 Respiratory Rate 20 Blood Pressure [Right Arm] 172/71 Blood Pressure [Right Arm] 170/74 O2 Sat by Pulse Oximetry 95 O2 Sat by Pulse Oximetry 96 Intake and Output: Intake & Output 12/28/23 12/29/23 12/30/23 12/31/23 11:59 11:59 11:59 11:59 Intake Total 1027 / 1027 3236 / 3236 1882 / 1882 Output Total 1340 / 1340 600 / 600 Balance 1027 / 1027 1896 / 1896 1282 / 1282 Physical Exam Oriented: Normal Eyes: Normal Ear: Normal Respiratory: Normal Cardiovascular: Normal Auscultation: Bowel Sounds: Increased Musculoskeletal: Normal Mood Description: Calm Affect: Normal Speech Pattern: Clear and Appropriate Laboratory and Diagnostics 12/30/23 04:23 12/30/23 09:54 Labs: 12/29/23 16:15 Stool Stool Culture - Preliminary 12/29/23 16:15 Stool - Final 12/29/23 10:20 Urine,Catheterized Urine Culture - Preliminary Laboratory WBC 38.6 X10^3/uL (3.6-10.0) H* 12/30/23 04: RBC 2.75 X10^6/uL (3.5-5.4) L 12/30/23 04:23 Hgb 8.0 g/dL (12.0-16.0) L 12/30/23 04:23 Hct 24.2 % (36.0-47.0) L 12/30/23 04:23 MCV 87.7 fL (80.0-100.0) 12/30/23 04:23 MCH 29.0 pg (27.0-34.0) 12/30/23 04:23 MCHC 33.1 g/dL (33.0-35.0) 12/30/23 04:23 RDW 15.7 % (11.6-16.5) 12/30/23 04:23 Plt Count 327 X10^3/uL (150.0-450.0) 12/30/23 04:23 Plt Count Comment Adequate (ADEQUATE) 12/30/23 04:23 MPV 8.7 fL (7.4-11.0) 12/30/23 04:23 Neut % (Auto) 95.3 % (42.0-75.0) H 12/30/23 04:23 Lymph % (Auto) 1.7 % (21.0-51.0) L 12/30/23 04:23 Emanuel % (Auto) 2.7 % (0.0-13.0) 12/30/23 04:23 Eos % (Auto) 0.1 % (0.9-2.9) L 12/30/23 04:23 Baso % (Auto) 0.2 % (0.2-1.0) 12/30/23 04:23 Neut # (Auto) 36.8 x10^3/uL (2.2-4.8) H 12/30/23 04:23 Lymph # (Auto) 0.7 X10^3/uL (1.3-2.9) L 12/30/23 04:23 Emanuel # (Auto) 1.0 x10^3/uL (0.3-0.8) H 12/30/23 04:23 Eos # (Auto) 0.1 x10^3/uL (0.0-0.2) 12/30/23 04:23 Baso # (Auto) 0.1 X10^3/uL (0.0-0.1) 12/30/23 04:23 Absolute Nucleated RBC 0.0 /100WBC 12/30/23 04:23 Total Counted 100 12/30/23 04:23 Neutrophils % (Manual) 94 % (39-76) H 12/30/23 04:23 Band Neutrophils % 2 % (0-10) 12/29/23 05:29 Lymphocytes % (Manual) 4 % (13-43) L 12/30/23 04:23 Monocytes % (Manual) 2 % (4-9) L 12/30/23 04:23 Plt Morphology Comment Normal (NORMAL) 12/30/23 04:23 RBC Morphology Normal (NORMAL) 12/30/23 04:23 Sodium 137 mmol/L (136-145) 12/30/23 04:23 Corrected Sodium 139 mmol/L (136-145) 12/30/23 04:23 Potassium 2.9 mmol/L (3.5-5.1) L* 12/30/23 09:54 Chloride 106 mmol/L (98-107) 12/30/23 04:23 Carbon Dioxide 16.6 mmol/L (21-32) L 12/30/23 04:23 BUN 53 mg/dL (7-18) H 12/30/23 04:23 Creatinine 1.98 mg/dL (0.55-1.02) H 12/30/23 04:23 Est GFR (MDRD) Af Amer 32 (>60) L 12/30/23 04:23 Est GFR (MDRD) Non-Af 26 (>60) L 12/30/23 04:23 Glucose 185 mg/dL (65-99) H 12/30/23 04:23 POC Glucose (mg/dL) 173 mg/dL (65-99) H 12/30/23 16:08 Lactic Acid 0.7 mmol/L (0.4-2.0) 12/29/23 07:30 Calcium 7.2 mg/dL (8.5-10.1) L 12/30/23 04:23 Corrected Calcium 9.7 mg/dL (8.5-10.1) 12/30/23 04:23 Magnesium 1.6 mg/dL (2.0-2.9) L 12/30/23 09:54 Total Bilirubin 0.30 mg/dL (0.2-1.0) 12/30/23 04:23 AST 17 Units/L (15-37) 12/30/23 04:23 ALT 14 Units/L (12-78) 12/30/23 04:23 Alkaline Phosphatase 162 Units/L (46-116) H 12/30/23 04: Total Protein 4.5 g/dL (6.4-8.2) L 12/30/23 04:23 Albumin 0.9 g/dL (3.4-5.0) L 12/30/23 04:23 Globulin 3.6 g/dL (2.5-4.5) 12/30/23 04: Albumin/Globulin Ratio 0.3 Ratio (1.1-2.1) L 12/30/23 04:23 Specimen Type Catherized urine 12/29/23 10:20 Urine Color Yellow (YELLOW) 12/29/23 10:20 Urine Appearance Hazy (CLEAR) 12/29/23 10:20 Urine pH 5.0 (5.0 - 8.0) 12/29/23 10:20 Ur Specific [place] 1.020 (1.000-1.030) 12/29/23 10:20 Urine Protein 3+ (NEGATIVE) 12/29/23 10:20 Urine Glucose (UA) 1+ (NEGATIVE) 12/29/23 10:20 Urine Ketones Negative (NEGATIVE) 12/29/23 10:20 Urine Blood 2+ (NEGATIVE) 12/29/23 10:20 Urine Nitrite Negative (NEGATIVE) 12/29/23 10:20 Urine Bilirubin Negative (NEGATIVE) 12/29/23 10:20 Urine Urobilinogen Normal (NORMAL) 12/29/23 10:20 Ur Leukocyte Esterase 1+ (NEGATIVE) 12/29/23 10:20 Urine RBC 5-10 /HPF (0-3) A 12/29/23 10:20 Urine WBC 5-10 /HPF (0-5) A 12/29/23 10:20 Ur Squamous Epith Cells Rare /HPF (NEGATIVE) 12/29/23 10:20 Amorphous Sediment 3+ /HPF (NEGATIVE) 12/29/23 10:20 Urine Bacteria Trace /HPF (NEGATIVE) 12/29/23 10:20 Hyaline Casts Few /LPF (NEGATIVE) 12/29/23 10:20 Granular Casts Rare /LPF (NEGATIVE) 12/29/23 10:20 Urine Yeast Rare /HPF (NEGATIVE) 12/29/23 10:20 Ur Culture Indicated? No/not indicated 12/29/23 10:20 Stl Occult Blood (IFOB) Positive (NEGATIVE) A 12/29/23 16:15 Stl C. diff Tox B Gene Positive (NEGATIVE) A 12/29/23 16:15 Stl C. diff [id number] Presumptive negative (NEGATIVE) 12/29/23 16:15 C. difficile Toxin A&B Positive (NEGATIVE) A 12/29/23 16:15 Cryptosporid parvum Ag Negative (NEGATIVE) 12/29/23 16:15 Giardia lamblia Ag Negative (NEGATIVE) 12/29/23 16:15 Plan (1) C. difficile colitis: Status: Acute Plan: Flagyl 500 mg p.o. 3 times daily. If patient is unable to take orally we will change IV if needed. (2) Anemia: Status: Acute Qualifiers: Anemia type: unspecified type Qualified Code(s): D64.9 - Anemia, unspecified Plan: Repeat CBC in the a.m.
[2023-12-30] MEDS: NORCO 5/325 MG TAB PO PRN (20:15)
[2023-12-30] MEDS: ZESTRIL TAB 5 MG PO SCH (21:06)
[2023-12-30] MEDS: LOPRESSOR TAB 25 MG PO SCH (21:06)
[2023-12-31 05:42] LABS: EOSINOPHILS # (AUTO) 0.3 x10^3/uL (0.0-0.2); HEMOGLOBIN 7.8 g/dL (12.0-16.0); LYMPHOCYTES # (AUTO) 0.7 X10^3/uL (1.3-2.9); LYMPHOCYTES % (AUTO) 2.5 % (21.0-51.0); NEUTROPHILS # (AUTO) 25.3 x10^3/uL (2.2-4.8)
[2023-12-31 05:49] LABS: BASOPHILS % (AUTO) 0.2 % (0.2-1.0); EOSINOPHILS % (AUTO) 1.2 % (0.9-2.9); HEMATOCRIT 23.6 % (36.0-47.0); MEAN CORPUSCULAR HEMOGLOBIN 28.9 pg (27.0-34.0); MEAN CORPUSCULAR HGB CONC 32.9 g/dL (33.0-35.0); MEAN PLATELET VOLUME 8.4 fL (7.4-11.0); MONOCYTES # (AUTO) 0.6 x10^3/uL (0.3-0.8); MONOCYTES % (AUTO) 2.3 % (0.0-13.0); NEUTROPHILS % (AUTO) 93.8 % (42.0-75.0); PLATELET COUNT 350 X10^3/uL (150.0-450.0); RED BLOOD COUNT 2.69 X10^6/uL (3.5-5.4); RED CELL DISTRIBUTION WIDTH 16.1 % (11.6-16.5); WHITE BLOOD COUNT 26.9 X10^3/uL (3.6-10.0)
[2023-12-31 06:13] LABS: ALANINE AMINOTRANSFERASE 17 Units/L (12-78); ALBUMIN 0.9 g/dL (3.4-5.0); ALKALINE PHOSPHATASE 159 Units/L (46-116); ASPARTATE AMINO TRANSFERASE 22 Units/L (15-37); BLOOD UREA NITROGEN 45 mg/dL (7-18); CALCIUM 7.4 mg/dL (8.5-10.1); CARBON DIOXIDE 17.5 mmol/L (21-32); CHLORIDE 113 mmol/L (98-107); COR CA(FOR HYPOALB) 9.9 mg/dL (8.5-10.1); CREATININE 1.66 mg/dL (0.55-1.02); GLUCOSE 108 mg/dL (65-99); MAGNESIUM 1.9 mg/dL (2.0-2.9); POTASSIUM 3.1 mmol/L (3.5-5.1); SODIUM 144 mmol/L (136-145); TOTAL PROTEIN 4.2 g/dL (6.4-8.2); eGFR NON BLACK RACES 32 (>60)
[2023-12-31 07:01] LABS: PLATELET MORPHOLOGY COMMENT NORMAL (NORMAL); POIKILOCYTOSIS 1+
[2023-12-31 07:03] LABS: BURR CELLS PRESENT; HYPOCHROMASIA SLIGHT
[2023-12-31] MEDS: MAG-OX TAB PO SCH (09:08)
[2023-12-31] MEDS: K-DUR TAB 20 MEQ PO ONE (09:08)
[2023-12-31] MEDS: PROTONIX INJ 40 MG VIAL IVP ONE (11:13)
--- NOTE | 2023-12-31 20:24 | PCM.PROG ---
Progress Note Progress Note for Day of Date of Exam: 12/31/23 Subjective Subjective: The patient states she is having less diarrhea compared to yesterday. Her white blood cell count is still elevated but today she is at 26,900. She has come down from above 44,000 2 days ago. This is likely secondary to C. difficile colitis as it does have a propensity to cause a profound leukocytosis. She is tolerating the oral metronidazole well and has no other complaints at this time. Past Medical Family Social History Allergies: Allergies Penicillins Allergy (Mild, Verified 12/18/23 13:44) hives black walnut Allergy (Unknown, Verified 12/18/23 13:44) Comments: all walnuts walnut Allergy (Verified 12/18/23 13:44) Review of Systems ROS: No change since H&P Vital Signs and I&O's Vital Signs: Vital Signs Temperature 98.1 F Temperature 98.2 F Pulse Rate [Bilateral Radial] 78 Pulse Rate [Bilateral Radial] 76 Respiratory Rate 20 Respiratory Rate 18 Blood Pressure [Right Arm] 158/70 Blood Pressure [Right Arm] 170/70 O2 Sat by Pulse Oximetry 98 O2 Sat by Pulse Oximetry 100 Intake and Output: Intake & Output 12/29/23 12/30/23 12/31/23 01/01/24 11:59 11:59 11:59 11:59 Intake Total 1027 / 1027 3236 / 3236 3592 / 3592 2345 / 2345 Output Total 1340 / 1340 1260 / 1260 700 / 700 Balance 1027 / 1027 1896 / 1896 2332 / 2332 1645 / 1645 Physical Exam Oriented: Normal Eyes: Normal Ear: Normal Respiratory: Normal Cardiovascular: Normal Auscultation: Bowel Sounds: Increased Musculoskeletal: Normal Mood Description: Calm Affect: Normal Speech Pattern: Clear and Appropriate Laboratory and Diagnostics 12/31/23 04:18 12/31/23 04:18 Labs: 12/29/23 07:35 Blood Blood Culture - Preliminary 12/29/23 07:35 Blood Blood Culture - Preliminary 12/29/23 10:20 Urine,Catheterized Urine Culture - Final 12/29/23 16:15 Stool Stool Culture - Final 12/29/23 16:15 Stool - Final Laboratory WBC 26.9 X10^3/uL (3.6-10.0) H D 12/31/23 04:18 RBC 2.69 X10^6/uL (3.5-5.4) L 12/31/23 04:18 Hgb 7.8 g/dL (12.0-16.0) L 12/31/23 04:18 Hct 23.6 % (36.0-47.0) L 12/31/23 04:18 MCV 88.0 fL (80.0-100.0) 12/31/23 04:18 MCH 28.9 pg (27.0-34.0) 12/31/23 04:18 MCHC 32.9 g/dL (33.0-35.0) L 12/31/23 04:18 RDW 16.1 % (11.6-16.5) 12/31/23 04:18 Plt Count 350 X10^3/uL (150.0-450.0) 12/31/23 04:18 Plt Count Comment Adequate (ADEQUATE) 12/31/23 04:18 MPV 8.4 fL (7.4-11.0) 12/31/23 04:18 Neut % (Auto) 93.8 % (42.0-75.0) H 12/31/23 04:18 Lymph % (Auto) 2.5 % (21.0-51.0) L 12/31/23 04:18 [place] % (Auto) 2.3 % (0.0-13.0) 12/31/23 04:18 Eos % (Auto) 1.2 % (0.9-2.9) 12/31/23 04:18 Baso % (Auto) 0.2 % (0.2-1.0) 12/31/23 04:18 Neut # (Auto) 25.3 x10^3/uL (2.2-4.8) H 12/31/23 04:18 Lymph # (Auto) 0.7 X10^3/uL (1.3-2.9) L 12/31/23 04:18 [place] # (Auto) 0.6 x10^3/uL (0.3-0.8) 12/31/23 04:18 Eos # (Auto) 0.3 x10^3/uL (0.0-0.2) H 12/31/23 04:18 Baso # (Auto) 0.0 X10^3/uL (0.0-0.1) 12/31/23 04:18 Absolute Nucleated RBC 0.0 /100WBC 12/31/23 04:18 Total Counted 100 12/31/23 04:18 Neutrophils % (Manual) 95 % (39-76) H 12/31/23 04:18 Band Neutrophils % 2 % (0-10) 12/29/23 05:29 Lymphocytes % (Manual) 3 % (13-43) L 12/31/23 04:18 Monocytes % (Manual) 2 % (4-9) L 12/31/23 04:18 Plt Morphology Comment Normal (NORMAL) 12/31/23 04:18 RBC Morphology Abnormal (NORMAL) A 12/31/23 04:18 Hypochromasia Slight A 12/31/23 04:18 Poikilocytosis 1+ A 12/31/23 04:18 Asaf Cells Present 12/31/23 04:18 Sodium 144 mmol/L (136-145) 12/31/23 04:18 Corrected Sodium TNP 12/31/23 04:18 Potassium 3.1 mmol/L (3.5-5.1) L 12/31/23 04:18 Chloride 113 mmol/L (98-107) H 12/31/23 04:18 Carbon Dioxide 17.5 mmol/L (21-32) L 12/31/23 04:18 BUN 45 mg/dL (7-18) H 12/31/23 04:18 Creatinine 1.66 mg/dL (0.55-1.02) H 12/31/23 04:18 Est GFR (MDRD) Af Amer 39 (>60) L 12/31/23 04:18 Est GFR (MDRD) Non-Af 32 (>60) L 12/31/23 04:18 Glucose 108 mg/dL (65-99) H 12/31/23 04:18 POC Glucose (mg/dL) 177 mg/dL (65-99) H 12/31/23 19:57 Lactic Acid 0.7 mmol/L (0.4-2.0) 12/29/23 07:30 Calcium 7.4 mg/dL (8.5-10.1) L 12/31/23 04:18 Corrected Calcium 9.9 mg/dL (8.5-10.1) 12/31/23 04:18 Magnesium 1.9 mg/dL (2.0-2.9) L 12/31/23 04:18 Total Bilirubin 0.20 mg/dL (0.2-1.0) 12/31/23 04:18 AST 22 Units/L (15-37) 12/31/23 04:18 ALT 17 Units/L (12-78) 12/31/23 04:18 Alkaline Phosphatase 159 Units/L (46-116) H 12/31/23 04:18 Total Protein 4.2 g/dL (6.4-8.2) L 12/31/23 04:18 Albumin 0.9 g/dL (3.4-5.0) L 12/31/23 04:18 Globulin 3.3 g/dL (2.5-4.5) 12/31/23 04:18 Albumin/Globulin Ratio 0.3 Ratio (1.1-2.1) L 12/31/23 04:18 Specimen Type Catherized urine 12/29/23 10:20 Urine Color Yellow (YELLOW) 12/29/23 10:20 Urine Appearance Hazy (CLEAR) 12/29/23 10:20 Urine pH 5.0 (5.0 - 8.0) 12/29/23 10:20 Ur Specific [place] 1.020 (1.000-1.030) 12/29/23 10:20 Urine Protein 3+ (NEGATIVE) 12/29/23 10:20 Urine Glucose (UA) 1+ (NEGATIVE) 12/29/23 10:20 Urine Ketones Negative (NEGATIVE) 12/29/23 10:20 Urine Blood 2+ (NEGATIVE) 12/29/23 10:20 Urine Nitrite Negative (NEGATIVE) 12/29/23 10:20 Urine Bilirubin Negative (NEGATIVE) 12/29/23 10:20 Urine Urobilinogen Normal (NORMAL) 12/29/23 10:20 Ur Leukocyte Esterase 1+ (NEGATIVE) 12/29/23 10:20 Urine RBC 5-10 /HPF (0-3) A 12/29/23 10:20 Urine WBC 5-10 /HPF (0-5) A 12/29/23 10:20 Ur Squamous Epith Cells Rare /HPF (NEGATIVE) 12/29/23 10:20 Amorphous Sediment 3+ /HPF (NEGATIVE) 12/29/23 10:20 Urine Bacteria Trace /HPF (NEGATIVE) 12/29/23 10:20 Hyaline Casts Few /LPF (NEGATIVE) 12/29/23 10:20 Granular Casts Rare /LPF (NEGATIVE) 12/29/23 10:20 Urine Yeast Rare /HPF (NEGATIVE) 12/29/23 10:20 Ur Culture Indicated? No/not indicated 12/29/23 10:20 Stl Occult Blood (IFOB) Positive (NEGATIVE) A 12/29/23 16:15 Stl C. diff Tox B Gene Positive (NEGATIVE) A 12/29/23 16:15 Stl C. diff [id number] Presumptive negative (NEGATIVE) 12/29/23 16:15 C. difficile Toxin A&B Positive (NEGATIVE) A 12/29/23 16:15 Cryptosporid parvum Ag Negative (NEGATIVE) 12/29/23 16:15 Giardia lamblia Ag Negative (NEGATIVE) 12/29/23 16:15 Plan (1) C. difficile colitis: Status: Acute Plan: Flagyl 500 mg p.o. 3 times daily. If patient is unable to take orally we will change IV if needed. (2) Anemia: Status: Acute Qualifiers: Anemia type: unspecified type Qualified Code(s): D64.9 - Anemia, unspecified Narrative Support Text: Hemoglobin dropped to 7.8 from 8.0 yesterday. The patient's platelet count is 3 and 50,000 today and normal. Plan: Repeat CBC in the a.m.
[2024-01-01 05:25] LABS: BASOPHILS % (AUTO) 0.2 % (0.2-1.0); HEMOGLOBIN 8.6 g/dL (12.0-16.0); MEAN CORPUSCULAR VOLUME 88.2 fL (80.0-100.0); NEUTROPHILS # (AUTO) 16.7 x10^3/uL (2.2-4.8); WHITE BLOOD COUNT 19.2 X10^3/uL (3.6-10.0)
[2024-01-01 05:31] LABS: EOSINOPHILS # (AUTO) 0.5 x10^3/uL (0.0-0.2); EOSINOPHILS % (AUTO) 2.8 % (0.9-2.9); HEMATOCRIT 26.6 % (36.0-47.0); LYMPHOCYTES % (AUTO) 5.1 % (21.0-51.0); MEAN CORPUSCULAR HEMOGLOBIN 28.4 pg (27.0-34.0); MEAN CORPUSCULAR HGB CONC 32.2 g/dL (33.0-35.0); MEAN PLATELET VOLUME 8.2 fL (7.4-11.0); MONOCYTES # (AUTO) 0.9 x10^3/uL (0.3-0.8); MONOCYTES % (AUTO) 4.8 % (0.0-13.0); NEUTROPHILS % (AUTO) 87.1 % (42.0-75.0); PLATELET COUNT 361 X10^3/uL (150.0-450.0); RED BLOOD COUNT 3.02 X10^6/uL (3.5-5.4); RED CELL DISTRIBUTION WIDTH 16.2 % (11.6-16.5)
[2024-01-01 05:42] LABS: ALBUMIN 0.9 g/dL (3.4-5.0); CALCIUM 7.2 mg/dL (8.5-10.1); CARBON DIOXIDE 16.9 mmol/L (21-32); COR CA(FOR HYPOALB) 9.7 mg/dL (8.5-10.1); CREATININE 1.47 mg/dL (0.55-1.02); MAGNESIUM 1.9 mg/dL (2.0-2.9); POTASSIUM 3.1 mmol/L (3.5-5.1); TOTAL PROTEIN 4.2 g/dL (6.4-8.2)
[2024-01-01 06:10] LABS: PLATELET MORPHOLOGY COMMENT NORMAL (NORMAL)
[2024-01-01] MEDS ORDERED: CONSULT PHARMACY - POTASSIUM & MAGNESIUM XX SCH (07:00)
[2024-01-01] MEDS: K-DUR TAB 20 MEQ PO SCH (09:26)
[2024-01-01] MEDS: VANCOMYCIN HCL 250 MG CAP PO SCH (09:26)
[2024-01-01] MEDS: MAG-OX TAB PO SCH (11:02)
--- NOTE | 2024-01-01 18:09 | PCM.PROG ---
Progress Note Progress Note for Day of Date of Exam: 01/01/24 Subjective Subjective: The patient states she is having less diarrhea compared to yesterday. Her white blood cell count is still elevated but today she is at 19.2. She has come down from above 44,000 on admission. This is likely secondary to C. difficile colitis as it does have a propensity to cause a profound leukocytosis. She is tolerating the oral metronidazole, po vancomycin added and discussed the need for GI follow up. Pts BUN/CREAT 37/1.47 this am, much improved with gentle IV hydration. Past Medical Family Social History Allergies: Allergies Penicillins Allergy (Mild, Verified 12/18/23 13:44) hives black walnut Allergy (Unknown, Verified 12/18/23 13:44) Comments: all walnuts walnut Allergy (Verified 12/18/23 13:44) Review of Systems ROS: No change since H&P Vital Signs and I&O's Vital Signs: Vital Signs Temperature 97.9 F Temperature 97.5 F Pulse Rate [Bilateral Radial] 65 Pulse Rate [Bilateral Radial] 66 Respiratory Rate 18 Respiratory Rate 18 Blood Pressure [Right Arm] 168/70 Blood Pressure [Right Arm] 154/70 O2 Sat by Pulse Oximetry 100 O2 Sat by Pulse Oximetry 98 Intake and Output: Intake & Output 12/30/23 12/31/23 01/01/24 01/02/24 11:59 11:59 11:59 11:59 Intake Total 3236 / 3236 3592 / 3592 3377 / 3377 480 / 480 Output Total 1340 / 1340 1260 / 1260 1200 / 1200 400 / 400 Balance 1896 / 1896 2332 / 2332 2177 / 2177 80 / 80 Physical Exam Oriented: Normal Eyes: Normal Ear: Normal Respiratory: Normal Cardiovascular: Edema Auscultation: Bowel Sounds: Increased Tenderness: RUQ, LUQ and Mild Skin: Rash (perineal erythema) Musculoskeletal: Normal, Shoulder and Motor Deficit Mood Description: Calm Affect: Normal Speech Pattern: Clear and Appropriate Laboratory and Diagnostics 01/01/24 04:32 01/01/24 04:32 Labs: 12/29/23 07:35 Blood Blood Culture - Preliminary 12/29/23 07:35 Blood Blood Culture - Preliminary 12/29/23 10:20 Urine,Catheterized Urine Culture - Final 12/29/23 16:15 Stool Stool Culture - Final 12/29/23 16:15 Stool - Final Laboratory WBC 19.2 X10^3/uL (3.6-10.0) H 01/01/24 04:32 RBC 3.02 X10^6/uL (3.5-5.4) L 01/01/24 04:32 Hgb 8.6 g/dL (12.0-16.0) L 01/01/24 04:32 Hct 26.6 % (36.0-47.0) L 01/01/24 04:32 MCV 88.2 fL (80.0-100.0) 01/01/24 04:32 MCH 28.4 pg (27.0-34.0) 01/01/24 04:32 MCHC 32.2 g/dL (33.0-35.0) L 01/01/24 04:32 RDW 16.2 % (11.6-16.5) 01/01/24 04:32 Plt Count 361 X10^3/uL (150.0-450.0) 01/01/24 04:32 Plt Count Comment Adequate (ADEQUATE) 01/01/24 04:32 MPV 8.2 fL (7.4-11.0) 01/01/24 04:32 Neut % (Auto) 87.1 % (42.0-75.0) H 01/01/24 04:32 Lymph % (Auto) 5.1 % (21.0-51.0) L 01/01/24 04:32 [place] % (Auto) 4.8 % (0.0-13.0) 01/01/24 04:32 Eos % (Auto) 2.8 % (0.9-2.9) 01/01/24 04:32 Baso % (Auto) 0.2 % (0.2-1.0) 01/01/24 04:32 Neut # (Auto) 16.7 x10^3/uL (2.2-4.8) H 01/01/24 04:32 Lymph # (Auto) 1.0 X10^3/uL (1.3-2.9) L 01/01/24 04:32 [place] # (Auto) 0.9 x10^3/uL (0.3-0.8) H 01/01/24 04:32 Eos # (Auto) 0.5 x10^3/uL (0.0-0.2) H 01/01/24 04:32 Baso # (Auto) 0.0 X10^3/uL (0.0-0.1) 01/01/24 04:32 Absolute Nucleated RBC 0.0 /100WBC 01/01/24 04:32 Total Counted 100 12/31/23 04:18 Neutrophils % (Manual) 95 % (39-76) H 12/31/23 04:18 Band Neutrophils % 2 % (0-10) 12/29/23 05:29 Lymphocytes % (Manual) 3 % (13-43) L 12/31/23 04:18 Monocytes % (Manual) 2 % (4-9) L 12/31/23 04:18 Plt Morphology Comment Normal (NORMAL) 01/01/24 04:32 RBC Morphology Normal (NORMAL) 01/01/24 04:32 Hypochromasia Slight A 12/31/23 04:18 Poikilocytosis 1+ A 12/31/23 04:18 [place] Cells Present 12/31/23 04:18 Sodium 140 mmol/L (136-145) 01/01/24 04:32 Corrected Sodium 141 mmol/L (136-145) 01/01/24 04:32 Potassium 3.1 mmol/L (3.5-5.1) L 01/01/24 04:32 Chloride 111 mmol/L (98-107) H 01/01/24 04:32 Carbon Dioxide 16.9 mmol/L (21-32) L 01/01/24 04:32 BUN 37 mg/dL (7-18) H 01/01/24 04:32 Creatinine 1.47 mg/dL (0.55-1.02) H 01/01/24 04:32 Est GFR (MDRD) Af Amer 45 (>60) L 01/01/24 04:32 Est GFR (MDRD) Non-Af 37 (>60) L 01/01/24 04:32 Glucose 154 mg/dL (65-99) H 01/01/24 04:32 POC Glucose (mg/dL) 172 mg/dL (65-99) H 01/01/24 17:33 Lactic Acid 0.7 mmol/L (0.4-2.0) 12/29/23 07:30 Calcium 7.2 mg/dL (8.5-10.1) L 01/01/24 04:32 Corrected Calcium 9.7 mg/dL (8.5-10.1) 01/01/24 04:32 Magnesium 1.9 mg/dL (2.0-2.9) L 01/01/24 04:32 Total Bilirubin 0.20 mg/dL (0.2-1.0) 01/01/24 04:32 AST 33 Units/L (15-37) 01/01/24 04:32 ALT 21 Units/L (12-78) 01/01/24 04:32 Alkaline Phosphatase 182 Units/L (46-116) H 01/01/24 04:32 Total Protein 4.2 g/dL (6.4-8.2) L 01/01/24 04:32 Albumin 0.9 g/dL (3.4-5.0) L 01/01/24 04:32 Globulin 3.3 g/dL (2.5-4.5) 01/01/24 04:32 Albumin/Globulin Ratio 0.3 Ratio (1.1-2.1) L 01/01/24 04:32 Specimen Type Catherized urine 12/29/23 10:20 Urine Color Yellow (YELLOW) 12/29/23 10:20 Urine Appearance Hazy (CLEAR) 12/29/23 10:20 Urine pH 5.0 (5.0 - 8.0) 12/29/23 10:20 Ur Specific [place] 1.020 (1.000-1.030) 12/29/23 10:20 Urine Protein 3+ (NEGATIVE) 12/29/23 10:20 Urine Glucose (UA) 1+ (NEGATIVE) 12/29/23 10:20 Urine Ketones Negative (NEGATIVE) 12/29/23 10:20 Urine Blood 2+ (NEGATIVE) 12/29/23 10:20 Urine Nitrite Negative (NEGATIVE) 12/29/23 10:20 Urine Bilirubin Negative (NEGATIVE) 12/29/23 10:20 Urine Urobilinogen Normal (NORMAL) 12/29/23 10:20 Ur Leukocyte Esterase 1+ (NEGATIVE) 12/29/23 10:20 Urine RBC 5-10 /HPF (0-3) A 12/29/23 10:20 Urine WBC 5-10 /HPF (0-5) A 12/29/23 10:20 Ur Squamous Epith Cells Rare /HPF (NEGATIVE) 12/29/23 10:20 Amorphous Sediment 3+ /HPF (NEGATIVE) 12/29/23 10:20 Urine Bacteria Trace /HPF (NEGATIVE) 12/29/23 10:20 Hyaline Casts Few /LPF (NEGATIVE) 12/29/23 10:20 Granular Casts Rare /LPF (NEGATIVE) 12/29/23 10:20 Urine Yeast Rare /HPF (NEGATIVE) 12/29/23 10:20 Ur Culture Indicated? No/not indicated 12/29/23 10:20 Stl Occult Blood (IFOB) Positive (NEGATIVE) A 12/29/23 16:15 Stl C. diff Tox B Gene Positive (NEGATIVE) A 12/29/23 16:15 Stl C. diff [id number] Presumptive negative (NEGATIVE) 12/29/23 16:15 C. difficile Toxin A&B Positive (NEGATIVE) A 12/29/23 16:15 Cryptosporid parvum Ag Negative (NEGATIVE) 12/29/23 16:15 Giardia lamblia Ag Negative (NEGATIVE) 12/29/23 16:15 Plan (1) C. difficile colitis: Status: Acute Plan: IV HYDRATION, BS CONTROL FLAGYL AND VANCOMYCIN UC NEGATIVE WITH DC MERREM IV CONTINUE ORAL HYDRATION AND PT WILL NEED GI EVALUATION ON OUTPT BASIS (2) Anemia: Status: Acute Qualifiers: Anemia type: unspecified type Qualified Code(s): D64.9 - Anemia, unspecified Plan: Repeat CBC in the a.m.
[2024-01-01] MEDS: CONSULT PHARMACY - POTASSIUM & MAGNESIUM XX SCH ×2 (20:07)
[2024-01-02 05:58] LABS: BASOPHILS # (AUTO) 0.1 X10^3/uL (0.0-0.1); BASOPHILS % (AUTO) 0.5 % (0.2-1.0); EOSINOPHILS # (AUTO) 0.7 x10^3/uL (0.0-0.2); EOSINOPHILS % (AUTO) 4.2 % (0.9-2.9); HEMATOCRIT 26.8 % (36.0-47.0); HEMOGLOBIN 8.8 g/dL (12.0-16.0); LYMPHOCYTES # (AUTO) 1.6 X10^3/uL (1.3-2.9); LYMPHOCYTES % (AUTO) 9.7 % (21.0-51.0); MEAN CORPUSCULAR HEMOGLOBIN 29.1 pg (27.0-34.0); MEAN CORPUSCULAR HGB CONC 32.9 g/dL (33.0-35.0); MEAN CORPUSCULAR VOLUME 88.3 fL (80.0-100.0); MEAN PLATELET VOLUME 8.1 fL (7.4-11.0); NEUTROPHILS # (AUTO) 13.5 x10^3/uL (2.2-4.8); NEUTROPHILS % (AUTO) 79.6 % (42.0-75.0); PLATELET COUNT 324 X10^3/uL (150.0-450.0); RED BLOOD COUNT 3.03 X10^6/uL (3.5-5.4); RED CELL DISTRIBUTION WIDTH 15.9 % (11.6-16.5); WHITE BLOOD COUNT 16.9 X10^3/uL (3.6-10.0)
[2024-01-02 06:11] LABS: ALANINE AMINOTRANSFERASE 27 Units/L (12-78); ALBUMIN 0.9 g/dL (3.4-5.0); ALKALINE PHOSPHATASE 128 Units/L (46-116); ASPARTATE AMINO TRANSFERASE 51 Units/L (15-37); BLOOD UREA NITROGEN 34 mg/dL (7-18); CALCIUM 7.3 mg/dL (8.5-10.1); CARBON DIOXIDE 16.8 mmol/L (21-32); CHLORIDE 112 mmol/L (98-107); COR CA(FOR HYPOALB) 9.8 mg/dL (8.5-10.1); CREATININE 1.37 mg/dL (0.55-1.02); GLUCOSE 109 mg/dL (65-99); MAGNESIUM 1.9 mg/dL (2.0-2.9); POTASSIUM 3.4 mmol/L (3.5-5.1); SODIUM 139 mmol/L (136-145); TOTAL PROTEIN 4.1 g/dL (6.4-8.2); eGFR NON BLACK RACES 40 (>60)
[2024-01-02] MEDS ORDERED: CONSULT PHARMACY - POTASSIUM & MAGNESIUM XX SCH ×2 (07:00→20:00)
[2024-01-02] MEDS ORDERED: MICRO K EXTEN CAP 10 MEQ PO ONE (08:37)
[2024-01-02] MEDS: K-DUR TAB 20 MEQ PO SCH (09:32)
[2024-01-02] MEDS: MAG-OX TAB PO SCH (09:32)
[2024-01-02] MEDS: LASIX IVP ONE (09:40)
--- NOTE | 2024-01-02 19:31 | RAD ---
EXAM:KUBHISTORY:abdominal pain; HTN, DM, CHF, ORTHO, CVACOMPARISON:No relevant prior studies available.TECHNIQUE:AP supine projection, 2 imagesFINDINGS:Lobulated wall thickening in the distal descending colon.Gas in scattered loops of non-distended small bowel.No gross free air.No abnormal calcifications.No acute osseous abnormality.IMPRESSION:Findings are consistent with the known history of colitis. Multiple mildly distended gas-filled loops of small bowel loops likely represent the sequela of an ileus.THIS IS AN ELECTRONICALLY VERIFIED FINAL REPORT01/02/2024 7:27 PM - Electronically signed by Ricci Jordan MD
[2024-01-03 05:35] LABS: BASOPHILS # (AUTO) 0.1 X10^3/uL (0.0-0.1); BASOPHILS % (AUTO) 0.4 % (0.2-1.0); EOSINOPHILS # (AUTO) 0.4 x10^3/uL (0.0-0.2); EOSINOPHILS % (AUTO) 2.4 % (0.9-2.9); HEMATOCRIT 28.7 % (36.0-47.0); HEMOGLOBIN 9.3 g/dL (12.0-16.0); LYMPHOCYTES # (AUTO) 2.4 X10^3/uL (1.3-2.9); LYMPHOCYTES % (AUTO) 14.2 % (21.0-51.0); MEAN CORPUSCULAR HEMOGLOBIN 28.8 pg (27.0-34.0); MEAN CORPUSCULAR HGB CONC 32.5 g/dL (33.0-35.0); MEAN CORPUSCULAR VOLUME 88.6 fL (80.0-100.0); MEAN PLATELET VOLUME 8.3 fL (7.4-11.0); MONOCYTES # (AUTO) 0.8 x10^3/uL (0.3-0.8); MONOCYTES % (AUTO) 4.9 % (0.0-13.0); NEUTROPHILS # (AUTO) 13.4 x10^3/uL (2.2-4.8); NEUTROPHILS % (AUTO) 78.1 % (42.0-75.0); PLATELET COUNT 320 X10^3/uL (150.0-450.0); RED BLOOD COUNT 3.23 X10^6/uL (3.5-5.4); RED CELL DISTRIBUTION WIDTH 16.2 % (11.6-16.5); WHITE BLOOD COUNT 17.1 X10^3/uL (3.6-10.0)
[2024-01-03 05:36] LABS: ALANINE AMINOTRANSFERASE 30 Units/L (12-78); ALBUMIN 1.1 g/dL (3.4-5.0); ALKALINE PHOSPHATASE 128 Units/L (46-116); ASPARTATE AMINO TRANSFERASE 44 Units/L (15-37); BLOOD UREA NITROGEN 30 mg/dL (7-18); CALCIUM 7.3 mg/dL (8.5-10.1); CHLORIDE 113 mmol/L (98-107); COR CA(FOR HYPOALB) 9.6 mg/dL (8.5-10.1); CREATININE 1.23 mg/dL (0.55-1.02); GLUCOSE 104 mg/dL (65-99); MAGNESIUM 1.9 mg/dL (2.0-2.9); POTASSIUM 3.4 mmol/L (3.5-5.1); SODIUM 141 mmol/L (136-145); TOTAL PROTEIN 4.3 g/dL (6.4-8.2); eGFR NON BLACK RACES 46 (>60)
[2024-01-03 06:12] LABS: BAND NEUTROPHILS % 2 % (0-10); PLATELET MORPHOLOGY COMMENT NORMAL (NORMAL)
[2024-01-03] MEDS: NS + KCL 20 MEQ/L 1,000 ML with MAGNESIUM SULFATE 50% INJ VIAL 1 G IV SCH (08:44)
[2024-01-03] MEDS: BENTYL CAP 10 MG PO SCH (08:45)
[2024-01-03] MEDS ORDERED: CONSULT PHARMACY - POTASSIUM & MAGNESIUM XX SCH (09:00)
[2024-01-03] MEDS: DERMOPLAST PAIN RELIEF SPRAY TOP PRN (09:16)
[2024-01-03] MEDS ORDERED: DERMOPLAST PAIN RELIEF SPRAY ONE (09:16)
[2024-01-03] MEDS: PROTONIX INJ 40 MG VIAL IVP SCH (12:30)
--- NOTE | 2024-01-03 16:31 | RAD ---
EXAM:KUBHISTORY:ABD DISCOMFORT, VOMITING, C DIFF;COMPARISON:January 02, 2024TECHNIQUE:AP supine projection, 2 imagesFINDINGS:Gas in scattered loops of non-distended small bowel.No gross free air.No abnormal calcifications.No acute osseous abnormality.IMPRESSION:Findings could represent a nonspecific enteritis, ileus or mechanical/functional obstruction.THIS IS AN ELECTRONICALLY VERIFIED FINAL REPORT01/03/2024 4:27 PM - Electronically signed by Ricci Jordan MD
[2024-01-04 06:24] LABS: BASOPHILS # (AUTO) 0.1 X10^3/uL (0.0-0.1); BASOPHILS % (AUTO) 0.4 % (0.2-1.0); EOSINOPHILS # (AUTO) 0.3 x10^3/uL (0.0-0.2); EOSINOPHILS % (AUTO) 1.5 % (0.9-2.9); HEMATOCRIT 28.5 % (36.0-47.0); HEMOGLOBIN 9.2 g/dL (12.0-16.0); LYMPHOCYTES # (AUTO) 1.7 X10^3/uL (1.3-2.9); LYMPHOCYTES % (AUTO) 8.7 % (21.0-51.0); MEAN CORPUSCULAR HEMOGLOBIN 28.6 pg (27.0-34.0); MEAN CORPUSCULAR HGB CONC 32.1 g/dL (33.0-35.0); MEAN CORPUSCULAR VOLUME 89.1 fL (80.0-100.0); MEAN PLATELET VOLUME 8.1 fL (7.4-11.0); MONOCYTES # (AUTO) 0.7 x10^3/uL (0.3-0.8); MONOCYTES % (AUTO) 3.8 % (0.0-13.0); NEUTROPHILS # (AUTO) 16.8 x10^3/uL (2.2-4.8); NEUTROPHILS % (AUTO) 85.6 % (42.0-75.0); PLATELET COUNT 330 X10^3/uL (150.0-450.0); RED CELL DISTRIBUTION WIDTH 16.7 % (11.6-16.5); WHITE BLOOD COUNT 19.6 X10^3/uL (3.6-10.0)
[2024-01-04 06:59] LABS: ALBUMIN 1.1 g/dL (3.4-5.0); CALCIUM 7.7 mg/dL (8.5-10.1); CREATININE 1.24 mg/dL (0.55-1.02); MAGNESIUM 2.2 mg/dL (2.0-2.9); POTASSIUM 3.7 mmol/L (3.5-5.1); TOTAL PROTEIN 4.5 g/dL (6.4-8.2)
--- NOTE | 2024-01-04 06:59 | RAD ---
EXAM: KUB HISTORY: Abdominal pain, C difficile infection COMPARISON: 01/03/2024, CT abdomen pelvis 12/29/2023 FINDINGS: There is increasing thumb printing in the ascending and transverse colon indicative of mucosal and mural edema secondary to the patient's known colitis. No megacolon is present. Abdominal gas patter n is otherwise unremarkable. No abnormal masses or abnormal calcifications are identified. Regional skeleton is intact. IMPRESSION: More prominent thumb printing identified involving the ascending and transverse colon indicative of mucosal and mural edema secondary to the patient's known C difficile pancolitis. However, no megacol on is identified. THIS IS AN ELECTRONICALLY VERIFIED FINAL REPORT 01/04/2024 6:55 AM - Electronically signed by Joey Townsend MD
[2024-01-04 07:06] LABS: CARBON DIOXIDE 14.9 mmol/L (21-32)
[2024-01-04] MEDS: NS 1/2 + KCL 20 MEQ/L 1,000 ML with MAGNESIUM SULFATE 50% INJ VIAL 1 G IV SCH (09:12)
[2024-01-04] MEDS: LOMOTIL PO PRN (10:19)
--- NOTE | 2024-01-04 11:43 | PCM.PROG ---
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 She was a direct admit on 12/28/23 for treatment of hypokalemia and acute renal failure. Patient reports having diarrhea daily and diminished appetite with abdominal pain. Upon admission, pt l abs revealed wbc 44.1, hgb 8.2, potassium 2.5, bun 63/creatinine 2.55. We obtained a stool study that was positive for occult blood and c diff. She was started on metronidazole, vancomycin, hydration, potassium replacement. AM labs: wbc 16.9, hgb 8.8, k 3.4, bun 34/creatinine 1.37. Past Medical Family Social History Allergies: Allergies Penicillins Allergy (Mild, Verified 12/18/23 13:44) hives black walnut Allergy (Unknown, Verified 12/18/23 13:44) Comments: all walnuts walnut Allergy (Verified 12/18/23 13:44) Review of Systems ROS: No change since H&P Vital Signs and I&O's Vital Signs: Vital Signs Temperature 97.0 F Temperature 98.4 F Pulse Rate [Bilateral Radial] 74 Pulse Rate [Bilateral Radial] 72 Respiratory Rate 18 Respiratory Rate 22 Blood Pressure [Right Arm] 163/76 Blood Pressure [Left Arm] 139/73 O2 Sat by Pulse Oximetry 98 O2 Sat by Pulse Oximetry 98 Intake and Output: Intake & Output 01/01/24 01/02/24 01/03/24 01/04/24 11:59 11:59 11:59 11:59 Intake Total 3377 / 3377 2173 / 2173 4055 / 4055 1689 / 1689 Output Total 1200 / 1200 1300 / 1300 1830 / 1830 1500 / 1500 Balance 2177 / 2177 873 / 873 2225 / 2225 189 / 189 Physical Exam Oriented: Normal Eyes: Normal Ear: Normal Respiratory: Normal Cardiovascular: Edema Auscultation: Bowel Sounds: Increased Tenderness: RUQ, LUQ and Mild Skin: Rash (perineal erythema) Musculoskeletal: Normal, Shoulder and Motor Deficit Mood Description: Calm Affect: Normal Speech Pattern: Clear and Appropriate Laboratory and Diagnostics 01/04/24 06:00 01/04/24 06:00 Labs: 12/29/23 07:35 Blood Blood Culture - Final 12/29/23 07:35 Blood Blood Culture - Final 12/29/23 10:20 Urine,Catheterized Urine Culture - Final 12/29/23 16:15 Stool Stool Culture - Final 12/29/23 16:15 Stool - Final Laboratory WBC 19.6 X10^3/uL (3.6-10.0) H 01/04/24 06:00 RBC 3.20 X10^6/uL (3.5-5.4) L 01/04/24 06:00 Hgb 9.2 g/dL (12.0-16.0) L 01/04/24 06:00 Hct 28.5 % (36.0-47.0) L 01/04/24 06:00 MCV 89.1 fL (80.0-100.0) 01/04/24 06:00 MCH 28.6 pg (27.0-34.0) 01/04/24 06:00 MCHC 32.1 g/dL (33.0-35.0) L 01/04/24 06:00 RDW 16.7 % (11.6-16.5) H 01/04/24 06:00 Plt Count 330 X10^3/uL (150.0-450.0) 01/04/24 06:00 Plt Count Comment Adequate (ADEQUATE) 01/03/24 04:42 MPV 8.1 fL (7.4-11.0) 01/04/24 06:00 Neut % (Auto) 85.6 % (42.0-75.0) H 01/04/24 06:00 Lymph % (Auto) 8.7 % (21.0-51.0) L 01/04/24 06:00 [place] % (Auto) 3.8 % (0.0-13.0) 01/04/24 06:00 Eos % (Auto) 1.5 % (0.9-2.9) 01/04/24 06:00 Baso % (Auto) 0.4 % (0.2-1.0) 01/04/24 06:00 Neut # (Auto) 16.8 x10^3/uL (2.2-4.8) H 01/04/24 06:00 Lymph # (Auto) 1.7 X10^3/uL (1.3-2.9) 01/04/24 06:00 [place] # (Auto) 0.7 x10^3/uL (0.3-0.8) 01/04/24 06:00 Eos # (Auto) 0.3 x10^3/uL (0.0-0.2) H 01/04/24 06:00 Baso # (Auto) 0.1 X10^3/uL (0.0-0.1) 01/04/24 06:00 Absolute Nucleated RBC 0.0 /100WBC 01/04/24 06:00 Total Counted 100 01/03/24 04:42 Neutrophils % (Manual) 81 % (39-76) H 01/03/24 04:42 Band Neutrophils % 2 % (0-10) 01/03/24 04:42 Lymphocytes % (Manual) 15 % (13-43) 01/03/24 04:42 Monocytes % (Manual) 1 % (4-9) L 01/03/24 04:42 Eosinophils % (Manual) 1 % (0-6) 01/03/24 04:42 Plt Morphology Comment Normal (NORMAL) 01/03/24 04:42 RBC Morphology Normal (NORMAL) 01/03/24 04:42 Hypochromasia Slight A 12/31/23 04:18 Poikilocytosis 1+ A 12/31/23 04:18 [place] Cells Present 12/31/23 04:18 Sodium 144 mmol/L (136-145) 01/04/24 06:00 Corrected Sodium 145 mmol/L (136-145) 01/04/24 06:00 Potassium 3.7 mmol/L (3.5-5.1) 01/04/24 06:00 Chloride 115 mmol/L (98-107) H* 01/04/24 06:00 Carbon Dioxide 14.9 mmol/L (21-32) L* 01/04/24 06:00 BUN 25 mg/dL (7-18) H 01/04/24 06:00 Creatinine 1.24 mg/dL (0.55-1.02) H 01/04/24 06:00 Est GFR (MDRD) Af Amer 55 (>60) L 01/04/24 06:00 Est GFR (MDRD) Non-Af 45 (>60) L 01/04/24 06:00 Glucose 136 mg/dL (65-99) H 01/04/24 06:00 POC Glucose (mg/dL) 133 mg/dL (65-99) H 01/04/24 10:09 Lactic Acid 0.5 mmol/L (0.4-2.0) 01/04/24 06:00 Calcium 7.7 mg/dL (8.5-10.1) L 01/04/24 06:00 Corrected Calcium 10.0 mg/dL (8.5-10.1) 01/04/24 06:00 Magnesium 2.2 mg/dL (2.0-2.9) 01/04/24 06:00 Total Bilirubin 0.20 mg/dL (0.2-1.0) 01/04/24 06:00 AST 31 Units/L (15-37) 01/04/24 06:00 ALT 29 Units/L (12-78) 01/04/24 06:00 Alkaline Phosphatase 122 Units/L (46-116) H 01/04/24 06:00 Total Protein 4.5 g/dL (6.4-8.2) L 01/04/24 06:00 Albumin 1.1 g/dL (3.4-5.0) L 01/04/24 06:00 Globulin 3.4 g/dL (2.5-4.5) 01/04/24 06:00 Albumin/Globulin Ratio 0.3 Ratio (1.1-2.1) L 01/04/24 06:00 Specimen Type Catherized urine 12/29/23 10:20 Urine Color Yellow (YELLOW) 12/29/23 10:20 Urine Appearance Hazy (CLEAR) 12/29/23 10:20 Urine pH 5.0 (5.0 - 8.0) 12/29/23 10:20 Ur Specific [place] 1.020 (1.000-1.030) 12/29/23 10:20 Urine Protein 3+ (NEGATIVE) 12/29/23 10:20 Urine Glucose (UA) 1+ (NEGATIVE) 12/29/23 10:20 Urine Ketones Negative (NEGATIVE) 12/29/23 10:20 Urine Blood 2+ (NEGATIVE) 12/29/23 10:20 Urine Nitrite Negative (NEGATIVE) 12/29/23 10:20 Urine Bilirubin Negative (NEGATIVE) 12/29/23 10:20 Urine Urobilinogen Normal (NORMAL) 12/29/23 10:20 Ur Leukocyte Esterase 1+ (NEGATIVE) 12/29/23 10:20 Urine RBC 5-10 /HPF (0-3) A 12/29/23 10:20 Urine WBC 5-10 /HPF (0-5) A 12/29/23 10:20 Ur Squamous [place] Cells Rare /HPF (NEGATIVE) 12/29/23 10:20 Amorphous Sediment 3+ /HPF (NEGATIVE) 12/29/23 10:20 Urine Bacteria Trace /HPF (NEGATIVE) 12/29/23 10:20 Hyaline Casts Few /LPF (NEGATIVE) 12/29/23 10:20 Granular Casts Rare /LPF (NEGATIVE) 12/29/23 10:20 Urine Yeast Rare /HPF (NEGATIVE) 12/29/23 10:20 Ur Culture Indicated? No/not indicated 12/29/23 10:20 Stl Occult Blood (IFOB) Positive (NEGATIVE) A 12/29/23 16:15 Stl C. diff Tox B Gene Positive (NEGATIVE) A 12/29/23 16:15 Stl C. diff [id number] Presumptive negative (NEGATIVE) 12/29/23 16:15 Acetone, Semi-Quant Negative (NEGATIVE) 01/04/24 06:00 C. difficile Toxin A&B Positive (NEGATIVE) A 12/29/23 16:15 Cryptosporid parvum Ag Negative (NEGATIVE) 12/29/23 16:15 Giardia lamblia Ag Negative (NEGATIVE) 12/29/23 16:15 Plan (1) C. difficile colitis: Status: Acute Plan: KUB, serum acetone. Continue abx, hydration, home medications (2) Anemia: Status: Acute Qualifiers: Anemia type: unspecified type Qualified Code(s): D64.9 - Anemia, unspecified Plan: Repeat CBC in the a.m.
--- NOTE | 2024-01-04 16:48 | PCM.PROG ---
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. She was a direct admit on 12/28/23 for treatment of hypokalemia and acute renal failure. Upon admission, pt labs revealed wbc 44.1, hgb 8.2, potassium 2.5, bun 63/creatinine 2.55. We obtained a stool study that was positive for occult blood and c diff. She was started on metronidazole, vancomycin, hydration, potassium replacement. Yesterday, we obtained a KUB that showed Findings are consistent with the known history of colitis. Multiple mildly distended gas-filled loops of small bowel loops likely represent the sequela of an ileus. We repeat KUB this morning and it showed Findings could represent a nonspecific enteritis, ileus or mechanical/functional obstruction. AM labs: wbc 17.1, hgb 9.3, k 3.4, bun 30/1.23. Past Medical Family Social History Allergies: Allergies Penicillins Allergy (Mild, Verified 12/18/23 13:44) hives black [place] Allergy (Unknown, Verified 12/18/23 13:44) Comments: all walnuts walnut Allergy (Verified 12/18/23 13:44) Review of Systems ROS: No change since H&P Vital Signs and I&O's Vital Signs: Vital Signs Temperature 97.3 F Pulse Rate [Bilateral Radial] 65 Respiratory Rate 18 Blood Pressure [Left Arm] 142/63 O2 Sat by Pulse Oximetry 100 Intake and Output: Intake & Output 01/02/24 01/03/24 01/04/24 01/05/24 11:59 11:59 11:59 11:59 Intake Total 2173 / 2173 4055 / 4055 1689 / 1689 678 / 678 Output Total 1300 / 1300 1830 / 1830 1500 / 1500 600 / 600 Balance 873 / 873 2225 / 2225 189 / 189 78 / 78 Physical Exam Oriented: Normal Eyes: Normal Ear: Normal Respiratory: Normal Cardiovascular: Edema Auscultation: Bowel Sounds: Increased Tenderness: RUQ, LUQ and Mild Skin: Rash (perineal erythema) Musculoskeletal: Normal, Shoulder and Motor Deficit Mood Description: Calm Affect: Normal Speech Pattern: Clear and Appropriate Laboratory and Diagnostics 01/04/24 06:00 01/04/24 06:00 Labs: 12/29/23 07:35 Blood Blood Culture - Final 12/29/23 07:35 Blood Blood Culture - Final 12/29/23 10:20 Urine,Catheterized Urine Culture - Final 12/29/23 16:15 Stool Stool Culture - Final 12/29/23 16:15 Stool - Final Laboratory WBC 19.6 X10^3/uL (3.6-10.0) H 01/04/24 06:00 RBC 3.20 X10^6/uL (3.5-5.4) L 01/04/24 06:00 Hgb 9.2 g/dL (12.0-16.0) L 01/04/24 06:00 Hct 28.5 % (36.0-47.0) L 01/04/24 06:00 MCV 89.1 fL (80.0-100.0) 01/04/24 06:00 MCH 28.6 pg (27.0-34.0) 01/04/24 06:00 MCHC 32.1 g/dL (33.0-35.0) L 01/04/24 06:00 RDW 16.7 % (11.6-16.5) H 01/04/24 06:00 Plt Count 330 X10^3/uL (150.0-450.0) 01/04/24 06:00 Plt Count Comment Adequate (ADEQUATE) 01/03/24 04:42 MPV 8.1 fL (7.4-11.0) 01/04/24 06:00 Neut % (Auto) 85.6 % (42.0-75.0) H 01/04/24 06:00 Lymph % (Auto) 8.7 % (21.0-51.0) L 01/04/24 06:00 [place] % (Auto) 3.8 % (0.0-13.0) 01/04/24 06:00 Eos % (Auto) 1.5 % (0.9-2.9) 01/04/24 06:00 Baso % (Auto) 0.4 % (0.2-1.0) 01/04/24 06:00 Neut # (Auto) 16.8 x10^3/uL (2.2-4.8) H 01/04/24 06:00 Lymph # (Auto) 1.7 X10^3/uL (1.3-2.9) 01/04/24 06:00 [place] # (Auto) 0.7 x10^3/uL (0.3-0.8) 01/04/24 06:00 Eos # (Auto) 0.3 x10^3/uL (0.0-0.2) H 01/04/24 06:00 Baso # (Auto) 0.1 X10^3/uL (0.0-0.1) 01/04/24 06:00 Absolute Nucleated RBC 0.0 /100WBC 01/04/24 06:00 Total Counted 100 01/03/24 04:42 Neutrophils % (Manual) 81 % (39-76) H 01/03/24 04:42 Band Neutrophils % 2 % (0-10) 01/03/24 04:42 Lymphocytes % (Manual) 15 % (13-43) 01/03/24 04:42 Monocytes % (Manual) 1 % (4-9) L 01/03/24 04:42 Eosinophils % (Manual) 1 % (0-6) 01/03/24 04:42 Plt Morphology Comment Normal (NORMAL) 01/03/24 04:42 RBC Morphology Normal (NORMAL) 01/03/24 04:42 Hypochromasia Slight A 12/31/23 04:18 Poikilocytosis 1+ A 12/31/23 04:18 [place] Cells Present 12/31/23 04:18 Sodium 144 mmol/L (136-145) 01/04/24 06:00 Corrected Sodium 145 mmol/L (136-145) 01/04/24 06:00 Potassium 3.7 mmol/L (3.5-5.1) 01/04/24 06:00 Chloride 115 mmol/L (98-107) H* 01/04/24 06:00 Carbon Dioxide 14.9 mmol/L (21-32) L* 01/04/24 06:00 BUN 25 mg/dL (7-18) H 01/04/24 06:00 Creatinine 1.24 mg/dL (0.55-1.02) H 01/04/24 06:00 Est GFR (MDRD) Af Amer 55 (>60) L 01/04/24 06:00 Est GFR (MDRD) Non-Af 45 (>60) L 01/04/24 06:00 Glucose 136 mg/dL (65-99) H 01/04/24 06:00 POC Glucose (mg/dL) 133 mg/dL (65-99) H 01/04/24 10:09 Lactic Acid 0.5 mmol/L (0.4-2.0) 01/04/24 06:00 Calcium 7.7 mg/dL (8.5-10.1) L 01/04/24 06:00 Corrected Calcium 10.0 mg/dL (8.5-10.1) 01/04/24 06:00 Magnesium 2.2 mg/dL (2.0-2.9) 01/04/24 06:00 Total Bilirubin 0.20 mg/dL (0.2-1.0) 01/04/24 06:00 AST 31 Units/L (15-37) 01/04/24 06:00 ALT 29 Units/L (12-78) 01/04/24 06:00 Alkaline Phosphatase 122 Units/L (46-116) H 01/04/24 06:00 Total Protein 4.5 g/dL (6.4-8.2) L 01/04/24 06:00 Albumin 1.1 g/dL (3.4-5.0) L 01/04/24 06:00 Globulin 3.4 g/dL (2.5-4.5) 01/04/24 06:00 Albumin/Globulin Ratio 0.3 Ratio (1.1-2.1) L 01/04/24 06:00 Specimen Type Catherized urine 12/29/23 10:20 Urine Color Yellow (YELLOW) 12/29/23 10:20 Urine Appearance Hazy (CLEAR) 12/29/23 10:20 Urine pH 5.0 (5.0 - 8.0) 12/29/23 10:20 Ur Specific [place] 1.020 (1.000-1.030) 12/29/23 10:20 Urine Protein 3+ (NEGATIVE) 12/29/23 10:20 Urine Glucose (UA) 1+ (NEGATIVE) 12/29/23 10:20 Urine Ketones Negative (NEGATIVE) 12/29/23 10:20 Urine Blood 2+ (NEGATIVE) 12/29/23 10:20 Urine Nitrite Negative (NEGATIVE) 12/29/23 10:20 Urine Bilirubin Negative (NEGATIVE) 12/29/23 10:20 Urine Urobilinogen Normal (NORMAL) 12/29/23 10:20 Ur Leukocyte Esterase 1+ (NEGATIVE) 12/29/23 10:20 Urine RBC 5-10 /HPF (0-3) A 12/29/23 10:20 Urine WBC 5-10 /HPF (0-5) A 12/29/23 10:20 Ur Squamous Epith Cells Rare /HPF (NEGATIVE) 12/29/23 10:20 Amorphous Sediment 3+ /HPF (NEGATIVE) 12/29/23 10:20 Urine Bacteria Trace /HPF (NEGATIVE) 12/29/23 10:20 Hyaline Casts Few /LPF (NEGATIVE) 12/29/23 10:20 Granular Casts Rare /LPF (NEGATIVE) 12/29/23 10:20 Urine Yeast Rare /HPF (NEGATIVE) 12/29/23 10:20 Ur Culture Indicated? No/not indicated 12/29/23 10:20 Stl Occult Blood (IFOB) Positive (NEGATIVE) A 12/29/23 16:15 Stl C. diff Tox B Gene Positive (NEGATIVE) A 12/29/23 16:15 Stl C. diff [id number] Presumptive negative (NEGATIVE) 12/29/23 16:15 Acetone, Semi-Quant Negative (NEGATIVE) 01/04/24 06:00 C. difficile Toxin A&B Positive (NEGATIVE) A 12/29/23 16:15 Cryptosporid parvum Ag Negative (NEGATIVE) 12/29/23 16:15 Giardia lamblia Ag Negative (NEGATIVE) 12/29/23 16:15 Plan (1) C. difficile colitis: Status: Acute Plan: Repeat KUB and serum acetone in AM. Continue abx, hydration, home medications. (2) Anemia: Status: Acute Qualifiers: Anemia type: unspecified type Qualified Code(s): D64.9 - Anemia, unspecified
--- NOTE | 2024-01-04 16:48 | PCM.PROG ---
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 She was a direct admit on 12/28/23 for treatment of hypokalemia and acute renal failure. Upon admission, pt labs revealed wbc 44.1, hgb 8.2, potassium 2.5, bun 63/creatinine 2.55. We obtained a stool study that was positive for occult blood and c diff. She was started on metronidazole, vancomycin, hydration, potassium replacement. 01/02/24 we obtained a KUB that showed Findings are consistent with the known history of colitis. Multiple mildly distended gas-filled loops of small bowel loops likely represent the sequela of an ileus. We repeated KUB yesterday morning and it showed Find ings could represent a nonspecific enteritis, ileus or mechanical/functional obstruction. This mornings KUB showed More prominent thumb printing identified involving the ascending and transverse colon indicative of mucosal and mural edema secondary to the patient's known C difficile pancolitis. However, no megacolon is identified. Yesterday afternoon, pt had an episode of n/v, so we put her NPO. No further n/v episodes so we will plan to advance her diet back to clear liquids. AM labs: wbc 19.1, hgb 9.2, k 3.7, bun 25/1.24. Past Medical Family Social History Allergies: Allergies Penicillins Allergy (Mild, Verified 12/18/23 13:44) hives black walnut Allergy (Unknown, Verified 12/18/23 13:44) Comments: all walnuts walnut Allergy (Verified 12/18/23 13:44) Review of Systems ROS: No change since H&P Vital Signs and I&O's Vital Signs: Vital Signs Temperature 97.3 F Pulse Rate [Bilateral Radial] 65 Respiratory Rate 18 Blood Pressure [Left Arm] 142/63 O2 Sat by Pulse Oximetry 100 Intake and Output: Intake & Output 01/02/24 01/03/24 01/04/24 01/05/24 11:59 11:59 11:59 11:59 Intake Total 2173 / 2173 4055 / 4055 1689 / 1689 678 / 678 Output Total 1300 / 1300 1830 / 1830 1500 / 1500 600 / 600 Balance 873 / 873 2225 / 2225 189 / 189 78 / 78 Physical Exam Oriented: Normal Eyes: Normal Ear: Normal Respiratory: Normal Cardiovascular: Edema Auscultation: Bowel Sounds: Increased Tenderness: RUQ, LUQ and Mild Skin: Rash (perineal erythema) Musculoskeletal: Normal, Shoulder and Motor Deficit Mood Description: Calm Affect: Normal Speech Pattern: Clear and Appropriate Laboratory and Diagnostics 01/04/24 06:00 01/04/24 06:00 Labs: 12/29/23 07:35 Blood Blood Culture - Final 12/29/23 07:35 Blood Blood Culture - Final 12/29/23 10:20 Urine,Catheterized Urine Culture - Final 12/29/23 16:15 Stool Stool Culture - Final 12/29/23 16:15 Stool - Final Laboratory WBC 19.6 X10^3/uL (3.6-10.0) H 01/04/24 06:00 RBC 3.20 X10^6/uL (3.5-5.4) L 01/04/24 06:00 Hgb 9.2 g/dL (12.0-16.0) L 01/04/24 06:00 Hct 28.5 % (36.0-47.0) L 01/04/24 06:00 MCV 89.1 fL (80.0-100.0) 01/04/24 06:00 MCH 28.6 pg (27.0-34.0) 01/04/24 06:00 MCHC 32.1 g/dL (33.0-35.0) L 01/04/24 06:00 RDW 16.7 % (11.6-16.5) H 01/04/24 06:00 Plt Count 330 X10^3/uL (150.0-450.0) 01/04/24 06:00 Plt Count Comment Adequate (ADEQUATE) 01/03/24 04:42 MPV 8.1 fL (7.4-11.0) 01/04/24 06:00 Neut % (Auto) 85.6 % (42.0-75.0) H 01/04/24 06:00 Lymph % (Auto) 8.7 % (21.0-51.0) L 01/04/24 06:00 [place] % (Auto) 3.8 % (0.0-13.0) 01/04/24 06:00 Eos % (Auto) 1.5 % (0.9-2.9) 01/04/24 06:00 Baso % (Auto) 0.4 % (0.2-1.0) 01/04/24 06:00 Neut # (Auto) 16.8 x10^3/uL (2.2-4.8) H 01/04/24 06:00 Lymph # (Auto) 1.7 X10^3/uL (1.3-2.9) 01/04/24 06:00 [place] # (Auto) 0.7 x10^3/uL (0.3-0.8) 01/04/24 06:00 Eos # (Auto) 0.3 x10^3/uL (0.0-0.2) H 01/04/24 06:00 Baso # (Auto) 0.1 X10^3/uL (0.0-0.1) 01/04/24 06:00 Absolute Nucleated RBC 0.0 /100WBC 01/04/24 06:00 Total Counted 100 01/03/24 04:42 Neutrophils % (Manual) 81 % (39-76) H 01/03/24 04:42 Band Neutrophils % 2 % (0-10) 01/03/24 04:42 Lymphocytes % (Manual) 15 % (13-43) 01/03/24 04:42 Monocytes % (Manual) 1 % (4-9) L 01/03/24 04:42 Eosinophils % (Manual) 1 % (0-6) 01/03/24 04:42 Plt Morphology Comment Normal (NORMAL) 01/03/24 04:42 RBC Morphology Normal (NORMAL) 01/03/24 04:42 Hypochromasia Slight A 12/31/23 04:18 Poikilocytosis 1+ A 12/31/23 04:18 [place] Cells Present 12/31/23 04:18 Sodium 144 mmol/L (136-145) 01/04/24 06:00 Corrected Sodium 145 mmol/L (136-145) 01/04/24 06:00 Potassium 3.7 mmol/L (3.5-5.1) 01/04/24 06:00 Chloride 115 mmol/L (98-107) H* 01/04/24 06:00 Carbon Dioxide 14.9 mmol/L (21-32) L* 01/04/24 06:00 BUN 25 mg/dL (7-18) H 01/04/24 06:00 Creatinine 1.24 mg/dL (0.55-1.02) H 01/04/24 06:00 Est GFR (MDRD) Af Amer 55 (>60) L 01/04/24 06:00 Est GFR (MDRD) Non-Af 45 (>60) L 01/04/24 06:00 Glucose 136 mg/dL (65-99) H 01/04/24 06:00 POC Glucose (mg/dL) 133 mg/dL (65-99) H 01/04/24 10:09 Lactic Acid 0.5 mmol/L (0.4-2.0) 01/04/24 06:00 Calcium 7.7 mg/dL (8.5-10.1) L 01/04/24 06:00 Corrected Calcium 10.0 mg/dL (8.5-10.1) 01/04/24 06:00 Magnesium 2.2 mg/dL (2.0-2.9) 01/04/24 06:00 Total Bilirubin 0.20 mg/dL (0.2-1.0) 01/04/24 06:00 AST 31 Units/L (15-37) 01/04/24 06:00 ALT 29 Units/L (12-78) 01/04/24 06:00 Alkaline Phosphatase 122 Units/L (46-116) H 01/04/24 06:00 Total Protein 4.5 g/dL (6.4-8.2) L 01/04/24 06:00 Albumin 1.1 g/dL (3.4-5.0) L 01/04/24 06:00 Globulin 3.4 g/dL (2.5-4.5) 01/04/24 06:00 Albumin/Globulin Ratio 0.3 Ratio (1.1-2.1) L 01/04/24 06:00 Specimen Type Catherized urine 12/29/23 10:20 Urine Color Yellow (YELLOW) 12/29/23 10:20 Urine Appearance Hazy (CLEAR) 12/29/23 10:20 Urine pH 5.0 (5.0 - 8.0) 12/29/23 10:20 Ur Specific [place] 1.020 (1.000-1.030) 12/29/23 10:20 Urine Protein 3+ (NEGATIVE) 12/29/23 10:20 Urine Glucose (UA) 1+ (NEGATIVE) 12/29/23 10:20 Urine Ketones Negative (NEGATIVE) 12/29/23 10:20 Urine Blood 2+ (NEGATIVE) 12/29/23 10:20 Urine Nitrite Negative (NEGATIVE) 12/29/23 10:20 Urine Bilirubin Negative (NEGATIVE) 12/29/23 10:20 Urine Urobilinogen Normal (NORMAL) 12/29/23 10:20 Ur Leukocyte Esterase 1+ (NEGATIVE) 12/29/23 10:20 Urine RBC 5-10 /HPF (0-3) A 12/29/23 10:20 Urine WBC 5-10 /HPF (0-5) A 12/29/23 10:20 Ur Squamous Epith Cells Rare /HPF (NEGATIVE) 12/29/23 10:20 Amorphous Sediment 3+ /HPF (NEGATIVE) 12/29/23 10:20 Urine Bacteria Trace /HPF (NEGATIVE) 12/29/23 10:20 Hyaline Casts Few /LPF (NEGATIVE) 12/29/23 10:20 Granular Casts Rare /LPF (NEGATIVE) 12/29/23 10:20 Urine Yeast Rare /HPF (NEGATIVE) 12/29/23 10:20 Ur Culture Indicated? No/not indicated 12/29/23 10:20 Stl Occult Blood (IFOB) Positive (NEGATIVE) A 12/29/23 16:15 Stl C. diff Tox B Gene Positive (NEGATIVE) A 12/29/23 16:15 Stl C. diff 027-NAP1-BI Presumptive negative (NEGATIVE) 12/29/23 16:15 Acetone, Semi-Quant Negative (NEGATIVE) 01/04/24 06:00 C. difficile Toxin A&B Positive (NEGATIVE) A 12/29/23 16:15 Cryptosporid parvum Ag Negative (NEGATIVE) 12/29/23 16:15 Giardia lamblia Ag Negative (NEGATIVE) 12/29/23 16:15 Plan (1) C. difficile colitis: Status: Acute Plan: Continue abx, hydration, home medications. (2) Anemia: Status: Acute Qualifiers: Anemia type: unspecified type Qualified Code(s): D64.9 - Anemia, unspecified Plan: Repeat CBC in the a.m.
[2024-01-05 06:18] LABS: BASOPHILS % (AUTO) 0.3 % (0.2-1.0); EOSINOPHILS % (AUTO) 0.1 % (0.9-2.9); HEMATOCRIT 27.9 % (36.0-47.0); HEMOGLOBIN 9.1 g/dL (12.0-16.0); LYMPHOCYTES # (AUTO) 1.6 X10^3/uL (1.3-2.9); LYMPHOCYTES % (AUTO) 8.7 % (21.0-51.0); MEAN CORPUSCULAR HEMOGLOBIN 28.9 pg (27.0-34.0); MEAN CORPUSCULAR HGB CONC 32.5 g/dL (33.0-35.0); MEAN CORPUSCULAR VOLUME 89.1 fL (80.0-100.0); MEAN PLATELET VOLUME 8.3 fL (7.4-11.0); MONOCYTES # (AUTO) 0.6 x10^3/uL (0.3-0.8); MONOCYTES % (AUTO) 3.2 % (0.0-13.0); NEUTROPHILS # (AUTO) 16.5 x10^3/uL (2.2-4.8); NEUTROPHILS % (AUTO) 87.7 % (42.0-75.0); PLATELET COUNT 351 X10^3/uL (150.0-450.0); RED BLOOD COUNT 3.13 X10^6/uL (3.5-5.4); RED CELL DISTRIBUTION WIDTH 16.6 % (11.6-16.5); WHITE BLOOD COUNT 18.8 X10^3/uL (3.6-10.0)
[2024-01-05 06:37] LABS: ALBUMIN 1.2 g/dL (3.4-5.0); CALCIUM 7.4 mg/dL (8.5-10.1); CARBON DIOXIDE 15.9 mmol/L (21-32); COR CA(FOR HYPOALB) 9.6 mg/dL (8.5-10.1); CREATININE 1.19 mg/dL (0.55-1.02); POTASSIUM 3.8 mmol/L (3.5-5.1); TOTAL PROTEIN 4.5 g/dL (6.4-8.2)
--- NOTE | 2024-01-05 10:09 | RAD ---
EXAM:KUBHISTORY:Abdominal pain, C difficile colitisCOMPARISON:01/04/2024FINDINGS:The abdominal gas pattern is nonobstructive. Once again noted is thumb printing best visualized in the transverse colon perhaps slightly improved when compared with prior examination. No definite toxic megacolon identified. No abnormal masses or abnormal calcifications identified. Regional skeleton is intact.IMPRESSION:Some improvement in the colonic thumb printing being followed in the transverse colon.THIS IS AN ELECTRONICALLY VERIFIED FINAL REPORT01/05/2024 10:06 AM - Electronically signed by Joey Townsend MD
--- NOTE | 2024-01-05 10:21 | RAD ---
EXAM:CHEST, 1 VIEWHISTORY:Shortness of breathCOMPARISON:12/28/2023FINDINGS:The trachea is midline. The cardiac silhouette is unremarkable . The lungs are clear without focal infiltrate or effusion. The bony thorax is unremarkable.IMPRESSION:No acute cardiopulmonary disease.THIS IS AN ELECTRONICALLY VERIFIED FINAL REPORT01/05/2024 10:18 AM - Electronically signed by Giancarlo Stanton MD
--- NOTE | 2024-01-05 12:26 | PCM.PROG ---
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 She was a direct admit on 12/28/23 for treatment of hypokalemia and acute renal failure. Upon admission, pt labs revealed wbc 44.1, hgb 8.2, potassium 2.5, bun 63/creatinine 2.55. We obtained a stool study that was positive for occult blood and c diff. She was started on metronidazole, vancomycin, hydration, potassium replacement.Pt was advanced with clear liquids yesterday without N/V. She tolerated a regular diet this am. Pt has continued diarrhea, but thicker stool. Pt has not been taking lomotil. Pt had diminished lung bases this am, she denies chest pain or sob, no coughing. CXR and KUB ordered. Pt encouraged increase po water intake. She has had improvement in perineal excoriation. AM labs: wbc 18.8, hgb 9.1, k 3.8, bun 23/1.19. Past Medical Family Social History Allergies: Allergies Penicillins Allergy (Mild, Verified 12/18/23 13:44) hives black walnut Allergy (Unknown, Verified 12/18/23 13:44) Comments: all walnuts walnut Allergy (Verified 12/18/23 13:44) Review of Systems ROS: No change since H&P Vital Signs and I&O's Vital Signs: Vital Signs Temperature 97.5 F Temperature 97.7 F Pulse Rate [Left Brachial] 72 Pulse Rate [Left Brachial] 76 Respiratory Rate 20 Respiratory Rate 18 Blood Pressure [Left Arm] 143/63 Blood Pressure [Left Arm] 157/72 O2 Sat by Pulse Oximetry 100 O2 Sat by Pulse Oximetry 100 Intake and Output: Intake & Output 01/03/24 01/04/24 01/05/24 01/06/24 11:59 11:59 11:59 11:59 Intake Total 4055 / 4055 1689 / 1689 3171 / 3171 Output Total 1830 / 1830 1500 / 1500 1500 / 1500 Balance 2225 / 2225 189 / 189 1671 / 1671 Physical Exam Oriented: Normal Eyes: Normal Ear: Normal Respiratory: Normal Cardiovascular: Edema Auscultation: Bowel Sounds: Increased Tenderness: RUQ, LUQ and Mild Skin: Rash (perineal erythema) Musculoskeletal: Normal, Shoulder and Motor Deficit Mood Description: Calm Affect: Normal Speech Pattern: Clear and Appropriate Laboratory and Diagnostics 01/05/24 05:54 01/05/24 05:54 Labs: 12/29/23 07:35 Blood Blood Culture - Final 12/29/23 07:35 Blood Blood Culture - Final 12/29/23 10:20 Urine,Catheterized Urine Culture - Final 12/29/23 16:15 Stool Stool Culture - Final 12/29/23 16:15 Stool - Final Laboratory WBC 18.8 X10^3/uL (3.6-10.0) H 01/05/24 05:54 RBC 3.13 X10^6/uL (3.5-5.4) L 01/05/24 05:54 Hgb 9.1 g/dL (12.0-16.0) L 01/05/24 05:54 Hct 27.9 % (36.0-47.0) L 01/05/24 05:54 MCV 89.1 fL (80.0-100.0) 01/05/24 05:54 MCH 28.9 pg (27.0-34.0) 01/05/24 05:54 MCHC 32.5 g/dL (33.0-35.0) L 01/05/24 05:54 RDW 16.6 % (11.6-16.5) H 01/05/24 05:54 Plt Count 351 X10^3/uL (150.0-450.0) 01/05/24 05:54 Plt Count Comment Adequate (ADEQUATE) 01/03/24 04:42 MPV 8.3 fL (7.4-11.0) 01/05/24 05:54 Neut % (Auto) 87.7 % (42.0-75.0) H 01/05/24 05:54 Lymph % (Auto) 8.7 % (21.0-51.0) L 01/05/24 05:54 [place] % (Auto) 3.2 % (0.0-13.0) 01/05/24 05:54 Eos % (Auto) 0.1 % (0.9-2.9) L 01/05/24 05:54 Baso % (Auto) 0.3 % (0.2-1.0) 01/05/24 05:54 Neut # (Auto) 16.5 x10^3/uL (2.2-4.8) H 01/05/24 05:54 Lymph # (Auto) 1.6 X10^3/uL (1.3-2.9) 01/05/24 05:54 [place] # (Auto) 0.6 x10^3/uL (0.3-0.8) 01/05/24 05:54 Eos # (Auto) 0.0 x10^3/uL (0.0-0.2) 01/05/24 05:54 Baso # (Auto) 0.0 X10^3/uL (0.0-0.1) 01/05/24 05:54 Absolute Nucleated RBC 0.0 /100WBC 01/05/24 05:54 Total Counted 100 01/03/24 04:42 Neutrophils % (Manual) 81 % (39-76) H 01/03/24 04:42 Band Neutrophils % 2 % (0-10) 01/03/24 04:42 Lymphocytes % (Manual) 15 % (13-43) 01/03/24 04:42 Monocytes % (Manual) 1 % (4-9) L 01/03/24 04:42 Eosinophils % (Manual) 1 % (0-6) 01/03/24 04:42 Plt Morphology Comment Normal (NORMAL) 01/03/24 04:42 RBC Morphology Normal (NORMAL) 01/03/24 04:42 Hypochromasia Slight A 12/31/23 04:18 Poikilocytosis 1+ A 12/31/23 04:18 Asaf Cells Present 12/31/23 04:18 Sodium 140 mmol/L (136-145) 01/05/24 05:54 Corrected Sodium 141 mmol/L (136-145) 01/05/24 05:54 Potassium 3.8 mmol/L (3.5-5.1) 01/05/24 05:54 Chloride 113 mmol/L (98-107) H 01/05/24 05:54 Carbon Dioxide 15.9 mmol/L (21-32) L 01/05/24 05:54 BUN 23 mg/dL (7-18) H 01/05/24 05:54 Creatinine 1.19 mg/dL (0.55-1.02) H 01/05/24 05:54 Est GFR (MDRD) Af Amer 58 (>60) L 01/05/24 05:54 Est GFR (MDRD) Non-Af 48 (>60) L 01/05/24 05:54 Glucose 158 mg/dL (65-99) H 01/05/24 05:54 POC Glucose (mg/dL) 183 mg/dL (65-99) H 01/05/24 11:58 Lactic Acid 0.5 mmol/L (0.4-2.0) 01/04/24 06:00 Calcium 7.4 mg/dL (8.5-10.1) L 01/05/24 05:54 Corrected Calcium 9.6 mg/dL (8.5-10.1) 01/05/24 05:54 Magnesium 2.2 mg/dL (2.0-2.9) 01/04/24 06:00 Iron 24 ug/dL (50-175) L 01/05/24 05:54 Total Bilirubin 0.20 mg/dL (0.2-1.0) 01/05/24 05:54 AST 22 Units/L (15-37) 01/05/24 05:54 ALT 22 Units/L (12-78) 01/05/24 05:54 Alkaline Phosphatase 114 Units/L (46-116) 01/05/24 05:54 Total Protein 4.5 g/dL (6.4-8.2) L 01/05/24 05:54 Albumin 1.2 g/dL (3.4-5.0) L 01/05/24 05:54 Globulin 3.3 g/dL (2.5-4.5) 01/05/24 05:54 Albumin/Globulin Ratio 0.4 Ratio (1.1-2.1) L 01/05/24 05:54 Specimen Type Catherized urine 12/29/23 10:20 Urine Color Yellow (YELLOW) 12/29/23 10:20 Urine Appearance Hazy (CLEAR) 12/29/23 10:20 Urine pH 5.0 (5.0 - 8.0) 12/29/23 10:20 Ur Specific [place] 1.020 (1.000-1.030) 12/29/23 10:20 Urine Protein 3+ (NEGATIVE) 12/29/23 10:20 Urine Glucose (UA) 1+ (NEGATIVE) 12/29/23 10:20 Urine Ketones Negative (NEGATIVE) 12/29/23 10:20 Urine Blood 2+ (NEGATIVE) 12/29/23 10:20 Urine Nitrite Negative (NEGATIVE) 12/29/23 10:20 Urine Bilirubin Negative (NEGATIVE) 12/29/23 10:20 Urine Urobilinogen Normal (NORMAL) 12/29/23 10:20 Ur Leukocyte Esterase 1+ (NEGATIVE) 12/29/23 10:20 Urine RBC 5-10 /HPF (0-3) A 12/29/23 10:20 Urine WBC 5-10 /HPF (0-5) A 12/29/23 10:20 Ur Squamous Epith Cells Rare /HPF (NEGATIVE) 12/29/23 10:20 Amorphous Sediment 3+ /HPF (NEGATIVE) 12/29/23 10:20 Urine Bacteria Trace /HPF (NEGATIVE) 12/29/23 10:20 Hyaline Casts Few /LPF (NEGATIVE) 12/29/23 10:20 Granular Casts Rare /LPF (NEGATIVE) 12/29/23 10:20 Urine Yeast Rare /HPF (NEGATIVE) 12/29/23 10:20 Ur Culture Indicated? No/not indicated 12/29/23 10:20 Stl Occult Blood (IFOB) Positive (NEGATIVE) A 12/29/23 16:15 Stl C. diff Tox B Gene Positive (NEGATIVE) A 12/29/23 16:15 Stl C. diff 027-NAP1-BI Presumptive negative (NEGATIVE) 12/29/23 16:15 Acetone, Semi-Quant Negative (NEGATIVE) 01/04/24 06:00 C. difficile Toxin A&B Positive (NEGATIVE) A 12/29/23 16:15 Cryptosporid parvum Ag Negative (NEGATIVE) 12/29/23 16:15 Giardia lamblia Ag Negative (NEGATIVE) 12/29/23 16:15 Plan (1) C. difficile colitis: Status: Acute Plan: Continue abx, hydration, home medications. (2) Anemia: Status: Acute Qualifiers: Anemia type: unspecified type Qualified Code(s): D64.9 - Anemia, unspecified Plan: Repeat CBC in the a.m.
[2024-01-06 05:30] LABS: BASOPHILS # (AUTO) 0.1 X10^3/uL (0.0-0.1); BASOPHILS % (AUTO) 0.3 % (0.2-1.0); EOSINOPHILS # (AUTO) 0.3 x10^3/uL (0.0-0.2); EOSINOPHILS % (AUTO) 1.6 % (0.9-2.9); HEMATOCRIT 26.1 % (36.0-47.0); HEMOGLOBIN 8.6 g/dL (12.0-16.0); LYMPHOCYTES # (AUTO) 2.2 X10^3/uL (1.3-2.9); LYMPHOCYTES % (AUTO) 12.1 % (21.0-51.0); MEAN CORPUSCULAR HEMOGLOBIN 28.8 pg (27.0-34.0); MEAN CORPUSCULAR HGB CONC 32.9 g/dL (33.0-35.0); MEAN CORPUSCULAR VOLUME 87.5 fL (80.0-100.0); MEAN PLATELET VOLUME 8.5 fL (7.4-11.0); MONOCYTES # (AUTO) 0.8 x10^3/uL (0.3-0.8); MONOCYTES % (AUTO) 4.4 % (0.0-13.0); NEUTROPHILS # (AUTO) 14.5 x10^3/uL (2.2-4.8); NEUTROPHILS % (AUTO) 81.6 % (42.0-75.0); PLATELET COUNT 334 X10^3/uL (150.0-450.0); RED BLOOD COUNT 2.99 X10^6/uL (3.5-5.4); RED CELL DISTRIBUTION WIDTH 16.8 % (11.6-16.5); WHITE BLOOD COUNT 17.8 X10^3/uL (3.6-10.0)
[2024-01-06 05:36] LABS: ALANINE AMINOTRANSFERASE 21 Units/L (12-78); ALBUMIN 1.1 g/dL (3.4-5.0); ALKALINE PHOSPHATASE 102 Units/L (46-116); ASPARTATE AMINO TRANSFERASE 27 Units/L (15-37); BLOOD UREA NITROGEN 22 mg/dL (7-18); CALCIUM 7.4 mg/dL (8.5-10.1); CARBON DIOXIDE 16.4 mmol/L (21-32); CHLORIDE 112 mmol/L (98-107); COR CA(FOR HYPOALB) 9.7 mg/dL (8.5-10.1); CREATININE 1.15 mg/dL (0.55-1.02); GLUCOSE 99 mg/dL (65-99); POTASSIUM 4.4 mmol/L (3.5-5.1); SODIUM 138 mmol/L (136-145); TOTAL PROTEIN 4.4 g/dL (6.4-8.2); eGFR NON BLACK RACES 49 (>60)
--- NOTE | 2024-01-06 12:02 | PCM.PROG ---
Progress Note Progress Note for Day of Date of Exam: 01/06/24 Subjective Subjective: Patient seen at bedside, no acute events overnight. Patient is currently admitted for C.diff pancolitis, GREG and hypokalemia. Her diarrhea has improved, tolerating PO intake. Denies N/V or abdominal pain. She reports having perineal and rectal pain due to erythema and irritation. Nurses have been applying topical medications and that has helped. As per staff, erythema has improved. Labs/imaging reviewed -Hgb 8.6 WBC:17.8 BUN/Cr: 22/1.15 -KUB: some improvement, no toxic megacolon noted Plan: continue PO vancomycin, replace electrolytes as per protocol. Continue current diet. Continue home medications. Continue wound care as per staff. PT/OT as tolerated. Patient is a resident of [place]. Monitor AM labs/imaging. Past Medical Family Social History Allergies: Allergies Penicillins Allergy (Mild, Verified 12/18/23 13:44) hives black walnut Allergy (Unknown, Verified 12/18/23 13:44) Comments: all walnuts walnut Allergy (Verified 12/18/23 13:44) Review of Systems ROS: No change since H&P Vital Signs and I&O's Vital Signs: Vital Signs Temperature 97.4 F Temperature 97.6 F Pulse Rate [Left Brachial] 82 Pulse Rate [Left Brachial] 74 Respiratory Rate 20 Respiratory Rate 20 Blood Pressure [Left Arm] 144/68 Blood Pressure [Left Arm] 140/56 O2 Sat by Pulse Oximetry 99 O2 Sat by Pulse Oximetry 99 Intake and Output: Intake & Output 01/03/24 01/04/24 01/05/24 01/06/24 23:59 23:59 23:59 23:59 Intake Total 1946 3010 / 3010 2111 / 2111 832 / 832 Output Total 1929 / 1929 1500 / 1500 1400 / 1400 550 / 550 Balance 1510 / 1510 711 / 711 282 / 282 Physical Exam Oriented: Normal Eyes: Normal Ear: Normal Respiratory: Normal Cardiovascular: Edema Auscultation: Bowel Sounds: Normal Tenderness: RUQ, LUQ and Mild Skin: Rash (perineal erythema) Musculoskeletal: Normal, Shoulder and Motor Deficit Mood Description: Calm Affect: Normal Speech Pattern: Clear and Appropriate Laboratory and Diagnostics 01/06/24 04:17 01/06/24 04:17 Labs: 12/29/23 07:35 Blood Blood Culture - Final 12/29/23 07:35 Blood Blood Culture - Final 12/29/23 10:20 Urine,Catheterized Urine Culture - Final 12/29/23 16:15 Stool Stool Culture - Final 12/29/23 16:15 Stool - Final Laboratory WBC 17.8 X10^3/uL (3.6-10.0) H 01/06/24 04:17 RBC 2.99 X10^6/uL (3.5-5.4) L 01/06/24 04:17 Hgb 8.6 g/dL (12.0-16.0) L 01/06/24 04:17 Hct 26.1 % (36.0-47.0) L 01/06/24 04:17 MCV 87.5 fL (80.0-100.0) 01/06/24 04:17 MCH 28.8 pg (27.0-34.0) 01/06/24 04:17 MCHC 32.9 g/dL (33.0-35.0) L 01/06/24 04:17 RDW 16.8 % (11.6-16.5) H 01/06/24 04:17 Plt Count 334 X10^3/uL (150.0-450.0) 01/06/24 04:17 Plt Count Comment Adequate (ADEQUATE) 01/03/24 04:42 MPV 8.5 fL (7.4-11.0) 01/06/24 04:17 Neut % (Auto) 81.6 % (42.0-75.0) H 01/06/24 04:17 Lymph % (Auto) 12.1 % (21.0-51.0) L 01/06/24 04:17 [place] % (Auto) 4.4 % (0.0-13.0) 01/06/24 04:17 Eos % (Auto) 1.6 % (0.9-2.9) 01/06/24 04:17 Baso % (Auto) 0.3 % (0.2-1.0) 01/06/24 04:17 Neut # (Auto) 14.5 x10^3/uL (2.2-4.8) H 01/06/24 04:17 Lymph # (Auto) 2.2 X10^3/uL (1.3-2.9) 01/06/24 04:17 [place] # (Auto) 0.8 x10^3/uL (0.3-0.8) 01/06/24 04:17 Eos # (Auto) 0.3 x10^3/uL (0.0-0.2) H 01/06/24 04:17 Baso # (Auto) 0.1 X10^3/uL (0.0-0.1) 01/06/24 04:17 Absolute Nucleated RBC 0.0 /100WBC 01/06/24 04:17 Total Counted 100 01/03/24 04:42 Neutrophils % (Manual) 81 % (39-76) H 01/03/24 04:42 Band Neutrophils % 2 % (0-10) 01/03/24 04:42 Lymphocytes % (Manual) 15 % (13-43) 01/03/24 04:42 Monocytes % (Manual) 1 % (4-9) L 01/03/24 04:42 Eosinophils % (Manual) 1 % (0-6) 01/03/24 04:42 Plt Morphology Comment Normal (NORMAL) 01/03/24 04:42 RBC Morphology Normal (NORMAL) 01/03/24 04:42 Hypochromasia Slight A 12/31/23 04:18 Poikilocytosis 1+ A 12/31/23 04:18 Asaf Cells Present 12/31/23 04:18 Sodium 138 mmol/L (136-145) 01/06/24 04:17 Corrected Sodium TNP 01/06/24 04:17 Potassium 4.4 mmol/L (3.5-5.1) 01/06/24 04:17 Chloride 112 mmol/L (98-107) H 01/06/24 04:17 Carbon Dioxide 16.4 mmol/L (21-32) L 01/06/24 04:17 BUN 22 mg/dL (7-18) H 01/06/24 04:17 Creatinine 1.15 mg/dL (0.55-1.02) H 01/06/24 04:17 Est GFR (MDRD) Af Amer 60 (>60) 01/06/24 04:17 Est GFR (MDRD) Non-Af 49 (>60) L 01/06/24 04:17 Glucose 99 mg/dL (65-99) 01/06/24 04:17 POC Glucose (mg/dL) 159 mg/dL (65-99) H 01/06/24 11:10 Lactic Acid 0.5 mmol/L (0.4-2.0) 01/04/24 06:00 Calcium 7.4 mg/dL (8.5-10.1) L 01/06/24 04:17 Corrected Calcium 9.7 mg/dL (8.5-10.1) 01/06/24 04:17 Magnesium 2.2 mg/dL (2.0-2.9) 01/04/24 06:00 Iron 24 ug/dL (50-175) L 01/05/24 05:54 Total Bilirubin 0.20 mg/dL (0.2-1.0) 01/06/24 04:17 AST 27 Units/L (15-37) 01/06/24 04:17 ALT 21 Units/L (12-78) 01/06/24 04:17 Alkaline Phosphatase 102 Units/L (46-116) 01/06/24 04:17 Total Protein 4.4 g/dL (6.4-8.2) L 01/06/24 04:17 Albumin 1.1 g/dL (3.4-5.0) L 01/06/24 04:17 Globulin 3.3 g/dL (2.5-4.5) 01/06/24 04:17 Albumin/Globulin Ratio 0.3 Ratio (1.1-2.1) L 01/06/24 04:17 Specimen Type Catherized urine 12/29/23 10:20 Urine Color Yellow (YELLOW) 12/29/23 10:20 Urine Appearance Hazy (CLEAR) 12/29/23 10:20 Urine pH 5.0 (5.0 - 8.0) 12/29/23 10:20 Ur Specific [place] 1.020 (1.000-1.030) 12/29/23 10:20 Urine Protein 3+ (NEGATIVE) 12/29/23 10:20 Urine Glucose (UA) 1+ (NEGATIVE) 12/29/23 10:20 Urine Ketones Negative (NEGATIVE) 12/29/23 10:20 Urine Blood 2+ (NEGATIVE) 12/29/23 10:20 Urine Nitrite Negative (NEGATIVE) 12/29/23 10:20 Urine Bilirubin Negative (NEGATIVE) 12/29/23 10:20 Urine Urobilinogen Normal (NORMAL) 12/29/23 10:20 Ur Leukocyte Esterase 1+ (NEGATIVE) 12/29/23 10:20 Urine RBC 5-10 /HPF (0-3) A 12/29/23 10:20 Urine WBC 5-10 /HPF (0-5) A 12/29/23 10:20 Ur Squamous Epith Cells Rare /HPF (NEGATIVE) 12/29/23 10:20 Amorphous Sediment 3+ /HPF (NEGATIVE) 12/29/23 10:20 Urine Bacteria Trace /HPF (NEGATIVE) 12/29/23 10:20 Hyaline Casts Few /LPF (NEGATIVE) 12/29/23 10:20 Granular Casts Rare /LPF (NEGATIVE) 12/29/23 10:20 Urine Yeast Rare /HPF (NEGATIVE) 12/29/23 10:20 Ur Culture Indicated? No/not indicated 12/29/23 10:20 Stl Occult Blood (IFOB) Positive (NEGATIVE) A 12/29/23 16:15 Stl C. diff Tox B Gene Positive (NEGATIVE) A 12/29/23 16:15 Stl C. diff [id number] Presumptive negative (NEGATIVE) 12/29/23 16:15 Acetone, Semi-Quant Negative (NEGATIVE) 01/04/24 06:00 C. difficile Toxin A&B Positive (NEGATIVE) A 12/29/23 16:15 Cryptosporid parvum Ag Negative (NEGATIVE) 12/29/23 16:15 Giardia lamblia Ag Negative (NEGATIVE) 12/29/23 16:15 Plan (1) C. difficile colitis: Status: Acute (2) Anemia: Status: Acute Qualifiers: Anemia type: unspecified type Qualified Code(s): D64.9 - Anemia, unspecified (3) Erythema of rectum: Status: Acute (4) Edema: Status: Acute Qualifiers: Edema type: unspecified Qualified Code(s): R60.9 - Edema, unspecified (5) Atrial fibrillation: Status: Acute Qualifiers: Atrial fibrillation type: unspecified Qualified Code(s): I48.91 - Unspecified atrial fibrillation (6) Hypomagnesemia: Status: Acute
[2024-01-07 05:12] LABS: BASOPHILS # (AUTO) 0.3 X10^3/uL (0.0-0.1); BASOPHILS % (AUTO) 2.1 % (0.2-1.0); EOSINOPHILS # (AUTO) 0.2 x10^3/uL (0.0-0.2); HEMATOCRIT 25.5 % (36.0-47.0); HEMOGLOBIN 8.2 g/dL (12.0-16.0); LYMPHOCYTES # (AUTO) 1.5 X10^3/uL (1.3-2.9); LYMPHOCYTES % (AUTO) 10.1 % (21.0-51.0); MEAN CORPUSCULAR HEMOGLOBIN 28.6 pg (27.0-34.0); MEAN CORPUSCULAR HGB CONC 32.1 g/dL (33.0-35.0); MEAN PLATELET VOLUME 8.4 fL (7.4-11.0); MONOCYTES # (AUTO) 0.6 x10^3/uL (0.3-0.8); MONOCYTES % (AUTO) 3.8 % (0.0-13.0); NEUTROPHILS # (AUTO) 12.5 x10^3/uL (2.2-4.8); PLATELET COUNT 315 X10^3/uL (150.0-450.0); RED BLOOD COUNT 2.87 X10^6/uL (3.5-5.4); RED CELL DISTRIBUTION WIDTH 17.1 % (11.6-16.5); WHITE BLOOD COUNT 15.1 X10^3/uL (3.6-10.0)
[2024-01-07 05:29] LABS: ALANINE AMINOTRANSFERASE 22 Units/L (12-78); ALBUMIN 1.1 g/dL (3.4-5.0); ALKALINE PHOSPHATASE 103 Units/L (46-116); ASPARTATE AMINO TRANSFERASE 30 Units/L (15-37); BLOOD UREA NITROGEN 21 mg/dL (7-18); CALCIUM 7.7 mg/dL (8.5-10.1); CARBON DIOXIDE 15.6 mmol/L (21-32); CHLORIDE 114 mmol/L (98-107); CREATININE 1.23 mg/dL (0.55-1.02); GLUCOSE 108 mg/dL (65-99); POTASSIUM 5.1 mmol/L (3.5-5.1); SODIUM 139 mmol/L (136-145); TOTAL PROTEIN 4.4 g/dL (6.4-8.2); eGFR NON BLACK RACES 46 (>60)
[2024-01-07 05:33] LABS: BASOPHILS % (MANUAL) 1 % (0-1); PLATELET MORPHOLOGY COMMENT NORMAL (NORMAL)
[2024-01-07 05:34] LABS: ANISOCYTOSIS SLIGHT
--- NOTE | 2024-01-07 11:29 | PCM.PROG ---
Progress Note Progress Note for Day of Date of Exam: 01/07/24 Subjective Subjective: Patient seen at bedside, no acute events overnight. Patient is currently admitted for C.diff pancolitis, GREG and hypokalemia. Her diarrhea has improved, tolerating PO intake. Denies N/V or abdominal pain. She has perineal erythema which appeared to be worse yesterday. Wound care recommended using a specific barrier cream. Patient states it feels better today, not as much pain as yesterday. Labs/imaging reviewed -Hgb 8.2 WBC:15.1 BUN/Cr: 21/.23 -KUB: some improvement, no toxic megacolon noted Plan: continue PO vancomycin, replace electrolytes as per protocol. Continue current diet. Continue home medications. Continue wound care as per staff. [facility]tar sent wound culture if able to from the perineal/vaginal area. PT/OT as tolerated. Patient is a resident of [place]. Monitor AM labs/imaging. Past Medical Family Social History Allergies: Allergies Penicillins Allergy (Mild, Verified 12/18/23 13:44) hives black walnut Allergy (Unknown, Verified 12/18/23 13:44) Comments: all walnuts walnut Allergy (Verified 12/18/23 13:44) Review of Systems ROS: No change since H&P Vital Signs and I&O's Vital Signs: Vital Signs Temperature 97.4 F Temperature 97.4 F Temperature 98.1 F Pulse Rate [Left Brachial] 94 Pulse Rate [Left Brachial] 94 Pulse Rate [Left Brachial] 76 Respiratory Rate 22 Respiratory Rate 22 Respiratory Rate 20 Blood Pressure [Left Arm] 179/70 Blood Pressure [Left Arm] 154/79 Blood Pressure [Left Arm] 149/63 O2 Sat by Pulse Oximetry 97 O2 Sat by Pulse Oximetry 94 O2 Sat by Pulse Oximetry 98 Intake and Output: Intake & Output 01/04/24 01/05/24 01/06/24 01/07/24 23:59 23:59 23:59 23:59 Intake Total 3010 / 3010 2111 / 2111 3240 / 3240 1242 / 1242 Output Total 1500 / 1500 1400 / 1400 1600 / 1600 700 / 700 Balance 1510 / 1510 711 / 711 1640 / 1640 542 / 542 Physical Exam Oriented: Normal Eyes: Normal Ear: Normal Respiratory: Normal Cardiovascular: Edema Auscultation: Bowel Sounds: Normal Tenderness: RUQ, LUQ and Mild Skin: Rash (perineal erythema) Musculoskeletal: Normal, Shoulder and Motor Deficit Mood Description: Calm Affect: Normal Speech Pattern: Clear and Appropriate Laboratory and Diagnostics 01/07/24 04:18 01/07/24 04:18 Labs: 12/29/23 07:35 Blood Blood Culture - Final 12/29/23 07:35 Blood Blood Culture - Final 12/29/23 10:20 Urine,Catheterized Urine Culture - Final 12/29/23 16:15 Stool Stool Culture - Final 12/29/23 16:15 Stool - Final Laboratory WBC 15.1 X10^3/uL (3.6-10.0) H 01/07/24 04:18 RBC 2.87 X10^6/uL (3.5-5.4) L 01/07/24 04:18 Hgb 8.2 g/dL (12.0-16.0) L 01/07/24 04:18 Hct 25.5 % (36.0-47.0) L 01/07/24 04:18 MCV 89.0 fL (80.0-100.0) 01/07/24 04:18 MCH 28.6 pg (27.0-34.0) 01/07/24 04:18 MCHC 32.1 g/dL (33.0-35.0) L 01/07/24 04:18 RDW 17.1 % (11.6-16.5) H 01/07/24 04:18 Plt Count 315 X10^3/uL (150.0-450.0) 01/07/24 04:18 Plt Count Comment Adequate (ADEQUATE) 01/07/24 04:18 MPV 8.4 fL (7.4-11.0) 01/07/24 04:18 Neut % (Auto) 83.0 % (42.0-75.0) H 01/07/24 04:18 Lymph % (Auto) 10.1 % (21.0-51.0) L 01/07/24 04:18 [place] % (Auto) 3.8 % (0.0-13.0) 01/07/24 04:18 Eos % (Auto) 1.0 % (0.9-2.9) 01/07/24 04:18 Baso % (Auto) 2.1 % (0.2-1.0) H 01/07/24 04:18 Neut # (Auto) 12.5 x10^3/uL (2.2-4.8) H 01/07/24 04:18 Lymph # (Auto) 1.5 X10^3/uL (1.3-2.9) 01/07/24 04:18 [place] # (Auto) 0.6 x10^3/uL (0.3-0.8) 01/07/24 04:18 Eos # (Auto) 0.2 x10^3/uL (0.0-0.2) 01/07/24 04:18 Baso # (Auto) 0.3 X10^3/uL (0.0-0.1) H 01/07/24 04:18 Absolute Nucleated RBC 0.1 /100WBC 01/07/24 04:18 Total Counted 100 01/07/24 04:18 Neutrophils % (Manual) 86 % (39-76) H 01/07/24 04:18 Band Neutrophils % 2 % (0-10) 01/03/24 04:42 Lymphocytes % (Manual) 9 % (13-43) L 01/07/24 04:18 Monocytes % (Manual) 4 % (4-9) 01/07/24 04:18 Eosinophils % (Manual) 1 % (0-6) 01/03/24 04:42 Basophils % (Manual) 1 % (0-1) 01/07/24 04:18 Plt Morphology Comment Normal (NORMAL) 01/07/24 04:18 RBC Morphology Abnormal (NORMAL) A 01/07/24 04:18 Hypochromasia Slight A 12/31/23 04:18 Poikilocytosis 1+ A 12/31/23 04:18 Anisocytosis Slight A 01/07/24 04:18 Asaf Cells Present 12/31/23 04:18 Sodium 139 mmol/L (136-145) 01/07/24 04:18 Corrected Sodium TNP 01/07/24 04:18 Potassium 5.1 mmol/L (3.5-5.1) 01/07/24 04:18 Chloride 114 mmol/L (98-107) H 01/07/24 04:18 Carbon Dioxide 15.6 mmol/L (21-32) L 01/07/24 04:18 BUN 21 mg/dL (7-18) H 01/07/24 04:18 Creatinine 1.23 mg/dL (0.55-1.02) H 01/07/24 04:18 Est GFR (MDRD) Af Amer 55 (>60) L 01/07/24 04:18 Est GFR (MDRD) Non-Af 46 (>60) L 01/07/24 04:18 Glucose 108 mg/dL (65-99) H 01/07/24 04:18 POC Glucose (mg/dL) 145 mg/dL (65-99) H 01/07/24 11:12 Lactic Acid 0.5 mmol/L (0.4-2.0) 01/04/24 06:00 Calcium 7.7 mg/dL (8.5-10.1) L 01/07/24 04:18 Corrected Calcium 10.0 mg/dL (8.5-10.1) 01/07/24 04:18 Magnesium 2.3 mg/dL (2.0-2.9) 01/07/24 06:56 Iron 24 ug/dL (50-175) L 01/05/24 05:54 Total Bilirubin 0.20 mg/dL (0.2-1.0) 01/07/24 04:18 AST 30 Units/L (15-37) 01/07/24 04:18 ALT 22 Units/L (12-78) 01/07/24 04:18 Alkaline Phosphatase 103 Units/L (46-116) 01/07/24 04:18 Total Protein 4.4 g/dL (6.4-8.2) L 01/07/24 04:18 Albumin 1.1 g/dL (3.4-5.0) L 01/07/24 04:18 Globulin 3.3 g/dL (2.5-4.5) 01/07/24 04:18 Albumin/Globulin Ratio 0.3 Ratio (1.1-2.1) L 01/07/24 04:18 Specimen Type Catherized urine 12/29/23 10:20 Urine Color Yellow (YELLOW) 12/29/23 10:20 Urine Appearance Hazy (CLEAR) 12/29/23 10:20 Urine pH 5.0 (5.0 - 8.0) 12/29/23 10:20 Ur Specific [place] 1.020 (1.000-1.030) 12/29/23 10:20 Urine Protein 3+ (NEGATIVE) 12/29/23 10:20 Urine Glucose (UA) 1+ (NEGATIVE) 12/29/23 10:20 Urine Ketones Negative (NEGATIVE) 12/29/23 10:20 Urine Blood 2+ (NEGATIVE) 12/29/23 10:20 Urine Nitrite Negative (NEGATIVE) 12/29/23 10:20 Urine Bilirubin Negative (NEGATIVE) 12/29/23 10:20 Urine Urobilinogen Normal (NORMAL) 12/29/23 10:20 Ur Leukocyte Esterase 1+ (NEGATIVE) 12/29/23 10:20 Urine RBC 5-10 /HPF (0-3) A 12/29/23 10:20 Urine WBC 5-10 /HPF (0-5) A 12/29/23 10:20 Ur Squamous Epith Cells Rare /HPF (NEGATIVE) 12/29/23 10:20 Amorphous Sediment 3+ /HPF (NEGATIVE) 12/29/23 10:20 Urine Bacteria Trace /HPF (NEGATIVE) 12/29/23 10:20 Hyaline Casts Few /LPF (NEGATIVE) 12/29/23 10:20 Granular Casts Rare /LPF (NEGATIVE) 12/29/23 10:20 Urine Yeast Rare /HPF (NEGATIVE) 12/29/23 10:20 Ur Culture Indicated? No/not indicated 12/29/23 10:20 Stl Occult Blood (IFOB) Positive (NEGATIVE) A 12/29/23 16:15 Stl C. diff Tox B Gene Positive (NEGATIVE) A 12/29/23 16:15 Stl C. diff [id number] Presumptive negative (NEGATIVE) 12/29/23 16:15 Acetone, Semi-Quant Negative (NEGATIVE) 01/04/24 06:00 C. difficile Toxin A&B Positive (NEGATIVE) A 12/29/23 16:15 Cryptosporid parvum Ag Negative (NEGATIVE) 12/29/23 16:15 Giardia lamblia Ag Negative (NEGATIVE) 12/29/23 16:15 Plan (1) C. difficile colitis: Status: Acute (2) Anemia: Status: Acute Qualifiers: Anemia type: unspecified type Qualified Code(s): D64.9 - Anemia, unspecified (3) Erythema of rectum: Status: Acute (4) Edema: Status: Acute Qualifiers: Edema type: unspecified Qualified Code(s): R60.9 - Edema, unspecified (5) Atrial fibrillation: Status: Acute Qualifiers: Atrial fibrillation type: unspecified Qualified Code(s): I48.91 - Unspecified atrial fibrillation (6) Hypomagnesemia: Status: Acute (7) Erythema of vagina: Status: Acute
[2024-01-07] MEDS: NS 1/2 1,000 ML IV 1,000 ML IV SCH (13:07)
[2024-01-07] MEDS: [UNRECOGNIZED DRUG - OTHER] TOP SCH (17:23)
[2024-01-08 04:45] LABS: BASOPHILS # (AUTO) 0.1 X10^3/uL (0.0-0.1); BASOPHILS % (AUTO) 0.5 % (0.2-1.0); EOSINOPHILS # (AUTO) 0.1 x10^3/uL (0.0-0.2); EOSINOPHILS % (AUTO) 0.8 % (0.9-2.9); HEMATOCRIT 23.9 % (36.0-47.0); HEMOGLOBIN 7.7 g/dL (12.0-16.0); LYMPHOCYTES # (AUTO) 1.5 X10^3/uL (1.3-2.9); LYMPHOCYTES % (AUTO) 10.9 % (21.0-51.0); MEAN CORPUSCULAR HEMOGLOBIN 28.8 pg (27.0-34.0); MEAN CORPUSCULAR HGB CONC 32.3 g/dL (33.0-35.0); MEAN CORPUSCULAR VOLUME 89.3 fL (80.0-100.0); MEAN PLATELET VOLUME 8.2 fL (7.4-11.0); MONOCYTES # (AUTO) 0.6 x10^3/uL (0.3-0.8); NEUTROPHILS # (AUTO) 11.5 x10^3/uL (2.2-4.8); NEUTROPHILS % (AUTO) 83.8 % (42.0-75.0); PLATELET COUNT 312 X10^3/uL (150.0-450.0); RED BLOOD COUNT 2.67 X10^6/uL (3.5-5.4); RED CELL DISTRIBUTION WIDTH 17.3 % (11.6-16.5); WHITE BLOOD COUNT 13.7 X10^3/uL (3.6-10.0)
[2024-01-08 05:00] LABS: ALBUMIN 1.1 g/dL (3.4-5.0); CALCIUM 7.7 mg/dL (8.5-10.1); CARBON DIOXIDE 17.9 mmol/L (21-32); CREATININE 1.22 mg/dL (0.55-1.02); POTASSIUM 5.1 mmol/L (3.5-5.1); TOTAL PROTEIN 4.3 g/dL (6.4-8.2)
[2024-01-08] MEDS: NS 1/2 1,000 ML IV 1,000 ML IV ONE ×3 (07:28→07:29)
[2024-01-08 08:08] VITALS: BP 168/60; PULSE 90; RESP 17; TEMP 97.2; O2SAT 95
[2024-01-08] MEDS: VANCOMYCIN HCL 250 MG CAP PO SCH (08:51)
== END 2024-01-08 11:05 | disposition home or self-care (01) | DRG 372 ==
LOC: MED/SURG → OBSVTOIN 16:20
PROVIDERS: ADMIT Internal Medicine; ATTEND Internal Medicine
DX: E78.5 Hyperlipidemia, unspecified; E87.1 Hypo-osmolality and hyponatremia; R06.02 Shortness of breath; R10.84 Generalized abdominal pain; I12.9 Hypertensive chronic kidney disease with stage 1 through stage 4 chronic kidney disease, or unspecified chronic kidney disease; R07.89 Other chest pain; E11.65 Type 2 diabetes mellitus with hyperglycemia; E83.42 Hypomagnesemia; N18.9 Chronic kidney disease, unspecified; R26.89 Other abnormalities of gait and mobility; E86.0 Dehydration; N17.8 Other acute kidney failure; B37.31 Acute candidiasis of vulva and vagina; K21.9 Gastro-esophageal reflux disease without esophagitis; Z79.899 Other long term (current) drug therapy; A04.72 Enterocolitis due to Clostridium difficile, not specified as recurrent; I48.91 Unspecified atrial fibrillation; K62.89 Other specified diseases of anus and rectum; F41.8 Other specified anxiety disorders; R60.0 Localized edema; F32.89 Other specified depressive episodes; E87.6 Hypokalemia; L53.8 Other specified erythematous conditions; D50.8 Other iron deficiency anemias; R19.7 Diarrhea, unspecified

== ENCOUNTER 2024-02-03 09:14 | Inpatient (IN) ==
[2024-02-03 10:05] LABS: BASOPHILS % (AUTO) 0.1 % (0.2-1.0); HEMATOCRIT 28.5 % (36.0-47.0); LYMPHOCYTES # (AUTO) 0.9 X10^3/uL (1.3-2.9); LYMPHOCYTES % (AUTO) 3.8 % (21.0-51.0); MEAN CORPUSCULAR HEMOGLOBIN 28.9 pg (27.0-34.0); MEAN CORPUSCULAR HGB CONC 31.7 g/dL (33.0-35.0); MEAN CORPUSCULAR VOLUME 91.2 fL (80.0-100.0); MEAN PLATELET VOLUME 8.8 fL (7.4-11.0); MONOCYTES # (AUTO) 1.2 x10^3/uL (0.3-0.8); MONOCYTES % (AUTO) 5.3 % (0.0-13.0); NEUTROPHILS # (AUTO) 21.1 x10^3/uL (2.2-4.8); NEUTROPHILS % (AUTO) 90.8 % (42.0-75.0); PLATELET COUNT 266 X10^3/uL (150.0-450.0); RED BLOOD COUNT 3.13 X10^6/uL (3.5-5.4); WHITE BLOOD COUNT 23.3 X10^3/uL (3.6-10.0)
[2024-02-03 10:06] LABS: ALBUMIN 1.4 g/dL (3.4-5.0); CALCIUM 7.5 mg/dL (8.5-10.1); CARBON DIOXIDE 24.5 mmol/L (21-32); COR CA(FOR HYPOALB) 9.6 mg/dL (8.5-10.1); CREATININE 2.19 mg/dL (0.55-1.02); TOTAL PROTEIN 5.6 g/dL (6.4-8.2); URIC ACID 7.5 mg/dL (2.6-6.0)
[2024-02-03 10:11] LABS: POTASSIUM 2.8 mmol/L (3.5-5.1)
[2024-02-03 10:25] LABS: HEMOGLOBIN A1C 6.2 %
[2024-02-03 11:10] LABS: PLATELET MORPHOLOGY COMMENT NORMAL (NORMAL)
[2024-02-03 11:11] LABS: ANISOCYTOSIS SLIGHT
[2024-02-03] MEDS ORDERED: CONSULT PHARMACY - POTASSIUM & MAGNESIUM XX SCH (16:00)
[2024-02-03] MEDS: K-DUR TAB 20 MEQ PO ONE (16:45)
[2024-02-03] MEDS: NS 1,000 ML IV 1,000 ML IV ONE (16:45)
[2024-02-03] MEDS: MAG-OX TAB PO SCH (16:46)
[2024-02-03] MEDS: NS 1,000 ML IV 1,000 ML IV SCH (17:45)
[2024-02-03] MEDS: MICRO K EXTEN CAP 10 MEQ PO ONE (17:46)
[2024-02-04 03:19] LABS: ALBUMIN 1.1 g/dL (3.4-5.0); CALCIUM 7.4 mg/dL (8.5-10.1); CARBON DIOXIDE 22.9 mmol/L (21-32); COR CA(FOR HYPOALB) 9.7 mg/dL (8.5-10.1); CREATININE 2.03 mg/dL (0.55-1.02); TOTAL PROTEIN 4.7 g/dL (6.4-8.2)
[2024-02-04 03:20] LABS: POTASSIUM 2.9 mmol/L (3.5-5.1)
[2024-02-04] MEDS ORDERED: CONSULT PHARMACY - POTASSIUM & MAGNESIUM XX SCH ×2 (04:00→12:00)
[2024-02-04] MEDS: K-DUR TAB 20 MEQ PO SCH (09:28)
[2024-02-04] MEDS: POTASSIUM CHLORIDE IV ONE (12:28)
[2024-02-04] MEDS: NS IV ONE (12:28)
[2024-02-04] MEDS: [UNRECOGNIZED DRUG - OTHER] IV ONE (12:28)
[2024-02-04] MEDS ORDERED: [UNRECOGNIZED DRUG - OTHER] PO SCH (15:00)
[2024-02-04] MEDS: XIFAXAN PO SCH (15:48)
--- NOTE | 2024-02-04 16:28 | EKG ---
Test Reason : CHEST PAIN Blood Pressure : */* mmHG Vent. Rate : 83 BPM Atrial Rate : 83 BPM P-R Int : 184 ms QRS Dur : 78 ms QT Int : 376 ms P-R-T Axes : 30 22 34 degrees QTc Int : 441 ms Normal sinus rhythm Normal ECG Confirmed by Jorden Cheney MD ([id number]) on 02/05/2024 7:29:15 AM Referred By: Confirmed By: Jorden Cheney MD
[2024-02-04] MEDS: ZOFRAN INJ 4 MG VIAL IVP PRN (16:50)
[2024-02-04] MEDS: MAALOX or MYLANTA PO PRN (16:50)
[2024-02-04 17:44] LABS: BASOPHILS % (AUTO) 0.1 % (0.2-1.0); EOSINOPHILS % (AUTO) 0.1 % (0.9-2.9); HEMATOCRIT 28.9 % (36.0-47.0); HEMOGLOBIN 9.2 g/dL (12.0-16.0); LYMPHOCYTES % (AUTO) 3.7 % (21.0-51.0); MEAN CORPUSCULAR HEMOGLOBIN 28.9 pg (27.0-34.0); MEAN CORPUSCULAR HGB CONC 31.9 g/dL (33.0-35.0); MEAN CORPUSCULAR VOLUME 90.6 fL (80.0-100.0); MEAN PLATELET VOLUME 8.2 fL (7.4-11.0); MONOCYTES # (AUTO) 1.4 x10^3/uL (0.3-0.8); NEUTROPHILS # (AUTO) 25.3 x10^3/uL (2.2-4.8); NEUTROPHILS % (AUTO) 91.1 % (42.0-75.0); PLATELET COUNT 282 X10^3/uL (150.0-450.0); RED BLOOD COUNT 3.19 X10^6/uL (3.5-5.4); RED CELL DISTRIBUTION WIDTH 17.1 % (11.6-16.5); WHITE BLOOD COUNT 27.7 X10^3/uL (3.6-10.0)
[2024-02-04 18:09] LABS: ANISOCYTOSIS SLIGHT; PLATELET MORPHOLOGY COMMENT NORMAL (NORMAL)
[2024-02-05 06:34] LABS: BASOPHILS # (AUTO) 0.1 X10^3/uL (0.0-0.1); BASOPHILS % (AUTO) 0.2 % (0.2-1.0); HEMATOCRIT 29.3 % (36.0-47.0); HEMOGLOBIN 9.4 g/dL (12.0-16.0); LYMPHOCYTES # (AUTO) 1.7 X10^3/uL (1.3-2.9); LYMPHOCYTES % (AUTO) 5.5 % (21.0-51.0); MEAN CORPUSCULAR HGB CONC 32.1 g/dL (33.0-35.0); MEAN CORPUSCULAR VOLUME 90.2 fL (80.0-100.0); MEAN PLATELET VOLUME 8.8 fL (7.4-11.0); MONOCYTES # (AUTO) 1.2 x10^3/uL (0.3-0.8); NEUTROPHILS # (AUTO) 27.8 x10^3/uL (2.2-4.8); NEUTROPHILS % (AUTO) 90.3 % (42.0-75.0); PLATELET COUNT 296 X10^3/uL (150.0-450.0); RED BLOOD COUNT 3.25 X10^6/uL (3.5-5.4); RED CELL DISTRIBUTION WIDTH 17.3 % (11.6-16.5)
[2024-02-05 06:37] LABS: WHITE BLOOD COUNT 30.8 X10^3/uL (3.6-10.0)
[2024-02-05 06:39] LABS: ALBUMIN 1.1 g/dL (3.4-5.0); CALCIUM 7.9 mg/dL (8.5-10.1); COR CA(FOR HYPOALB) 10.2 mg/dL (8.5-10.1); CREATININE 1.66 mg/dL (0.55-1.02); POTASSIUM 3.7 mmol/L (3.5-5.1)
[2024-02-05 06:58] LABS: ANISOCYTOSIS SLIGHT; BAND NEUTROPHILS % 9 % (0-10); PLATELET MORPHOLOGY COMMENT NORMAL (NORMAL)
[2024-02-05] MEDS: NS 1,000 ML IV 1,000 ML ONE ×2 (08:45)
[2024-02-05] MEDS: VANCOMYCIN HCL 250 MG CAP PO SCH (15:19)
--- NOTE | 2024-02-05 15:22 | CT ---
EXAM:ABDOMEN/PELVIS W/O CONHISTORY:C DIFF, LOOSE STOOL;COMPARISON:12/29/2023.TECHNIQUE:No nenhanced spiral CT imaging was performed through the abdomen and pelvis and axial, coronal, and sagittal CT images were generated.FINDINGS:There is bibasilar stranding suggestive of atelectasis. Heart size is normal. There is abnormal coarsening of the liver contour suggestive of cirrhosis. There is some enlargement of the left hepatic lobe. Gallbladder is normal. Pancreas is mildly atrophic. Spleen is normal in size. The adrenal glands are normal. There is mild renal cortical thinning but no renal mass, stone, or hydronephrosis. There is a small volume of ascites in the abdomen. The stomach is grossly unremarkable. There is no abnormal dilation of the small bowel. There is wall thickening in the colon suggestive of colitis. There is diverticulosis of the distal colon but no diverticulitis. There is induration of the fat surrounding the rectosigmoid. Urinary bladder wall is mildly thickened. Uterus is normal. There is no adnexal mass. There is [id number] systemic atherosclerosis. There is edema in the body wall. There are no worrisome bone marrow lesions. There is degeneration of the spine and in the hips.IMPRESSION:1. Cirrhosis of the liver with small volume ascites.2. Non-specific wall thickening of the colon compatible with colitis which can be infectious or autoimmune.3. Mild diverticulosis in the sigmoid colon without diverticulitis.THIS IS AN ELECTRONICALLY VERIFIED FINAL REPORT02/05/2024 3:19 PM - Electronically signed by Abhilash Drake MD
--- NOTE | 2024-02-05 18:00 | DR.H&P ---
H&P History & Physical for Day of: H&P Date: 02/05/24 Chief Complaint Chief Complaint: weakness, diarrhea and rectal pain History of Present Illness History of Present Illness: PT IS 73 WF, RESIDENT OF [facility], [place] AND WEAKNESS. PT HAS BEEN ON PO VANCOMYCIN FOR CDIFF. PT HAS BEEN ON OUTPT IV FLUIDS SINCE 01/02 WITHOUT IMPROVEMENT. PT HAS PMH OF HTN, GERD AND DIABETES. Past Medical History Past Medical History: Anxiety, Arthritis, CHF, Diabetes, Dyslipidemia, GERD and Hypertension Past Surgical History Surgical History: Ortho Surgery Family History Family Medical History: Cancer, Coronary Artery Disease and Hypertension Social History Does patient currently use any type of tobacco product: No Type of Tobacco Use: None Does any household member use tobacco: No Alcohol Use: None Drug Use: Prescription Drugs Medications Home Medications: Home Medications Medication Instructions Recorded Confirmed Type citalopram 20 mg tablet (Celexa) 20 mg PO HS 03/23/17 02/05/24 History gabapentin 100 mg capsule 100 mg PO Q8H PRN Pain 04/25/17 02/05/24 History simvastatin 10 mg tablet 10 mg PO HS 04/21/21 02/05/24 History allopurinol 100 mg tablet 100 mg PO DAILY 01/20/22 02/05/24 History diclofenac sodium 1 % topical gel 1 ea topical BID 01/20/22 02/05/24 History ergocalciferol (vitamin D2) 1,250 50,000 unit PO WEEKLY 01/20/22 02/05/24 History mcg (50,000 unit) capsule (Vitamin D2) insulin detemir U-100 100 unit/mL 14 unit subcut HS 01/20/22 02/05/24 History subcutaneous solution (Levemir U-100 Insulin) multivit-minerals no.73-iron 1 cap PO DAILY 01/20/22 02/05/24 History fumarate 106 mg-folic acid 1 mg capsule polyethylene glycol 3350 17 gram 17 g PO DAILY 01/20/22 02/05/24 History oral powder packet (Miralax) tramadol 50 mg tablet (Ultram) 50 mg PO Q8H 01/20/22 02/05/24 History artifi.tears(hypromellose)(PF) 0.3 1 drp ophthalmic (eye) BID PRN 11/30/23 02/05/24 History % eye drops clobetasol 0.05 % topical ointment 1 applic topical DAILY PRN Itching 11/30/23 02/05/24 History (Temovate) fluticasone propionate 50 1 spray intranasal BID 11/30/23 02/05/24 History mcg/actuation nasal spray,suspension linagliptin 5 mg tablet (Tradjenta) 5 mg PO DAILY 11/30/23 02/05/24 History lisinopril 5 mg tablet (Zestril) 5 mg PO BID 11/30/23 02/05/24 History omeprazole 20 mg capsule,delayed 20 mg PO BID 12/01/23 02/05/24 History release gentamicin 0.1 % topical cream 1 applic topical PRN PRN 12/29/23 02/05/24 History hydrocodone 5 mg-acetaminophen 325 1 tab PO Q6H 12/29/23 02/05/24 History mg tablet insulin regular human 100 unit/mL See Protocol subcut ACHS 12/29/23 02/05/24 History injection solution cartridge multivitamin 1 tab PO DAILY 12/29/23 02/05/24 History furosemide 40 mg tablet 40 mg PO QDAY 02/05/24 02/05/24 History potassium chloride 20 mEq 20 meq PO QDAY 02/05/24 02/05/24 History tablet,extended release Allergies Allergies Allergy/AdvReac Type Severity Reaction Status Date / Time Penicillins Allergy Mild hives Verified 12/18/23 13:44 black walnut Allergy Unknown Verified 12/18/23 13:44 walnut Allergy Verified 12/18/23 13:44 Labs 02/05/24 06:00 02/05/24 06:00 Labs: Laboratory WBC 30.8 X10^3/uL (3.6-10.0) H* 02/05/24 06:00 RBC 3.25 X10^6/uL (3.5-5.4) L 02/05/24 06:00 Hgb 9.4 g/dL (12.0-16.0) L 02/05/24 06:00 Hct 29.3 % (36.0-47.0) L 02/05/24 06:00 MCV 90.2 fL (80.0-100.0) 02/05/24 06:00 MCH 29.0 pg (27.0-34.0) 02/05/24 06:00 MCHC 32.1 g/dL (33.0-35.0) L 02/05/24 06:00 RDW 17.3 % (11.6-16.5) H 02/05/24 06:00 Plt Count 296 X10^3/uL (150.0-450.0) 02/05/24 06:00 Plt Count Comment Adequate (ADEQUATE) 02/05/24 06:00 MPV 8.8 fL (7.4-11.0) 02/05/24 06:00 Neut % (Auto) 90.3 % (42.0-75.0) H 02/05/24 06:00 Lymph % (Auto) 5.5 % (21.0-51.0) L 02/05/24 06:00 [place] % (Auto) 4.0 % (0.0-13.0) 02/05/24 06:00 Eos % (Auto) 0.0 % (0.9-2.9) L 02/05/24 06:00 Baso % (Auto) 0.2 % (0.2-1.0) 02/05/24 06:00 Neut # (Auto) 27.8 x10^3/uL (2.2-4.8) H 02/05/24 06:00 Lymph # (Auto) 1.7 X10^3/uL (1.3-2.9) 02/05/24 06:00 [place] # (Auto) 1.2 x10^3/uL (0.3-0.8) H 02/05/24 06:00 Eos # (Auto) 0.0 x10^3/uL (0.0-0.2) 02/05/24 06:00 Baso # (Auto) 0.1 X10^3/uL (0.0-0.1) 02/05/24 06:00 Absolute Nucleated RBC 0.0 /100WBC 02/05/24 06:00 Total Counted 100 02/05/24 06:00 Neutrophils % (Manual) 76 % (39-76) 02/05/24 06:00 Band Neutrophils % 9 % (0-10) 02/05/24 06:00 Lymphocytes % (Manual) 11 % (13-43) L 02/05/24 06:00 Monocytes % (Manual) 4 % (4-9) 02/05/24 06:00 Metamyelocytes % Not Reportable 02/04/24 17:41 Plt Morphology Comment Normal (NORMAL) 02/05/24 06:00 RBC Morphology Abnormal (NORMAL) A 02/05/24 06:00 Anisocytosis Slight A 02/05/24 06:00 Sodium 138 mmol/L (136-145) 02/05/24 06:00 Corrected Sodium 140 mmol/L (136-145) 02/05/24 06:00 Potassium 3.7 mmol/L (3.5-5.1) 02/05/24 06:00 Chloride 107 mmol/L (98-107) 02/05/24 06:00 Carbon Dioxide 21.0 mmol/L (21-32) 02/05/24 06:00 BUN 38 mg/dL (7-18) H 02/05/24 06:00 Creatinine 1.66 mg/dL (0.55-1.02) H 02/05/24 06:00 Est GFR (MDRD) Af Amer 39 (>60) L 02/05/24 06:00 Est GFR (MDRD) Non-Af 32 (>60) L 02/05/24 06:00 Glucose 188 mg/dL (65-99) H 02/05/24 06:00 POC Glucose (mg/dL) 199 mg/dL (65-99) H 02/05/24 16:36 Hemoglobin A1c 6.2 % 02/03/24 09:30 Uric Acid 7.5 mg/dL (2.6-6.0) H 02/03/24 09:30 Calcium 7.9 mg/dL (8.5-10.1) L 02/05/24 06:00 Corrected Calcium 10.2 mg/dL (8.5-10.1) H 02/05/24 06:00 Magnesium 2.7 mg/dL (2.0-2.9) 02/05/24 06:00 Total Bilirubin 0.20 mg/dL (0.2-1.0) 02/05/24 06:00 AST 18 Units/L (15-37) 02/05/24 06:00 ALT 8 Units/L (12-78) L 02/05/24 06:00 Alkaline Phosphatase 122 Units/L (46-116) H 02/05/24 06:00 Total Protein 5.0 g/dL (6.4-8.2) L 02/05/24 06:00 Albumin 1.1 g/dL (3.4-5.0) L 02/05/24 06:00 Globulin 3.9 g/dL (2.5-4.5) 02/05/24 06:00 Albumin/Globulin Ratio 0.3 Ratio (1.1-2.1) L 02/05/24 06:00 Stl C. diff Tox B Gene Positive (NEGATIVE) A 02/04/24 12:50 Stl C. diff [id number] Presumptive negative (NEGATIVE) 02/04/24 12:50 C. difficile Toxin A&B Positive (NEGATIVE) A 02/04/24 12:50 Review of Systems Constitutional: Weakness Eyes: No Symptoms Reported ENT: No Symptoms Reported Respiratory: Shortness of Breath Cardiovascular: No Symptoms Reported Gastrointestinal: Nausea, Abdominal Pain and Diarrhea Genitourinary: Frequency Musculoskeletal: Leg Pain Skin: Rash Neurological: Weakness Physical Exam Vital Signs: Vital Signs Temperature 97.9 F Pulse Rate [Left Brachial] 79 Respiratory Rate 18 Blood Pressure [Right Arm] 139/72 O2 Sat by Pulse Oximetry 97 Oriented: Normal Eyes: Normal Ear: Normal Nose: Normal Throat: Normal Respiratory: RLL Diminished and LLL Diminished Cardiovascular: Normal Auscultation: Bowel Sounds: Increased Palpation: Normal Tenderness: Normal Skin: Decreased [place], Rash (PERINEAL AREA) and Red Musculoskeletal: Back:Lumbar, Swelling and Tender Psychiatric: Anxiety Mood Description: Anxious Speech Pattern: Clear Assessment/Plan (1) Colitis: Narrative Support Text: ADMIT, IV HYDRATION CT ABD PELVIS RESTART HOME MEDICATIONS GI CONSULT AM LABS, BLOOD URINE AND STOOL CULTURES Status: Acute (2) C. difficile colitis: Status: Acute (3) Hypokalemia: Status: Acute (4) Acute renal failure: Status: Acute (5) Diabetes mellitus, type 2: Qualifiers: Diabetes mellitus complication status: with hyperglycemia Diabetes mellitus pillar worker insulin use: with nursing home use Qualified Code(s): E11.65 - Type 2 diabetes mellitus with hyperglycemia; Z79.4 - halfway (current) use of insulin Status: Chronic
[2024-02-05] MEDS: NovoLIN R (or HumuLIN R) SUBCUT PRN (20:46)
[2024-02-05 22:05] LABS: BILIRUBIN,URINE NEGATIVE (NEGATIVE); BLOOD/HEMOGLOBIN,URINE 2+ (NEGATIVE); GLUCOSE, URINE 2+ (NEGATIVE); KETONES,URINE NEGATIVE (NEGATIVE); LEUKOCYTE ESTERASE ,URINE 2+ (NEGATIVE); NITRITES,URINE NEGATIVE (NEGATIVE); PROTEIN,URINE 4+ (NEGATIVE); UROBILINOGEN,URINE NORMAL (NORMAL)
[2024-02-05 22:07] LABS: APPEARANCE,URINE HAZY (CLEAR); COLOR,URINE YELLOW (YELLOW)
[2024-02-05 22:12] LABS: BACTERIA,URINE 3+ /HPF (NEGATIVE); SQUAMOUS EPITHELIAL CELL,UR FEW /HPF (NEGATIVE)
[2024-02-06] MEDS: ULTRAM PO PRN (05:44)
[2024-02-06 06:15] LABS: BASOPHILS # (AUTO) 0.1 X10^3/uL (0.0-0.1); BASOPHILS % (AUTO) 0.3 % (0.2-1.0); EOSINOPHILS # (AUTO) 0.2 x10^3/uL (0.0-0.2); EOSINOPHILS % (AUTO) 0.5 % (0.9-2.9); HEMATOCRIT 28.3 % (36.0-47.0); HEMOGLOBIN 8.8 g/dL (12.0-16.0); LYMPHOCYTES # (AUTO) 2.2 X10^3/uL (1.3-2.9); LYMPHOCYTES % (AUTO) 7.2 % (21.0-51.0); MEAN CORPUSCULAR HEMOGLOBIN 28.4 pg (27.0-34.0); MEAN CORPUSCULAR HGB CONC 31.3 g/dL (33.0-35.0); MEAN CORPUSCULAR VOLUME 90.7 fL (80.0-100.0); MEAN PLATELET VOLUME 9.3 fL (7.4-11.0); MONOCYTES # (AUTO) 1.1 x10^3/uL (0.3-0.8); MONOCYTES % (AUTO) 3.5 % (0.0-13.0); NEUTROPHILS # (AUTO) 26.5 x10^3/uL (2.2-4.8); NEUTROPHILS % (AUTO) 88.5 % (42.0-75.0); PLATELET COUNT 295 X10^3/uL (150.0-450.0); RED BLOOD COUNT 3.12 X10^6/uL (3.5-5.4); RED CELL DISTRIBUTION WIDTH 17.5 % (11.6-16.5)
[2024-02-06 06:43] LABS: ALBUMIN 1.2 g/dL (3.4-5.0); ANISOCYTOSIS SLIGHT; BAND NEUTROPHILS % 14 % (0-10); CALCIUM 7.8 mg/dL (8.5-10.1); CARBON DIOXIDE 21.3 mmol/L (21-32); CREATININE 1.55 mg/dL (0.55-1.02); PLATELET MORPHOLOGY COMMENT NORMAL (NORMAL); POTASSIUM 3.4 mmol/L (3.5-5.1)
[2024-02-06] MEDS ORDERED: CONSULT PHARMACY - POTASSIUM & MAGNESIUM XX SCH ×2 (08:00→19:00)
--- NOTE | 2024-02-06 08:25 | RAD ---
EXAM:CHEST, 1 VIEWHISTORY:EPIG PAIN, DYSPHAGIA;COMPARISON:Chest x-ray 01/19/2024TECHNIQUE:One viewFINDINGS:Heart size is borderline. Lungs are hyperinflated. Minimal bibasilar infiltrates are noted. There is no pneumothorax. Hilar and mediastinal structures and bony structures are unchanged.IMPRESSION:Minimal bibasilar infiltrates. Follow-up recommended.THIS IS AN ELECTRONICALLY VERIFIED FINAL REPORT02/06/2024 8:21 AM - Electronically signed by Ravi Rosales MD
[2024-02-06] MEDS: K-DUR TAB 20 MEQ PO SCH (08:27)
[2024-02-06] MEDS: LOVENOX INJ 30 MG SYR SC SCH (08:53)
[2024-02-06] MEDS: ROCEPHIN VIAL 1 GRAM 1 G in NS 100 ML IV 100 ML IV SCH (13:06)
[2024-02-06] MEDS: FLAGYL TAB 500 MG PO SCH (13:06)
[2024-02-06 13:10] LABS: TOTAL PROTEIN 4.8 g/dL (6.4-8.2)
[2024-02-06] MEDS: NS 1,000 ML IV 1,000 ML IV SCH (13:44)
[2024-02-06] MEDS: SNACK - Diabetic Appropriate PO SCH (20:28)
[2024-02-07 06:08] LABS: BASOPHILS # (AUTO) 0.1 X10^3/uL (0.0-0.1); BASOPHILS % (AUTO) 0.3 % (0.2-1.0); EOSINOPHILS # (AUTO) 0.2 x10^3/uL (0.0-0.2); HEMATOCRIT 26.9 % (36.0-47.0); HEMOGLOBIN 8.6 g/dL (12.0-16.0); LYMPHOCYTES # (AUTO) 1.9 X10^3/uL (1.3-2.9); LYMPHOCYTES % (AUTO) 8.4 % (21.0-51.0); MEAN CORPUSCULAR HEMOGLOBIN 28.9 pg (27.0-34.0); MEAN CORPUSCULAR HGB CONC 32.1 g/dL (33.0-35.0); MEAN CORPUSCULAR VOLUME 90.2 fL (80.0-100.0); MEAN PLATELET VOLUME 8.4 fL (7.4-11.0); MONOCYTES # (AUTO) 0.8 x10^3/uL (0.3-0.8); MONOCYTES % (AUTO) 3.7 % (0.0-13.0); NEUTROPHILS # (AUTO) 19.2 x10^3/uL (2.2-4.8); NEUTROPHILS % (AUTO) 86.6 % (42.0-75.0); PLATELET COUNT 254 X10^3/uL (150.0-450.0); RED BLOOD COUNT 2.98 X10^6/uL (3.5-5.4); RED CELL DISTRIBUTION WIDTH 17.8 % (11.6-16.5); WHITE BLOOD COUNT 22.2 X10^3/uL (3.6-10.0)
[2024-02-07 06:27] LABS: ALANINE AMINOTRANSFERASE 10 Units/L (12-78); ALBUMIN 1.1 g/dL (3.4-5.0); ALKALINE PHOSPHATASE 95 Units/L (46-116); ASPARTATE AMINO TRANSFERASE 17 Units/L (15-37); BLOOD UREA NITROGEN 34 mg/dL (7-18); CALCIUM 7.6 mg/dL (8.5-10.1); CARBON DIOXIDE 21.9 mmol/L (21-32); CHLORIDE 108 mmol/L (98-107); COR CA(FOR HYPOALB) 9.9 mg/dL (8.5-10.1); CREATININE 1.42 mg/dL (0.55-1.02); GLUCOSE 108 mg/dL (65-99); POTASSIUM 3.4 mmol/L (3.5-5.1); SODIUM 138 mmol/L (136-145); TOTAL PROTEIN 4.6 g/dL (6.4-8.2); eGFR NON BLACK RACES 39 (>60)
[2024-02-07] MEDS ORDERED: CONSULT PHARMACY - POTASSIUM & MAGNESIUM XX SCH (07:00)
[2024-02-07 07:07] LABS: ANISOCYTOSIS SLIGHT; BAND NEUTROPHILS % 5 % (0-10); PLATELET MORPHOLOGY COMMENT NORMAL (NORMAL)
[2024-02-07] MEDS: K-DUR TAB 20 MEQ PO SCH (08:26)
[2024-02-07] MEDS: MICRO K EXTEN CAP 10 MEQ PO SCH (11:51)
[2024-02-07] MEDS ORDERED: BENZOCAINE MT PRN (12:13)
[2024-02-07 12:30] LABS: AMYLASE 20 Units/L (25-115); LIPASE 38 Units/L (16-77)
[2024-02-07] MEDS: PEPCID 20 MG VIAL IVP ONE (12:34)
[2024-02-07] MEDS: PROTONIX INJ 40 MG VIAL IVP SCH (12:34)
--- NOTE | 2024-02-07 13:34 | RAD ---
EXAM:CHEST, 1 VIEWHISTORY:hx chf; HTN, DM, CHF, ORTHO, CVACOMPARISON:Prior study or studies were utilized for comparison during interpretation with the most relevant dated 02/05/2024TECHNIQUE:CHEST, 1 VIEWFINDINGS:Chest:Lines and tubes: NoneMediastinum: Cardiac and mediastinal shadow is within normal limits for size and contour.Pulmonary vessels: No pulmonary vascular congestion.Lung paz: No suspicious airspace opacity.Pleura: No effusion. No pneumothorax.Bones and soft tissues: No acute osseous or soft tissue abnormality.IMPRESSION:1. No acute cardiopulmonary abnormalityTHIS IS AN ELECTRONICALLY VERIFIED FINAL REPORT02/07/2024 1:30 PM - Electronically signed by Andrew Ramírez MD
[2024-02-07 14:53] VITALS: BMI 30.9
[2024-02-07] MEDS: LASIX IVP SCH (16:34)
--- NOTE | 2024-02-07 17:37 | PCM.PROG ---
Progress Note Progress Note for Day of Date of Exam: 02/07/24 Subjective Subjective: Patient is a 73 year old white female who was a direct admit on 02/05/24 for complaints of ongoing diarrhea, weakness. She was hospitalized last month for treatment of colitis, cdiff and discharged on january 07 with orders for vancomycin and outpatient fluids. She had outpatient labs on 02/04/24 that revealed a wbc of 27.7, up from 13.7 on day of last discharge, and cdiff positive for active cdiff infection. Upon admission, we obtained a ct abdomen and pelvis that showed cirrhosis of the liver with small volume ascities, non specific wall thickening of the colon compatible with colitis, mild diverticulosis in the sigmoid colon without diverticulitis, a chest xray which showed minimal bibasilar infiltrates, and blood/urine cultures. Admission labs: wbc 30.8, hgb 9.4, bun 38/creatinine 1.66. We started the patient on flagyl, vancomycin, IV fluids, and resumed home medications. Urine culture preliminary results back yesterday morning and was positive for UTI- so we added rocephin. Urine culture finalized this morning with Klebsiella oxytoca sensitive to rocephin. Blood culture preliminaries are negative. We obtained a stool studies yesterday, which are showing negative on culture, positive on occult blood, negative on campy, wbc positive, cdiff tox b gene positive, cdiff tox a&b n egative. We have placed a GI consult and is pending at this time, planned for tomorrow morning with Dr. Chowdhury. Morning chest xray showed no acute cardiopulmonary process. Am labs: hgb 8.6, wbc 22.2, bun 34/creatinine 1.42. Past Medical Family Social History Allergies: Allergies Penicillins Allergy (Mild, Verified 12/18/23 13:44) hives black walnut Allergy (Unknown, Verified 12/18/23 13:44) Comments: all walnuts walnut Allergy (Verified 12/18/23 13:44) Vital Signs and I&O's Vital Signs: Vital Signs Temperature 97.4 F Temperature 97.5 F Pulse Rate [Left Brachial] 63 Pulse Rate [Left Brachial] 75 Respiratory Rate 18 Respiratory Rate 18 Respiratory Rate 18 Respiratory Rate 18 Blood Pressure [Right Arm] 171/75 Blood Pressure [Left Arm] 151/69 O2 Sat by Pulse Oximetry 96 O2 Sat by Pulse Oximetry 97 Intake and Output: Intake & Output 02/05/24 02/06/24 02/07/24 02/08/24 11:59 11:59 11:59 11:59 Intake Total 1001 / 1001 1155 / 1155 559 / 559 Balance 1001 / 1001 1155 / 1155 559 / 559 Physical Exam Oriented: Normal Eyes: Normal Ear: Normal Nose: Normal Throat: Normal Respiratory: Diminished Cardiovascular: Normal Auscultation: Bowel Sounds: Increased Tenderness: Normal Skin: Decreased Turgur, Rash (PERINEAL AREA) and Red Musculoskeletal: Back:Lumbar, Swelling and Tender Psychiatric: Anxiety Mood Description: Anxious Speech Pattern: Clear and Appropriate Laboratory and Diagnostics 02/07/24 05:50 02/07/24 05:50 Labs: 02/05/24 12:45 Blood Blood Culture - Preliminary 02/05/24 13:42 Blood Blood Culture - Preliminary 02/06/24 09:45 Stool Stool Culture - Preliminary 02/06/24 09:45 Stool - Final 02/05/24 21:50 Urine,Clean Catch Urine Culture - Final Klebsiella Oxytoca Laboratory WBC 22.2 X10^3/uL (3.6-10.0) H 02/07/24 05:50 RBC 2.98 X10^6/uL (3.5-5.4) L 02/07/24 05:50 Hgb 8.6 g/dL (12.0-16.0) L 02/07/24 05:50 Hct 26.9 % (36.0-47.0) L 02/07/24 05:50 MCV 90.2 fL (80.0-100.0) 02/07/24 05:50 MCH 28.9 pg (27.0-34.0) 02/07/24 05:50 MCHC 32.1 g/dL (33.0-35.0) L 02/07/24 05:50 RDW 17.8 % (11.6-16.5) H 02/07/24 05:50 Plt Count 254 X10^3/uL (150.0-450.0) 02/07/24 05:50 Plt Count Comment Adequate (ADEQUATE) 02/07/24 05:50 MPV 8.4 fL (7.4-11.0) 02/07/24 05:50 Neut % (Auto) 86.6 % (42.0-75.0) H 02/07/24 05:50 Lymph % (Auto) 8.4 % (21.0-51.0) L 02/07/24 05:50 [place] % (Auto) 3.7 % (0.0-13.0) 02/07/24 05:50 Eos % (Auto) 1.0 % (0.9-2.9) 02/07/24 05:50 Baso % (Auto) 0.3 % (0.2-1.0) 02/07/24 05:50 Neut # (Auto) 19.2 x10^3/uL (2.2-4.8) H 02/07/24 05:50 Lymph # (Auto) 1.9 X10^3/uL (1.3-2.9) 02/07/24 05:50 [place] # (Auto) 0.8 x10^3/uL (0.3-0.8) 02/07/24 05:50 Eos # (Auto) 0.2 x10^3/uL (0.0-0.2) 02/07/24 05:50 Baso # (Auto) 0.1 X10^3/uL (0.0-0.1) 02/07/24 05:50 Absolute Nucleated RBC 0.0 /100WBC 02/07/24 05:50 Total Counted 100 02/07/24 05:50 Neutrophils % (Manual) 83 % (39-76) H 02/07/24 05:50 Band Neutrophils % 5 % (0-10) 02/07/24 05:50 Lymphocytes % (Manual) 7 % (13-43) L 02/07/24 05:50 Monocytes % (Manual) 5 % (4-9) 02/07/24 05:50 Metamyelocytes % Not Reportable 02/04/24 17:41 Plt Morphology Comment Normal (NORMAL) 02/07/24 05:50 RBC Morphology Abnormal (NORMAL) A 02/07/24 05:50 Anisocytosis Slight A 02/07/24 05:50 Sodium 138 mmol/L (136-145) 02/07/24 05:50 Corrected Sodium TNP 02/07/24 05:50 Potassium 3.4 mmol/L (3.5-5.1) L 02/07/24 05:50 Chloride 108 mmol/L (98-107) H 02/07/24 05:50 Carbon Dioxide 21.9 mmol/L (21-32) 02/07/24 05:50 BUN 34 mg/dL (7-18) H 02/07/24 05:50 Creatinine 1.42 mg/dL (0.55-1.02) H 02/07/24 05:50 Est GFR (MDRD) Af Amer 47 (>60) L 02/07/24 05:50 Est GFR (MDRD) Non-Af 39 (>60) L 02/07/24 05:50 Glucose 108 mg/dL (65-99) H 02/07/24 05:50 POC Glucose (mg/dL) 148 mg/dL (65-99) H 02/07/24 16:16 Hemoglobin A1c 6.2 % 02/03/24 09:30 Uric Acid 7.5 mg/dL (2.6-6.0) H 02/03/24 09:30 Calcium 7.6 mg/dL (8.5-10.1) L 02/07/24 05:50 Corrected Calcium 9.9 mg/dL (8.5-10.1) 02/07/24 05:50 Magnesium 2.5 mg/dL (2.0-2.9) 02/06/24 05:10 Total Bilirubin 0.10 mg/dL (0.2-1.0) L 02/07/24 05:50 AST 17 Units/L (15-37) 02/07/24 05:50 ALT 10 Units/L (12-78) L 02/07/24 05:50 Alkaline Phosphatase 95 Units/L (46-116) 02/07/24 05:50 Total Protein 4.6 g/dL (6.4-8.2) L 02/07/24 05:50 Albumin 1.1 g/dL (3.4-5.0) L 02/07/24 05:50 Globulin 3.5 g/dL (2.5-4.5) 02/07/24 05:50 Albumin/Globulin Ratio 0.3 Ratio (1.1-2.1) L 02/07/24 05:50 Amylase 20 Units/L (25-115) L 02/07/24 05:53 Lipase 38 Units/L (16-77) 02/07/24 05:53 Specimen Type Clean catch urine 02/05/24 21:50 Urine Color Yellow (YELLOW) 02/05/24 21:50 Urine Appearance Hazy (CLEAR) 02/05/24 21:50 Urine pH 6.0 (5.0 - 8.0) 02/05/24 21:50 Ur Specific [place] 1.015 (1.000-1.030) 02/05/24 21:50 Urine Protein 4+ (NEGATIVE) 02/05/24 21:50 Urine Glucose (UA) 2+ (NEGATIVE) 02/05/24 21:50 Urine Ketones Negative (NEGATIVE) 02/05/24 21:50 Urine Blood 2+ (NEGATIVE) 02/05/24 21:50 Urine Nitrite Negative (NEGATIVE) 02/05/24 21:50 Urine Bilirubin Negative (NEGATIVE) 02/05/24 21:50 Urine Urobilinogen Normal (NORMAL) 02/05/24 21:50 Ur Leukocyte Esterase 2+ (NEGATIVE) 02/05/24 21:50 Urine RBC 5-10 /HPF (0-3) A 02/05/24 21:50 Urine WBC 20-30 /HPF (0-5) A 02/05/24 21:50 Ur Squamous Epith Cells Few /HPF (NEGATIVE) 02/05/24 21:50 Urine Bacteria 3+ /HPF (NEGATIVE) 02/05/24 21:50 Ur Culture Indicated? Yes/culture set up 02/05/24 21:50 Stool Occult Blood Positive (NEGATIVE) A 02/06/24 09:45 Stool for White Cells Positive (NEGATIVE) A 02/06/24 09:45 Stl C. diff Tox B Gene Positive (NEGATIVE) A 02/06/24 09:45 Stl C. diff [id number] Presumptive negative (NEGATIVE) 02/06/24 09:45 C. difficile Toxin A&B Negative (NEGATIVE) 02/06/24 09:45 Plan (1) Colitis: Status: Acute Plan: Start lasix 20 BID x2 doses and GB ultrasound. Continue IV hydration, IV vancomycin, PO flagyl, IV rocephin. (2) C. 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
--- NOTE | 2024-02-07 17:37 | PCM.PROG ---
Progress Note Progress Note for Day of Date of Exam: 02/06/24 Subjective Subjective: Patient is a 73 year old white female who was a direct admit yesterday for complaints of ongoing diarrhea, weakness. She was hospitalized last month for treatment of colitis, cdiff and discharged on january 07 with orders for vancomycin and outpatient fluids. She had outpatient labs on 02/04/24 that revealed a wbc of 27.7, up from 13.7 on day of last discharge, and cdiff positive for active cdiff infection. Upon admission, we obtained a ct abdomen and pelvis that showed cirrhosis of the liver with small volume ascities, non specific wall thickening of the colon compatible with colitis, mild diverticulosis in the sigmoid colon without diverticulitis, a chest xray which showed minimal bibasilar infiltrates, and blood/urine cultures. Urine culture preliminary results back this morning and positive for UTI. Admission labs: wbc 30.8, hgb 9.4, bun 38/creatinine 1.66. We started the patient on flagyl, vancomycin, IV fluids, and resumed home medications. We have ordered GI consult- pending eval. Morning labs: wbc 30.0, hgb 8.8, bun 38/creatinine 1.55. Past Medical Family Social History Allergies: Allergies Penicillins Allergy (Mild, Verified 12/18/23 13:44) hives black walnut Allergy (Unknown, Verified 12/18/23 13:44) Comments: all walnuts walnut Allergy (Verified 12/18/23 13:44) Vital Signs and I&O's Vital Signs: Vital Signs Temperature 97 F Temperature 98.0 F Pulse Rate [Left Brachial] 80 Pulse Rate [Left Brachial] 81 Respiratory Rate 20 Respiratory Rate 15 Respiratory Rate 20 Blood Pressure [Right Arm] 135/60 Blood Pressure [Right Arm] 140/59 O2 Sat by Pulse Oximetry 98 O2 Sat by Pulse Oximetry 96 Intake and Output: Intake & Output 02/04/24 02/05/24 02/06/24 02/07/24 11:59 11:59 11:59 11:59 Intake Total 480 / 480 1001 / 1001 Balance 480 / 480 1001 / 1001 Physical Exam Oriented: Normal Eyes: Normal Ear: Normal Nose: Normal Throat: Normal Respiratory: Diminished Cardiovascular: Normal Auscultation: Bowel Sounds: Increased Tenderness: Normal Skin: Decreased Turgur, Rash (PERINEAL AREA) and Red Musculoskeletal: Back:Lumbar, Swelling and Tender Psychiatric: Anxiety Mood Description: Anxious Speech Pattern: Clear and Appropriate Laboratory and Diagnostics 02/07/24 05:50 02/07/24 05:50 Labs: 02/06/24 09:45 Stool - Final 02/05/24 21:50 Urine,Clean Catch Urine Culture - Preliminary Laboratory WBC 30.0 X10^3/uL (3.6-10.0) H 02/06/24 05:10 RBC 3.12 X10^6/uL (3.5-5.4) L 02/06/24 05:10 Hgb 8.8 g/dL (12.0-16.0) L 02/06/24 05:10 Hct 28.3 % (36.0-47.0) L 02/06/24 05:10 MCV 90.7 fL (80.0-100.0) 02/06/24 05:10 MCH 28.4 pg (27.0-34.0) 02/06/24 05:10 MCHC 31.3 g/dL (33.0-35.0) L 02/06/24 05:10 RDW 17.5 % (11.6-16.5) H 02/06/24 05:10 Plt Count 295 X10^3/uL (150.0-450.0) 02/06/24 05:10 Plt Count Comment Adequate (ADEQUATE) 02/06/24 05:10 MPV 9.3 fL (7.4-11.0) 02/06/24 05:10 Neut % (Auto) 88.5 % (42.0-75.0) H 02/06/24 05:10 Lymph % (Auto) 7.2 % (21.0-51.0) L 02/06/24 05:10 [place] % (Auto) 3.5 % (0.0-13.0) 02/06/24 05:10 Eos % (Auto) 0.5 % (0.9-2.9) L 02/06/24 05:10 Baso % (Auto) 0.3 % (0.2-1.0) 02/06/24 05:10 Neut # (Auto) 26.5 x10^3/uL (2.2-4.8) H 02/06/24 05:10 Lymph # (Auto) 2.2 X10^3/uL (1.3-2.9) 02/06/24 05:10 [place] # (Auto) 1.1 x10^3/uL (0.3-0.8) H 02/06/24 05:10 Eos # (Auto) 0.2 x10^3/uL (0.0-0.2) 02/06/24 05:10 Baso # (Auto) 0.1 X10^3/uL (0.0-0.1) 02/06/24 05:10 Absolute Nucleated RBC 0.0 /100WBC 02/06/24 05:10 Total Counted 100 02/06/24 05:10 Neutrophils % (Manual) 78 % (39-76) H 02/06/24 05:10 Band Neutrophils % 14 % (0-10) H 02/06/24 05:10 Lymphocytes % (Manual) 6 % (13-43) L 02/06/24 05:10 Monocytes % (Manual) 2 % (4-9) L 02/06/24 05:10 Metamyelocytes % Not Reportable 02/04/24 17:41 Plt Morphology Comment Normal (NORMAL) 02/06/24 05:10 RBC Morphology Abnormal (NORMAL) A 02/06/24 05:10 Anisocytosis Slight A 02/06/24 05:10 Sodium 137 mmol/L (136-145) 02/06/24 05:10 Corrected Sodium 138 mmol/L (136-145) 02/06/24 05:10 Potassium 3.4 mmol/L (3.5-5.1) L 02/06/24 05:10 Chloride 106 mmol/L (98-107) 02/06/24 05:10 Carbon Dioxide 21.3 mmol/L (21-32) 02/06/24 05:10 BUN 38 mg/dL (7-18) H 02/06/24 05:10 Creatinine 1.55 mg/dL (0.55-1.02) H 02/06/24 05:10 Est GFR (MDRD) Af Amer 42 (>60) L 02/06/24 05:10 Est GFR (MDRD) Non-Af 35 (>60) L 02/06/24 05:10 Glucose 134 mg/dL (65-99) H 02/06/24 05:10 POC Glucose (mg/dL) 232 mg/dL (65-99) H 02/06/24 10:59 Hemoglobin A1c 6.2 % 02/03/24 09:30 Uric Acid 7.5 mg/dL (2.6-6.0) H 02/03/24 09:30 Calcium 7.8 mg/dL (8.5-10.1) L 02/06/24 05:10 Corrected Calcium 10.0 mg/dL (8.5-10.1) 02/06/24 05:10 Magnesium 2.7 mg/dL (2.0-2.9) 02/05/24 06:00 Total Bilirubin 0.10 mg/dL (0.2-1.0) L 02/06/24 05:10 AST 15 Units/L (15-37) 02/06/24 05:10 ALT 10 Units/L (12-78) L 02/06/24 05:10 Alkaline Phosphatase 115 Units/L (46-116) 02/06/24 05:10 Total Protein 4.8 g/dL (6.4-8.2) L 02/06/24 05:10 Albumin 1.2 g/dL (3.4-5.0) L 02/06/24 05:10 Globulin 3.6 g/dL (2.5-4.5) 02/06/24 05:10 Albumin/Globulin Ratio 0.3 Ratio (1.1-2.1) L 02/06/24 05:10 Specimen Type Clean catch urine 02/05/24 21:50 Urine Color Yellow (YELLOW) 02/05/24 21:50 Urine Appearance Hazy (CLEAR) 02/05/24 21:50 Urine pH 6.0 (5.0 - 8.0) 02/05/24 21:50 Ur Specific [place] 1.015 (1.000-1.030) 02/05/24 21:50 Urine Protein 4+ (NEGATIVE) 02/05/24 21:50 Urine Glucose (UA) 2+ (NEGATIVE) 02/05/24 21:50 Urine Ketones Negative (NEGATIVE) 02/05/24 21:50 Urine Blood 2+ (NEGATIVE) 02/05/24 21:50 Urine Nitrite Negative (NEGATIVE) 02/05/24 21:50 Urine Bilirubin Negative (NEGATIVE) 02/05/24 21:50 Urine Urobilinogen Normal (NORMAL) 02/05/24 21:50 Ur Leukocyte Esterase 2+ (NEGATIVE) 02/05/24 21:50 Urine RBC 5-10 /HPF (0-3) A 02/05/24 21:50 Urine WBC 20-30 /HPF (0-5) A 02/05/24 21:50 Ur Squamous Epith Cells Few /HPF (NEGATIVE) 02/05/24 21:50 Urine Bacteria 3+ /HPF (NEGATIVE) 02/05/24 21:50 Ur Culture Indicated? Yes/culture set up 02/05/24 21:50 Stool Occult Blood Positive (NEGATIVE) A 02/06/24 09:45 Stool for White Cells Positive (NEGATIVE) A 02/06/24 09:45 Stl C. diff Tox B Gene Positive (NEGATIVE) A 02/06/24 09:45 Stl C. diff [id number] Presumptive negative (NEGATIVE) 02/06/24 09:45 C. difficile Toxin A&B Negative (NEGATIVE) 02/06/24 09:45 Plan (1) Colitis: Status: Acute Plan: Obtain stool culture, start rocephin. Continue IV hydration, IV vancomycin, PO flagyl. (2) C. 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
[2024-02-08 06:40] LABS: BASOPHILS # (AUTO) 0.1 X10^3/uL (0.0-0.1); BASOPHILS % (AUTO) 0.3 % (0.2-1.0); EOSINOPHILS # (AUTO) 0.1 x10^3/uL (0.0-0.2); EOSINOPHILS % (AUTO) 0.3 % (0.9-2.9); HEMATOCRIT 28.8 % (36.0-47.0); HEMOGLOBIN 9.1 g/dL (12.0-16.0); LYMPHOCYTES # (AUTO) 2.2 X10^3/uL (1.3-2.9); LYMPHOCYTES % (AUTO) 9.8 % (21.0-51.0); MEAN CORPUSCULAR HEMOGLOBIN 28.5 pg (27.0-34.0); MEAN CORPUSCULAR HGB CONC 31.5 g/dL (33.0-35.0); MEAN CORPUSCULAR VOLUME 90.3 fL (80.0-100.0); MEAN PLATELET VOLUME 8.6 fL (7.4-11.0); MONOCYTES # (AUTO) 0.7 x10^3/uL (0.3-0.8); MONOCYTES % (AUTO) 3.1 % (0.0-13.0); NEUTROPHILS # (AUTO) 19.7 x10^3/uL (2.2-4.8); NEUTROPHILS % (AUTO) 86.5 % (42.0-75.0); PLATELET COUNT 315 X10^3/uL (150.0-450.0); RED BLOOD COUNT 3.18 X10^6/uL (3.5-5.4); RED CELL DISTRIBUTION WIDTH 17.9 % (11.6-16.5); WHITE BLOOD COUNT 22.8 X10^3/uL (3.6-10.0)
[2024-02-08 07:03] LABS: ALBUMIN 1.3 g/dL (3.4-5.0); CALCIUM 7.7 mg/dL (8.5-10.1); CARBON DIOXIDE 20.6 mmol/L (21-32); COR CA(FOR HYPOALB) 9.9 mg/dL (8.5-10.1); CREATININE 1.21 mg/dL (0.55-1.02); POTASSIUM 3.2 mmol/L (3.5-5.1); TOTAL PROTEIN 4.6 g/dL (6.4-8.2)
[2024-02-08 07:20] LABS: ANISOCYTOSIS SLIGHT; BAND NEUTROPHILS % 5 % (0-10); PLATELET MORPHOLOGY COMMENT NORMAL (NORMAL)
[2024-02-08] MEDS: VSL#3 PROBIOTIC CAP 112.5 B PO SCH (12:46)
[2024-02-08] MEDS ORDERED: REGLAN INJ 10 MG VIAL IVP PRN (13:25)
--- NOTE | 2024-02-08 13:34 | US ---
EXAM:GALL BLADDERHISTORY:Abdominal Pain; ABD PAIN, LOOSE STOOL, C DIFF, DEHYDRATION, NO PRIOR SURGERIESCOMPARISON:None.TECHNIQUE:Real- time grayscale, color flow, duplex Doppler spectral analysis right upper abdomenFINDINGS:Mild amount of ascites seen along the liver.The liver is enlarged measuring 18 cm longitudinal oblique dimension and has a normal echotexture. The imaged hepatic veins are patent on the color flow images. Normal venous waveforms main portal vein. Normal arterial waveforms main hepatic artery.The gallbladder is mildly distended. The carter are slightly thickened measuring 3 mm diameter. No gallstones or biliary sludge. Common bile duct measures 3 mm diameter. No intrahepatic bile duct dilatation. No pancreatic duct dilatation.IMPRESSION:Mild amount of ascites collecting along the liver.No gallstones identified. Slight diffuse thickening of the carter of the gallbladder.THIS IS AN ELECTRONICALLY VERIFIED FINAL REPORT02/08/2024 1:19 PM - Electronically signed by Soni Melgoza MD
[2024-02-08 14:23] LABS: IRON 25 ug/dL (50-175)
[2024-02-08] MEDS: FLAGYL IV PREMIX 500 MG BAG 500 MG/100 ML BAG IV SCH (15:13)
--- NOTE | 2024-02-08 18:07 | PCM.PROG ---
Progress Note Progress Note for Day of Date of Exam: 02/08/24 Subjective Subjective: Patient is a 73 year old white female who was a direct admit on 02/05/24 for complaints of ongoing diarrhea, weakness. She was hospitalized last month for treatment of colitis, cdiff and discharged on january 07 with orders for vancomycin and outpatient fluids. She had outpatient labs on 02/04/24 that revealed a wbc of 27.7, up from 13.7 on day of last discharge, and cdiff positive for active cdiff infection. Upon admission, we obtained a ct abdomen and pelvis that showed cirrhosis of the liver with small volume ascities, non specific wall thickening of the colon compatible with colitis, mild diverticulosis in the sigmoid colon without diverticulitis, a chest xray which showed minimal bibasilar infiltrates, and blood/urine cultures. Admission labs: wbc 30.8, hgb 9.4, bun 38/creatinine 1.66. We started the patient on flagyl, vancomycin, IV fluids, and resumed home medications. Urine culture preliminary results back yesterday morning and was positive for UTI- so we added rocephin. Urine culture finalized this morning with Klebsiella oxytoca sensitive to rocephin. Blood culture preliminaries are negative. We obtained a stool studies yesterday, which are showing negative on culture, positive on occult blood, negative on campy, wbc positive, cdiff tox b gene positive, cdiff tox a&b n egative. We have placed a GI consult and is pending at this time, planned for tomorrow morning with Dr. Chowdhury. Morning chest xray showed no acute cardiopulmonary process. Am labs: hgb 9.1, wbc 22.8, bun 29/creatinine 1.21 Past Medical Family Social History Allergies: Allergies Penicillins Allergy (Mild, Verified 12/18/23 13:44) hives black walnut Allergy (Unknown, Verified 12/18/23 13:44) Comments: all walnuts walnut Allergy (Verified 12/18/23 13:44) Vital Signs and I&O's Vital Signs: Vital Signs Temperature 97.5 F Pulse Rate [Left Brachial] 92 Respiratory Rate 20 Respiratory Rate 18 Blood Pressure [Right Arm] 176/82 O2 Sat by Pulse Oximetry 98 Intake and Output: Intake & Output 02/06/24 02/07/24 02/08/24 02/09/24 11:59 11:59 11:59 11:59 Intake Total 1001 / 1001 1155 / 1155 1449 / 1449 620 / 620 Balance 1001 / 1001 1155 / 1155 1449 / 1449 620 / 620 Physical Exam Oriented: Normal Eyes: Normal Ear: Normal Nose: Normal Throat: Normal Respiratory: Diminished Cardiovascular: Normal Auscultation: Bowel Sounds: Increased Tenderness: Normal Skin: Decreased Turgur, Rash (PERINEAL AREA) and Red Musculoskeletal: Back:Lumbar, Swelling and Tender Psychiatric: Anxiety Mood Description: Anxious Speech Pattern: Clear and Appropriate Laboratory and Diagnostics 02/08/24 06:05 02/08/24 06:05 Labs: 02/06/24 09:45 Stool Stool Culture - Final 02/06/24 09:45 Stool - Final 02/05/24 12:45 Blood Blood Culture - Preliminary 02/05/24 13:42 Blood Blood Culture - Preliminary 02/05/24 21:50 Urine,Clean Catch Urine Culture - Final Klebsiella Oxytoca Laboratory WBC 22.8 X10^3/uL (3.6-10.0) H 02/08/24 06:05 RBC 3.18 X10^6/uL (3.5-5.4) L 02/08/24 06:05 Hgb 9.1 g/dL (12.0-16.0) L 02/08/24 06:05 Hct 28.8 % (36.0-47.0) L 02/08/24 06:05 MCV 90.3 fL (80.0-100.0) 02/08/24 06:05 MCH 28.5 pg (27.0-34.0) 02/08/24 06:05 MCHC 31.5 g/dL (33.0-35.0) L 02/08/24 06:05 RDW 17.9 % (11.6-16.5) H 02/08/24 06:05 Plt Count 315 X10^3/uL (150.0-450.0) 02/08/24 06:05 Plt Count Comment Adequate (ADEQUATE) 02/08/24 06:05 MPV 8.6 fL (7.4-11.0) 02/08/24 06:05 Neut % (Auto) 86.5 % (42.0-75.0) H 02/08/24 06:05 Lymph % (Auto) 9.8 % (21.0-51.0) L 02/08/24 06:05 [place] % (Auto) 3.1 % (0.0-13.0) 02/08/24 06:05 Eos % (Auto) 0.3 % (0.9-2.9) L 02/08/24 06:05 Baso % (Auto) 0.3 % (0.2-1.0) 02/08/24 06:05 Neut # (Auto) 19.7 x10^3/uL (2.2-4.8) H 02/08/24 06:05 Lymph # (Auto) 2.2 X10^3/uL (1.3-2.9) 02/08/24 06:05 [place] # (Auto) 0.7 x10^3/uL (0.3-0.8) 02/08/24 06:05 Eos # (Auto) 0.1 x10^3/uL (0.0-0.2) 02/08/24 06:05 Baso # (Auto) 0.1 X10^3/uL (0.0-0.1) 02/08/24 06:05 Absolute Nucleated RBC 0.0 /100WBC 02/08/24 06:05 Total Counted 100 02/08/24 06:05 Neutrophils % (Manual) 82 % (39-76) H 02/08/24 06:05 Band Neutrophils % 5 % (0-10) 02/08/24 06:05 Lymphocytes % (Manual) 10 % (13-43) L 02/08/24 06:05 Monocytes % (Manual) 3 % (4-9) L 02/08/24 06:05 Metamyelocytes % Not Reportable 02/04/24 17:41 Plt Morphology Comment Normal (NORMAL) 02/08/24 06:05 RBC Morphology Abnormal (NORMAL) A 02/08/24 06:05 Anisocytosis Slight A 02/08/24 06:05 Sodium 139 mmol/L (136-145) 02/08/24 06:05 Corrected Sodium 140 mmol/L (136-145) 02/08/24 06:05 Potassium 3.2 mmol/L (3.5-5.1) L 02/08/24 06:05 Chloride 108 mmol/L (98-107) H 02/08/24 06:05 Carbon Dioxide 20.6 mmol/L (21-32) L 02/08/24 06:05 BUN 29 mg/dL (7-18) H 02/08/24 06:05 Creatinine 1.21 mg/dL (0.55-1.02) H 02/08/24 06:05 Est GFR (MDRD) Af Amer 56 (>60) L 02/08/24 06:05 Est GFR (MDRD) Non-Af 47 (>60) L 02/08/24 06:05 Glucose 140 mg/dL (65-99) H 02/08/24 06:05 POC Glucose (mg/dL) 193 mg/dL (65-99) H 02/08/24 16:42 Hemoglobin A1c 6.2 % 02/03/24 09:30 Uric Acid 7.5 mg/dL (2.6-6.0) H 02/03/24 09:30 Calcium 7.7 mg/dL (8.5-10.1) L 02/08/24 06:05 Corrected Calcium 9.9 mg/dL (8.5-10.1) 02/08/24 06:05 Magnesium 2.5 mg/dL (2.0-2.9) 02/06/24 05:10 Iron 25 ug/dL (50-175) L 02/08/24 06:05 Ferritin 2003 ng/mL (8-252) H 02/08/24 06:05 Total Bilirubin 0.10 mg/dL (0.2-1.0) L 02/08/24 06:05 AST 13 Units/L (15-37) L 02/08/24 06:05 ALT 11 Units/L (12-78) L 02/08/24 06:05 Alkaline Phosphatase 91 Units/L (46-116) 02/08/24 06:05 Total Protein 4.6 g/dL (6.4-8.2) L 02/08/24 06:05 Albumin 1.3 g/dL (3.4-5.0) L 02/08/24 06:05 Globulin 3.3 g/dL (2.5-4.5) 02/08/24 06:05 Albumin/Globulin Ratio 0.4 Ratio (1.1-2.1) L 02/08/24 06:05 Amylase 20 Units/L (25-115) L 02/07/24 05:53 Lipase 38 Units/L (16-77) 02/07/24 05:53 Specimen Type Clean catch urine 02/05/24 21:50 Urine Color Yellow (YELLOW) 02/05/24 21:50 Urine Appearance Hazy (CLEAR) 02/05/24 21:50 Urine pH 6.0 (5.0 - 8.0) 02/05/24 21:50 Ur Specific [place] 1.015 (1.000-1.030) 02/05/24 21:50 Urine Protein 4+ (NEGATIVE) 02/05/24 21:50 Urine Glucose (UA) 2+ (NEGATIVE) 02/05/24 21:50 Urine Ketones Negative (NEGATIVE) 02/05/24 21:50 Urine Blood 2+ (NEGATIVE) 02/05/24 21:50 Urine Nitrite Negative (NEGATIVE) 02/05/24 21:50 Urine Bilirubin Negative (NEGATIVE) 02/05/24 21:50 Urine Urobilinogen Normal (NORMAL) 02/05/24 21:50 Ur Leukocyte Esterase 2+ (NEGATIVE) 02/05/24 21:50 Urine RBC 5-10 /HPF (0-3) A 02/05/24 21:50 Urine WBC 20-30 /HPF (0-5) A 02/05/24 21:50 Ur Squamous Epith Cells Few /HPF (NEGATIVE) 02/05/24 21:50 Urine Bacteria 3+ /HPF (NEGATIVE) 02/05/24 21:50 Ur Culture Indicated? Yes/culture set up 02/05/24 21:50 Stool Occult Blood Positive (NEGATIVE) A 02/06/24 09:45 Stool for White Cells Positive (NEGATIVE) A 02/06/24 09:45 Stl C. diff Tox B Gene Positive (NEGATIVE) A 02/06/24 09:45 Stl C. diff [id number] Presumptive negative (NEGATIVE) 02/06/24 09:45 C. difficile Toxin A&B Negative (NEGATIVE) 02/06/24 09:45 Plan (1) Colitis: Status: Acute Plan: GB ultrasound. Continue IV hydration, IV vancomycin, PO flagyl, IV rocephin. (2) C. difficile colitis: Status: Acute (3) Hypokalemia: Status: Acute (4) Acute renal failure: Status: Acute (5) Diabetes mellitus, type 2: Status: Chronic Qualifiers: Diabetes mellitus complication status: with hyperglycemia Diabetes mellitus [facility] insulin use: with watermaster use Qualified Code(s): E11.65 - Type 2 diabetes mellitus with hyperglycemia; Z79.4 - longterm (current) use of insulin
[2024-02-08] MEDS ORDERED: K-RIDER 10 MEQ/100 ML WATER 10 MEQ/100 ML BAG IV SCH ×2 (20:00→23:00)
[2024-02-08] MEDS ORDERED: CONSULT PHARMACY - POTASSIUM & MAGNESIUM XX SCH (20:00)
[2024-02-08] MEDS: K-DUR TAB 20 MEQ PO SCH (20:09)
[2024-02-09 06:28] LABS: BASOPHILS % (AUTO) 0.1 % (0.2-1.0); EOSINOPHILS # (AUTO) 0.2 x10^3/uL (0.0-0.2); EOSINOPHILS % (AUTO) 0.8 % (0.9-2.9); HEMATOCRIT 29.5 % (36.0-47.0); HEMOGLOBIN 9.5 g/dL (12.0-16.0); LYMPHOCYTES % (AUTO) 9.7 % (21.0-51.0); MEAN CORPUSCULAR HEMOGLOBIN 28.8 pg (27.0-34.0); MEAN CORPUSCULAR HGB CONC 32.2 g/dL (33.0-35.0); MEAN CORPUSCULAR VOLUME 89.4 fL (80.0-100.0); MEAN PLATELET VOLUME 8.6 fL (7.4-11.0); MONOCYTES # (AUTO) 0.7 x10^3/uL (0.3-0.8); MONOCYTES % (AUTO) 3.3 % (0.0-13.0); NEUTROPHILS % (AUTO) 86.1 % (42.0-75.0); PLATELET COUNT 320 X10^3/uL (150.0-450.0); RED CELL DISTRIBUTION WIDTH 18.1 % (11.6-16.5); WHITE BLOOD COUNT 20.9 X10^3/uL (3.6-10.0)
[2024-02-09 06:53] LABS: ALANINE AMINOTRANSFERASE 10 Units/L (12-78); ALBUMIN 1.4 g/dL (3.4-5.0); ALKALINE PHOSPHATASE 86 Units/L (46-116); ASPARTATE AMINO TRANSFERASE 15 Units/L (15-37); BLOOD UREA NITROGEN 21 mg/dL (7-18); CALCIUM 7.6 mg/dL (8.5-10.1); CARBON DIOXIDE 20.9 mmol/L (21-32); CHLORIDE 108 mmol/L (98-107); COR CA(FOR HYPOALB) 9.7 mg/dL (8.5-10.1); COR NA(FOR HYPERGLY) 141 mmol/L (136-145); CREATININE 1.11 mg/dL (0.55-1.02); GLUCOSE 117 mg/dL (65-99); POTASSIUM 3.2 mmol/L (3.5-5.1); SODIUM 141 mmol/L (136-145); TOTAL PROTEIN 4.6 g/dL (6.4-8.2); eGFR NON BLACK RACES 52 (>60)
[2024-02-09] MEDS: LASIX IVP ONE (09:02)
[2024-02-10] MEDS ORDERED: CONSULT PHARMACY - POTASSIUM & MAGNESIUM XX SCH (06:00)
[2024-02-10 06:42] LABS: BASOPHILS # (AUTO) 0.1 X10^3/uL (0.0-0.1); BASOPHILS % (AUTO) 0.3 % (0.2-1.0); EOSINOPHILS # (AUTO) 0.2 x10^3/uL (0.0-0.2); HEMATOCRIT 29.2 % (36.0-47.0); HEMOGLOBIN 9.4 g/dL (12.0-16.0); LYMPHOCYTES # (AUTO) 2.6 X10^3/uL (1.3-2.9); LYMPHOCYTES % (AUTO) 14.3 % (21.0-51.0); MEAN CORPUSCULAR HEMOGLOBIN 28.8 pg (27.0-34.0); MEAN CORPUSCULAR HGB CONC 32.1 g/dL (33.0-35.0); MEAN PLATELET VOLUME 8.4 fL (7.4-11.0); MONOCYTES # (AUTO) 0.6 x10^3/uL (0.3-0.8); MONOCYTES % (AUTO) 3.2 % (0.0-13.0); NEUTROPHILS # (AUTO) 14.9 x10^3/uL (2.2-4.8); NEUTROPHILS % (AUTO) 81.2 % (42.0-75.0); PLATELET COUNT 300 X10^3/uL (150.0-450.0); RED BLOOD COUNT 3.25 X10^6/uL (3.5-5.4); RED CELL DISTRIBUTION WIDTH 17.8 % (11.6-16.5); WHITE BLOOD COUNT 18.4 X10^3/uL (3.6-10.0)
[2024-02-10 06:52] LABS: ALBUMIN 1.5 g/dL (3.4-5.0); CALCIUM 7.5 mg/dL (8.5-10.1); CARBON DIOXIDE 19.8 mmol/L (21-32); COR CA(FOR HYPOALB) 9.5 mg/dL (8.5-10.1); CREATININE 1.18 mg/dL (0.55-1.02); MAGNESIUM 1.5 mg/dL (2.0-2.9); POTASSIUM 3.1 mmol/L (3.5-5.1); TOTAL PROTEIN 4.8 g/dL (6.4-8.2)
[2024-02-10] MEDS: POTASSIUM CHLORIDE LIQ PO SCH (09:12)
[2024-02-10] MEDS: MAG-OX TAB PO SCH (09:12)
--- NOTE | 2024-02-10 11:54 | PCM.PROG ---
Progress Note Progress Note for Day of Date of Exam: 02/10/24 Subjective Subjective: Patient seen at bedside, no acute overnight events. She is currently admitted for C. difficile infection and colitis along with electrolyte imbalance. She also has a UTI. She is currently on IV fluids, Flagyl, p.o. Vanco and Rocephin. GI was consulted yesterday and ordered further testing. She states she is feeling slightly better. She continues to have loose stools. Denies any fever or chills. She is tolerating oral intake. Labs and imaging: -WBC: 18.4 hemoglobin: 9.4 K:3.1 magnesium: 1.5 BUN/cr: 20/1.18 Plan: Continue hydration with fluids, continue Flagyl, p.o. Vanco and Rocephin. Follow GI recommendations. Replace potassium and magnesium as per protocol. Follow-up pending lab results. Continue current diet. PT OT as tolerated. Monitor a.m. labs and imaging. Past Medical Family Social History Allergies: Allergies Penicillins Allergy (Mild, Verified 12/18/23 13:44) hives black walnut Allergy (Unknown, Verified 12/18/23 13:44) Comments: all walnuts walnut Allergy (Verified 12/18/23 13:44) Vital Signs and I&O's Vital Signs: Vital Signs Temperature 97.3 F Temperature 97.9 F Pulse Rate [Left Brachial] 64 Pulse Rate [Left Brachial] 81 Respiratory Rate 17 Respiratory Rate 20 Blood Pressure [Right Arm] 158/78 Blood Pressure [Right Arm] 180/76 O2 Sat by Pulse Oximetry 100 O2 Sat by Pulse Oximetry 98 Intake and Output: Intake & Output 02/07/24 02/08/24 02/09/24 02/10/24 23:59 23:59 23:59 23:59 Intake Total 181 / 1815 2488 / 2488 2116 / 2116 368 / 368 Balance 1815 / 1815 2488 / 2488 2116 / 2116 368 / 368 Physical Exam Oriented: Normal Eyes: Normal Ear: Normal Nose: Normal Throat: Normal Respiratory: Diminished Cardiovascular: Normal Auscultation: Bowel Sounds: Increased Tenderness: Periumbilical and Mild Skin: Decreased Turgur, Rash (PERINEAL AREA) and Red Musculoskeletal: Back:Lumbar, Swelling and Tender Psychiatric: Normal Mood Description: Calm Speech Pattern: Clear and Appropriate Laboratory and Diagnostics 02/10/24 05:22 02/10/24 05:22 Labs: 02/06/24 09:45 Stool Stool Culture - Final 02/06/24 09:45 Stool - Final 02/05/24 12:45 Blood Blood Culture - Preliminary 02/05/24 13:42 Blood Blood Culture - Preliminary 02/05/24 21:50 Urine,Clean Catch Urine Culture - Final Klebsiella Oxytoca Laboratory WBC 18.4 X10^3/uL (3.6-10.0) H 02/10/24 05:22 RBC 3.25 X10^6/uL (3.5-5.4) L 02/10/24 05:22 Hgb 9.4 g/dL (12.0-16.0) L 02/10/24 05:22 Hct 29.2 % (36.0-47.0) L 02/10/24 05:22 MCV 90.0 fL (80.0-100.0) 02/10/24 05:22 MCH 28.8 pg (27.0-34.0) 02/10/24 05:22 MCHC 32.1 g/dL (33.0-35.0) L 02/10/24 05:22 RDW 17.8 % (11.6-16.5) H 02/10/24 05:22 Plt Count 300 X10^3/uL (150.0-450.0) 02/10/24 05:22 Plt Count Comment Adequate (ADEQUATE) 02/08/24 06:05 MPV 8.4 fL (7.4-11.0) 02/10/24 05:22 Neut % (Auto) 81.2 % (42.0-75.0) H 02/10/24 05:22 Lymph % (Auto) 14.3 % (21.0-51.0) L 02/10/24 05:22 [place] % (Auto) 3.2 % (0.0-13.0) 02/10/24 05:22 Eos % (Auto) 1.0 % (0.9-2.9) 02/10/24 05:22 Baso % (Auto) 0.3 % (0.2-1.0) 02/10/24 05:22 Neut # (Auto) 14.9 x10^3/uL (2.2-4.8) H 02/10/24 05:22 Lymph # (Auto) 2.6 X10^3/uL (1.3-2.9) 02/10/24 05:22 [place] # (Auto) 0.6 x10^3/uL (0.3-0.8) 02/10/24 05:22 Eos # (Auto) 0.2 x10^3/uL (0.0-0.2) 02/10/24 05:22 Baso # (Auto) 0.1 X10^3/uL (0.0-0.1) 02/10/24 05:22 Absolute Nucleated RBC 0.0 /100WBC 02/10/24 05:22 Total Counted 100 02/08/24 06:05 Neutrophils % (Manual) 82 % (39-76) H 02/08/24 06:05 Band Neutrophils % 5 % (0-10) 02/08/24 06:05 Lymphocytes % (Manual) 10 % (13-43) L 02/08/24 06:05 Monocytes % (Manual) 3 % (4-9) L 02/08/24 06:05 Metamyelocytes % Not Reportable 02/04/24 17:41 Plt Morphology Comment Normal (NORMAL) 02/08/24 06:05 RBC Morphology Abnormal (NORMAL) A 02/08/24 06:05 Anisocytosis Slight A 02/08/24 06:05 Sodium 141 mmol/L (136-145) 02/10/24 05:22 Corrected Sodium 142 mmol/L (136-145) 02/10/24 05:22 Potassium 3.1 mmol/L (3.5-5.1) L 02/10/24 05:22 Chloride 109 mmol/L (98-107) H 02/10/24 05:22 Carbon Dioxide 19.8 mmol/L (21-32) L 02/10/24 05:22 BUN 20 mg/dL (7-18) H 02/10/24 05:22 Creatinine 1.18 mg/dL (0.55-1.02) H 02/10/24 05:22 Est GFR (MDRD) Af Amer 58 (>60) L 02/10/24 05:22 Est GFR (MDRD) Non-Af 48 (>60) L 02/10/24 05:22 Glucose 130 mg/dL (65-99) H 02/10/24 05:22 POC Glucose (mg/dL) 125 mg/dL (65-99) H 02/10/24 05:26 Hemoglobin A1c 6.2 % 02/03/24 09:30 Uric Acid 7.5 mg/dL (2.6-6.0) H 02/03/24 09:30 Calcium 7.5 mg/dL (8.5-10.1) L 02/10/24 05:22 Corrected Calcium 9.5 mg/dL (8.5-10.1) 02/10/24 05:22 Magnesium 1.5 mg/dL (2.0-2.9) L 02/10/24 05:22 Iron 25 ug/dL (50-175) L 02/08/24 06:05 Ferritin 2003 ng/mL (8-252) H 02/08/24 06:05 Total Bilirubin 0.20 mg/dL (0.2-1.0) 02/10/24 05:22 AST 22 Units/L (15-37) 02/10/24 05:22 ALT 9 Units/L (12-78) L 02/10/24 05:22 Alkaline Phosphatase 88 Units/L (46-116) 02/10/24 05:22 Total Protein 4.8 g/dL (6.4-8.2) L 02/10/24 05:22 Albumin 1.5 g/dL (3.4-5.0) L 02/10/24 05:22 Globulin 3.3 g/dL (2.5-4.5) 02/10/24 05:22 Albumin/Globulin Ratio 0.5 Ratio (1.1-2.1) L 02/10/24 05:22 Amylase 20 Units/L (25-115) L 02/07/24 05:53 Lipase 38 Units/L (16-77) 02/07/24 05:53 Specimen Type Clean catch urine 02/05/24 21:50 Urine Color Yellow (YELLOW) 02/05/24 21:50 Urine Appearance Hazy (CLEAR) 02/05/24 21:50 Urine pH 6.0 (5.0 - 8.0) 02/05/24 21:50 Ur Specific [place] 1.015 (1.000-1.030) 02/05/24 21:50 Urine Protein 4+ (NEGATIVE) 02/05/24 21:50 Urine Glucose (UA) 2+ (NEGATIVE) 02/05/24 21:50 Urine Ketones Negative (NEGATIVE) 02/05/24 21:50 Urine Blood 2+ (NEGATIVE) 02/05/24 21:50 Urine Nitrite Negative (NEGATIVE) 02/05/24 21:50 Urine Bilirubin Negative (NEGATIVE) 02/05/24 21:50 Urine Urobilinogen Normal (NORMAL) 02/05/24 21:50 Ur Leukocyte Esterase 2+ (NEGATIVE) 02/05/24 21:50 Urine RBC 5-10 /HPF (0-3) A 02/05/24 21:50 Urine WBC 20-30 /HPF (0-5) A 02/05/24 21:50 Ur Squamous Epith Cells Few /HPF (NEGATIVE) 02/05/24 21:50 Urine Bacteria 3+ /HPF (NEGATIVE) 02/05/24 21:50 Ur Culture Indicated? Yes/culture set up 02/05/24 21:50 Stool Occult Blood Positive (NEGATIVE) A 02/06/24 09:45 Stool for White Cells Positive (NEGATIVE) A 02/06/24 09:45 Stl C. diff Tox B Gene Positive (NEGATIVE) A 02/06/24 09:45 Stl C. diff [id number] Presumptive negative (NEGATIVE) 02/06/24 09:45 C. difficile Toxin A&B Negative (NEGATIVE) 02/06/24 09:45 Plan (1) Colitis: Status: Acute (2) C. 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
[2024-02-11 06:57] LABS: BASOPHILS # (AUTO) 0.1 X10^3/uL (0.0-0.1); BASOPHILS % (AUTO) 0.6 % (0.2-1.0); EOSINOPHILS # (AUTO) 0.3 x10^3/uL (0.0-0.2); EOSINOPHILS % (AUTO) 2.4 % (0.9-2.9); HEMATOCRIT 27.8 % (36.0-47.0); HEMOGLOBIN 8.9 g/dL (12.0-16.0); LYMPHOCYTES # (AUTO) 2.6 X10^3/uL (1.3-2.9); LYMPHOCYTES % (AUTO) 17.9 % (21.0-51.0); MEAN CORPUSCULAR HEMOGLOBIN 28.6 pg (27.0-34.0); MEAN CORPUSCULAR VOLUME 89.6 fL (80.0-100.0); MONOCYTES # (AUTO) 0.8 x10^3/uL (0.3-0.8); MONOCYTES % (AUTO) 5.7 % (0.0-13.0); NEUTROPHILS # (AUTO) 10.5 x10^3/uL (2.2-4.8); NEUTROPHILS % (AUTO) 73.4 % (42.0-75.0); PLATELET COUNT 293 X10^3/uL (150.0-450.0); WHITE BLOOD COUNT 14.3 X10^3/uL (3.6-10.0)
[2024-02-11 07:09] LABS: ALANINE AMINOTRANSFERASE 13 Units/L (12-78); ALBUMIN 1.5 g/dL (3.4-5.0); ALKALINE PHOSPHATASE 78 Units/L (46-116); ASPARTATE AMINO TRANSFERASE 21 Units/L (15-37); BLOOD UREA NITROGEN 16 mg/dL (7-18); CALCIUM 7.2 mg/dL (8.5-10.1); CARBON DIOXIDE 21.6 mmol/L (21-32); CHLORIDE 110 mmol/L (98-107); COR CA(FOR HYPOALB) 9.2 mg/dL (8.5-10.1); COR NA(FOR HYPERGLY) 141 mmol/L (136-145); GLUCOSE 130 mg/dL (65-99); MAGNESIUM 1.4 mg/dL (2.0-2.9); POTASSIUM 3.1 mmol/L (3.5-5.1); SODIUM 140 mmol/L (136-145); TOTAL PROTEIN 4.6 g/dL (6.4-8.2); eGFR NON BLACK RACES 52 (>60)
[2024-02-11 07:54] LABS: HEPATITIS B SURFACE ANTIGEN Negative (Negative)
--- NOTE | 2024-02-11 11:25 | PCM.PROG ---
Progress Note Progress Note for Day of Date of Exam: 02/11/24 Subjective Subjective: Patient seen at bedside, no acute events overnight. She states she is feeling better, tolerating oral intake. She is currently admitted for C. difficile infection and colitis along with electrolyte imbalance. She also has a UTI. She is currently on IV fluids, Flagyl, p.o. Vanco and Rocephin. She also has a rash in her perineum area that has been chronic. Labs and imaging: -WBC: 14.3 hemoglobin: 8.9 K:3.1 magnesium: 1.4 BUN/cr: 16/1.1 Plan: Continue hydration with fluids, continue Flagyl, p.o. Vanco and Rocephin. Follow GI recommendations. Replace potassium and magnesium as per protocol. Follow-up pending lab results. Continue current diet. PT OT as tolerated. Monitor a.m. labs and imaging. Past Medical Family Social History Allergies: Allergies Penicillins Allergy (Mild, Verified 12/18/23 13:44) hives black walnut Allergy (Unknown, Verified 12/18/23 13:44) Comments: all walnuts walnut Allergy (Verified 12/18/23 13:44) Vital Signs and I&O's Vital Signs: Vital Signs Temperature 97.1 F Pulse Rate [Left Brachial] 72 Respiratory Rate 20 Blood Pressure [Right Arm] 179/74 O2 Sat by Pulse Oximetry 99 Intake and Output: Intake & Output 02/08/24 02/09/24 02/10/24 02/11/24 23:59 23:59 23:59 23:59 Intake Total 2488 / 2488 2117 / 7 2469 / 2469 400 / 400 Balance 2488 / 2488 2116 / 2116 2469 / 2469 400 / 400 Physical Exam Oriented: Normal Eyes: Normal Ear: Normal Nose: Normal Throat: Normal Respiratory: Diminished Cardiovascular: Normal : Other (Erythema noted in the perineum area, mild swelling and tenderness.) Auscultation: Bowel Sounds: Normal Palpation: Normal Tenderness: Periumbilical and Mild Skin: Decreased Turgur, Rash (PERINEAL AREA) and Red Musculoskeletal: Back:Lumbar, Swelling and Tender Psychiatric: Normal Mood Description: Calm Speech Pattern: Clear and Appropriate Laboratory and Diagnostics 02/11/24 06:45 02/11/24 06:45 Labs: 02/05/24 12:45 Blood Blood Culture - Final 02/05/24 13:42 Blood Blood Culture - Final 02/06/24 09:45 Stool Stool Culture - Final 02/06/24 09:45 Stool - Final 02/05/24 21:50 Urine,Clean Catch Urine Culture - Final Klebsiella Oxytoca Laboratory WBC 14.3 X10^3/uL (3.6-10.0) H 02/11/24 06:45 RBC 3.10 X10^6/uL (3.5-5.4) L 02/11/24 06:45 Hgb 8.9 g/dL (12.0-16.0) L 02/11/24 06:45 Hct 27.8 % (36.0-47.0) L 02/11/24 06:45 MCV 89.6 fL (80.0-100.0) 02/11/24 06:45 MCH 28.6 pg (27.0-34.0) 02/11/24 06:45 MCHC 32.0 g/dL (33.0-35.0) L 02/11/24 06:45 RDW 18.0 % (11.6-16.5) H 02/11/24 06:45 Plt Count 293 X10^3/uL (150.0-450.0) 02/11/24 06:45 Plt Count Comment Adequate (ADEQUATE) 02/08/24 06:05 MPV 8.0 fL (7.4-11.0) 02/11/24 06:45 Neut % (Auto) 73.4 % (42.0-75.0) 02/11/24 06:45 Lymph % (Auto) 17.9 % (21.0-51.0) L 02/11/24 06:45 [place] % (Auto) 5.7 % (0.0-13.0) 02/11/24 06:45 Eos % (Auto) 2.4 % (0.9-2.9) 02/11/24 06:45 Baso % (Auto) 0.6 % (0.2-1.0) 02/11/24 06:45 Neut # (Auto) 10.5 x10^3/uL (2.2-4.8) H 02/11/24 06:45 Lymph # (Auto) 2.6 X10^3/uL (1.3-2.9) 02/11/24 06:45 [place] # (Auto) 0.8 x10^3/uL (0.3-0.8) 02/11/24 06:45 Eos # (Auto) 0.3 x10^3/uL (0.0-0.2) H 02/11/24 06:45 Baso # (Auto) 0.1 X10^3/uL (0.0-0.1) 02/11/24 06:45 Absolute Nucleated RBC 0.0 /100WBC 02/11/24 06:45 Total Counted 100 02/08/24 06:05 Neutrophils % (Manual) 82 % (39-76) H 02/08/24 06:05 Band Neutrophils % 5 % (0-10) 02/08/24 06:05 Lymphocytes % (Manual) 10 % (13-43) L 02/08/24 06:05 Monocytes % (Manual) 3 % (4-9) L 02/08/24 06:05 Metamyelocytes % Not Reportable 02/04/24 17:41 Plt Morphology Comment Normal (NORMAL) 02/08/24 06:05 RBC Morphology Abnormal (NORMAL) A 02/08/24 06:05 Anisocytosis Slight A 02/08/24 06:05 Sodium 140 mmol/L (136-145) 02/11/24 06:45 Corrected Sodium 141 mmol/L (136-145) 02/11/24 06:45 Potassium 3.1 mmol/L (3.5-5.1) L 02/11/24 06:45 Chloride 110 mmol/L (98-107) H 02/11/24 06:45 Carbon Dioxide 21.6 mmol/L (21-32) 02/11/24 06:45 BUN 16 mg/dL (7-18) 02/11/24 06:45 Creatinine 1.10 mg/dL (0.55-1.02) H 02/11/24 06:45 Est GFR (MDRD) Af Amer > 60 (>60) 02/11/24 06:45 Est GFR (MDRD) Non-Af 52 (>60) L 02/11/24 06:45 Glucose 130 mg/dL (65-99) H 02/11/24 06:45 POC Glucose (mg/dL) 111 mg/dL (65-99) H 02/11/24 05:08 Hemoglobin A1c 6.2 % 02/03/24 09:30 Uric Acid 7.5 mg/dL (2.6-6.0) H 02/03/24 09:30 Calcium 7.2 mg/dL (8.5-10.1) L 02/11/24 06:45 Corrected Calcium 9.2 mg/dL (8.5-10.1) 02/11/24 06:45 Magnesium 1.4 mg/dL (2.0-2.9) L 02/11/24 06:45 Iron 25 ug/dL (50-175) L 02/08/24 06:05 Ferritin 2003 ng/mL (8-252) H 02/08/24 06:05 Total Bilirubin 0.20 mg/dL (0.2-1.0) 02/11/24 06:45 AST 21 Units/L (15-37) 02/11/24 06:45 ALT 13 Units/L (12-78) 02/11/24 06:45 Alkaline Phosphatase 78 Units/L (46-116) 02/11/24 06:45 Total Protein 4.6 g/dL (6.4-8.2) L 02/11/24 06:45 Albumin 1.5 g/dL (3.4-5.0) L 02/11/24 06:45 Globulin 3.1 g/dL (2.5-4.5) 02/11/24 06:45 Albumin/Globulin Ratio 0.5 Ratio (1.1-2.1) L 02/11/24 06:45 [id number]-[id number] 238 mg/dL (90-200) H 02/09/24 05:13 Amylase 20 Units/L (25-115) L 02/07/24 05:53 Lipase 38 Units/L (16-77) 02/07/24 05:53 Specimen Type Clean catch urine 02/05/24 21:50 Urine Color Yellow (YELLOW) 02/05/24 21:50 Urine Appearance Hazy (CLEAR) 02/05/24 21:50 Urine pH 6.0 (5.0 - 8.0) 02/05/24 21:50 Ur Specific [place] 1.015 (1.000-1.030) 02/05/24 21:50 Urine Protein 4+ (NEGATIVE) 02/05/24 21:50 Urine Glucose (UA) 2+ (NEGATIVE) 02/05/24 21:50 Urine Ketones Negative (NEGATIVE) 02/05/24 21:50 Urine Blood 2+ (NEGATIVE) 02/05/24 21:50 Urine Nitrite Negative (NEGATIVE) 02/05/24 21:50 Urine Bilirubin Negative (NEGATIVE) 02/05/24 21:50 Urine Urobilinogen Normal (NORMAL) 02/05/24 21:50 Ur Leukocyte Esterase 2+ (NEGATIVE) 02/05/24 21:50 Urine RBC 5-10 /HPF (0-3) A 02/05/24 21:50 Urine WBC 20-30 /HPF (0-5) A 02/05/24 21:50 Ur Squamous Epith Cells Few /HPF (NEGATIVE) 02/05/24 21:50 Urine Bacteria 3+ /HPF (NEGATIVE) 02/05/24 21:50 Ur Culture Indicated? Yes/culture set up 02/05/24 21:50 Stool Occult Blood Positive (NEGATIVE) A 02/06/24 09:45 Stool for White Cells Positive (NEGATIVE) A 02/06/24 09:45 Stl C. diff Tox B Gene Positive (NEGATIVE) A 02/06/24 09:45 Stl C. diff [id number] Presumptive negative (NEGATIVE) 02/06/24 09:45 Anti-Mitochondrial Ab 8.2 Units (0.0-24.9) 02/09/24 05:13 C. difficile Toxin A&B Negative (NEGATIVE) 02/06/24 09:45 Hepatitis A IgM Ab Negative (Negative) 02/09/24 05:13 Hep Bs Antigen Negative (Negative) 02/09/24 05:13 Hep B Core IgM Ab Negative (Negative) 02/09/24 05:13 Hepatitis C Ab Index 0.03 IV 02/09/24 05:13 Hep C RIBA Interpret Negative (Negative) 02/09/24 05:13 Hepatitis Interpret See note 02/09/24 05:13 Plan (1) Colitis: Status: Acute (2) C. 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
[2024-02-11] MEDS: K-DUR TAB 20 MEQ PO SCH (11:43)
[2024-02-11] MEDS: MAGNESIUM SULFATE 1 GRAM/100 mL PREMIX 1 G/100 ML BAG IV SCH (11:45)
[2024-02-11] MEDS: ZESTRIL TAB 5 MG PO SCH (11:52)
[2024-02-11] MEDS: LOPRESSOR TAB 25 MG PO SCH (11:52)
[2024-02-11] MEDS: CELEXA PO SCH (21:19)
[2024-02-11] MEDS: ZOCOR TAB 10 MG PO SCH (21:19)
[2024-02-12 06:15] LABS: BASOPHILS # (AUTO) 0.1 X10^3/uL (0.0-0.1); BASOPHILS % (AUTO) 0.4 % (0.2-1.0); EOSINOPHILS # (AUTO) 0.3 x10^3/uL (0.0-0.2); EOSINOPHILS % (AUTO) 2.8 % (0.9-2.9); HEMATOCRIT 27.9 % (36.0-47.0); LYMPHOCYTES # (AUTO) 2.8 X10^3/uL (1.3-2.9); LYMPHOCYTES % (AUTO) 23.2 % (21.0-51.0); MEAN CORPUSCULAR HGB CONC 32.1 g/dL (33.0-35.0); MEAN CORPUSCULAR VOLUME 90.2 fL (80.0-100.0); MEAN PLATELET VOLUME 8.3 fL (7.4-11.0); MONOCYTES # (AUTO) 0.8 x10^3/uL (0.3-0.8); MONOCYTES % (AUTO) 6.2 % (0.0-13.0); NEUTROPHILS # (AUTO) 8.2 x10^3/uL (2.2-4.8); NEUTROPHILS % (AUTO) 67.4 % (42.0-75.0); PLATELET COUNT 297 X10^3/uL (150.0-450.0); RED BLOOD COUNT 3.09 X10^6/uL (3.5-5.4); RED CELL DISTRIBUTION WIDTH 17.9 % (11.6-16.5); WHITE BLOOD COUNT 12.2 X10^3/uL (3.6-10.0)
[2024-02-12 06:26] LABS: ALANINE AMINOTRANSFERASE 14 Units/L (12-78); ALBUMIN 1.5 g/dL (3.4-5.0); ALKALINE PHOSPHATASE 76 Units/L (46-116); ASPARTATE AMINO TRANSFERASE 26 Units/L (15-37); BLOOD UREA NITROGEN 16 mg/dL (7-18); CALCIUM 7.3 mg/dL (8.5-10.1); CARBON DIOXIDE 23.1 mmol/L (21-32); CHLORIDE 110 mmol/L (98-107); COR CA(FOR HYPOALB) 9.3 mg/dL (8.5-10.1); COR NA(FOR HYPERGLY) 142 mmol/L (136-145); CREATININE 1.11 mg/dL (0.55-1.02); GLUCOSE 140 mg/dL (65-99); MAGNESIUM 2.2 mg/dL (2.0-2.9); POTASSIUM 3.6 mmol/L (3.5-5.1); SODIUM 141 mmol/L (136-145); TOTAL PROTEIN 4.6 g/dL (6.4-8.2); eGFR NON BLACK RACES 52 (>60)
[2024-02-12 06:55] LABS: ANISOCYTOSIS SLIGHT; BAND NEUTROPHILS % 2 % (0-10); PLATELET MORPHOLOGY COMMENT NORMAL (NORMAL)
[2024-02-12] MEDS ORDERED: CONSULT PHARMACY - POTASSIUM & MAGNESIUM XX SCH (07:00)
[2024-02-12 10:29] LABS: ANTI-NUCLEAR ANTIBODY TEST None Detected (None Detected)
[2024-02-12] MEDS: LASIX IVP ONE (13:42)
[2024-02-13 05:10] LABS: BASOPHILS # (AUTO) 0.1 X10^3/uL (0.0-0.1); BASOPHILS % (AUTO) 0.6 % (0.2-1.0); EOSINOPHILS # (AUTO) 0.1 x10^3/uL (0.0-0.2); HEMATOCRIT 26.9 % (36.0-47.0); HEMOGLOBIN 8.6 g/dL (12.0-16.0); LYMPHOCYTES # (AUTO) 2.1 X10^3/uL (1.3-2.9); LYMPHOCYTES % (AUTO) 15.6 % (21.0-51.0); MEAN CORPUSCULAR VOLUME 90.6 fL (80.0-100.0); MEAN PLATELET VOLUME 8.2 fL (7.4-11.0); MONOCYTES # (AUTO) 0.6 x10^3/uL (0.3-0.8); MONOCYTES % (AUTO) 4.1 % (0.0-13.0); NEUTROPHILS # (AUTO) 10.6 x10^3/uL (2.2-4.8); NEUTROPHILS % (AUTO) 78.7 % (42.0-75.0); PLATELET COUNT 317 X10^3/uL (150.0-450.0); RED BLOOD COUNT 2.97 X10^6/uL (3.5-5.4); RED CELL DISTRIBUTION WIDTH 18.1 % (11.6-16.5); WHITE BLOOD COUNT 13.4 X10^3/uL (3.6-10.0)
[2024-02-13 05:21] LABS: ALANINE AMINOTRANSFERASE 15 Units/L (12-78); ALBUMIN 1.4 g/dL (3.4-5.0); ALKALINE PHOSPHATASE 63 Units/L (46-116); ASPARTATE AMINO TRANSFERASE 24 Units/L (15-37); BLOOD UREA NITROGEN 14 mg/dL (7-18); CALCIUM 7.4 mg/dL (8.5-10.1); CHLORIDE 113 mmol/L (98-107); COR CA(FOR HYPOALB) 9.5 mg/dL (8.5-10.1); COR NA(FOR HYPERGLY) 142 mmol/L (136-145); CREATININE 1.04 mg/dL (0.55-1.02); GLUCOSE 112 mg/dL (65-99); POTASSIUM 3.4 mmol/L (3.5-5.1); SODIUM 142 mmol/L (136-145); TOTAL PROTEIN 4.3 g/dL (6.4-8.2); eGFR NON BLACK RACES 56 (>60)
[2024-02-13] MEDS: K-DUR TAB 20 MEQ PO SCH (10:03)
--- NOTE | 2024-02-13 13:35 | PCM.PROG ---
Progress Note Progress Note for Day of Date of Exam: 02/12/24 Subjective Subjective: Patient is a 73 year old white female who was a direct admit on 02/05/24 for complaints of ongoing diarrhea, weakness. She was hospitalized last month for treatment of colitis, cdiff and discharged on january 07 with orders for vancomycin and outpatient fluids. She had outpatient labs on 02/04/24 that revealed a wbc of 27.7, up from 13.7 on day of last discharge, and cdiff positive for active cdiff infection. Upon admission, we obtained a ct abdomen and pelvis that showed cirrhosis of the liver with small volume ascities, non specific wall thickening of the colon compatible with colitis, mild diverticulosis in the sigmoid colon without diverticulitis, a chest xray which showed minimal bibasilar infiltrates, and blood/urine cultures. Admission labs: wbc 30.8, hgb 9.4, bun 38/creatinine 1.66. We started the patient on flagyl, vancomycin, IV fluids, and resumed home medications. Urine culture showed positive for Klebsiella oxytoca and she was started on rocephin. Blood culture were negative. We obtained a stool studies which were negative culture, positive on occult blood, negative on campy, wbc positive, cdiff tox b gene positive, cdiff tox a&b negative. She had a repeat chest xray on 02/07/24 that was clear and a gallbladder ultrasound on 02/08/24 that showed mild amount of ascities, no gallstones identified, slight diffuse thickening of the carter of the gallbladder. We consulted Dr. Chowdhury and he evaluated the patient and added Reglan and changed flagyl from PO to IV, continued vancomyin and rocephin. Patient's WBC has continued to trend down over the weekend. Am labs revealed wbc down to 12.2, hgb 9.0, bun 16/creatinine 1.11. Past Medical Family Social History Allergies: Allergies Penicillins Allergy (Mild, Verified 12/18/23 13:44) hives black walnut Allergy (Unknown, Verified 12/18/23 13:44) Comments: all walnuts walnut Allergy (Verified 12/18/23 13:44) Vital Signs and I&O's Vital Signs: Vital Signs Temperature 97.6 F Temperature 97.0 F Pulse Rate [Left Brachial] 64 Pulse Rate [Left Brachial] 67 Respiratory Rate 18 Respiratory Rate 17 Blood Pressure [Right Arm] 170/92 Blood Pressure [Right Arm] 161/70 O2 Sat by Pulse Oximetry 98 O2 Sat by Pulse Oximetry 99 Intake and Output: Intake & Output 02/10/24 02/11/24 02/12/24 02/13/24 11:59 11:59 11:59 11:59 Intake Total 1726 / 1726 2501 / 2501 2318 / 2318 Balance 1726 / 1726 2501 / 2501 2318 / 2318 Physical Exam Oriented: Normal Eyes: Normal Ear: Normal Nose: Normal Throat: Normal Respiratory: Diminished Cardiovascular: Normal : Other (Erythema noted in the perineum area, mild swelling and tenderness.) Auscultation: Bowel Sounds: Normal Tenderness: Periumbilical and Mild Skin: Decreased Turgur, Rash (PERINEAL AREA) and Red Musculoskeletal: Back:Lumbar, Swelling and Tender Psychiatric: Normal Mood Description: Calm Speech Pattern: Clear and Appropriate Laboratory and Diagnostics 02/13/24 04:40 02/13/24 04:40 Labs: 02/05/24 12:45 Blood Blood Culture - Final 02/05/24 13:42 Blood Blood Culture - Final 02/06/24 09:45 Stool Stool Culture - Final 02/06/24 09:45 Stool - Final 02/05/24 21:50 Urine,Clean Catch Urine Culture - Final Klebsiella Oxytoca Laboratory WBC 12.2 X10^3/uL (3.6-10.0) H 02/12/24 05:10 RBC 3.09 X10^6/uL (3.5-5.4) L 02/12/24 05:10 Hgb 9.0 g/dL (12.0-16.0) L 02/12/24 05:10 Hct 27.9 % (36.0-47.0) L 02/12/24 05:10 MCV 90.2 fL (80.0-100.0) 02/12/24 05:10 MCH 29.0 pg (27.0-34.0) 02/12/24 05:10 MCHC 32.1 g/dL (33.0-35.0) L 02/12/24 05:10 RDW 17.9 % (11.6-16.5) H 02/12/24 05:10 Plt Count 297 X10^3/uL (150.0-450.0) 02/12/24 05:10 Plt Count Comment Adequate (ADEQUATE) 02/12/24 05:10 MPV 8.3 fL (7.4-11.0) 02/12/24 05:10 Neut % (Auto) 67.4 % (42.0-75.0) 02/12/24 05:10 Lymph % (Auto) 23.2 % (21.0-51.0) 02/12/24 05:10 [place] % (Auto) 6.2 % (0.0-13.0) 02/12/24 05:10 Eos % (Auto) 2.8 % (0.9-2.9) 02/12/24 05:10 Baso % (Auto) 0.4 % (0.2-1.0) 02/12/24 05:10 Neut # (Auto) 8.2 x10^3/uL (2.2-4.8) H 02/12/24 05:10 Lymph # (Auto) 2.8 X10^3/uL (1.3-2.9) 02/12/24 05:10 [place] # (Auto) 0.8 x10^3/uL (0.3-0.8) 02/12/24 05:10 Eos # (Auto) 0.3 x10^3/uL (0.0-0.2) H 02/12/24 05:10 Baso # (Auto) 0.1 X10^3/uL (0.0-0.1) 02/12/24 05:10 Absolute Nucleated RBC 0.2 /100WBC 02/12/24 05:10 Total Counted 100 02/12/24 05:10 Neutrophils % (Manual) 68 % (39-76) 02/12/24 05:10 Band Neutrophils % 2 % (0-10) 02/12/24 05:10 Lymphocytes % (Manual) 26 % (13-43) 02/12/24 05:10 Monocytes % (Manual) 4 % (4-9) 02/12/24 05:10 Metamyelocytes % Not Reportable 02/04/24 17:41 Plt Morphology Comment Normal (NORMAL) 02/12/24 05:10 RBC Morphology Abnormal (NORMAL) A 02/12/24 05:10 Anisocytosis Slight A 02/12/24 05:10 Sodium 141 mmol/L (136-145) 02/12/24 05:10 Corrected Sodium 142 mmol/L (136-145) 02/12/24 05:10 Potassium 3.6 mmol/L (3.5-5.1) 02/12/24 05:10 Chloride 110 mmol/L (98-107) H 02/12/24 05:10 Carbon Dioxide 23.1 mmol/L (21-32) 02/12/24 05:10 BUN 16 mg/dL (7-18) 02/12/24 05:10 Creatinine 1.11 mg/dL (0.55-1.02) H 02/12/24 05:10 Est GFR (MDRD) Af Amer > 60 (>60) 02/12/24 05:10 Est GFR (MDRD) Non-Af 52 (>60) L 02/12/24 05:10 Glucose 140 mg/dL (65-99) H 02/12/24 05:10 POC Glucose (mg/dL) 148 mg/dL (65-99) H 02/12/24 11:57 Hemoglobin A1c 6.2 % 02/03/24 09:30 Uric Acid 7.5 mg/dL (2.6-6.0) H 02/03/24 09:30 Calcium 7.3 mg/dL (8.5-10.1) L 02/12/24 05:10 Corrected Calcium 9.3 mg/dL (8.5-10.1) 02/12/24 05:10 Magnesium 2.2 mg/dL (2.0-2.9) 02/12/24 05:10 Iron 25 ug/dL (50-175) L 02/08/24 06:05 Ferritin 2003 ng/mL (8-252) H 02/08/24 06:05 Total Bilirubin 0.10 mg/dL (0.2-1.0) L 02/12/24 05:10 AST 26 Units/L (15-37) 02/12/24 05:10 ALT 14 Units/L (12-78) 02/12/24 05:10 Alkaline Phosphatase 76 Units/L (46-116) 02/12/24 05:10 Total Protein 4.6 g/dL (6.4-8.2) L 02/12/24 05:10 Albumin 1.5 g/dL (3.4-5.0) L 02/12/24 05:10 Globulin 3.1 g/dL (2.5-4.5) 02/12/24 05:10 Albumin/Globulin Ratio 0.5 Ratio (1.1-2.1) L 02/12/24 05:10 [id number]-[id number] 238 mg/dL (90-200) H 02/09/24 05:13 Amylase 20 Units/L (25-115) L 02/07/24 05:53 Lipase 38 Units/L (16-77) 02/07/24 05:53 Specimen Type Clean catch urine 02/05/24 21:50 Urine Color Yellow (YELLOW) 02/05/24 21:50 Urine Appearance Hazy (CLEAR) 02/05/24 21:50 Urine pH 6.0 (5.0 - 8.0) 02/05/24 21:50 Ur Specific [place] 1.015 (1.000-1.030) 02/05/24 21:50 Urine Protein 4+ (NEGATIVE) 02/05/24 21:50 Urine Glucose (UA) 2+ (NEGATIVE) 02/05/24 21:50 Urine Ketones Negative (NEGATIVE) 02/05/24 21:50 Urine Blood 2+ (NEGATIVE) 02/05/24 21:50 Urine Nitrite Negative (NEGATIVE) 02/05/24 21:50 Urine Bilirubin Negative (NEGATIVE) 02/05/24 21:50 Urine Urobilinogen Normal (NORMAL) 02/05/24 21:50 Ur Leukocyte Esterase 2+ (NEGATIVE) 02/05/24 21:50 Urine RBC 5-10 /HPF (0-3) A 02/05/24 21:50 Urine WBC 20-30 /HPF (0-5) A 02/05/24 21:50 Ur Squamous Epith Cells Few /HPF (NEGATIVE) 02/05/24 21:50 Urine Bacteria 3+ /HPF (NEGATIVE) 02/05/24 21:50 Ur Culture Indicated? Yes/culture set up 02/05/24 21:50 Stool Occult Blood Positive (NEGATIVE) A 02/06/24 09:45 Stool for White Cells Positive (NEGATIVE) A 02/06/24 09:45 Stl C. diff Tox B Gene Positive (NEGATIVE) A 02/06/24 09:45 Stl C. diff [id number] Presumptive negative (NEGATIVE) 02/06/24 09:45 SHANDA Screen None detected (None Detected) 02/09/24 05:13 SHANDA Titer TNP 02/09/24 05:13 SHANDA Pattern TNP 02/09/24 05:13 Anti-Mitochondrial Ab 8.2 Units (0.0-24.9) 02/09/24 05:13 Smooth Muscle Ab Titer <1:20 (<1:20) 02/09/24 05:13 C. difficile Toxin A&B Negative (NEGATIVE) 02/06/24 09:45 Hepatitis A IgM Ab Negative (Negative) 02/09/24 05:13 Hep Bs Antigen Negative (Negative) 02/09/24 05:13 Hep B Core IgM Ab Negative (Negative) 02/09/24 05:13 Hepatitis C Ab Index 0.03 IV 02/09/24 05:13 Hep C RIBA Interpret Negative (Negative) 02/09/24 05:13 Hepatitis Interpret See note 02/09/24 05:13 Plan (1) Colitis: Status: Acute Plan: Lasix 40mg x1 dose, PT eval. Continue IV hydration, IV vancomycin, IV flagyl, IV rocephin. (2) C. 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
[2024-02-13] MEDS: VANCOMYCIN HCL 250 MG CAP PO SCH (15:47)
--- NOTE | 2024-02-13 17:00 | PCM.PROG ---
Progress Note Progress Note for Day of Date of Exam: 02/13/24 Subjective Subjective: Patient is a 73 year old white female who was a direct admit on 02/05/24 for complaints of ongoing diarrhea, weakness. She was hospitalized last month for treatment of colitis, cdiff and discharged on january 07 with orders for vancomycin and outpatient fluids. She had outpatient labs on 02/04/24 that revealed a wbc of 27.7, up from 13.7 on day of last discharge, and cdiff positive for active cdiff infection. Upon admission, we obtained a ct abdomen and pelvis that showed cirrhosis of the liver with small volume ascities, non specific wall thickening of the colon compatible with colitis, mild diverticulosis in the sigmoid colon without diverticulitis, a chest xray which showed minimal bibasilar infiltrates, and blood/urine cultures. Admission labs: wbc 30.8, hgb 9.4, bun 38/creatinine 1.66. We started the patient on flagyl, vancomycin, IV fluids, and resumed home medications. Urine culture showed positive for Klebsiella oxytoca and she was started on rocephin. Blood culture were negative. We obtained a stool studies which were negative culture, positive on occult blood, negative on campy, wbc positive, cdiff tox b gene positive, cdiff tox a&b negative. She had a repeat chest xray on 02/07/24 that was clear and a gallbladder ultrasound on 02/08/24 that showed mild amount of ascities, no gallstones identified, slight diffuse thickening of the carter of the gallbladder. We consulted Dr. Chowdhury and he evaluated the patient and added Reglan and changed flagyl from PO to IV, continued vancomyin and rocephin. Patient's WBC has continued to trend down over the weekend. WBC down to 12.2 yesterday with hgb 9.0, bun 16/creatinine 1.11. AM labs: wbc 13.4, hgb 8.6, bun 14/creatinine 1.04. She received a dose of lasix yesterday. She still complains of abdominal pain with loose stool, so we will plan to obtain a HIDA scan. Past Medical Family Social History Allergies: Allergies Penicillins Allergy (Mild, Verified 12/18/23 13:44) hives black walnut Allergy (Unknown, Verified 12/18/23 13:44) Comments: all walnuts walnut Allergy (Verified 12/18/23 13:44) Vital Signs and I&O's Vital Signs: Vital Signs Temperature 97.7 F Pulse Rate [Left Brachial] 81 Respiratory Rate 22 Blood Pressure [Right Arm] 131/90 O2 Sat by Pulse Oximetry 98 Intake and Output: Intake & Output 02/11/24 02/12/24 02/13/24 02/14/24 11:59 11:59 11:59 11:59 Intake Total 2501 / 2501 2318 / 2318 2816 / 2816 Balance 2501 / 2501 2318 / 2318 2816 / 2816 Physical Exam Oriented: Normal Eyes: Normal Ear: Normal Nose: Normal Throat: Normal Respiratory: Diminished Cardiovascular: Normal : Other (Erythema noted in the perineum area, mild swelling and tenderness.) Auscultation: Bowel Sounds: Normal Tenderness: Periumbilical and Mild Skin: Decreased Turgur, Rash (PERINEAL AREA) and Red Musculoskeletal: Back:Lumbar, Swelling and Tender Psychiatric: Normal Mood Description: Calm Speech Pattern: Clear and Appropriate Laboratory and Diagnostics 02/13/24 04:40 02/13/24 04:40 Labs: 02/05/24 12:45 Blood Blood Culture - Final 02/05/24 13:42 Blood Blood Culture - Final 02/06/24 09:45 Stool Stool Culture - Final 02/06/24 09:45 Stool - Final 02/05/24 21:50 Urine,Clean Catch Urine Culture - Final Klebsiella Oxytoca Laboratory WBC 13.4 X10^3/uL (3.6-10.0) H 02/13/24 04:40 RBC 2.97 X10^6/uL (3.5-5.4) L 02/13/24 04:40 Hgb 8.6 g/dL (12.0-16.0) L 02/13/24 04:40 Hct 26.9 % (36.0-47.0) L 02/13/24 04:40 MCV 90.6 fL (80.0-100.0) 02/13/24 04:40 MCH 29.0 pg (27.0-34.0) 02/13/24 04:40 MCHC 32.0 g/dL (33.0-35.0) L 02/13/24 04:40 RDW 18.1 % (11.6-16.5) H 02/13/24 04:40 Plt Count 317 X10^3/uL (150.0-450.0) 02/13/24 04:40 Plt Count Comment Adequate (ADEQUATE) 02/12/24 05:10 MPV 8.2 fL (7.4-11.0) 02/13/24 04:40 Neut % (Auto) 78.7 % (42.0-75.0) H 02/13/24 04:40 Lymph % (Auto) 15.6 % (21.0-51.0) L 02/13/24 04:40 [place] % (Auto) 4.1 % (0.0-13.0) 02/13/24 04:40 Eos % (Auto) 1.0 % (0.9-2.9) 02/13/24 04:40 Baso % (Auto) 0.6 % (0.2-1.0) 02/13/24 04:40 Neut # (Auto) 10.6 x10^3/uL (2.2-4.8) H 02/13/24 04:40 Lymph # (Auto) 2.1 X10^3/uL (1.3-2.9) 02/13/24 04:40 [place] # (Auto) 0.6 x10^3/uL (0.3-0.8) 02/13/24 04:40 Eos # (Auto) 0.1 x10^3/uL (0.0-0.2) 02/13/24 04:40 Baso # (Auto) 0.1 X10^3/uL (0.0-0.1) 02/13/24 04:40 Absolute Nucleated RBC 0.0 /100WBC 02/13/24 04:40 Total Counted 100 02/12/24 05:10 Neutrophils % (Manual) 68 % (39-76) 02/12/24 05:10 Band Neutrophils % 2 % (0-10) 02/12/24 05:10 Lymphocytes % (Manual) 26 % (13-43) 02/12/24 05:10 Monocytes % (Manual) 4 % (4-9) 02/12/24 05:10 Metamyelocytes % Not Reportable 02/04/24 17:41 Plt Morphology Comment Normal (NORMAL) 02/12/24 05:10 RBC Morphology Abnormal (NORMAL) A 02/12/24 05:10 Anisocytosis Slight A 02/12/24 05:10 Sodium 142 mmol/L (136-145) 02/13/24 04:40 Corrected Sodium 142 mmol/L (136-145) 02/13/24 04:40 Potassium 3.4 mmol/L (3.5-5.1) L 02/13/24 04:40 Chloride 113 mmol/L (98-107) H 02/13/24 04:40 Carbon Dioxide 21.0 mmol/L (21-32) 02/13/24 04:40 BUN 14 mg/dL (7-18) 02/13/24 04:40 Creatinine 1.04 mg/dL (0.55-1.02) H 02/13/24 04:40 Est GFR (MDRD) Af Amer > 60 (>60) 02/13/24 04:40 Est GFR (MDRD) Non-Af 56 (>60) L 02/13/24 04:40 Glucose 112 mg/dL (65-99) H 02/13/24 04:40 POC Glucose (mg/dL) 144 mg/dL (65-99) H 02/13/24 12:24 Hemoglobin A1c 6.2 % 02/03/24 09:30 Uric Acid 7.5 mg/dL (2.6-6.0) H 02/03/24 09:30 Calcium 7.4 mg/dL (8.5-10.1) L 02/13/24 04:40 Corrected Calcium 9.5 mg/dL (8.5-10.1) 02/13/24 04:40 Magnesium 2.2 mg/dL (2.0-2.9) 02/12/24 05:10 Iron 25 ug/dL (50-175) L 02/08/24 06:05 Ferritin 2003 ng/mL (8-252) H 02/08/24 06:05 Total Bilirubin 0.20 mg/dL (0.2-1.0) 02/13/24 04:40 AST 24 Units/L (15-37) 02/13/24 04:40 ALT 15 Units/L (12-78) 02/13/24 04:40 Alkaline Phosphatase 63 Units/L (46-116) 02/13/24 04:40 Total Protein 4.3 g/dL (6.4-8.2) L 02/13/24 04:40 Albumin 1.4 g/dL (3.4-5.0) L 02/13/24 04:40 Globulin 2.9 g/dL (2.5-4.5) 02/13/24 04:40 Albumin/Globulin Ratio 0.5 Ratio (1.1-2.1) L 02/13/24 04:40 [id number]-6-[id number] 238 mg/dL (90-200) H 02/09/24 05:13 Amylase 20 Units/L (25-115) L 02/07/24 05:53 Lipase 38 Units/L (16-77) 02/07/24 05:53 Specimen Type Clean catch urine 02/05/24 21:50 Urine Color Yellow (YELLOW) 02/05/24 21:50 Urine Appearance Hazy (CLEAR) 02/05/24 21:50 Urine pH 6.0 (5.0 - 8.0) 02/05/24 21:50 Ur Specific [place] 1.015 (1.000-1.030) 02/05/24 21:50 Urine Protein 4+ (NEGATIVE) 02/05/24 21:50 Urine Glucose (UA) 2+ (NEGATIVE) 02/05/24 21:50 Urine Ketones Negative (NEGATIVE) 02/05/24 21:50 Urine Blood 2+ (NEGATIVE) 02/05/24 21:50 Urine Nitrite Negative (NEGATIVE) 02/05/24 21:50 Urine Bilirubin Negative (NEGATIVE) 02/05/24 21:50 Urine Urobilinogen Normal (NORMAL) 02/05/24 21:50 Ur Leukocyte Esterase 2+ (NEGATIVE) 02/05/24 21:50 Urine RBC 5-10 /HPF (0-3) A 02/05/24 21:50 Urine WBC 20-30 /HPF (0-5) A 02/05/24 21:50 Ur Squamous Epith Cells Few /HPF (NEGATIVE) 02/05/24 21:50 Urine Bacteria 3+ /HPF (NEGATIVE) 02/05/24 21:50 Ur Culture Indicated? Yes/culture set up 02/05/24 21:50 Stool Occult Blood Positive (NEGATIVE) A 02/06/24 09:45 Stool for White Cells Positive (NEGATIVE) A 02/06/24 09:45 Stl C. diff Tox B Gene Positive (NEGATIVE) A 02/06/24 09:45 Stl C. diff [id number] Presumptive negative (NEGATIVE) 02/06/24 09:45 SHANDA Screen None detected (None Detected) 02/09/24 05:13 SHANDA Titer TNP 02/09/24 05:13 SHANDA Pattern TNP 02/09/24 05:13 Anti-Mitochondrial Ab 8.2 Units (0.0-24.9) 02/09/24 05:13 Smooth Muscle Ab Titer <1:20 (<1:20) 02/09/24 05:13 C. difficile Toxin A&B Negative (NEGATIVE) 02/06/24 09:45 Hepatitis A IgM Ab Negative (Negative) 02/09/24 05:13 Hep Bs Antigen Negative (Negative) 02/09/24 05:13 Hep B Core IgM Ab Negative (Negative) 02/09/24 05:13 Hepatitis C Ab Index 0.03 IV 02/09/24 05:13 Hep C RIBA Interpret Negative (Negative) 02/09/24 05:13 Hepatitis Interpret See note 02/09/24 05:13 Plan (1) Colitis: Status: Acute Plan: Lasix 20mg x1 dose, Obtain hida scan. Continue IV hydration, IV vancomycin, IV flagyl, IV rocephin. (2) C. 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
[2024-02-13] MEDS: LASIX IVP ONE (18:32)
[2024-02-14 06:30] LABS: BASOPHILS # (AUTO) 0.1 X10^3/uL (0.0-0.1); BASOPHILS % (AUTO) 0.9 % (0.2-1.0); EOSINOPHILS # (AUTO) 0.2 x10^3/uL (0.0-0.2); EOSINOPHILS % (AUTO) 1.7 % (0.9-2.9); HEMATOCRIT 25.9 % (36.0-47.0); HEMOGLOBIN 8.5 g/dL (12.0-16.0); LYMPHOCYTES # (AUTO) 2.4 X10^3/uL (1.3-2.9); LYMPHOCYTES % (AUTO) 23.7 % (21.0-51.0); MEAN CORPUSCULAR HEMOGLOBIN 29.6 pg (27.0-34.0); MEAN CORPUSCULAR HGB CONC 32.8 g/dL (33.0-35.0); MEAN CORPUSCULAR VOLUME 90.4 fL (80.0-100.0); MEAN PLATELET VOLUME 8.4 fL (7.4-11.0); MONOCYTES # (AUTO) 0.5 x10^3/uL (0.3-0.8); MONOCYTES % (AUTO) 5.4 % (0.0-13.0); NEUTROPHILS # (AUTO) 6.8 x10^3/uL (2.2-4.8); NEUTROPHILS % (AUTO) 68.3 % (42.0-75.0); PLATELET COUNT 312 X10^3/uL (150.0-450.0); RED BLOOD COUNT 2.86 X10^6/uL (3.5-5.4); RED CELL DISTRIBUTION WIDTH 18.1 % (11.6-16.5); WHITE BLOOD COUNT 9.9 X10^3/uL (3.6-10.0)
[2024-02-14 06:53] LABS: ALANINE AMINOTRANSFERASE 13 Units/L (12-78); ALBUMIN 1.4 g/dL (3.4-5.0); ALKALINE PHOSPHATASE 65 Units/L (46-116); ASPARTATE AMINO TRANSFERASE 22 Units/L (15-37); BLOOD UREA NITROGEN 14 mg/dL (7-18); CALCIUM 7.6 mg/dL (8.5-10.1); CHLORIDE 113 mmol/L (98-107); COR CA(FOR HYPOALB) 9.7 mg/dL (8.5-10.1); CREATININE 1.02 mg/dL (0.55-1.02); GLUCOSE 102 mg/dL (65-99); POTASSIUM 3.9 mmol/L (3.5-5.1); SODIUM 143 mmol/L (136-145); TOTAL PROTEIN 4.4 g/dL (6.4-8.2); eGFR NON BLACK RACES 57 (>60)
[2024-02-14] MEDS: LOVENOX INJ 40 MG SYR SC SCH (09:18)
[2024-02-14] MEDS: LASIX IVP ONE (10:00)
[2024-02-14] MEDS ORDERED: BUTT CREAM (COMPOUND) TOP PRN (13:31)
[2024-02-14] MEDS: IMODIUM CAP 2 MG PO PRN (14:47)
[2024-02-14] MEDS: CONSULT PHARMACY - POTASSIUM & MAGNESIUM XX SCH (19:17)
[2024-02-15 06:23] LABS: BASOPHILS # (AUTO) 0.1 X10^3/uL (0.0-0.1); BASOPHILS % (AUTO) 1.2 % (0.2-1.0); EOSINOPHILS # (AUTO) 0.1 x10^3/uL (0.0-0.2); EOSINOPHILS % (AUTO) 1.4 % (0.9-2.9); HEMATOCRIT 24.5 % (36.0-47.0); LYMPHOCYTES # (AUTO) 2.3 X10^3/uL (1.3-2.9); LYMPHOCYTES % (AUTO) 28.2 % (21.0-51.0); MEAN CORPUSCULAR HEMOGLOBIN 29.7 pg (27.0-34.0); MEAN CORPUSCULAR HGB CONC 32.7 g/dL (33.0-35.0); MEAN CORPUSCULAR VOLUME 90.8 fL (80.0-100.0); MEAN PLATELET VOLUME 8.1 fL (7.4-11.0); MONOCYTES # (AUTO) 0.5 x10^3/uL (0.3-0.8); MONOCYTES % (AUTO) 6.3 % (0.0-13.0); NEUTROPHILS # (AUTO) 5.2 x10^3/uL (2.2-4.8); NEUTROPHILS % (AUTO) 62.9 % (42.0-75.0); PLATELET COUNT 297 X10^3/uL (150.0-450.0); RED BLOOD COUNT 2.69 X10^6/uL (3.5-5.4); RED CELL DISTRIBUTION WIDTH 18.6 % (11.6-16.5); WHITE BLOOD COUNT 8.3 X10^3/uL (3.6-10.0)
[2024-02-15 06:25] LABS: ALANINE AMINOTRANSFERASE 11 Units/L (12-78); ALBUMIN 1.3 g/dL (3.4-5.0); ALKALINE PHOSPHATASE 58 Units/L (46-116); ASPARTATE AMINO TRANSFERASE 20 Units/L (15-37); BLOOD UREA NITROGEN 14 mg/dL (7-18); CALCIUM 7.6 mg/dL (8.5-10.1); CARBON DIOXIDE 22.1 mmol/L (21-32); CHLORIDE 114 mmol/L (98-107); COR CA(FOR HYPOALB) 9.8 mg/dL (8.5-10.1); CREATININE 1.04 mg/dL (0.55-1.02); GLUCOSE 93 mg/dL (65-99); SODIUM 144 mmol/L (136-145); TOTAL PROTEIN 4.3 g/dL (6.4-8.2); eGFR NON BLACK RACES 56 (>60)
[2024-02-15] MEDS ORDERED: KINEVAC ONE (08:50)
[2024-02-15] MEDS: LASIX IVP ONE (10:23)
[2024-02-15] MEDS: KINEVAC IV ONE (10:59)
[2024-02-15] MEDS: NS IV ONE (10:59)
--- NOTE | 2024-02-15 11:01 | NM ---
EXAMINATION: HIDA/HEPATOBILIARY SCAN W/EF HISTORY: abd pain distention; . COMPARISON STUDY: None. TECHNIQUE: The patient received 6.5 millicuries technetium 99 M Choletec IV. Sequential planar images were obta ined of the upper abdomen. Regions of interest were drawn about the gallbladder pre and post adminis tration of intravenous Kinevac in order to generate a gallbladder ejection fraction. FINDINGS: There is normal prompt uptake and homogeneous distribution of radiotracer within the liver. The gall bladder is seen by 15 minutes and the small bowel by 25 minutes. The gallbladder ejection fraction m easured 34% at 30 minutes post injection of intravenous Kinevac. IMPRESSION: Normal prompt visualization of the gallbladder and small bowel. Slight diminished gallbladder ejecti on fraction measuring 35% following intravenous Kinevac. THIS IS AN ELECTRONICALLY VERIFIED FINAL REPORT 02/15/2024 10:56 AM - Electronically signed by Soni Melgoza MD
--- NOTE | 2024-02-15 17:05 | PCM.PROG ---
Progress Note Progress Note for Day of Date of Exam: 02/14/24 Subjective Subjective: Patient is a 73 year old white female who was a direct admit on 02/05/24 for complaints of ongoing diarrhea, weakness. She was hospitalized last month for treatment of colitis, cdiff and discharged on january 07 with orders for vancomycin and outpatient fluids. She had outpatient labs on 02/04/24 that revealed a wbc of 27.7, up from 13.7 on day of last discharge, and cdiff positive for active cdiff infection. Upon admission, we obtained a ct abdomen and pelvis that showed cirrhosis of the liver with small volume ascities, non specific wall thickening of the colon compatible with colitis, mild diverticulosis in the sigmoid colon without diverticulitis, a chest xray which showed minimal bibasilar infiltrates, and blood/urine cultures. Admission labs: wbc 30.8, hgb 9.4, bun 38/creatinine 1.66. We started the patient on flagyl, vancomycin, IV fluids, and resumed home medications. Urine culture showed positive for Klebsiella oxytoca and she was started on rocephin. Blood culture were negative. We obtained a stool studies which were negative culture, positive on occult blood, negative on campy, wbc positive, cdiff tox b gene positive, cdiff tox a&b negative. She had a repeat chest xray on 02/07/24 that was clear and a gallbladder ultrasound on 02/08/24 that showed mild amount of ascities, no gallstones identified, slight diffuse thickening of the carter of the gallbladder. We consulted Dr. Chowdhury and he evaluated the patient and added Reglan and changed flagyl from PO to IV, continued vancomyin and rocephin. We have ordered a hida scan, pending at this time. AM labs: wbc 9.9, hgb 8.5, bun 14/creatinine 1.02. Past Medical Family Social History Allergies: Allergies Penicillins Allergy (Mild, Verified 12/18/23 13:44) hives black walnut Allergy (Unknown, Verified 12/18/23 13:44) Comments: all walnuts walnut Allergy (Verified 12/18/23 13:44) Vital Signs and I&O's Intake and Output: Intake & Output 02/12/24 02/13/24 02/14/24 02/15/24 11:59 11:59 11:59 11:59 Intake Total 23176 / 2816 2197 Balance 2317 / 2816 2197 Physical Exam Oriented: Normal Eyes: Normal Ear: Normal Nose: Normal Throat: Normal Respiratory: Diminished Cardiovascular: Normal : Other (Erythema noted in the perineum area, mild swelling and tenderness.) Auscultation: Bowel Sounds: Normal Tenderness: Periumbilical and Mild Skin: Decreased Turgur, Rash (PERINEAL AREA) and Red Musculoskeletal: Back:Lumbar, Swelling and Tender Psychiatric: Normal Mood Description: Calm Speech Pattern: Clear and Appropriate Laboratory and Diagnostics 02/15/24 05:24 02/15/24 05:24 Labs: 02/05/24 12:45 Blood Blood Culture - Final 02/05/24 13:42 Blood Blood Culture - Final 02/06/24 09:45 Stool Stool Culture - Final 02/06/24 09:45 Stool - Final 02/05/24 21:50 Urine,Clean Catch Urine Culture - Final Klebsiella Oxytoca Laboratory WBC 9.9 X10^3/uL (3.6-10.0) 02/14/24 05:35 RBC 2.86 X10^6/uL (3.5-5.4) L 02/14/24 05:35 Hgb 8.5 g/dL (12.0-16.0) L 02/14/24 05:35 Hct 25.9 % (36.0-47.0) L 02/14/24 05:35 MCV 90.4 fL (80.0-100.0) 02/14/24 05:35 MCH 29.6 pg (27.0-34.0) 02/14/24 05:35 MCHC 32.8 g/dL (33.0-35.0) L 02/14/24 05:35 RDW 18.1 % (11.6-16.5) H 02/14/24 05:35 Plt Count 312 X10^3/uL (150.0-450.0) 02/14/24 05:35 Plt Count Comment Adequate (ADEQUATE) 02/12/24 05:10 MPV 8.4 fL (7.4-11.0) 02/14/24 05:35 Neut % (Auto) 68.3 % (42.0-75.0) 02/14/24 05:35 Lymph % (Auto) 23.7 % (21.0-51.0) 02/14/24 05:35 [place] % (Auto) 5.4 % (0.0-13.0) 02/14/24 05:35 Eos % (Auto) 1.7 % (0.9-2.9) 02/14/24 05:35 Baso % (Auto) 0.9 % (0.2-1.0) 02/14/24 05:35 Neut # (Auto) 6.8 x10^3/uL (2.2-4.8) H 02/14/24 05:35 Lymph # (Auto) 2.4 X10^3/uL (1.3-2.9) 02/14/24 05:35 [place] # (Auto) 0.5 x10^3/uL (0.3-0.8) 02/14/24 05:35 Eos # (Auto) 0.2 x10^3/uL (0.0-0.2) 02/14/24 05:35 Baso # (Auto) 0.1 X10^3/uL (0.0-0.1) 02/14/24 05:35 Absolute Nucleated RBC 0.1 /100WBC 02/14/24 05:35 Total Counted 100 02/12/24 05:10 Neutrophils % (Manual) 68 % (39-76) 02/12/24 05:10 Band Neutrophils % 2 % (0-10) 02/12/24 05:10 Lymphocytes % (Manual) 26 % (13-43) 02/12/24 05:10 Monocytes % (Manual) 4 % (4-9) 02/12/24 05:10 Metamyelocytes % Not Reportable 02/04/24 17:41 Plt Morphology Comment Normal (NORMAL) 02/12/24 05:10 RBC Morphology Abnormal (NORMAL) A 02/12/24 05:10 Anisocytosis Slight A 02/12/24 05:10 Sodium 143 mmol/L (136-145) 02/14/24 05:35 Corrected Sodium TNP 02/14/24 05:35 Potassium 3.9 mmol/L (3.5-5.1) 02/14/24 05:35 Chloride 113 mmol/L (98-107) H 02/14/24 05:35 Carbon Dioxide 22.0 mmol/L (21-32) 02/14/24 05:35 BUN 14 mg/dL (7-18) 02/14/24 05:35 Creatinine 1.02 mg/dL (0.55-1.02) 02/14/24 05:35 Est GFR (MDRD) Af Amer > 60 (>60) 02/14/24 05:35 Est GFR (MDRD) Non-Af 57 (>60) L 02/14/24 05:35 Glucose 102 mg/dL (65-99) H 02/14/24 05:35 POC Glucose (mg/dL) 142 mg/dL (65-99) H 02/14/24 10:59 Hemoglobin A1c 6.2 % 02/03/24 09:30 Uric Acid 7.5 mg/dL (2.6-6.0) H 02/03/24 09:30 Calcium 7.6 mg/dL (8.5-10.1) L 02/14/24 05:35 Corrected Calcium 9.7 mg/dL (8.5-10.1) 02/14/24 05:35 Magnesium 2.2 mg/dL (2.0-2.9) 02/12/24 05:10 Iron 25 ug/dL (50-175) L 02/08/24 06:05 Ferritin 2003 ng/mL (8-252) H 02/08/24 06:05 Total Bilirubin 0.20 mg/dL (0.2-1.0) 02/14/24 05:35 AST 22 Units/L (15-37) 02/14/24 05:35 ALT 13 Units/L (12-78) 02/14/24 05:35 Alkaline Phosphatase 65 Units/L (46-116) 02/14/24 05:35 Total Protein 4.4 g/dL (6.4-8.2) L 02/14/24 05:35 Albumin 1.4 g/dL (3.4-5.0) L 02/14/24 05:35 Globulin 3.0 g/dL (2.5-4.5) 02/14/24 05:35 Albumin/Globulin Ratio 0.5 Ratio (1.1-2.1) L 02/14/24 05:35 Urjbf-6-Cqxsiwtcqva 238 mg/dL (90-200) H 02/09/24 05:13 Amylase 20 Units/L (25-115) L 02/07/24 05:53 Lipase 38 Units/L (16-77) 02/07/24 05:53 Specimen Type Clean catch urine 02/05/24 21:50 Urine Color Yellow (YELLOW) 02/05/24 21:50 Urine Appearance Hazy (CLEAR) 02/05/24 21:50 Urine pH 6.0 (5.0 - 8.0) 02/05/24 21:50 Ur Specific [place] 1.015 (1.000-1.030) 02/05/24 21:50 Urine Protein 4+ (NEGATIVE) 02/05/24 21:50 Urine Glucose (UA) 2+ (NEGATIVE) 02/05/24 21:50 Urine Ketones Negative (NEGATIVE) 02/05/24 21:50 Urine Blood 2+ (NEGATIVE) 02/05/24 21:50 Urine Nitrite Negative (NEGATIVE) 02/05/24 21:50 Urine Bilirubin Negative (NEGATIVE) 02/05/24 21:50 Urine Urobilinogen Normal (NORMAL) 02/05/24 21:50 Ur Leukocyte Esterase 2+ (NEGATIVE) 02/05/24 21:50 Urine RBC 5-10 /HPF (0-3) A 02/05/24 21:50 Urine WBC 20-30 /HPF (0-5) A 02/05/24 21:50 Ur Squamous Epith Cells Few /HPF (NEGATIVE) 02/05/24 21:50 Urine Bacteria 3+ /HPF (NEGATIVE) 02/05/24 21:50 Ur Culture Indicated? Yes/culture set up 02/05/24 21:50 Stool Occult Blood Positive (NEGATIVE) A 02/06/24 09:45 Stool for White Cells Positive (NEGATIVE) A 02/06/24 09:45 Stl C. diff Tox B Gene Positive (NEGATIVE) A 02/06/24 09:45 Stl C. diff [id number] Presumptive negative (NEGATIVE) 02/06/24 09:45 SHANDA Screen None detected (None Detected) 02/09/24 05:13 SHANDA Titer TNP 02/09/24 05:13 SHANDA Pattern TNP 02/09/24 05:13 Anti-Mitochondrial Ab 8.2 Units (0.0-24.9) 02/09/24 05:13 Smooth Muscle Ab Titer <1:20 (<1:20) 02/09/24 05:13 C. difficile Toxin A&B Negative (NEGATIVE) 02/06/24 09:45 Hepatitis A IgM Ab Negative (Negative) 02/09/24 05:13 Hep Bs Antigen Negative (Negative) 02/09/24 05:13 Hep B Core IgM Ab Negative (Negative) 02/09/24 05:13 Hepatitis C Ab Index 0.03 IV 02/09/24 05:13 Hep C RIBA Interpret Negative (Negative) 02/09/24 05:13 Hepatitis Interpret See note 02/09/24 05:13 Plan (1) Colitis: Status: Acute Plan: Lasix 40mg x1 dose. Continue IV hydration, IV vancomycin, IV flagyl, IV rocephin. Plan for hida scan tomorrow. (2) C. 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
--- NOTE | 2024-02-15 17:45 | PCM.PROG ---
Progress Note Progress Note for Day of Date of Exam: 02/15/24 Subjective Subjective: Patient is a 73 year old white female who was a direct admit on 02/05/24 for complaints of ongoing diarrhea, weakness. She was hospitalized last month for treatment of colitis, cdiff and discharged on january 07 with orders for vancomycin and outpatient fluids. She had outpatient labs on 02/04/24 that revealed a wbc of 27.7, up from 13.7 on day of last discharge, and cdiff positive for active cdiff infection. Upon admission, we obtained a ct abdomen and pelvis that showed cirrhosis of the liver with small volume ascities, non specific wall thickening of the colon compatible with colitis, mild diverticulosis in the sigmoid colon without diverticulitis, a chest xray which showed minimal bibasilar infiltrates, and blood/urine cultures. Admission labs: wbc 30.8, hgb 9.4, bun 38/creatinine 1.66. We started the patient on flagyl, vancomycin, IV fluids, and resumed home medications. Urine culture showed positive for Klebsiella oxytoca and she was started on rocephin. Blood culture were negative. We obtained a stool studies which were negative culture, positive on occult blood, negative on campy, wbc positive, cdiff tox b gene positive, cdiff tox a&b negative. She had a repeat chest xray on 02/07/24 that was clear and a gallbladder ultrasound on 02/08/24 that showed mild amount of ascities, no gallstones identified, slight diffuse thickening of the carter of the gallbladder. We consulted Dr. Chowdhury and he evaluated the patient and added Reglan and changed flagyl from PO to IV, continued vancomyin and rocephin. SAUD obtained this am and Dr. Hanks plans to perform EGD in the am due to g astroparesis, gastritis and anemia. AM labs: wbc 8.3, hgb 8, bun 14/creatinine 1.04. Past Medical Family Social History Allergies: Allergies Penicillins Allergy (Mild, Verified 12/18/23 13:44) hives black walnut Allergy (Unknown, Verified 12/18/23 13:44) Comments: all walnuts walnut Allergy (Verified 12/18/23 13:44) Vital Signs and I&O's Vital Signs: Vital Signs Temperature 98 F Temperature 97.5 F Pulse Rate [Left Brachial] 61 Pulse Rate [Left Brachial] 69 Respiratory Rate 20 Respiratory Rate 16 Blood Pressure [Right Arm] 168/66 Blood Pressure [Right Arm] 184/92 Blood Pressure [Right Arm] 212/84 O2 Sat by Pulse Oximetry 100 O2 Sat by Pulse Oximetry 96 Intake and Output: Intake & Output 02/13/24 02/14/24 02/15/24 02/16/24 11:59 11:59 11:59 11:59 Intake Total 2816 / 2816 2198 / 2198 1852 / 1852 240 / 240 Balance 2816 / 2816 2198 / 2198 1852 / 1852 240 / 240 Physical Exam Oriented: Normal Eyes: Normal Ear: Normal Nose: Normal Throat: Normal Respiratory: Diminished Cardiovascular: Normal : Other (Erythema noted in the perineum area, mild swelling and tenderness.) Auscultation: Bowel Sounds: Normal Tenderness: Periumbilical and Mild Skin: Decreased Turgur, Rash (PERINEAL AREA) and Red Musculoskeletal: Back:Lumbar, Swelling and Tender Psychiatric: Normal Mood Description: Calm Speech Pattern: Clear and Appropriate Laboratory and Diagnostics 02/15/24 05:24 02/15/24 05:24 Labs: 02/05/24 12:45 Blood Blood Culture - Final 02/05/24 13:42 Blood Blood Culture - Final 02/06/24 09:45 Stool Stool Culture - Final 02/06/24 09:45 Stool - Final 02/05/24 21:50 Urine,Clean Catch Urine Culture - Final Klebsiella Oxytoca Laboratory WBC 8.3 X10^3/uL (3.6-10.0) 02/15/24 05:24 RBC 2.69 X10^6/uL (3.5-5.4) L 02/15/24 05:24 Hgb 8.0 g/dL (12.0-16.0) L 02/15/24 05:24 Hct 24.5 % (36.0-47.0) L 02/15/24 05:24 MCV 90.8 fL (80.0-100.0) 02/15/24 05:24 MCH 29.7 pg (27.0-34.0) 02/15/24 05:24 MCHC 32.7 g/dL (33.0-35.0) L 02/15/24 05:24 RDW 18.6 % (11.6-16.5) H 02/15/24 05:24 Plt Count 297 X10^3/uL (150.0-450.0) 02/15/24 05:24 Plt Count Comment Adequate (ADEQUATE) 02/12/24 05:10 MPV 8.1 fL (7.4-11.0) 02/15/24 05:24 Neut % (Auto) 62.9 % (42.0-75.0) 02/15/24 05:24 Lymph % (Auto) 28.2 % (21.0-51.0) 02/15/24 05:24 Warren % (Auto) 6.3 % (0.0-13.0) 02/15/24 05:24 Eos % (Auto) 1.4 % (0.9-2.9) 02/15/24 05:24 Baso % (Auto) 1.2 % (0.2-1.0) H 02/15/24 05:24 Neut # (Auto) 5.2 x10^3/uL (2.2-4.8) H 02/15/24 05:24 Lymph # (Auto) 2.3 X10^3/uL (1.3-2.9) 02/15/24 05:24 Warren # (Auto) 0.5 x10^3/uL (0.3-0.8) 02/15/24 05:24 Eos # (Auto) 0.1 x10^3/uL (0.0-0.2) 02/15/24 05:24 Baso # (Auto) 0.1 X10^3/uL (0.0-0.1) 02/15/24 05:24 Absolute Nucleated RBC 0.1 /100WBC 02/15/24 05:24 Total Counted 100 02/12/24 05:10 Neutrophils % (Manual) 68 % (39-76) 02/12/24 05:10 Band Neutrophils % 2 % (0-10) 02/12/24 05:10 Lymphocytes % (Manual) 26 % (13-43) 02/12/24 05:10 Monocytes % (Manual) 4 % (4-9) 02/12/24 05:10 Metamyelocytes % Not Reportable 02/04/24 17:41 Plt Morphology Comment Normal (NORMAL) 02/12/24 05:10 RBC Morphology Abnormal (NORMAL) A 02/12/24 05:10 Anisocytosis Slight A 02/12/24 05:10 Sodium 144 mmol/L (136-145) 02/15/24 05:24 Corrected Sodium TNP 02/15/24 05:24 Potassium 4.0 mmol/L (3.5-5.1) 02/15/24 05:24 Chloride 114 mmol/L (98-107) H 02/15/24 05:24 Carbon Dioxide 22.1 mmol/L (21-32) 02/15/24 05:24 BUN 14 mg/dL (7-18) 02/15/24 05:24 Creatinine 1.04 mg/dL (0.55-1.02) H 02/15/24 05:24 Est GFR (MDRD) Af Amer > 60 (>60) 02/15/24 05:24 Est GFR (MDRD) Non-Af 56 (>60) L 02/15/24 05:24 Glucose 93 mg/dL (65-99) 02/15/24 05:24 POC Glucose (mg/dL) 130 mg/dL (65-99) H 02/15/24 16:26 Hemoglobin A1c 6.2 % 02/03/24 09:30 Uric Acid 7.5 mg/dL (2.6-6.0) H 02/03/24 09:30 Calcium 7.6 mg/dL (8.5-10.1) L 02/15/24 05:24 Corrected Calcium 9.8 mg/dL (8.5-10.1) 02/15/24 05:24 Magnesium 2.2 mg/dL (2.0-2.9) 02/12/24 05:10 Iron 25 ug/dL (50-175) L 02/08/24 06:05 Ferritin 2003 ng/mL (8-252) H 02/08/24 06:05 Total Bilirubin 0.10 mg/dL (0.2-1.0) L 02/15/24 05:24 AST 20 Units/L (15-37) 02/15/24 05:24 ALT 11 Units/L (12-78) L 02/15/24 05:24 Alkaline Phosphatase 58 Units/L (46-116) 02/15/24 05:24 Total Protein 4.3 g/dL (6.4-8.2) L 02/15/24 05:24 Albumin 1.3 g/dL (3.4-5.0) L 02/15/24 05:24 Globulin 3.0 g/dL (2.5-4.5) 02/15/24 05:24 Albumin/Globulin Ratio 0.4 Ratio (1.1-2.1) L 02/15/24 05:24 Henkd-[id number] 238 mg/dL (90-200) H 02/09/24 05:13 Amylase 20 Units/L (25-115) L 02/07/24 05:53 Lipase 38 Units/L (16-77) 02/07/24 05:53 Specimen Type Clean catch urine 02/05/24 21:50 Urine Color Yellow (YELLOW) 02/05/24 21:50 Urine Appearance Hazy (CLEAR) 02/05/24 21:50 Urine pH 6.0 (5.0 - 8.0) 02/05/24 21:50 Ur Specific Hazel 1.015 (1.000-1.030) 02/05/24 21:50 Urine Protein 4+ (NEGATIVE) 02/05/24 21:50 Urine Glucose (UA) 2+ (NEGATIVE) 02/05/24 21:50 Urine Ketones Negative (NEGATIVE) 02/05/24 21:50 Urine Blood 2+ (NEGATIVE) 02/05/24 21:50 Urine Nitrite Negative (NEGATIVE) 02/05/24 21:50 Urine Bilirubin Negative (NEGATIVE) 02/05/24 21:50 Urine Urobilinogen Normal (NORMAL) 02/05/24 21:50 Ur Leukocyte Esterase 2+ (NEGATIVE) 02/05/24 21:50 Urine RBC 5-10 /HPF (0-3) A 02/05/24 21:50 Urine WBC 20-30 /HPF (0-5) A 02/05/24 21:50 Ur Squamous Epith Cells Few /HPF (NEGATIVE) 02/05/24 21:50 Urine Bacteria 3+ /HPF (NEGATIVE) 02/05/24 21:50 Ur Culture Indicated? Yes/culture set up 02/05/24 21:50 Stool Occult Blood Positive (NEGATIVE) A 02/06/24 09:45 Stool for White Cells Positive (NEGATIVE) A 02/06/24 09:45 Stl C. diff Tox B Gene Positive (NEGATIVE) A 02/06/24 09:45 Stl C. diff [id number] Presumptive negative (NEGATIVE) 02/06/24 09:45 SHANDA Screen None detected (None Detected) 02/09/24 05:13 SHANDA Titer TNP 02/09/24 05:13 SHANDA Pattern TNP 02/09/24 05:13 Anti-Mitochondrial Ab 8.2 Units (0.0-24.9) 02/09/24 05:13 Smooth Muscle Ab Titer <1:20 (<1:20) 02/09/24 05:13 C. difficile Toxin A&B Negative (NEGATIVE) 02/06/24 09:45 Hepatitis A IgM Ab Negative (Negative) 02/09/24 05:13 Hep Bs Antigen Negative (Negative) 02/09/24 05:13 Hep B Core IgM Ab Negative (Negative) 02/09/24 05:13 Hepatitis C Ab Index 0.03 IV 02/09/24 05:13 Hep C RIBA Interpret Negative (Negative) 02/09/24 05:13 Hepatitis Interpret See note 02/09/24 05:13 Plan (1) Colitis: Status: Acute Plan: Lasix 40mg x1 dose. Continue IV hydration, IV vancomycin, IV flagyl, IV rocephin. npo after midnight per dr hanks for egd (2) C. difficile colitis: Status: Acute (3) Hypokalemia: Status: Acute (4) Hypomagnesemia: Status: Acute (5) Acute renal failure: Status: Acute Qualifiers: Acute renal failure type: unspecified Qualified Code(s): N17.9 - Acute kidney failure, unspecified (6) Diabetes mellitus, type 2: Status: Chronic Qualifiers: Diabetes mellitus complication status: with hyperglycemia Diabetes mellitus halfway insulin use: with remote computer terminal operator use Qualified Code(s): E11.65 - Type 2 diabetes mellitus with hyperglycemia; Z79.4 - [facility] (current) use of insulin
[2024-02-15] MEDS: LASIX IVP SCH (18:31)
[2024-02-15] MEDS: MICRO K EXTEN CAP 10 MEQ PO SCH (18:31)
[2024-02-16] MEDS: HIBICLENS WASH EXT ONE (03:24)
[2024-02-16 05:37] LABS: BASOPHILS # (AUTO) 0.2 X10^3/uL (0.0-0.1); BASOPHILS % (AUTO) 2.2 % (0.2-1.0); EOSINOPHILS # (AUTO) 0.1 x10^3/uL (0.0-0.2); EOSINOPHILS % (AUTO) 0.9 % (0.9-2.9); HEMATOCRIT 27.1 % (36.0-47.0); HEMOGLOBIN 8.8 g/dL (12.0-16.0); LYMPHOCYTES % (AUTO) 27.1 % (21.0-51.0); MEAN CORPUSCULAR HEMOGLOBIN 29.6 pg (27.0-34.0); MEAN CORPUSCULAR HGB CONC 32.5 g/dL (33.0-35.0); MEAN CORPUSCULAR VOLUME 91.1 fL (80.0-100.0); MEAN PLATELET VOLUME 8.3 fL (7.4-11.0); MONOCYTES # (AUTO) 0.5 x10^3/uL (0.3-0.8); MONOCYTES % (AUTO) 6.3 % (0.0-13.0); NEUTROPHILS # (AUTO) 4.7 x10^3/uL (2.2-4.8); NEUTROPHILS % (AUTO) 63.5 % (42.0-75.0); PLATELET COUNT 332 X10^3/uL (150.0-450.0); RED BLOOD COUNT 2.97 X10^6/uL (3.5-5.4); RED CELL DISTRIBUTION WIDTH 18.7 % (11.6-16.5); WHITE BLOOD COUNT 7.4 X10^3/uL (3.6-10.0)
[2024-02-16 05:58] LABS: ALANINE AMINOTRANSFERASE 14 Units/L (12-78); ALBUMIN 1.5 g/dL (3.4-5.0); ALKALINE PHOSPHATASE 70 Units/L (46-116); ASPARTATE AMINO TRANSFERASE 22 Units/L (15-37); BLOOD UREA NITROGEN 13 mg/dL (7-18); CALCIUM 7.9 mg/dL (8.5-10.1); CARBON DIOXIDE 25.1 mmol/L (21-32); CHLORIDE 112 mmol/L (98-107); COR CA(FOR HYPOALB) 9.9 mg/dL (8.5-10.1); CREATININE 1.12 mg/dL (0.55-1.02); GLUCOSE 106 mg/dL (65-99); SODIUM 143 mmol/L (136-145); TOTAL PROTEIN 4.8 g/dL (6.4-8.2); eGFR NON BLACK RACES 51 (>60)
[2024-02-16] MEDS: DIPRIVAN VIAL 20 ML ONE (08:46)
[2024-02-16 08:49] VITALS: RESP 18
[2024-02-16 13:22] VITALS: BP 135/76; PULSE 68; TEMP 97.6; O2SAT 100
--- NOTE | 2024-02-21 15:42 | DR.CONSULT ---
CONSULT Allergies Allergies Allergy/AdvReac Type Severity Reaction Status Date / Time Penicillins Allergy Mild hives Verified 12/18/23 13:44 black walnut Allergy Unknown Verified 12/18/23 13:44 walnut Allergy Verified 12/18/23 13:44 Past Medical History Past Medical History: Anxiety, Arthritis, CHF, Diabetes, Dyslipidemia, GERD and Hypertension Past Surgical History Surgical History: Ortho Surgery Family History Family Medical History: Cancer, Coronary Artery Disease and Hypertension Social History Does patient currently use any type of tobacco product: No Type of Tobacco Use: None Does any household member use tobacco: No Alcohol Use: None Drug Use: Prescription Drugs Medications Home Medications: Penicillins Allergy (Mild, Verified 12/18/23 13:44) hives black walnut Allergy (Unknown, Verified 12/18/23 13:44) walnut Allergy (Verified 12/18/23 13:44) CONTINUE taking the following medications potassium chloride 20 mEq tablet,extended release 20 meq PO QDAY 02/05/24 [History] New Prescriptions furosemide 40 mg tablet 20 mg PO QDAY #30 tabs 02/09/24 [Rx] rifaximin 550 mg tablet (Xifaxan) 550 mg PO BID #60 tabs 02/09/24 [Rx] Benzocaine (Dental) [Orajel Max Strength 20%] 1 applic MT Q4H PRN 02/15/24 [Rx] Blood Glucose Check [Otbs (One-Touch Blood Sugar)] 1 ea XX ACHS 02/15/24 [Rx] Lactobac no.2-Bifidobac no.11-S. thermo 112.5 billion cell capsule (High Potency Probiotic) 4 cap PO DAILY 02/15/24 [Rx] insulin regular human 100 unit/mL injection solution (Novolin R Regular U-100 Insulin) 0 unit (0 mL) SUBCUT ACHS PRN 02/15/24 [Rx] potassium chloride 10 mEq capsule,extended release 20 meq PO QDAY #30 caps 02/15/24 [Rx] vancomycin 250 mg capsule 250 mg PO Q6HR 02/15/24 [Rx] Plan (1) C. difficile colitis: Status: Acute (2) Hypomagnesemia: Status: Acute (3) Diabetes mellitus, type 2: Status: Chronic Qualifiers: Diabetes mellitus complication status: with hyperglycemia Diabetes mellitus salvage determiner insulin use: with custodial use Qualified Code(s): E11.65 - Type 2 diabetes mellitus with hyperglycemia; Z79.4 - half-way (current) use of insulin (4) C. difficile diarrhea: Status: Acute (5) Diarrhea: Status: Acute (6) GERD (gastroesophageal reflux disease): Status: Chronic Qualifiers: Esophagitis presence: esophagitis presence not specified Qualified Code(s): K21.9 - Gastro-esophageal reflux disease without esophagitis (7) Chronic gastroesophageal reflux disease: Status: None (8) Family history of malignant neoplasm of colon: Status: None
== END 2024-02-16 13:40 | DRG 372 ==
LOC: MED/SURG 09:14 → LTCLAB 09:14 → OUTPT REF 09:14
PROVIDERS: ADMIT Internal Medicine; ATTEND Internal Medicine
DX: E83.42 Hypomagnesemia; K31.84 Gastroparesis; E87.6 Hypokalemia; K52.89 Other specified noninfective gastroenteritis and colitis; I10 Essential (primary) hypertension; K74.69 Other cirrhosis of liver; A04.72 Enterocolitis due to Clostridium difficile, not specified as recurrent; B96.89 Other specified bacterial agents as the cause of diseases classified elsewhere; R07.89 Other chest pain; R13.11 Dysphagia, oral phase; K29.60 Other gastritis without bleeding; Z79.4 Long term (current) use of insulin; N17.8 Other acute kidney failure; N39.0 Urinary tract infection, site not specified; E11.65 Type 2 diabetes mellitus with hyperglycemia; E86.0 Dehydration; R10.13 Epigastric pain

== ENCOUNTER 2025-05-27 18:19 | Observation (INO) ==
--- NOTE | 2025-05-27 18:37 | DR.GENAD ---
HPI Time Seen Time Seen by Provider: 05/27/25 18:32 Complaint/Symptoms Chief Complaint Doctors Comments: 74-year-old female shelter resident to ER via ambulance or continued bleeding at dialysis site. Patient underwent dialysis today after full dialysis at 1600 noted dialysis site continued to bleed patient was placed with a pressure dressing without sensation of bleeding and sent to the ED. Patient has no complaints of pain awake alert oriented x 3 answers questions PMH PMH Past Medical History: Anemia, Arthritis, CHF, Diabetes, Dyslipidemia, GERD, Gout, Hypertension and Renal Disease Past Surgical History: Yes Surgical History: Ortho Surgery Family History Family Medical History: Cancer, Coronary Artery Disease and Hypertension Social History Do you use any recreational Drugs:: No ROS Review of Systems Constitutional: No Symptoms Reported Eyes: No Symptoms Reported ENTM: No Symptoms Reported Respiratoy: No Symptoms Reported Cardiovascular: No Symptoms Reported Gastrointestinal/Abdominal: No Symptoms Reported Genitourinary: No Symptoms Reported Neurological: No Symptoms Reported Musculoskeletal: No Symptoms Reported Integumentary: No Symptoms Reported Hematologic/Lymphatic: See HPI and Other (Patient is bleeding from left arm dialysis site) Endocrine: No Symptoms Reported Psychiatric: No Symptoms Reported All Other Systems: Reviewed and Negative PE Vital Signs Vitals: Vital Signs Temperature 97.4 F Pulse Rate 62 Pulse Rate 62 Pulse Rate 60 Pulse Rate 62 Pulse Rate 63 Pulse Rate 63 Pulse Rate 62 Respiratory Rate 18 Respiratory Rate 25 Respiratory Rate 20 Respiratory Rate 21 Respiratory Rate 18 Respiratory Rate 19 Respiratory Rate 20 Blood Pressure 145/91 Blood Pressure 174/72 O2 Sat by Pulse Oximetry 100 O2 Sat by Pulse Oximetry 100 O2 Sat by Pulse Oximetry 98 O2 Sat by Pulse Oximetry 99 O2 Sat by Pulse Oximetry 99 O2 Sat by Pulse Oximetry 100 General Limitations: No Limitations General Appearance: Alert and In No Apparent Distress Head Head Exam: Normal Inspection Eyes Eye exam: Normal Appearance ENT ENT Exam: Normal Exam External Ear Exam: Normal External Inspection TM/Canal Exam: Bilateral: Normal Nose Exam: Normal Nose Exam Mouth Exam: Normal Inspection Throat Exam: Normal Inspection Neck Neck Exam: Normal Inspection Chest Chest Inspection: Normal Inspection Respiratory Respiratory Exam: Normal Lung Sounds Bilat Respiratory Exam: Bilateral: Clear to Auscultation Cardiovascular Cardiovascular Exam: Regular Rate and Normal Rhythm Abdominal Exam Abdominal Exam: Normal Inspection, Normal Bowel Sounds and Soft Extremities Extremities Exam: Normal Inspection (With the exception left dialysis catheter site with continuous ooze despite pressure dressing) Back Back Exam: Normal Inspection Neurologic Neurological Exam: Alert and Oriented X3 Psychiatric Psychiatric Exam: Normal Affect and Normal Mood Skin Skin Exam: Warm, Dry, Intact and Normal Color COURSE Treatment Treatment: Patient evaluated on arrival. Contacted Dr. Loo surgeon on-call informed of patient's presence. Will obtain lab work. Dr. Loo recommended giving vitamin K calling him back after labs obtained. Dr Loo he wishes me to admit patient under his service [facility] Labs Reviewed 05/27/25 18:53 05/27/25 18:53 Laboratory: WBC 9.6 X10^3/uL (3.6-10.0) 05/27/25 18:53 RBC 3.56 X10^6/uL (3.5-5.4) 05/27/25 18:53 Hgb 10.0 g/dL (12.0-16.0) L 05/27/25 18:53 Hct 30.5 % (36.0-47.0) L 05/27/25 18:53 MCV 85.8 fL (80.0-100.0) 05/27/25 18:53 MCH 28.3 pg (27.0-34.0) 05/27/25 18:53 MCHC 32.9 g/dL (33.0-35.0) L 05/27/25 18:53 RDW 18.2 % (11.6-16.5) H 05/27/25 18:53 Plt Count 311 X10^3/uL (150.0-450.0) 05/27/25 18:53 MPV 8.4 fL (7.4-11.0) 05/27/25 18:53 Neut % (Auto) 77.8 % (42.0-75.0) H 05/27/25 18:53 Lymph % (Auto) 15.5 % (21.0-51.0) L 05/27/25 18:53 Graham % (Auto) 5.8 % (0.0-13.0) 05/27/25 18:53 Eos % (Auto) 0.3 % (0.9-2.9) L 05/27/25 18:53 Baso % (Auto) 0.6 % (0.2-1.0) 05/27/25 18:53 Neut # (Auto) 7.5 x10^3/uL (2.2-4.8) H 05/27/25 18:53 Lymph # (Auto) 1.5 X10^3/uL (1.3-2.9) 05/27/25 18:53 Graham # (Auto) 0.6 x10^3/uL (0.3-0.8) 05/27/25 18:53 Eos # (Auto) 0.0 x10^3/uL (0.0-0.2) 05/27/25 18:53 Baso # (Auto) 0.1 X10^3/uL (0.0-0.1) 05/27/25 18:53 Absolute Nucleated RBC 0.1 /100WBC 05/27/25 18:53 PT 20.0 SECONDS (11.8-14.3) 05/27/25 18:53 INR Target Range - 05/27/25 18:53 INR 1.69 (0.8-1.3) H 05/27/25 18:53 APTT 45.4 SECONDS (22.9-36.5) H 05/27/25 18:53 PTT Comment - 05/27/25 18:53 Sodium 141 mmol/L (136-145) 05/27/25 18:53 Corrected Sodium 142 mmol/L (136-145) 05/27/25 18:53 Potassium 3.2 mmol/L (3.5-5.1) L 05/27/25 18:53 Chloride 100 mmol/L (98-107) 05/27/25 18:53 Carbon Dioxide 33.7 mmol/L (21-32) H 05/27/25 18:53 BUN 20 mg/dL (7-18) H 05/27/25 18:53 Creatinine 2.24 mg/dL (0.55-1.02) H 05/27/25 18:53 Est GFR (MDRD) Af Amer 28 (>60) L 05/27/25 18:53 Est GFR (MDRD) Non-Af 23 (>60) L 05/27/25 18:53 Glucose 122 mg/dL (65-99) H 05/27/25 18:53 Calcium 8.8 mg/dL (8.5-10.1) 05/27/25 18:53 Corrected Calcium 10.3 mg/dL (8.5-10.1) H 05/27/25 18:53 Total Bilirubin 0.30 mg/dL (0.2-1.0) 05/27/25 18:53 AST 33 Units/L (15-37) 05/27/25 18:53 ALT 14 Units/L (12-78) 05/27/25 18:53 Alkaline Phosphatase 120 Units/L (46-116) H 05/27/25 18:53 Total Protein 6.8 g/dL (6.4-8.2) 05/27/25 18:53 Albumin 2.1 g/dL (3.4-5.0) L 05/27/25 18:53 Globulin 4.7 g/dL (2.5-4.5) H 05/27/25 18:53 Albumin/Globulin Ratio 0.4 Ratio (1.1-2.1) L 05/27/25 18:53 Blood Type A POSITIVE 05/27/25 18:53 Antibody Screen Negative 05/27/25 18:53 Opioid Opioid Risk Tool Age (Bebeto box if 16-45): No History of Preadolescent Sexual Abuse: No Total: 0 Total Score Risk Category: Low Risk Copyright: Flavio SCHULTZ predicting aberrant behaviors Discharge Plan Diagnosis Discharge Problem: Bleeding, Elevated partial thromboplastin time (PTT), End stage chronic kidney disease Discharge Plan Patient Disposition: ADMITTED INPATIENT Condition: Stable Prescriptions: No Action amiodarone 200 mg tablet 200 mg PO DAILY lisinopril 20 mg tablet 20 mg PO QDAY clopidogrel 75 mg tablet 75 mg PO QDAY alprazolam 0.25 mg tablet 0.25 mg PO QTUTHSA Rx Instructions: GIVE PRIOR TO DIALYSIS ipratropium bromide 0.02 % solution 1 mg inhalation Q8H PRN Patient Comments: [NO ORIGINAL SIG] rosuvastatin 10 mg tablet 10 mg PO QPM insulin glargine [Lantus Solostar U-100 Insulin] 100 unit/mL (3 mL) insulin pen 15 unit subcut DAILY Patient Comments: [NO ORIGINAL SIG] Eliquis 5 mg tablet 5 mg PO BID allopurinol 100 mg tablet 100 mg PO DAILY diclofenac sodium 1 % Gel 1 ea TOPICAL BID Rx Instructions: Apply to left and right foot mv-mins no.73-iron fum-folic 106 mg iron- 1 mg Capsule 1 cap PO DAILY ergocalciferol (vitamin D2) [Vitamin D2] 1,250 mcg (50,000 unit) Capsule 50,000 unit PO WEEKLY Rx Instructions: given every Monday donepezil [Aricept] 10 mg Tablet 10 mg PO QHS tramadol 50 mg tablet 50 mg PO QDAY levalbuterol HCl 1.25 mg/3 mL Solution For Nebulization 1.25 mg INHALATION Q8H PRN Ferrocite Plus 106 mg iron- 1 mg Tablet 1 tab PO QDAY Saccharomyces boulardii 250 mg Capsule 1,000 mg PO DAILY furosemide 40 mg tablet 40 mg PO QDAY fluticasone propionate 50 mcg/actuation [place],Suspension 1 spray INTRANASAL BID Tradjenta 5 mg Tablet 5 mg PO DAILY hydrocodone-acetaminophen 5-325 mg tablet 1 tab PO Q6H PRN metoprolol tartrate 25 mg tablet 25 mg PO BID Qty: 0 0RF pantoprazole 40 mg tablet,delayed release (DR/EC) 40 mg PO QDAY Novolin R Regular U100 Insulin 100 unit/mL solution See Rx Instructions .ROUTE .COMPLEX PRN Rx Instructions: sliding scale Health Concerns: Post Hospitalization: new medications and changes needed to prevent readmission or further decline. Pt educated and given instructions on all concerns. Plan of Treatment: Continue with present treatment and follow up plan. Pt is to keep follow up appointment as instructed and take medications as ordered. Follow ups/Referrals Follow ups/Referrals: YULIET,None [Primary Care Provider] - 3 days Instructions Print Language: ARMENIAN
[2025-05-27 19:10] LABS: MEAN PLATELET VOLUME 8.4 fL (7.4-11.0); RED CELL DISTRIBUTION WIDTH 18.2 % (11.6-16.5)
[2025-05-27 19:20] LABS: INR 1.69 (0.8-1.3)
[2025-05-27 19:24] LABS: COR CA(FOR HYPOALB) 10.3 mg/dL (8.5-10.1); COR NA(FOR HYPERGLY) 142.0 mmol/L (136-145); CREATININE 2.24 mg/dL (0.55-1.02); eGFR NON BLACK RACES 23.0 (>60)
[2025-05-27] MEDS: AQUA-MEPHYTON ADULT INJ 5 MG in NS 50 ML IV 50 ML IV ONE (19:26)
--- NOTE | 2025-05-27 20:41 | DR.GENAD ---
HPI Time Seen Time Seen by Provider: 05/27/25 18:32 PCP Primary Care Physician: FANTASMA Complaint/Symptoms Chief Complaint:: PT IN ED VIA STRETCHER FROM [facility] WITH STAFF STATING SHE HAD DIALYSIS AT 4PM TODAY AND LEFT UPPER ARM FISTULA WILL NOT STOP BLEEDING. BP 99/53 PULSE 63 O2 SAT 97% TEMP 97.9 USP STAFF STATED PT SKIN COLOR WAS BLUE. BLOOD SUGAR WAS 47 GIVEN GLUCOTROL AND APPLE JUICE. BLOOD SUGAR CAME UP TO 117. COVID-19 Coronavirus risk:travel/contact w/high risk person: No Has patient experienced Coronavirus symptoms: No Source History Provided: Snf Mode of Arrival Mode of Arrival: Stretcher Timing Onset of Chief Complaint: 05/27/25 PMH PMH Past Medical History: Yes Past Medical History: Anemia, Arthritis, CHF, Diabetes, Dyslipidemia, GERD, Gout, Hypertension and Renal Disease Past Medical History Comment: A-FIB DJD DDD OSTEOPOROSIS POLIO PVD DIVERTICULITIS Past Surgical History: Yes Surgical History: Ortho Surgery Past Surgical History Comment: LEFT FOOT DIALYSIS GRAFT CANELO Family History History of Family Medical Conditions: Yes Family Medical History: Cancer, Coronary Artery Disease and Hypertension Social History Does patient currently use any type of tobacco product: No Have you used tobacco products in the last 12 months: No Type of Tobacco Use: None Does any household member use tobacco: No Alcohol Use: None Do you use any recreational Drugs:: No Lives With: Other Lives Where: Snf Travel Risk Coronavirus risk:travel/contact w/high risk person: No Has patient experienced Coronavirus symptoms: No Infectious screening In the last 2 months have you had wt loss of >10#?: NO Have you had fever, night sweats or hemotysis?: No Have you traveled outside the country in the last 6 months?: No Isolation: Standard PE Vital Signs Vitals: Vital Signs Temperature 97.4 F Pulse Rate 62 Pulse Rate 62 Pulse Rate 60 Pulse Rate 62 Pulse Rate 63 Pulse Rate 63 Pulse Rate 62 Respiratory Rate 18 Respiratory Rate 25 Respiratory Rate 20 Respiratory Rate 21 Respiratory Rate 18 Respiratory Rate 19 Respiratory Rate 20 Blood Pressure 145/91 Blood Pressure 174/72 O2 Sat by Pulse Oximetry 100 O2 Sat by Pulse Oximetry 100 O2 Sat by Pulse Oximetry 98 O2 Sat by Pulse Oximetry 99 O2 Sat by Pulse Oximetry 99 O2 Sat by Pulse Oximetry 100 ROR Labs Reviewed 05/27/25 18:53 05/27/25 18:53 Laboratory: WBC 9.6 X10^3/uL (3.6-10.0) 05/27/25 18:53 RBC 3.56 X10^6/uL (3.5-5.4) 05/27/25 18:53 Hgb 10.0 g/dL (12.0-16.0) L 05/27/25 18:53 Hct 30.5 % (36.0-47.0) L 05/27/25 18:53 MCV 85.8 fL (80.0-100.0) 05/27/25 18:53 MCH 28.3 pg (27.0-34.0) 05/27/25 18:53 MCHC 32.9 g/dL (33.0-35.0) L 05/27/25 18:53 RDW 18.2 % (11.6-16.5) H 05/27/25 18:53 Plt Count 311 X10^3/uL (150.0-450.0) 05/27/25 18:53 MPV 8.4 fL (7.4-11.0) 05/27/25 18:53 Neut % (Auto) 77.8 % (42.0-75.0) H 05/27/25 18:53 Lymph % (Auto) 15.5 % (21.0-51.0) L 05/27/25 18:53 [place] % (Auto) 5.8 % (0.0-13.0) 05/27/25 18:53 Eos % (Auto) 0.3 % (0.9-2.9) L 05/27/25 18:53 Baso % (Auto) 0.6 % (0.2-1.0) 05/27/25 18:53 Neut # (Auto) 7.5 x10^3/uL (2.2-4.8) H 05/27/25 18:53 Lymph # (Auto) 1.5 X10^3/uL (1.3-2.9) 05/27/25 18:53 [place] # (Auto) 0.6 x10^3/uL (0.3-0.8) 05/27/25 18:53 Eos # (Auto) 0.0 x10^3/uL (0.0-0.2) 05/27/25 18:53 Baso # (Auto) 0.1 X10^3/uL (0.0-0.1) 05/27/25 18:53 Absolute Nucleated RBC 0.1 /100WBC 05/27/25 18:53 PT 20.0 SECONDS (11.8-14.3) 05/27/25 18:53 INR Target Range - 05/27/25 18:53 INR 1.69 (0.8-1.3) H 05/27/25 18:53 APTT 45.4 SECONDS (22.9-36.5) H 05/27/25 18:53 PTT Comment - 05/27/25 18:53 Sodium 141 mmol/L (136-145) 05/27/25 18:53 Corrected Sodium 142 mmol/L (136-145) 05/27/25 18:53 Potassium 3.2 mmol/L (3.5-5.1) L 05/27/25 18:53 Chloride 100 mmol/L (98-107) 05/27/25 18:53 Carbon Dioxide 33.7 mmol/L (21-32) H 05/27/25 18:53 BUN 20 mg/dL (7-18) H 05/27/25 18:53 Creatinine 2.24 mg/dL (0.55-1.02) H 05/27/25 18:53 Est GFR (MDRD) Af Amer 28 (>60) L 05/27/25 18:53 Est GFR (MDRD) Non-Af 23 (>60) L 05/27/25 18:53 Glucose 122 mg/dL (65-99) H 05/27/25 18:53 Calcium 8.8 mg/dL (8.5-10.1) 05/27/25 18:53 Corrected Calcium 10.3 mg/dL (8.5-10.1) H 05/27/25 18:53 Total Bilirubin 0.30 mg/dL (0.2-1.0) 05/27/25 18:53 AST 33 Units/L (15-37) 05/27/25 18:53 ALT 14 Units/L (12-78) 05/27/25 18:53 Alkaline Phosphatase 120 Units/L (46-116) H 05/27/25 18:53 Total Protein 6.8 g/dL (6.4-8.2) 05/27/25 18:53 Albumin 2.1 g/dL (3.4-5.0) L 05/27/25 18:53 Globulin 4.7 g/dL (2.5-4.5) H 05/27/25 18:53 Albumin/Globulin Ratio 0.4 Ratio (1.1-2.1) L 05/27/25 18:53 Blood Type A POSITIVE 05/27/25 18:53 Antibody Screen Negative 05/27/25 18:53 Opioid Opioid Risk Tool Age (Bebeto box if 16-45): No History of Preadolescent Sexual Abuse: No Total: 0 Total Score Risk Category: Low Risk Copyright: Flavio SCHULTZ predicting aberrant behaviors Discharge Plan Diagnosis Discharge Problem: Bleeding, Elevated partial thromboplastin time (PTT), End stage chronic kidney disease Discharge Plan Patient Disposition: ADMITTED INPATIENT Condition: Stable Prescriptions: No Action amiodarone 200 mg tablet 200 mg PO DAILY lisinopril 20 mg tablet 20 mg PO QDAY clopidogrel 75 mg tablet 75 mg PO QDAY alprazolam 0.25 mg tablet 0.25 mg PO QTUTHSA Rx Instructions: GIVE PRIOR TO DIALYSIS ipratropium bromide 0.02 % solution 1 mg inhalation Q8H PRN Patient Comments: [NO ORIGINAL SIG] rosuvastatin 10 mg tablet 10 mg PO QPM insulin glargine [Lantus Solostar U-100 Insulin] 100 unit/mL (3 mL) insulin pen 15 unit subcut DAILY Patient Comments: [NO ORIGINAL SIG] Eliquis 5 mg tablet 5 mg PO BID allopurinol 100 mg tablet 100 mg PO DAILY diclofenac sodium 1 % Gel 1 ea TOPICAL BID Rx Instructions: Apply to left and right foot mv-mins no.73-iron fum-folic 106 mg iron- 1 mg Capsule 1 cap PO DAILY ergocalciferol (vitamin D2) [Vitamin D2] 1,250 mcg (50,000 unit) Capsule 50,000 unit PO WEEKLY Rx Instructions: given every Monday donepezil [Aricept] 10 mg Tablet 10 mg PO QHS tramadol 50 mg tablet 50 mg PO QDAY levalbuterol HCl 1.25 mg/3 mL Solution For Nebulization 1.25 mg INHALATION Q8H PRN Ferrocite Plus 106 mg iron- 1 mg Tablet 1 tab PO QDAY Saccharomyces boulardii 250 mg Capsule 1,000 mg PO DAILY furosemide 40 mg tablet 40 mg PO QDAY fluticasone propionate 50 mcg/actuation [place],Suspension 1 spray INTRANASAL BID Tradjenta 5 mg Tablet 5 mg PO DAILY hydrocodone-acetaminophen 5-325 mg tablet 1 tab PO Q6H PRN metoprolol tartrate 25 mg tablet 25 mg PO BID Qty: 0 0RF pantoprazole 40 mg tablet,delayed release (DR/EC) 40 mg PO QDAY Novolin R Regular U100 Insulin 100 unit/mL solution See Rx Instructions .ROUTE .COMPLEX PRN Rx Instructions: sliding scale Health Concerns: Post Hospitalization: new medications and changes needed to prevent readmission or further decline. Pt educated and given instructions on all concerns. Plan of Treatment: Continue with present treatment and follow up plan. Pt is to keep follow up appointment as instructed and take medications as ordered. Orders to Discharge Patient Discharge Orders: Transfer (Routine); Ordered 05/27/25 Ordered By: Joey Mondragon Follow ups/Referrals Follow ups/Referrals: [facility],None [Primary Care Provider] - 3 days Instructions Print Language: PALESTINIAN
[2025-05-27] MEDS ORDERED: ULTRAM PO PRN (22:39)
[2025-05-27] MEDS ORDERED: PATIENT'S HOME MEDICATION (Alprazolam 0.25 mg tablet) PO SCH (22:39)
[2025-05-27] MEDS ORDERED: NovoLIN R (or HumuLIN R) IV PRN (22:39)
[2025-05-27] MEDS ORDERED: TYLENOL 325 MG TAB PO PRN (22:39)
[2025-05-27] MEDS ORDERED: NORCO 5/325 MG TAB PO PRN (22:39)
[2025-05-27] MEDS ORDERED: XOPENEX 1.25 MG/3 ML NEBULE NEB PRN (22:44)
[2025-05-27] MEDS: AQUA-MEPHYTON ADULT INJ ONE (23:21)
[2025-05-27] MEDS: NS 50 ML IV 50 ML IV ONE (23:22)
[2025-05-27] MEDS: ELIQUIS PO SCH (23:22)
[2025-05-27] MEDS: LOPRESSOR TAB 25 MG PO SCH (23:31)
[2025-05-27] MEDS: CONSULT PHARMACY - POTASSIUM & MAGNESIUM XX SCH (23:32)
[2025-05-27] MEDS: K-DUR TAB 20 MEQ PO ONE (23:32)
--- NOTE | 2025-05-28 00:19 | DR.H&P ---
H&P History & Physical for Day of: H&P Date: 05/27/25 Chief Complaint Chief Complaint: Bleeding from left upper arm arteriovenous fistula access site from dialysis earlier today History of Present Illness History of Present Illness: Patient is a resident of the local [facility] and history of chronic renal failure who received dialysis earlier today via left upper arm AV fistula. Returned to the skilled nurse facility and still had bleeding from the AV fisdtula puncture site and was transferred by EMS for this. Initially controlled with pressure alone. Patient has a history of atrial fibrillation and is on Eliquis and Plavix which increases the risk of bleeding from needlesticks. Evaluated in the emergency room and had elevated prothrombin time of 20, elevated, INR 1.69 elevated PTT of 45.4. Patient given vitamin K and pressure held on this area. Patient's bleeding is much better but patient will be kept overnight for observation to avoid taking her back to the skilled facility having further bleeding and another emergency room visit Past Medical History Past Medical History: Anemia, Arthritis, CHF, COPD, Dementia, Diabetes, Dyslipidemia, GERD, Gout, Hypertension and Renal Disease Additional Medical History: atrial fibrillation Past Surgical History Surgical History: Ortho Surgery Family History Family Medical History: Cancer, Coronary Artery Disease and Hypertension Social History Does patient currently use any type of tobacco product: No Have you used tobacco products in the last 12 months: No Type of Tobacco Use: None Does any household member use tobacco: No Alcohol Use: None Medications Home Medications: Home Medications Medication Instructions Recorded Confirmed Type allopurinol 100 mg tablet 100 mg PO DAILY 01/20/22 History diclofenac sodium 1 % topical gel 1 ea topical BID 05/27/25 History ergocalciferol (vitamin D2) 1,250 50,000 unit PO WEEKL Y 01/20/22 05/27/25 History mcg (50,000 unit) capsule (Vitamin D2) multivit-minerals no.73-iron 1 cap PO DAILY 01/20/22 0 05/27/25 History fumarate 106 mg-folic acid 1 mg capsule fluticasone propionate 50 1 spray intranasal BID 11/2905/27/25 History mcg/actuation nasal spray,suspension linagliptin 5 mg tablet (Tradjenta) 5 mg PO DAILY 11/0305/27/25 History hydrocodone 5 mg-acetaminophen 325 1 tab PO Q6H PRN 05/27/25 History mg tablet pantoprazole 40 mg tablet,delayed 40 mg PO QDAY 05/27/25 History release insulin regular human 100 unit/mL See Rx Instructions .Route 07/17/24 05/27/25 History injection solution (Novolin R .COMPLEX PRN Regular U-100 Insulin) B [id number] 106 mg 1 tab PO QDAY 05/27/25 History iron-1 mg tablet Saccharomyces boulardii 250 mg 1,000 mg PO DAILY 05/2705/27/25 History capsule alprazolam 0.25 mg tablet 0.25 mg PO QTUTHSA 05/27/25 05/27/25 History amiodarone 200 mg tablet 200 mg PO DAILY 05/27/25 History apixaban 5 mg tablet (Eliquis) 5 mg PO BID 05/27/25 History clopidogrel 75 mg tablet 75 mg PO QDAY 05/27/2505/27 History donepezil 10 mg tablet (Aricept) 10 mg PO QHS 05/27/25 05/27/25 History furosemide 40 mg tablet 40 mg PO QDAY 05/27/2505/27 History insulin glargine 100 unit/mL (3 15 unit subcut DAILY 0 05/27/25 05/27/25 History mL) subcutaneous pen (Lantus Solostar U-100 Insulin) ipratropium bromide 0.02 % 1 mg inhalation Q8H PRN 05/27/25 History solution for inhalation levalbuterol HCl 1.25 mg/3 mL 1.25 mg inhalation Q8H P RN 05/27/25 05/27/25 History solution for nebulization lisinopril 20 mg tablet 20 mg PO QDAY 05/27/2505/27 History rosuvastatin 10 mg tablet 10 mg PO QPM 05/27/25 History tramadol 50 mg tablet 50 mg PO QDAY 05/27/2505/27 History Allergies Allergies Allergy/AdvReac Type Severity Reaction Status Date / Time Penicillins Allergy Mild hives Verified 05/27/25 10:14 [place] Allergy Unknown Verified 05/27/25 10:14 [place] Allergy Verified 05/27/25 10:14 Labs 05/27/25 18:53 05/27/25 18:53 Labs: Laboratory WBC 9.6 X10^3/uL (3.6-10.0) 05/27/25 18:53 RBC 3.56 X10^6/uL (3.5-5.4) 05/27/25 18:53 Hgb 10.0 g/dL (12.0-16.0) L 05/27/25 18:53 Hct 30.5 % (36.0-47.0) L 05/27/25 18:53 MCV 85.8 fL (80.0-100.0) 05/27/25 18:53 MCH 28.3 pg (27.0-34.0) 05/27/25 18:53 MCHC 32.9 g/dL (33.0-35.0) L 05/27/25 18:53 RDW 18.2 % (11.6-16.5) H 05/27/25 18:53 Plt Count 311 X10^3/uL (150.0-450.0) 05/27/25 18:53 MPV 8.4 fL (7.4-11.0) 05/27/25 18:53 Neut % (Auto) 77.8 % (42.0-75.0) H 05/27/25 18:53 Lymph % (Auto) 15.5 % (21.0-51.0) L 05/27/25 18:53 [place] % (Auto) 5.8 % (0.0-13.0) 05/27/25 18:53 Eos % (Auto) 0.3 % (0.9-2.9) L 05/27/25 18:53 Baso % (Auto) 0.6 % (0.2-1.0) 05/27/25 18:53 Neut # (Auto) 7.5 x10^3/uL (2.2-4.8) H 05/27/25 18:53 Lymph # (Auto) 1.5 X10^3/uL (1.3-2.9) 05/27/25 18:53 [place] # (Auto) 0.6 x10^3/uL (0.3-0.8) 05/27/25 18:53 Eos # (Auto) 0.0 x10^3/uL (0.0-0.2) 05/27/25 18:53 Baso # (Auto) 0.1 X10^3/uL (0.0-0.1) 05/27/25 18:53 Absolute Nucleated RBC 0.1 /100WBC 05/27/25 18:53 PT 20.0 SECONDS (11.8-14.3) 05/27/25 18:53 INR Target Range - 05/27/25 18:53 INR 1.69 (0.8-1.3) H 05/27/25 18:53 APTT 45.4 SECONDS (22.9-36.5) H 05/27/25 18:53 PTT Comment - 05/27/25 18:53 Sodium 141 mmol/L (136-145) 05/27/25 18:53 Corrected Sodium 142 mmol/L (136-145) 05/27/25 18:53 Potassium 3.2 mmol/L (3.5-5.1) L 05/27/25 18:53 Chloride 100 mmol/L (98-107) 05/27/25 18:53 Carbon Dioxide 33.7 mmol/L (21-32) H 05/27/25 18:53 BUN 20 mg/dL (7-18) H 05/27/25 18:53 Creatinine 2.24 mg/dL (0.55-1.02) H 05/27/25 18:53 Est GFR (MDRD) Af Amer 28 (>60) L 05/27/25 18:53 Est GFR (MDRD) Non-Af 23 (>60) L 05/27/25 18:53 Glucose 122 mg/dL (65-99) H 05/27/25 18:53 Calcium 8.8 mg/dL (8.5-10.1) 05/27/25 18:53 Corrected Calcium 10.3 mg/dL (8.5-10.1) H 05/27/25 18:53 Total Bilirubin 0.30 mg/dL (0.2-1.0) 05/27/25 18:53 AST 33 Units/L (15-37) 05/27/25 18:53 ALT 14 Units/L (12-78) 05/27/25 18:53 Alkaline Phosphatase 120 Units/L (46-116) H 05/27/25 18:53 Total Protein 6.8 g/dL (6.4-8.2) 05/27/25 18:53 Albumin 2.1 g/dL (3.4-5.0) L 05/27/25 18:53 Globulin 4.7 g/dL (2.5-4.5) H 05/27/25 18:53 Albumin/Globulin Ratio 0.4 Ratio (1.1-2.1) L 05/27/25 18:53 Blood Type A POSITIVE 05/27/25 18:53 Antibody Screen Negative 05/27/25 18:53 Review of Systems Constitutional: See HPI Eyes: No Symptoms Reported ENT: No Symptoms Reported Respiratory: See HPI Cardiovascular: See HPI Gastrointestinal: See HPI Genitourinary: No Symptoms Reported Musculoskeletal: No Symptoms Reported Skin: No Symptoms Reported Neurological: No Symptoms Reported Physical Exam Vital Signs: Vital Signs Temperature 97.4 F Pulse Rate 67 Pulse Rate 63 Pulse Rate 63 Pulse Rate 55 Pulse Rate 56 Pulse Rate 55 Pulse Rate 59 Pulse Rate 58 Pulse Rate 60 Pulse Rate 60 Pulse Rate 59 Pulse Rate 54 Pulse Rate 58 Pulse Rate 61 Pulse Rate 62 Pulse Rate 62 Pulse Rate 60 Pulse Rate 62 Pulse Rate 63 Pulse Rate 63 Pulse Rate 62 Respiratory Rate 24 Respiratory Rate 15 Respiratory Rate 17 Respiratory Rate 16 Respiratory Rate 17 Respiratory Rate 18 Respiratory Rate 18 Respiratory Rate 22 Respiratory Rate 24 Respiratory Rate 16 Respiratory Rate 18 Respiratory Rate 18 Respiratory Rate 18 Respiratory Rate 25 Respiratory Rate 20 Respiratory Rate 21 Respiratory Rate 18 Respiratory Rate 19 Respiratory Rate 20 Blood Pressure 148/115 Blood Pressure 157/67 Blood Pressure 156/69 Blood Pressure 162/71 Blood Pressure 179/63 Blood Pressure 145/91 Blood Pressure 174/72 O2 Sat by Pulse Oximetry 100 O2 Sat by Pulse Oximetry 100 O2 Sat by Pulse Oximetry 100 O2 Sat by Pulse Oximetry 98 O2 Sat by Pulse Oximetry 99 O2 Sat by Pulse Oximetry 99 O2 Sat by Pulse Oximetry 100 Oriented: Normal and Other (Patient resting comfortably. Most of the exam taken from the emergency room physicians examination) Eyes: Normal Ear: Normal Nose: Normal Throat: Normal Respiratory: Clear Throughout Cardiovascular: Other (History of atrial fibrillation but on physical exam appears to be in sinus rhythm) : Normal Auscultation: Bowel Sounds: Normal Palpation: Normal Tenderness: Normal Skin: Other (Had bleeding from left upper arm arteriovenous fistula access site. Now with minimal bleeding and still with good thrill in the fistula itself. Small hematoma over the area of the puncture.) Musculoskeletal: Normal (i do not know if she walks or not ) Psychiatric: Normal and Other (hx of dementia ) Mood Description: Calm (patient reesting ) Affect: Normal Speech Pattern: Clear Assessment/Plan (1) End stage chronic kidney disease: Status: Acute (2) Elevated partial thromboplastin time (PTT): Status: Acute (3) Bleeding: Status: Acute Plan: Bleeding from AV fistula site controlled with vitamin K and pressure. Fistula still with good thrill. Patient will be observed overnight will start all of her medications except her Eliquis which we held tonight and start again tomorrow. Continue Plavix tomorrow. If no further bleeding tomorrow will transfer back to the nursing home facility. 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: with [facility] use Qualified Code(s): E11.65 - Type 2 diabetes mellitus with hyperglycemia; Z79.4 - detention (current) use of insulin Status: Chronic (9) Hyperlipidemia: Qualifiers: Hyperlipidemia type: mixed hyperlipidemia Qualified Code(s): E78.2 - Mixed hyperlipidemia Status: Chronic (10) Hypertension: Status: Chronic (11) GERD (gastroesophageal reflux disease): Qualifiers: Esophagitis presence: esophagitis presence not specified Qualified Code(s): K21.9 - Gastro-esophageal reflux disease without esophagitis Status: Chronic (12) Gout: Qualifiers: Gout site: unspecified site Gout etiology: unspecified cause C hronicity: chronic Presence of tophus: without tophus Qualified Code(s): M [id number] - Chronic gout, unspecified, without tophus (tophi) Status: Chronic (13) Congestive heart failure: Status: Chronic
[2025-05-28 00:59] VITALS: BMI 25.5
[2025-05-28] MEDS: PHARMACY CONSULT LTC MEDICATIONS XX SCH (04:12)
[2025-05-28 05:09] LABS: MEAN PLATELET VOLUME 8.3 fL (7.4-11.0); RED CELL DISTRIBUTION WIDTH 18.2 % (11.6-16.5)
[2025-05-28 05:27] LABS: COR CA(FOR HYPOALB) 10.2 mg/dL (8.5-10.1); CREATININE 2.51 mg/dL (0.55-1.02); eGFR NON BLACK RACES 20 (>60)
[2025-05-28] MEDS: CONSULT PHARMACY - POTASSIUM & MAGNESIUM XX SCH (06:01)
[2025-05-28 08:17] VITALS: BP 112/55
[2025-05-28] MEDS ORDERED: ZESTRIL TAB 20 MG ONE (08:33)
[2025-05-28] MEDS: LASIX PO SCH (08:47)
[2025-05-28] MEDS: CORDARONE TAB 200 MG PO SCH (08:47)
[2025-05-28] MEDS: ZESTRIL TAB 20 MG PO SCH (08:48)
[2025-05-28] MEDS: PROTONIX TAB 40 MG PO SCH (08:48)
[2025-05-28] MEDS: ZYLOPRIM PO SCH (08:48)
[2025-05-28] MEDS: K-DUR TAB 20 MEQ PO ONE (08:49)
[2025-05-28] MEDS ORDERED: PLAVIX PO SCH (09:00)
[2025-05-28] MEDS ORDERED: ELIQUIS PO SCH (09:00)
[2025-05-28 09:02] VITALS: O2SAT 100
[2025-05-28 09:06] VITALS: TEMP 97.9
[2025-05-28 10:03] VITALS: PULSE 56; RESP 16
[2025-05-28] MEDS ORDERED: KLOR-CON 10 MEQ TAB PO ONE (11:00)
--- NOTE | 2025-05-28 15:31 | W.DIS.FURT ---
Summary of Discharge Discharge Summary of Date Date of Exam: 05/28/25 Admission Date Date of Admission: 05/27/25 Admission Diagnosis Patient Problems (Updated 05/27/25 @ 20:35 by Joey Mondragon) End stage chronic kidney disease (Acute) N18.6 Elevated partial thromboplastin time (PTT) (Acute) R79.1 Bleeding (Acute) R58 Hospital Course: This is a 74-year-old female currently resident at the local halfway facility who undergoes dialysis 3 times a week. After dialysis on the day of admission she had continued bleeding from the puncture of the arteriovenous fistula of the left upper arm. Patient is on Eliquis and Plavix for other medical problems. Patient had stable hemoglobin. She received vitamin K and pressure to the area and controlled the bleeding. She was admitted for observation overnight and had no further bleeding. This morning her vital signs are stable. Hemoglobin is decreased from admission to 8.4 g but is adequate. The fistula has good thrill in it. There is no further bleeding. She we discharged back to the skilled nurse facility and follow-up with me as needed. Vital Signs: Vital Signs (72 hours) 05/27/25 10:10 05/27/25 18:21 05/27/25 18:44 Temperature 97.4 F L Pulse Rate 62 63 Respiratory Rate 20 19 Blood Pressure 184/62 174/72 O2 Sat by Pulse Oximetry 100 99 Oxygen Delivery Method Room Air 05/27/25 18:45 05/27/25 19:00 05/27/25 19:04 Temperature Pulse Rate 63 62 60 Respiratory Rate 18 21 20 Blood Pressure O2 Sat by Pulse Oximetry 99 98 100 Oxygen Delivery Method 05/27/25 19:04 05/27/25 19:15 05/27/25 19:30 Temperature Pulse Rate 62 62 Respiratory Rate 25 H 18 Blood Pressure 145/91 O2 Sat by Pulse Oximetry 100 Oxygen Delivery Method 05/27/25 19:45 05/27/25 20:00 05/27/25 20:15 Temperature Pulse Rate 61 58 L 54 L Respiratory Rate 18 18 16 Blood Pressure O2 Sat by Pulse Oximetry Oxygen Delivery Method 05/27/25 20:29 05/27/25 20:29 05/27/25 20:30 Temperature Pulse Rate 59 L Respiratory Rate 24 Blood Pressure 179/63 162/71 O2 Sat by Pulse Oximetry Oxygen Delivery Method 05/27/25 20:30 05/27/25 20:45 05/27/25 21:00 Temperature Pulse Rate 60 60 58 L Respiratory Rate 22 18 18 Blood Pressure O2 Sat by Pulse Oximetry Oxygen Delivery Method 05/27/25 21:02 05/27/25 21:02 05/27/25 21:15 Temperature Pulse Rate 59 L 55 L Respiratory Rate 17 16 Blood Pressure 156/69 O2 Sat by Pulse Oximetry Oxygen Delivery Method 05/27/25 21:18 05/27/25 21:30 05/27/25 21:30 Temperature Pulse Rate 56 L Respiratory Rate 17 Blood Pressure 157/67 O2 Sat by Pulse Oximetry Oxygen Delivery Method Room Air 05/27/25 21:45 05/27/25 22:00 05/27/25 22:01 Temperature Pulse Rate 55 L 63 Respiratory Rate 15 24 Blood Pressure 148/115 O2 Sat by Pulse Oximetry Oxygen Delivery Method 05/27/25 22:01 05/27/25 22:34 05/27/25 22:34 Temperature 98.0 F Pulse Rate 63 62 Respiratory Rate 28 H Blood Pressure 165/60 O2 Sat by Pulse Oximetry 97 Oxygen Delivery Method 05/27/25 22:40 05/27/25 22:40 05/27/25 23:00 Temperature Pulse Rate 67 59 L Respiratory Rate 32 H Blood Pressure O2 Sat by Pulse Oximetry 100 100 Oxygen Delivery Method Room Air 05/27/25 23:05 05/27/25 23:05 05/28/25 00:25 Temperature Pulse Rate 60 57 L Respiratory Rate 39 H 16 Blood Pressure 133/56 O2 Sat by Pulse Oximetry 100 100 Oxygen Delivery Method 05/28/25 00:25 05/28/25 01:00 05/28/25 02:00 Temperature 98.1 F Pulse Rate 50 L 54 L Respiratory Rate 17 16 Blood Pressure 152/58 O2 Sat by Pulse Oximetry 100 100 Oxygen Delivery Method 05/28/25 03:00 05/28/25 03:49 05/28/25 03:49 Temperature Pulse Rate 61 60 Respiratory Rate 16 22 Blood Pressure 123/55 O2 Sat by Pulse Oximetry 99 98 Oxygen Delivery Method 05/28/25 04:00 05/28/25 04:01 05/28/25 04:01 Temperature 98.6 F Pulse Rate 61 61 Respiratory Rate 21 33 H Blood Pressure 102/52 O2 Sat by Pulse Oximetry 99 99 Oxygen Delivery Method 05/28/25 05:00 05/28/25 06:00 05/28/25 07:00 Temperature Pulse Rate 54 L 60 65 Respiratory Rate 17 23 Blood Pressure O2 Sat by Pulse Oximetry 100 99 97 Oxygen Delivery Method 05/28/25 07:00 05/28/25 08:00 05/28/25 08:00 Temperature Pulse Rate 67 Respiratory Rate Blood Pressure 112/55 O2 Sat by Pulse Oximetry 98 Oxygen Delivery Method Room Air 05/28/25 09:00 05/28/25 09:06 05/28/25 10:00 Temperature 97.9 F Pulse Rate 60 56 L Respiratory Rate 15 16 Blood Pressure O2 Sat by Pulse Oximetry 100 100 Oxygen Delivery Method Labs: Laboratory Last Values WBC 8.3 X10^3/uL (3.6-10.0) 05/28/25 04:23 RBC 2.95 X10^6/uL (3.5-5.4) L 05/28/25 04:23 Hgb 8.4 g/dL (12.0-16.0) L 05/28/25 04:23 Hct 25.4 % (36.0-47.0) L 05/28/25 04:23 MCV 85.9 fL (80.0-100.0) 05/28/25 04:23 MCH 28.4 pg (27.0-34.0) 05/28/25 04:23 MCHC 33.0 g/dL (33.0-35.0) 05/28/25 04:23 RDW 18.2 % (11.6-16.5) H 05/28/25 04:23 Plt Count 271 X10^3/uL (150.0-450.0) 05/28/25 04:23 MPV 8.3 fL (7.4-11.0) 05/28/25 04:23 Neut % (Auto) 71.1 % (42.0-75.0) 05/28/25 04:23 Lymph % (Auto) 18.6 % (21.0-51.0) L 05/28/25 04:23 [place] % (Auto) 7.3 % (0.0-13.0) 05/28/25 04:23 Eos % (Auto) 0.2 % (0.9-2.9) L 05/28/25 04:23 Baso % (Auto) 2.8 % (0.2-1.0) H 05/28/25 04:23 Neut # (Auto) 5.9 x10^3/uL (2.2-4.8) H 05/28/25 04:23 Lymph # (Auto) 1.5 X10^3/uL (1.3-2.9) 05/28/25 04:23 [place] # (Auto) 0.6 x10^3/uL (0.3-0.8) 05/28/25 04:23 Eos # (Auto) 0.0 x10^3/uL (0.0-0.2) 05/28/25 04:23 Baso # (Auto) 0.2 X10^3/uL (0.0-0.1) H 05/28/25 04:23 Absolute Nucleated RBC 0.1 /100WBC 05/28/25 04:23 PT 20.0 SECONDS (11.8-14.3) 05/27/25 18:53 INR Target Range - 05/27/25 18:53 INR 1.69 (0.8-1.3) H 05/27/25 18:53 APTT 45.4 SECONDS (22.9-36.5) H 05/27/25 18:53 PTT Comment - 05/27/25 18:53 Sodium 143 mmol/L (136-145) 05/28/25 04:23 Corrected Sodium TNP 05/28/25 04:23 Potassium 3.0 mmol/L (3.5-5.1) L 05/28/25 04:23 Chloride 102 mmol/L (98-107) 05/28/25 04:23 Carbon Dioxide 35.2 mmol/L (21-32) H 05/28/25 04:23 BUN 24 mg/dL (7-18) H 05/28/25 04:23 Creatinine 2.51 mg/dL (0.55-1.02) H 05/28/25 04:23 Est GFR (MDRD) Af Amer 24 (>60) L 05/28/25 04:23 Est GFR (MDRD) Non-Af 20 (>60) L 05/28/25 04:23 Glucose 61 mg/dL (65-99) L 05/28/25 04:23 Calcium 8.4 mg/dL (8.5-10.1) L 05/28/25 04:23 Corrected Calcium 10.2 mg/dL (8.5-10.1) H 05/28/25 04:23 Magnesium 2.0 mg/dL (2.0-2.9) 05/28/25 04:23 Total Bilirubin 0.30 mg/dL (0.2-1.0) 05/28/25 04:23 AST 18 Units/L (15-37) 05/28/25 04:23 ALT 7 Units/L (12-78) L 05/28/25 04:23 Alkaline Phosphatase 99 Units/L (46-116) 05/28/25 04:23 Total Protein 5.7 g/dL (6.4-8.2) L 05/28/25 04:23 Albumin 1.8 g/dL (3.4-5.0) L 05/28/25 04:23 Globulin 3.9 g/dL (2.5-4.5) 05/28/25 04:23 Albumin/Globulin Ratio 0.5 Ratio (1.1-2.1) L 05/28/25 04:23 Blood Type A POSITIVE 05/27/25 18:53 Antibody Screen Negative 05/27/25 18:53 Impression: Bleeding from AV fistula at puncture site. Now controlled. Increased risk of bleeding due to the fact she is on Eliquis and Plavix as well. 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 difficile colitis (Acute) Edema (Acute) Low serum albumin (Acute) Atrial fibrillation (Acute) Hypertensive heart disease (Acute) C. difficile diarrhea (Acute) Anemia (Acute) Vaginal candidiasis (Acute) Hypomagnesemia (Acute) Contusion of scalp (Acute) Contusion of neck (Acute) Trauma left hip (Acute) Diarrhea (Acute) Acute respiratory distress (Acute) Generalized weakness (Acute) DJD (degenerative joint disease) (Acute) Fall (Acute) Hip pain (Acute) Lumbar degenerative disc disease (Chronic) Contusion (Acute) Electrolyte abnormality (Acute) Gout (Acute) Fracture of clavicle (Acute) Sprain of left shoulder (Acute) Neck strain (Acute) Contusion of scalp (Acute) Foreign body sensation in throat (Acute) Head injury (Acute) Fall (Acute) Hematoma (Acute) Abscess or cellulitis of foot (Acute) Cellulitis of both lower extremities (Acute) Acute dehydration (Acute) Acute renal insufficiency (Acute) Fall (Acute) Gastroenteritis (Acute) Urinary tract infection (Acute) Left knee pain (Acute) Left leg pain (Acute) Aspiration pneumonia (Acute) Altered mental status (Acute) Hypoglycemia (Acute) Diabetes mellitus, type 2 (Chronic) History of anemia (Chronic) Anxiety (Chronic) History of seizures (Chronic) Hyperlipidemia (Chronic) Hypertension (Chronic) GERD (gastroesophageal reflux disease) (Chronic) Arthritis (Chronic) Gout (Chronic) Depression (Chronic) Congestive heart failure (Chronic) Plan of Treatment: Continue with present treatment and follow up plan. Pt is to keep follow up appointment as instructed and take medications as ordered. Discharge Medications Discharge Medications: Penicillins Allergy (Mild, Verified 05/27/25 10:14) hives black walnut Allergy (Unknown, Verified 05/27/25 10:14) walnut Allergy (Verified 05/27/25 10:14) CONTINUE taking the following medications B [id number] 106 mg iron-1 mg tablet 1 tab PO QDAY 05/27/25 [History] Saccharomyces boulardii 250 mg capsule 1,000 mg PO DAILY 05/27/25 [History] donepezil 10 mg tablet (Aricept) 10 mg PO QHS 05/27/25 [History] furosemide 40 mg tablet 40 mg PO QDAY 05/27/25 [History] levalbuterol HCl 1.25 mg/3 mL solution for nebulization 1.25 mg inhalation Q8H PRN 05/27/25 [History] tramadol 50 mg tablet 50 mg PO QDAY 05/27/25 [History] Discharge Disposition Assessment: see hospital course Discharge Plan Discharge Plan Hospital Course: This is a 74-year-old female currently resident at the local halfway facility who undergoes dialysis 3 times a week. After dialysis on the day of a dmission she had continued bleeding from the puncture of the arteriovenous fistula of the left upper arm. Patient is on Eliquis and Plavix for other medical problems. Patient had stable hemoglobin. She received vitamin K and pressure to the area and controlled the bleeding. She was admitted for observation overnight and had no further bleeding. This morning her vital signs are stable. Hemoglobin is decreased from admission to 8.4 g but is adequate. The fistula has good thrill in it. There is no further bleeding. She we discharged back to the skilled nurse facility and follow-up with me as needed. Patient Disposition: SNF Condition: Stable Health Concerns: Post Hospitalization: new medications and changes needed to prevent readmission or further decline. Pt educated and given instructions on all concerns. Care Plan Goals: Problem: Pain/Alteration in Comfort Goal: Improve/ Resolve Pain; Achieve Pain Tolerance Instructions: Take pain medications as prescribed. Contact your primary care provider if your pain is unrelieved or worsens. Follow up with primary care provider as directed. Plan of Treatment: Continue with present treatment and follow up plan. Pt is to keep follow up appointment as instructed and take medications as ordered. Assessment: see hospital course Prescriptions: Continued amiodarone 200 mg tablet 200 mg PO DAILY lisinopril 20 mg tablet 20 mg PO QDAY clopidogrel 75 mg tablet 75 mg PO QDAY alprazolam 0.25 mg tablet 0.25 mg PO QTUTHSA Rx Instructions: GIVE PRIOR TO DIALYSIS ipratropium bromide 0.02 % solution 1 mg inhalation Q8H PRN Patient Comments: [NO ORIGINAL SIG] rosuvastatin 10 mg tablet 10 mg PO QPM insulin glargine [Lantus Solostar U-100 Insulin] 100 unit/mL (3 mL) insulin pen 15 unit subcut DAILY Patient Comments: [NO ORIGINAL SIG] Eliquis 5 mg tablet 5 mg PO BID allopurinol 100 mg tablet 100 mg PO DAILY diclofenac sodium 1 % Gel 1 ea TOPICAL BID Rx Instructions: Apply to left and right foot mv-mins no.73-iron fum-folic 106 mg iron- 1 mg Capsule 1 cap PO DAILY ergocalciferol (vitamin D2) [Vitamin D2] 1,250 mcg (50,000 unit) Capsule 50,000 unit PO WEEKLY Rx Instructions: given every Monday donepezil [Aricept] 10 mg Tablet 10 mg PO QHS tramadol 50 mg tablet 50 mg PO QDAY levalbuterol HCl 1.25 mg/3 mL Solution For Nebulization 1.25 mg INHALATION Q8H PRN B [id number] 106 mg iron- 1 mg Tablet 1 tab PO QDAY Saccharomyces boulardii 250 mg Capsule 1,000 mg PO DAILY furosemide 40 mg tablet 40 mg PO QDAY fluticasone propionate 50 mcg/actuation [place],Suspension 1 spray INTRANASAL BID Tradjenta 5 mg Tablet 5 mg PO DAILY hydrocodone-acetaminophen 5-325 mg tablet 1 tab PO Q6H PRN metoprolol tartrate 25 mg tablet 25 mg PO BID Qty: 0 0RF pantoprazole 40 mg tablet,delayed release (DR/EC) 40 mg PO QDAY Novolin R Regular U100 Insulin 100 unit/mL solution See Rx Instructions .ROUTE .COMPLEX PRN Rx Instructions: sliding scale Orders to Discharge Patient Discharge Orders: Discharge (Routine); Ordered 05/28/25 Ordered By: David Loo Instructions Print Language: LIBYAN
[2025-05-28] MEDS ORDERED: SNACK - Diabetic Appropriate PO SCH (20:00)
[2025-05-28] MEDS ORDERED: CRESTOR TAB 10 MG PO SCH (21:00)
[2025-05-28] MEDS ORDERED: ARICEPT TAB 10 MG PO SCH (21:00)
[2025-05-28] MEDS ORDERED: LANTUS SC SCH (22:00)
== END 2025-05-28 11:08 ==
LOC: ER 18:19 → ICU 18:19
PROVIDERS: ADMIT Surgery; ATTEND Surgery
DX: L89.619 Pressure ulcer of right heel, unspecified stage; L89.629 Pressure ulcer of left heel, unspecified stage; I50.9 Heart failure, unspecified; E11.22 Type 2 diabetes mellitus with diabetic chronic kidney disease; M1A.9XX0 Chronic gout, unspecified, without tophus (tophi); N18.6 End stage renal disease; I13.2 Hypertensive heart and chronic kidney disease with heart failure and with stage 5 chronic kidney disease, or end stage renal disease; E11.65 Type 2 diabetes mellitus with hyperglycemia; D64.89 Other specified anemias; R79.1 Abnormal coagulation profile; E78.2 Mixed hyperlipidemia; L89.154 Pressure ulcer of sacral region, stage 4; E87.6 Hypokalemia; Z99.2 Dependence on renal dialysis; Z79.01 Long term (current) use of anticoagulants; R94.4 Abnormal results of kidney function studies; Z79.4 Long term (current) use of insulin; K21.9 Gastro-esophageal reflux disease without esophagitis; T82.838A Hemorrhage due to vascular prosthetic devices, implants and grafts, initial encounter; I48.91 Unspecified atrial fibrillation